=== PATIENT | female | born 1945 | race Caucasian/White ===

== ENCOUNTER 2019-04-04 00:10 | Day surgery (SDC) | payer OTHER, SELFPAY ==
[2019-03-30 13:23] VITALS: BMI 31.2
--- NOTE | 2019-04-02 13:16 | WPDANESEPP ---
Anes - Eval Pre Procedure Procedure: Operation Date: 04/04/19 08:00 Proposed Procedures p Esophagogastroduodenoscopy & Colonoscopy - Bryce Rossi MD Date/Time: 04/02/19 13:16 Surgeon: Moira Rossi Pre Op Diagnosis: Iron Deficiency Anemia Patient Data Age: 73 Gender: F Height: 5 ft 3 in Weight: 80 kg Allergies Allergy/AdvReac Type Severity Reaction Status Date / Time No Known Allergies Allergy Unknown Unverified 04/27/18 15:45 Home Medications Medication Instructions Recorded Confirmed Type insulin syringe-needle U-100 1 mL #10 each 12/28/18 04/01/19 Rx 31 gauge x /16 atorvastatin 10 mg tablet 5 mg PO DAILY tablet 01/18/19 04/01/19 History cetirizine 10 mg tablet 5 mg PO DAILY PRN 01/18/19 04/01/19 History cholecalciferol (vitamin D3) 50 2,000 unit PO DAILY 01/18/19 04/01/19 History mcg (2,000 unit) tablet fluticasone propionate 50 2 spray NASAL DAILY 01/18/19 04/01/19 History mcg/actuation nasal spray,suspension folic acid 1 mg tablet 1 mg PO DAILY 01/18/19 04/01/19 History hydroxychloroquine 200 mg tablet 200 mg PO DAILY 01/18/19 04/01/19 History insulin NPH isoph U-100 human 100 10 unit SUB-Q BID 01/18/19 04/01/19 History unit/mL subcutaneous suspension insulin regular human 100 unit/mL 5 unit SUB-Q TID 01/18/19 04/01/19 History injection solution metformin 1,000 mg tablet 1,000 mg PO BID 01/18/19 04/01/19 History methotrexate sodium 2.5 mg tablet 7.5 mg PO WEEKLY tablet 01/18/19 04/01/19 History metoprolol tartrate 50 mg tablet 100 mg PO BID 01/18/19 04/01/19 History omeprazole 40 mg capsule,delayed 40 mg PO DAILY 01/18/19 04/01/19 History release blood sugar diagnostic #300 each 02/15/19 04/01/19 Rx alendronate 70 mg tablet 70 mg PO WEEKLY #4 tablet 03/10/19 04/01/19 Rx aspirin 81 mg PO DAILY 03/30/19 04/01/19 History docusate sodium [Dulcolax Stool 100 mg PO DAILY 03/30/19 04/01/19 History Softener (dss)] warfarin 5 mg PO DIRECTED 03/30/19 04/01/19 History [id number] 350 cap PO QPM 04/01/19 04/01/19 History Hgb 8.6 ECG: last ecg 09/05/15 Atrial Fib, rate 67, pt anticoagulated Other Studies: 02/03/19 Echo doppler :Summary 1. Left ventricular systolic function is normal, estimated at 55-60%. 2. There is no increased left ventricular wall thickness. 3. The left ventricular diastolic function is indeterminate. 4. E/e' 8.0 is normal. 5. Left atrial chamber dimension is mildly enlarged. 6. Right atrial chamber dimension is mildly enlarged. 7. There is no aortic valve stenosis. 8. There is mild mitral valve regurgitation. 9. Mild mitral annular calcification. 10. There is moderate tricuspid valve regurgitation. 11. Mild pulmonary hypertension PA systolic pressure 41 mmHg. : patient denies Patient hx anesthesia problems: none Family hx anesthesia problems: none [facility] Surgical History Surgical History (Updated 04/02/19 @ 13:16 by Jade Anderson CRNA) History of appendectomy Hx of cholecystectomy Hx of tonsillectomy Social History Social History Years smoked: 49 Smoking status: Former smoker Smoking end date: 02/23/07 Alcohol intake: never Gender identity (if verbalized by the patient): Female Spiritual care concerns: No Exam Day of Procedure 04/02/19 13:16
--- NOTE | 2019-04-04 07:07 | PM.HPGS ---
History of Present Illness History of Present Illness Consent: Risks, benefits, and alternatives have been discussed and questions answered. Patient agrees to proceed with procedure. Chief complaint: Iron Deficiency Anemia Narrative: Milo Ramírez is a 73 year old female with iron deficiency anemia. She has a history of colon polyps. She has been found to be anemic with hemoglobin 8.6. She has received 2 iron infusions so far. [facility] Surgical History Surgical History History of appendectomy Hx of cholecystectomy Hx of tonsillectomy Social History Social History Years smoked: 49 Smoking status: Former smoker Smoking end date: 02/23/07 Alcohol intake: never Gender identity (if verbalized by the patient): Female Spiritual care concerns: No Meds Home Medications and Allergies Home Medications Medication Instructions Recorded Confirmed Type insulin syringe-needle U-100 1 mL #10 each 12/28/18 04/01/19 Rx 31 gauge x 5/16 atorvastatin 10 mg tablet 5 mg PO DAILY tablet 01/18/19 04/01/19 History cetirizine 10 mg tablet 5 mg PO DAILY PRN 01/18/19 04/01/19 History cholecalciferol (vitamin D3) 50 2,000 unit PO DAILY 01/18/19 04/01/19 History mcg (2,000 unit) tablet fluticasone propionate 50 2 spray NASAL DAILY 01/18/19 04/01/19 History mcg/actuation nasal spray,suspension folic acid 1 mg tablet 1 mg PO DAILY 01/18/19 04/01/19 History hydroxychloroquine 200 mg tablet 200 mg PO DAILY 01/18/19 04/01/19 History insulin NPH isoph U-100 human 100 10 unit SUB-Q BID 01/18/19 04/01/19 History unit/mL subcutaneous suspension insulin regular human 100 unit/mL 5 unit SUB-Q TID 01/18/19 04/01/19 History injection solution metformin 1,000 mg tablet 1,000 mg PO BID 01/18/19 04/01/19 History methotrexate sodium 2.5 mg tablet 7.5 mg PO WEEKLY tablet 01/18/19 04/01/19 History metoprolol tartrate 50 mg tablet 100 mg PO BID 01/18/19 04/01/19 History omeprazole 40 mg capsule,delayed 40 mg PO DAILY 01/18/19 04/01/19 History release blood sugar diagnostic #300 each 02/15/19 04/01/19 Rx alendronate 70 mg tablet 70 mg PO WEEKLY #4 tablet 03/10/19 04/01/19 Rx aspirin 81 mg PO DAILY 03/30/19 04/01/19 History docusate sodium [Dulcolax Stool 100 mg PO DAILY 03/30/19 04/01/19 History Softener (dss)] warfarin 5 mg PO DIRECTED 03/30/19 04/01/19 History [id number]-[id number]-[id number]-gnyqvq 350 cap PO QPM 04/01/19 04/01/19 History Allergies Allergy/AdvReac Type Severity Reaction Status Date / Time No Known Allergies Allergy Unknown Unverified 04/04/19 06:57 Exam Const: General: alert Orientation/consciousness: patient oriented x3 Resp: Auscultation: clear to auscultation bilaterally Cardio: Rhythm: regular rhythm GI: GI Palp: Yes Soft to palpation and No Tenderness to palpation present (GI) Neuro: General: patient oriented x3 Assessment and Plan Assessment and plan (1) Iron deficiency anemia: Code(s): D50.9 - Iron deficiency anemia, unspecified Status: Acute Assessment and Plan: Colonoscopy with possible biopsy or polypectomy or cautery or injection of substances.EGD with possible biopsy or dilatation or cautery.
[2019-04-04 07:19] LABS: Glucose Point of Care 116 (65-105)
[2019-04-04 07:21] VITALS: BP 141/63; PULSE 99; RESP 16; TEMP 36.3; O2SAT 100
[2019-04-04] MEDS: LACTATED RINGERS 1,000 ML 150 ML IV CONT (07:23)
--- NOTE | 2019-04-04 07:31 | P.PNAN_ITS ---
Anes - Eval Final PreProcedure Day of Procedure 04/04/19 07:31 Patient weight: obese Heart: regular rate and rhythm Lungs: clear to auscultation Airway: Mallampati scale class II Neurological: alert and oriented Last oral intake: >/= 8 hours ASA classification: III Emergent: no Anesthetic plan: proceed Anesthesia type and monitoring: general GIVS and standard monitoring Informed Consent: The patient's anesthetic plan and its attendant risks and b enefits were discussed with the patient/family/POA. Questions were solicited and answers provided to the satisfaction of the patient/family/POA.
[2019-04-04 08:16] VITALS: BP 113/75; PULSE 95; RESP 19; O2SAT 100
[2019-04-04 08:26] VITALS: BP 129/75; PULSE 97; RESP 24; O2SAT 100
[2019-04-04 08:28] LABS: Glucose Point of Care 109 (65-105)
[2019-04-04 08:36] VITALS: BP 120/65; PULSE 98; RESP 19; O2SAT 98
== END 2019-04-04 08:44 | disposition home or self-care (01) ==
PROVIDERS: PCP Internal Medicine; Visit Provider Internal Medicine Gastroenterology
PROC: 0DJ08ZZ Inspection of Upper Intestinal Tract, Via Natural or Artificial Opening Endoscopic (ICD-10-PCS; CPT 43235; principal; 2019-04-04 08:00)
DX: D50.9 Iron deficiency anemia, unspecified (principal); K57.30 Diverticulosis of large intestine without perforation or abscess without bleeding; K21.9 Gastro-esophageal reflux disease without esophagitis; Z79.4 Long term (current) use of insulin; Z79.84 Long term (current) use of oral hypoglycemic drugs; Z79.01 Long term (current) use of anticoagulants; Z79.82 Long term (current) use of aspirin; Z87.891 Personal history of nicotine dependence; Z86.010 Personal history of colon polyps; E66.9 Obesity, unspecified; Z68.30 Body mass index [BMI] 30.0-30.9, adult
CPT/HCPCS: 45378; 43235; J2704; J7120

== ENCOUNTER 2019-04-25 09:24 | Emergency (ER) | payer OTHER, SELFPAY ==
--- NOTE | ~2019-04-25 | CT_ITS ---
EXAMINATION: CT facial & cervical spine wo DATE: 04/25/2019 10:41 INDICATION: Face and neck injury. Fall. TECHNIQUE: Computed tomography (CT) of the maxillofacial region and cervical spine was performed with out intravenous contrast. Automated exposure control and iterative reconstruction technique were empl oyed. The dose-length product was 451.62 mGy-cm. COMPARISON: None FINDINGS: MAXILLOFACIAL CT: There is frontal scalp soft tissue swelling. There is a nondisplaced fracture of the right nasal bone . There is mild mucosal thickening in the maxillary sinuses. There is a small left mastoid effusion. There are likely changes of ocular lens replacement surgeries. CERVICAL SPINE CT: There is an 8 mm nodule in left thyroid lobe, likely not clinically significant. There is kyphosis of cervical spine. Vertebral body heights are normal. There is moderately decreased disc height at C4-C 5 and mildly decreased disc height at C5-C6 and C6-C7. The following levels are discussed in more det ail: C2-C3: There is no uncovertebral joint osteoarthritis. There is severe right and moderate left facet joint osteoarthritis. There is mild right neural foraminal stenosis. There is no central canal stenos is. C3-C4: There is no uncovertebral joint osteoarthritis. There is severe bilateral facet joint osteoart hritis. There is mild bilateral neural foraminal stenosis. There is no central canal stenosis. C4-C5: There is severe right and moderate left uncovertebral joint osteoarthritis. There is moderate right and severe left facet joint osteoarthritis. There is mild bilateral neural foraminal stenosis. There is mild central canal stenosis. C5-C6: There is mild bilateral uncovertebral joint osteoarthritis. There is moderate bilateral facet joint osteoarthritis. There is mild right neural foraminal stenosis. There is mild central canal sten osis. C6-C7: There is mild left uncovertebral joint osteoarthritis. There is severe right and moderate left facet joint osteoarthritis. There is mild right neural foraminal stenosis. There is mild central can al stenosis. C7-T1: There is no uncovertebral joint osteoarthritis. There is mild right and moderate left facet nita int osteoarthritis. There is no neural foraminal stenosis. There is no central canal stenosis. IMPRESSION: 1. Right nasal bone fracture. 2. Moderate cervical spondylosis. Reviewed, dictated and finalized at location A. NING EQUIPMENT OPERATOR
--- NOTE | ~2019-04-25 | XR_ITS ---
EXAMINATION: XR wrist LT min 3V DATE: 04/25/2019 10:44 INDICATION: Left wrist pain. Fall. TECHNIQUE: 4 views of left wrist were obtained. COMPARISON: Left wrist radiographs 04/27/2018 FINDINGS: Bone alignment is normal. No fracture. There is moderate osteoarthritis of radioscaphoid nita int and mild osteoarthritis of first carpometacarpal joint and first interphalangeal joint. IMPRESSION: 1. Polyarticular osteoarthritis. Reviewed, dictated and finalized at location A. RITY OPERATIONS SPECIALIST
--- NOTE | ~2019-04-25 | CT_ITS ---
EXAMINATION: CT brain wo con DATE: 04/25/2019 10:40 INDICATION: Status post fall. Headache. TECHNIQUE: Computed tomography (CT) of the head was performed without intravenous contrast. The dose- length product was 605.33 mGy-cm.The mA was adjusted according to patient size. Iterative reconstruct ion technique was employed. COMPARISON: None FINDINGS: No acute intracranial hemorrhage, infarction, mass or mass effect. There is a chronic left parietal infarction. There are scattered mild periventricular and subcortical white matter changes, m ost likely related to small vessel ischemic disease (microangiopathy). No ventriculomegaly or midline shift. There is a prominent perivascular space right basal ganglia. There is soft tissue swelling an teriorly at the orbital level. No underlying skull fracture is identified. Paranasal sinuses and righ t mastoid air cells are pneumatized. There is a left mastoid effusion. IMPRESSION: 1. No acute intracranial abnormality. 2: Chronic left parietal infarction. 3: Chronic age-related findings. 4: Frontal scalp hematoma without evidence for underlying skull fracture. Reviewed, dictated and finalized at location B. WASHER TENDER
[2019-04-25 09:28] VITALS: BP 146/66; PULSE 87; RESP 16; TEMP 36.8; O2SAT 100
--- NOTE | 2019-04-25 09:33 | ECG_ITS ---
Measurements Intervals [place] Rate: 87 P: MA: 0 QRS: -35 QRSD: 129 T: 5 QT: 383 QTc: 462 Interpretive Statements ATRIAL FIBRILLATION LEFT AXIS DEVIATION RIGHT BUNDLE BRANCH BLOCK ABNORMAL ECG Electronically Signed On 04-25-2019 16:19:41 ORAL THERAPIST by Aly Alberto D.O.
[2019-04-25 09:38] VITALS: PULSE 85
[2019-04-25 09:50] LABS: Basophils Absolute Auto 0.1 K/mm3 (0.0-0.1); Basophils Percent Auto 0.7 % (0.2-1.2); Eosinophils Absolute Auto 0.1 K/mm3 (0-0.3); Eosinophils Percent Auto 0.8 % (0-4.4); Hematocrit 39.4 % (37.0-47.0); Hemoglobin 11.6 g/dL (12.0-15.0); Immature Granulocyte Absolute 0.03 K/mm3 (0.00-0.031); Immature Granulocyte Percent A 0.3 % (0-0.5); Lymphocytes Absolute Auto 1.26 K/mm3 (0.9-3.2); Lymphocytes Percent Auto 12.8 % (18.3-44.2); Mean Corpuscular HGB Conc 29.4 g/dl (32-36); Mean Corpuscular Volume 88.1 fl (80-100); Mean Platelet Volume 8.8 fl (7.4-10.4); Monocytes Absolute Auto 0.5 K/mm3 (0.1-0.6); Monocytes Percent Auto 5.2 % (2.6-8.5); Neutrophils Absolute Auto 7.9 K/mm3 (1.3-6.7); Neutrophils Percent Auto 80.2 % (45.5-73.1); Platelet Count Result 247 k/mm3 (150-375); Red Blood Count 4.47 M/mm3 (4.2-5.4); White Blood Count 9.8 K/mm3 (4.5-10.0)
[2019-04-25 10:02] LABS: Blood Urea Nitrogen 13 mg/dL (7-17); Calcium 8.5 mg/dL (8.4-10.2); Carbon Dioxide 28 mmol/L (22-30); Chloride 101 mmol/L (98-107); Estimated CRCL calculation 61 ml/min; Estimated Glomerular Filt Rate > 60; Glucose 81 mg/dL (65-105); Potassium 4.8 mmol/L (3.4-5.0); Sodium 139 mmol/L (137-145)
--- NOTE | 2019-04-25 10:06 | ED.SYNCOPE ---
HPI - Syncope General Chief Complaint: Syncope Stated Complaint: Think I broke my nose. Time Seen by Provider: 04/25/19 10:02 Source: patient and RN notes reviewed Mode of arrival: ambulatory Limitations: no limitations History of Present Illness HPI narrative: A 73 y/o female presents to the ED Related Data Home Medications Medication Instructions Recorded Confirmed atorvastatin 10 mg tablet 5 mg PO DAILY tablet 01/18/19 04/01/19 cetirizine 10 mg tablet 5 mg PO DAILY PRN 01/18/19 04/01/19 cholecalciferol (vitamin D3) 50 2,000 unit PO DAILY 01/18/19 04/01/19 mcg (2,000 unit) tablet folic acid 1 mg tablet 1 mg PO DAILY 01/18/19 04/01/19 hydroxychloroquine 200 mg tablet 200 mg PO DAILY 01/18/19 04/01/19 insulin NPH isoph U-100 human 100 10 unit SUB-Q BID 01/18/19 04/01/19 unit/mL subcutaneous suspension insulin regular human 100 unit/mL 5 unit SUB-Q TID 01/18/19 04/01/19 injection solution methotrexate sodium 2.5 mg tablet 7.5 mg PO WEEKLY tablet 01/18/19 04/01/19 metoprolol tartrate 50 mg tablet 100 mg PO BID 01/18/19 04/01/19 aspirin 81 mg PO DAILY 03/30/19 04/01/19 docusate sodium [Dulcolax Stool 100 mg PO DAILY 03/30/19 04/01/19 Softener (dss)] warfarin 5 mg PO DIRECTED 03/30/19 04/01/19 [id number]-[id number]-[id number]-[id number] 350 cap PO QPM 04/01/19 04/01/19 Allergies Allergy/AdvReac Type Severity Reaction Status Date / Time No Known Allergies Allergy Unknown Unverified 04/04/19 06:57 [facility] Social History Social History Years smoked: 49 Smoking status: Former smoker Smoking end date: 02/23/07 Alcohol intake: never Gender identity (if verbalized by the patient): Female Spiritual care concerns: No Course Vital Signs Vital signs: Vital Signs Temperature 98.3 F 04/25/19 09:28 Pulse Rate 87 03/02/20 09:28 Respiratory Rate 16 04/25/19 09:28 Blood Pressure 146/66 H 04/25/19 09:28 Pulse Oximetry 100 04/25/19 09:28 Temperature 98.3 F 04/25/19 09:28 Pulse Rate 85 04/25/19 09:38 Respiratory Rate 16 04/25/19 09:28 Blood Pressure 146/66 H 04/25/19 09:28 Pulse Oximetry 100 04/25/19 09:28 MDM - Syncope Lab Data Result diagrams: 04/25/19 09:45 04/25/19 09:45 Labs: Lab Results 04/25/19 04/25/19 Range/Units 09:45 09:45 WBC Pending RBC Pending Hgb Pending Hct Pending MCV Pending MCH Pending MCHC Pending RDW Pending Plt Count Pending MPV Pending Immature Gran % (Auto) Pending Neut % (Auto) Pending Lymph % (Auto) Pending [place] % (Auto) Pending Eos % (Auto) Pending Baso % (Auto) Pending Lymph # (Auto) Pending [place] # (Auto) Pending Eos # (Auto) Pending Baso # (Auto) Pending Abs Immat Gran (auto) Pending Absolute Neuts (auto) Pending Absolute Nucleated RBC Pending Nucleated RBC % Pending Sodium 139 (137-145) mmol/L Potassium 4.8 (3.4-5.0) mmol/L Chloride 101 (98-107) mmol/L Carbon Dioxide 28 (22-30) mmol/L BUN 13 D (7-17) mg/dL Creatinine 0.70 (0.7-1.0) mg/dL Estim Creat Clear Calc 61 ml/min Estimated GFR > 60 (59 - ) Glucose 81 (65-105) mg/dL Calcium 8.5 (8.4-10.2) mg/dL Discharge Plan Discharge Prescriptions: No Action [id number]-[id number]-[id number]-[id number] 425-67-37-50 mg Capsule 350 cap PO QPM RF: 0 Novolin N NPH U-100 Insulin 100 unit/mL suspension 10 unit SUB-Q BID RF: 0 Novolin R Regular U-100 Insuln 100 unit/mL solution 5 unit SUB-Q TID RF: 0 atorvastatin 10 mg tablet 5 mg PO DAILY RF: 0 folic acid 1 mg tablet 1 mg PO DAILY RF: 0 hydroxychloroquine 200 mg tablet 200 mg PO DAILY RF: 0 methotrexate sodium 2.5 mg tablet 7.5 mg PO WEEKLY RF: 0 metoprolol tartrate 50 mg tablet 100 mg PO BID RF: 0 cetirizine [Zyrtec] 10 mg tablet 5 mg PO DAILY PRN (Reason: Allergic Symptoms) RF:
[2019-04-25 10:10] LABS: Platelet Estimate Adequate (Adequate)
[2019-04-25 10:11] LABS: Hypochromasia 1+ (NORMAL); Ovalocytes 1+ (NORMAL); Poikilocytosis 2+ (NORMAL); Stomatocytes 1+ (NORMAL)
--- NOTE | 2019-04-25 10:16 | ED.FALL ---
HPI - Fall General Chief Complaint: Syncope Stated Complaint: Think I broke my nose. Time Seen by Provider: 04/25/19 10:02 History of Present Illness HPI Narrative: A 73 y/o female presents to the ED after having a ground level fall last night. She states that she got up to use the restroom last night when she became lightheaded and fell face first onto the ground. She reports nasal pain, lt wrist pain, and neck pain. She notes that she is currently on Warfarin. She denies any LOC, back pain, visual changes, CP, SOB, N/V/D, or ABD pain. MD complaint: fall Onset (ago): hour(s) (last night) Fall from: standing Fall witnessed: no Place fall occurred: home Loss of consciousness: none Symptoms prior to fall: lightheadedness Location of injury: face (nose), neck and other (lt wrist) Associated symptoms (after fall): denies Related Data Home Medications Medication Instructions Recorded Confirmed atorvastatin 10 mg tablet 5 mg PO DAILY tablet 01/18/19 04/01/19 cetirizine 10 mg tablet 5 mg PO DAILY PRN 01/18/19 04/01/19 cholecalciferol (vitamin D3) 50 2,000 unit PO DAILY 01/18/19 04/01/19 mcg (2,000 unit) tablet folic acid 1 mg tablet 1 mg PO DAILY 01/18/19 04/01/19 hydroxychloroquine 200 mg tablet 200 mg PO DAILY 01/18/19 04/01/19 insulin NPH isoph U-100 human 100 10 unit SUB-Q BID 01/18/19 04/01/19 unit/mL subcutaneous suspension insulin regular human 100 unit/mL 5 unit SUB-Q TID 01/18/19 04/01/19 injection solution methotrexate sodium 2.5 mg tablet 7.5 mg PO WEEKLY tablet 01/18/19 04/01/19 metoprolol tartrate 50 mg tablet 100 mg PO BID 01/18/19 04/01/19 aspirin 81 mg PO DAILY 03/30/19 04/01/19 docusate sodium [Dulcolax Stool 100 mg PO DAILY 03/30/19 04/01/19 Softener (dss)] warfarin 5 mg PO DIRECTED 03/30/19 04/01/19 [id number]-wqoxuo 350 cap PO QPM 04/01/19 04/01/19 Allergies Allergy/AdvReac Type Severity Reaction Status Date / Time No Known Allergies Allergy Unknown Unverified 04/04/19 06:57 Review of Systems Review of Systems: All systems reviewed & are unremarkable except as noted in HPI and below Eyes: Eyes: Denies change in vision ENT: Reports nose pain Cardiovascular: Cardiovascular: Denies chest pain Respiratory: Respiratory: Denies dyspnea Gastrointestinal: Gastrointestinal: Denies abdominal pain, Denies diarrhea, Denies nausea and Denies vomiting Musculoskeletal: Musculoskeletal: Denies back pain, Reports neck pain and Reports other (lt wrist pain) Neurologic: Denies other (LOC) [facility] Past Medical History Medical History Atrial fibrillation Carpal tunnel syndrome of left wrist VEGAS (dyspnea on exertion) Essential (primary) hypertension GERD without esophagitis H/O: HTN (hypertension) History of tobacco use Hx of rotator cuff tear Hypercholesteremia Iron deficiency anemia Mixed hyperlipidemia Peripheral neuropathy Primary osteoarthritis involving multiple joints Rheumatoid arthritis Right cervical radiculopathy Screening for breast cancer Shingles Type 2 diabetes mellitus with diabetic polyneuropathy, with long-term current use of insulin Vitamin D deficiency Surgical History Surgical History History of appendectomy Hx of cholecystectomy Hx of rotator cuff surgery Hx of tonsillectomy Social History Social History Years smoked: 49 Smoking status: Former smoker Smoking end date: 02/23/07 Alcohol intake: never Gender identity (if verbalized by the patient): Female Spiritual care concerns: No Exam Const: General: healthy appearing and no acute distress Nutritional Appearance: well nourished HENMT: Face and sinus: ecchymosis (diffuse over the nose and maxilla XIAO), edema (diffuse over the nose and maxilla XIAO) and other (nasal bones seem to be mobile) Mouth: Yes lip normal and Yes moist mucous membranes Eyes: Conjun
[2019-04-25 11:16] VITALS: BP 151/83; PULSE 86; RESP 19; O2SAT 97
[2019-04-25 11:17] LABS: INR 2.5; Prothrombin Time 26.5 Seconds (11.1-14.7)
[2019-04-25 12:07] VITALS: BP 139/70; PULSE 83; RESP 18; O2SAT 100
== END 2019-04-25 12:10 | disposition home or self-care (01) ==
PROVIDERS: Emergency Medicine; Emergency Provider Emergency Medicine; PCP Internal Medicine
DX: S02.2XXA Fracture of nasal bones, initial encounter for closed fracture (principal); S01.20XA Unspecified open wound of nose, initial encounter; I48.91 Unspecified atrial fibrillation; Z79.01 Long term (current) use of anticoagulants; I10 Essential (primary) hypertension; E78.2 Mixed hyperlipidemia; E11.42 Type 2 diabetes mellitus with diabetic polyneuropathy; Z79.4 Long term (current) use of insulin; Z79.82 Long term (current) use of aspirin; E55.9 Vitamin D deficiency, unspecified; Z87.891 Personal history of nicotine dependence; M47.812 Spondylosis without myelopathy or radiculopathy, cervical region; M19.032 Primary osteoarthritis, left wrist; I45.10 Unspecified right bundle-branch block; W18.39XA Other fall on same level, initial encounter
CPT/HCPCS: 12011; 36415; 70450; 70486; 72125; 73110; 80048; 85025; 85610; 85730; 93005; 99284

== ENCOUNTER 2019-05-05 08:02 | Outpatient (CLI) | payer OTHER, SELFPAY ==
[2019-05-05 08:26] LABS: Basophils Absolute Auto 0.1 K/mm3 (0.0-0.1); Basophils Percent Auto 1.1 % (0.2-1.2); Eosinophils Absolute Auto 0.2 K/mm3 (0-0.3); Eosinophils Percent Auto 3.2 % (0-4.4); Immature Granulocyte Absolute 0.02 K/mm3 (0.00-0.031); Immature Granulocyte Percent A 0.3 % (0-0.5); Lymphocytes Absolute Auto 1.22 K/mm3 (0.9-3.2); Lymphocytes Percent Auto 19.5 % (18.3-44.2); Mean Corpuscular Volume 90.1 fl (80-100); Monocytes Absolute Auto 0.4 K/mm3 (0.1-0.6); Monocytes Percent Auto 6.9 % (2.6-8.5); Neutrophils Absolute Auto 4.3 K/mm3 (1.3-6.7); Platelet Count Result 242 k/mm3 (150-375); Red Blood Count 4.44 M/mm3 (4.2-5.4); Red Cell Distribution Width 24.2 % (11.5-14.5); White Blood Count 6.3 K/mm3 (4.5-10.0)
[2019-05-05 09:01] LABS: Iron 53 ug/dL (37-170)
[2019-05-05 09:03] LABS: Blood Urea Nitrogen 15 mg/dL (7-17); Carbon Dioxide 31 mmol/L (22-30); Chloride 100 mmol/L (98-107); Estimated Glomerular Filt Rate > 60; Glucose 167 mg/dL (65-105); Potassium 4.3 mmol/L (3.4-5.0); Sodium 138 mmol/L (137-145)
[2019-05-05 09:10] LABS: Percent Iron Saturation 15 % (20-50)
== END 2019-05-05 08:03 | disposition home or self-care (01) ==
LOC: ANHLAB 08:06
PROVIDERS: PCP Internal Medicine; Visit Provider Internal Medicine Hematology & Oncology
DX: D50.9 Iron deficiency anemia, unspecified (principal)
CPT/HCPCS: 36415; 80048; 82607; 82728; 83540; 83550; 85025

== ENCOUNTER 2019-08-26 08:16 | Emergency (ER) | payer OTHER, SELFPAY ==
[2019-08-26 08:22] VITALS: BP 108/72; PULSE 104; RESP 20; TEMP 36.4; O2SAT 99
--- NOTE | 2019-08-26 08:29 | ED.RECABL ---
HPI - Recheck/Abnormal Lab/Rx General Chief Complaint: Recheck/Abnormal Lab/Rx Stated Complaint: abnormal INR sent from [facility]'s office Time Seen by Provider: 08/26/19 08:25 History of Present Illness HPI narrative: 74 yo female w/ h/o a-fib on coumadin presents from home c/o supratherapeutic INR. She had labs drawn yesterday morning showing an INR of 11.5. She has not taken her coumadin for the past 2 days. She denies any bleeding. She does have mild SOB, but feels that it is heat related. No changes in diet or coumadin dosing for the past few months. She reports increased stress due to her sick . Related Data Home Medications Medication Instructions Recorded Confirmed atorvastatin 10 mg tablet 5 mg PO DAILY tablet 01/18/19 06/02/19 cetirizine 10 mg tablet 5 mg PO DAILY PRN 01/18/19 06/02/19 folic acid 1 mg tablet 1 mg PO DAILY 01/18/19 06/02/19 hydroxychloroquine 200 mg tablet 200 mg PO DAILY 01/18/19 06/02/19 methotrexate sodium 2.5 mg tablet 2.5 mg PO WEEKLY tablet 01/18/19 06/02/19 metoprolol tartrate 50 mg tablet 100 mg PO BID 01/18/19 06/02/19 docusate sodium [Dulcolax Stool 100 mg PO DAILY 03/30/19 06/02/19 Softener (dss)] warfarin 5 mg PO DIRECTED 03/30/19 06/02/19 [id number] 350 cap PO QPM 04/01/19 06/02/19 aspirin 81 mg chewable tablet 81 mg PO DAILY 06/02/19 cholecalciferol (vitamin D3) 50 50 mcg PO DAILY 06/02/19 mcg (2,000 unit) capsule cyanocobalamin (vitamin B-12) 1,000 mcg PO DAILY 06/02/19 06/02/19 1,000 mcg capsule krill oil 500 mg capsule mg PO 06/02/19 insulin regular human 100 unit/mL 12 unit SUB-Q TID 06/30/19 06/30/19 injection solution insulin NPH isoph U-100 human 25 unit SUBCUT BID 08/26/19 08/26/19 [Novolin N NPH U-100 Insulin] Allergies Allergy/AdvReac Type Severity Reaction Status Date / Time iron AdvReac Unknown Unknown Verified 08/26/19 08:25 Review of Systems Review of Systems: All systems reviewed & are unremarkable except as noted in HPI and below Constitutional: Constitutional: Denies chills and Denies fever(s) Cardiovascular: Cardiovascular: Denies chest pain Respiratory: Respiratory: Reports dyspnea Gastrointestinal: Gastrointestinal: Denies abdominal pain, Denies diarrhea, Denies nausea and Denies vomiting Genitourinary: Genitourinary: Denies hematuria Musculoskeletal: Musculoskeletal: Denies back pain Neurologic: Denies dizziness, Denies numbness and Denies weakness PMFSH Past Medical History Medical History Arthritis Atrial fibrillation BMI 29.0-29.9,adult Carpal tunnel syndrome of left wrist Cataracts, bilateral VEGAS (dyspnea on exertion) Essential (primary) hypertension GERD without esophagitis H/O: HTN (hypertension) H/O: HTN (hypertension) History of tobacco use Hx of rotator cuff tear Hypercholesteremia Iron deficiency anemia Mixed hyperlipidemia Obesity Peripheral neuropathy Primary osteoarthritis involving multiple joints Rheumatoid arthritis Right cervical radiculopathy Screening for breast cancer Shingles SOB (shortness of breath) Type 2 diabetes mellitus with diabetic polyneuropathy, with long-term current use of insulin Vitamin D deficiency Surgical History Surgical History History of appendectomy Hx of cholecystectomy Hx of rotator cuff surgery Hx of tonsillectomy Social History Social History Years smoked: 49 Smoking status: Former smoker Smoking end date: 02/23/07 Alcohol intake: never Additional living arrangements comments: lives with her . 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
[2019-08-26 08:49] LABS: Basophils Absolute Auto 0.1 K/mm3 (0.0-0.1); Basophils Percent Auto 0.7 % (0.2-1.2); Eosinophils Absolute Auto 0.1 K/mm3 (0-0.3); Eosinophils Percent Auto 0.7 % (0-4.4); Immature Granulocyte Absolute 0.05 K/mm3 (0.00-0.031); Immature Granulocyte Percent A 0.6 % (0-0.5); Lymphocytes Absolute Auto 1.25 K/mm3 (0.9-3.2); Lymphocytes Percent Auto 15.4 % (18.3-44.2); Mean Corpuscular HGB Conc 33.3 g/dl (32-36); Mean Corpuscular Hemoglobin 29.9 pg (26-34); Mean Corpuscular Volume 89.7 fl (80-100); Monocytes Absolute Auto 0.6 K/mm3 (0.1-0.6); Monocytes Percent Auto 7.3 % (2.6-8.5); Neutrophils Absolute Auto 6.1 K/mm3 (1.3-6.7); Neutrophils Percent Auto 75.3 % (45.5-73.1); Platelet Count Result 276 k/mm3 (150-375); Red Blood Count 4.68 M/mm3 (4.2-5.4); Red Cell Distribution Width 14.7 % (11.5-14.5); White Blood Count 8.1 K/mm3 (4.5-10.0)
[2019-08-26 08:53] LABS: Prothrombin Time 51.3 Seconds (11.1-14.7)
[2019-08-26 08:54] LABS: Alanine Aminotransferase 16 U/L (4-35); Albumin Level 4.4 g/dL (3.5-5.1); Alkaline Phosphatase 59 U/L (38-126); Aspartate Amino Transferase 24 U/L (14-36); Bilirubin,Total 1.2 mg/dL (0.2-1.3); Blood Urea Nitrogen 16 mg/dL (7-17); Calcium 8.8 mg/dL (8.4-10.2); Carbon Dioxide 23 mmol/L (22-30); Chloride 102 mmol/L (98-107); Estimated CRCL calculation 51 ml/min; Estimated Glomerular Filt Rate > 60; Glucose 279 mg/dL (65-105); Partial Thromboplastin Time 43.4 SECONDS (22.3-36.8); Potassium 3.9 mmol/L (3.4-5.0); Sodium 137 mmol/L (137-145)
[2019-08-26 08:55] LABS: INR 5.8
[2019-08-26] MEDS: PHYTONADIONE 2.5 MG TAB PO (09:20)
== END 2019-08-26 09:48 | disposition home or self-care (01) ==
PROVIDERS: Emergency Provider Emergency Medicine; PCP Internal Medicine
DX: R79.1 Abnormal coagulation profile (principal); I48.91 Unspecified atrial fibrillation; I10 Essential (primary) hypertension; K21.9 Gastro-esophageal reflux disease without esophagitis; E78.00 Pure hypercholesterolemia, unspecified; D50.9 Iron deficiency anemia, unspecified; E78.2 Mixed hyperlipidemia; M06.9 Rheumatoid arthritis, unspecified; M19.90 Unspecified osteoarthritis, unspecified site; E11.42 Type 2 diabetes mellitus with diabetic polyneuropathy; E66.9 Obesity, unspecified; Z68.28 Body mass index [BMI] 28.0-28.9, adult; H26.9 Unspecified cataract; Z79.01 Long term (current) use of anticoagulants; Z79.4 Long term (current) use of insulin; Z87.891 Personal history of nicotine dependence
CPT/HCPCS: 36415; 80053; 85025; 85610; 85730; 86850; 86900; 86901; 99283; A9270

== ENCOUNTER 2019-08-28 07:53 | Emergency (ER) | payer OTHER, SELFPAY ==
[2019-08-28 08:03] VITALS: BP 138/78; PULSE 100; PULSE 97; RESP 17; TEMP 36.6; O2SAT 99
--- NOTE | 2019-08-28 08:16 | ED.ABDPAIN ---
HPI - Abdominal Pain General Chief Complaint: Unspecified Stated Complaint: multiple complaints Time Seen by Provider: 08/28/19 08:02 History of Present Illness HPI narrative: Not feeling well for the past several days. Feeling weak, dizzy on standing. Noted low BP this morning. She has not had a good appetite recently. She believes that this is mostly stress related because her has bee in the hospital and will likely be coming home in the next few days. Related Data Home Medications Medication Instructions Recorded Confirmed atorvastatin 10 mg tablet 5 mg PO DAILY tablet 01/18/19 06/02/19 cetirizine 10 mg tablet 5 mg PO DAILY PRN 01/18/19 06/02/19 folic acid 1 mg tablet 1 mg PO DAILY 01/18/19 06/02/19 hydroxychloroquine 200 mg tablet 200 mg PO DAILY 01/18/19 06/02/19 methotrexate sodium 2.5 mg tablet 2.5 mg PO WEEKLY tablet 01/18/19 06/02/19 metoprolol tartrate 50 mg tablet 100 mg PO BID 01/18/19 06/02/19 docusate sodium [Dulcolax Stool 100 mg PO DAILY 03/30/19 06/02/19 Softener (dss)] warfarin 5 mg PO DIRECTED 03/30/19 06/02/19 [id number]-[id number] 350 cap PO QPM 04/01/19 06/02/19 aspirin 81 mg chewable tablet 81 mg PO DAILY 06/02/19 cholecalciferol (vitamin D3) 50 50 mcg PO DAILY 06/02/19 mcg (2,000 unit) capsule cyanocobalamin (vitamin B-12) 1,000 mcg PO DAILY 06/02/19 06/02/19 1,000 mcg capsule krill oil 500 mg capsule mg PO 06/02/19 insulin regular human 100 unit/mL 12 unit SUB-Q TID 06/30/19 06/30/19 injection solution insulin NPH isoph U-100 human 25 unit SUBCUT BID 08/26/19 08/26/19 [Novolin N NPH U-100 Insulin] Allergies Allergy/AdvReac Type Severity Reaction Status Date / Time iron AdvReac Unknown Unknown Verified 08/28/19 08:08 Review of Systems Review of Systems: All systems reviewed & are unremarkable except as noted in HPI and below Constitutional: Constitutional: Denies chills, Reports fatigue, Denies fever(s) and Reports weakness ENT: Denies sore throat Cardiovascular: Cardiovascular: Denies chest pain Respiratory: Respiratory: Denies dyspnea Gastrointestinal: Gastrointestinal: Reports abdominal pain, Reports nausea and Denies vomiting Genitourinary: Genitourinary: Denies hematuria and Denies dysuria Musculoskeletal: Musculoskeletal: Reports back pain Neurologic: Reports dizziness [facility] Social History Social History Years smoked: 49 Smoking status: Former smoker Smoking end date: 02/23/07 Alcohol intake: never Additional living arrangements comments: lives with her . 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 Gender identity (if verbalized by the patient): Female Spiritual care concerns: No Exam Const: General: healthy appearing, no acute distress and alert Orientation/consciousness: patient oriented x3 HENMT: Mouth: Yes dry mucous membranes Other: minimal dark areas under eyes bilaterally Neck: Neck: normal visual inspection and no lymphadenopathy Chest: Chest palpation & inspection: no tenderness Resp: Effort & Inspection: normal respiratory effort Auscultation: clear to auscultation bilaterally, no rales, no rhonchi and no wheezes Cardio: Jugular venous distension: no JVD Rate: regular rate Rhythm: regular rhythm Heart sounds: no murmurs GI: Inspection: non-distended GI Palp: Yes Soft to palpation and No Tenderness to palpation present (GI) Skin: General skin exam: normal color Neuro: General: patient oriented x3 and moves all extremities Speech: normal speech Extrem: General: no edema Psych: Appearance: well kempt Affect: normal affect Course Vital Signs Vital signs: Vital Signs Temperature 36.6 C 08/28/19 08:03 Pulse Rate 100 08/28/19 08:03 Respiratory Rate 17 08/28/19 08:03 Blood Pressure 138/78 08/28/19 08:03 Pulse Oximetry 99 08/28/19 08:03
[2019-08-28 08:47] LABS: Basophils Absolute Auto 0.1 K/mm3 (0.0-0.1); Basophils Percent Auto 0.9 % (0.2-1.2); Eosinophils Absolute Auto 0.1 K/mm3 (0-0.3); Eosinophils Percent Auto 1.4 % (0-4.4); Hematocrit 40.8 % (37.0-47.0); Hemoglobin 13.2 g/dL (12.0-15.0); Immature Granulocyte Absolute 0.02 K/mm3 (0.00-0.031); Immature Granulocyte Percent A 0.3 % (0-0.5); Lymphocytes Absolute Auto 1.56 K/mm3 (0.9-3.2); Lymphocytes Percent Auto 23.8 % (18.3-44.2); Mean Corpuscular HGB Conc 32.4 g/dl (32-36); Mean Corpuscular Hemoglobin 30.1 pg (26-34); Mean Corpuscular Volume 93.2 fl (80-100); Mean Platelet Volume 9.2 fl (7.4-10.4); Monocytes Absolute Auto 0.4 K/mm3 (0.1-0.6); Monocytes Percent Auto 6.6 % (2.6-8.5); Neutrophils Absolute Auto 4.4 K/mm3 (1.3-6.7); Platelet Count Result 273 k/mm3 (150-375); Red Blood Count 4.38 M/mm3 (4.2-5.4); Red Cell Distribution Width 14.8 % (11.5-14.5); White Blood Count 6.6 K/mm3 (4.5-10.0)
[2019-08-28] MEDS: SODIUM CHLORIDE 0.9% IV 1,000 ML 999 ML IV CONT (08:50)
[2019-08-28] MEDS: ONDANSETRON INJ 4 MG/2 ML VIAL IV PUSH (08:51)
[2019-08-28 08:54] VITALS: BP 107/56; PULSE 100
[2019-08-28 08:55] VITALS: BP 106/60; BP 114/67; PULSE 102; PULSE 106
--- NOTE | 2019-08-28 08:55 | PC.NURSE ---
Pt unable to give urine sample at this time.
[2019-08-28 09:06] LABS: Alanine Aminotransferase 12 U/L (4-35); Alkaline Phosphatase 46 U/L (38-126); Aspartate Amino Transferase 22 U/L (14-36); Bilirubin,Total 1.2 mg/dL (0.2-1.3); Blood Urea Nitrogen 20 mg/dL (7-17); Carbon Dioxide 25 mmol/L (22-30); Chloride 104 mmol/L (98-107); Estimated CRCL calculation 42 ml/min; Estimated Glomerular Filt Rate 54; Glucose 154 mg/dL (65-105); Lipase 92 U/L (23-300); Potassium 3.9 mmol/L (3.4-5.0); Sodium 138 mmol/L (137-145)
[2019-08-28 09:19] LABS: INR 1.1; Partial Thromboplastin Time 23.8 SECONDS (22.3-36.8); Prothrombin Time 14.3 Seconds (11.1-14.7)
[2019-08-28 10:59] VITALS: BP 126/86; PULSE 75; RESP 15; O2SAT 100
[2019-08-28 11:19] LABS: Add Urine Microscopic? YES; Appearance Urine Clear (Clear); Bacteria Urine 4+ /hpf; Bilirubin Urine Negative (Negative); Blood Urine Negative (Negative); Color Urine Yellow (Yellow); Glucose Urine UA Negative (Negative); Hyaline Casts Urine 30-49 /lpf; Ketones Urine Negative (Negative); Leukocyte Esterase Ur 2+ LEU/UL (Negative); Mucus Urine Heavy /lpf; Nitrate Urine Positive (Negative); Protein Urine Negative (Negative); RBC Urine 0-2 /hpf (0-2); Specific Grav Ur 1.024 (1.001-1.035); Squamous Epithelial Cell Urine Moderate /hpf (Few); Urobilinogen Urine Negative mg/dL (<2.0); WBC Urine 16-20 /hpf
[2019-08-28] MEDS: NITROFURANTOIN MONOHYD MACROCR 100 MG CAP PO (12:33)
== END 2019-08-28 12:35 | disposition home or self-care (01) ==
PROVIDERS: Emergency Provider Emergency Medicine; PCP Internal Medicine
DX: N30.00 Acute cystitis without hematuria (principal); Z79.01 Long term (current) use of anticoagulants
CPT/HCPCS: 36415; 80053; 81001; 83690; 85025; 85610; 85730; 87077; 87086; 87088; 87186; 96361; 96374; 99284; A9270; J2405; J7030

== ENCOUNTER 2019-11-07 14:19 | Outpatient (CLI) | payer OTHER, SELFPAY ==
--- NOTE | ~2019-11-07 | MM_ITS ---
EXAMINATION: MM screening denzel BI w karin HISTORY: Screening mammogram TECHNIQUE: Craniocaudal and mediolateral oblique 3-D tomosynthesis images were obtained and synthetic 2-D images were generated. CAD analysis was submitted and interpreted. COMPARISON: 08/02/2018 bilateral digital screening mammogram through 05/11/2015 mammogram examinations 04/30/ BREAST PARENCHYMAL COMPOSITION: FINDINGS: There is no evidence of suspicious mass, calcification, or architectural distortion to sugg est malignancy in either breast. There has been no suspicious interval change. IMPRESSION: 1. No mammographic evidence of malignancy. 2. Recommend routine screening mammography in one year. BI-RADS Category 1: Negative Reviewed, dictated and finalized at location A.
== END 2019-11-07 14:20 | disposition home or self-care (01) ==
PROVIDERS: PCP Internal Medicine; Visit Provider Internal Medicine
DX: Z12.31 Encounter for screening mammogram for malignant neoplasm of breast (principal)
CPT/HCPCS: 77063; 77067

== ENCOUNTER 2019-12-08 09:12 | Outpatient (CLI) | payer OTHER, SELFPAY ==
[2019-12-08 09:51] LABS: Basophils Absolute Auto 0.1 K/mm3 (0.0-0.1); Basophils Percent Auto 0.7 % (0.2-1.2); Eosinophils Absolute Auto 0.2 K/mm3 (0-0.3); Eosinophils Percent Auto 2.8 % (0-4.4); Hemoglobin 12.6 g/dL (12.0-15.0); Immature Granulocyte Absolute 0.02 K/mm3 (0.00-0.031); Immature Granulocyte Percent A 0.3 % (0-0.5); Lymphocytes Percent Auto 26.6 % (18.3-44.2); Mean Corpuscular HGB Conc 32.3 g/dl (32-36); Mean Corpuscular Hemoglobin 29.5 pg (26-34); Mean Corpuscular Volume 91.3 fl (80-100); Mean Platelet Volume 9.6 fl (7.4-10.4); Monocytes Absolute Auto 0.5 K/mm3 (0.1-0.6); Monocytes Percent Auto 7.1 % (2.6-8.5); Neutrophils Absolute Auto 4.2 K/mm3 (1.3-6.7); Neutrophils Percent Auto 62.5 % (45.5-73.1); Platelet Count Result 276 k/mm3 (150-375); Red Blood Count 4.27 M/mm3 (4.2-5.4); Red Cell Distribution Width 13.9 % (11.5-14.5); White Blood Count 6.8 K/mm3 (4.5-10.0)
[2019-12-08 12:12] LABS: Iron 53 ug/dL (37-170)
[2019-12-08 12:21] LABS: Percent Iron Saturation 12 % (20-50)
[2019-12-08 12:25] LABS: Parathyroid Intact 51.3 pg/mL (7.5-53.5)
[2019-12-08 13:03] LABS: Microalbumin Urine Random 31.8 mg/L (0-16.7)
[2019-12-08 13:08] LABS: Vitamin B12 > 1000.0 pg/mL (239-931)
[2019-12-08 13:09] LABS: Creatinine Urine 225.8 mg/dL; MALB Creatinine Ratio 14.1 mg/g (0-30)
[2019-12-08 13:24] LABS: Folic Acid 15.8 ng/mL (2.76->20)
== END 2019-12-08 09:13 | disposition home or self-care (01) ==
PROVIDERS: Internal Medicine Endocrinology, Diabetes & Metabolism; PCP Internal Medicine; Visit Provider Internal Medicine Hematology & Oncology
DX: M81.0 Age-related osteoporosis without current pathological fracture (principal); E11.42 Type 2 diabetes mellitus with diabetic polyneuropathy; Z79.4 Long term (current) use of insulin
CPT/HCPCS: 36415; 82043; 82607; 82728; 82746; 83540; 83550; 83970; 85025

== ENCOUNTER 2019-12-30 14:57 | Outpatient (CLI) | payer OTHER, SELFPAY ==
--- NOTE | ~2019-12-30 | XR_ITS ---
EXAMINATION: XR foot RT standing 2V DATE: 12/30/2019 15:35 INDICATION: Rheumatoid arthritis with rheumatoid factor of multiple sites. TECHNIQUE: 2 views of right foot standing were obtained. COMPARISON: None. FINDINGS: Bone alignment is normal. No fracture. There is mild osteoarthritis of fifth proximal inter phalangeal joint and some of the midfoot joints characterized by tiny marginal osteophytes. There are enthesophytes at the posterior and plantar aspects of calcaneal tuberosity. IMPRESSION: 1. Mild polyarticular osteoarthritis. Reviewed, dictated and finalized at location A. TORIAL TECH
--- NOTE | ~2019-12-30 | XR_ITS ---
EXAMINATION: XR foot LT standing 2V DATE: 12/30/2019 15:35 INDICATION: Rheumatoid arthritis with rheumatoid factor at multiple sites. TECHNIQUE: 2 views of left foot standing were obtained. COMPARISON: None. FINDINGS: Bone alignment is normal. No fracture. There is mild midfoot osteoarthritis characterized b y tiny marginal osteophytes. There are enthesophytes at the posterior and plantar aspects of calcanea l tuberosity. IMPRESSION: 1. Mild midfoot osteoarthritis. Reviewed, dictated and finalized at location A. CUTTER
--- NOTE | ~2019-12-30 | XR_ITS ---
EXAMINATION: XR cervical spine 4-5V DATE: 12/30/2019 15:35 INDICATION: Rheumatoid arthritis with rheumatoid factor of multiple sites. TECHNIQUE: 4 views of cervical spine were obtained. COMPARISON: CT cervical spine 04/25/2019 FINDINGS: There is 6 degrees levocurvature of cervicothoracic spine. Vertebral body heights are jacquie l. There is mildly decreased disc height at C4-C5, C5-C6, and C6-C7. There is multilevel uncovertebra l joint osteoarthritis, severe on the right at C4-C5. There is multilevel facet joint osteoarthritis, severe at multiple levels. There is no central canal stenosis or prevertebral soft tissue swelling. IMPRESSION: 1. Moderate cervical spondylosis. Reviewed, dictated and finalized at location A. RVISOR PIPELINE
--- NOTE | ~2019-12-30 | XR_ITS ---
EXAMINATION: HAND-XIAO ARTHRITIS 3+VIEWS DATE: 12/30/2019 15:35 INDICATION: Osteoarthritis TECHNIQUE: Posteroanterior, lateral, and oblique views of the left and of the right hands as well as a ballcatchers view of both hands were obtained. COMPARISON: None. FINDINGS: Bilateral diffuse osteopenia. Alignment is normal at both hands. No fracture. Polyarticular osteoarth ritis at both hands, moderate to severe at the radial scaphoid articulation at the left wrist, modera te severity at the bilateral fifth distal interphalangeal and bilateral fourth proximal interphalange al joints joints and mild at the bilateral triscaphe, first carpometacarpal and many of the remaining interphalangeal joints. Chronic likely degenerative loose osteochondral body at the dorsal aspect of the left wrist joint. No erosions to suggest an inflammatory arthritis. IMPRESSION: 1. Polyarticular osteoarthritis at both hands, most severe at the left radial scaphoid articulation. Reviewed, dictated and finalized at location A. ET INSPECTOR IMPRESSION: 1. Polyarticular osteoarthritis at both hands, most severe at the left radial s caphoid articulation.
== END 2019-12-30 14:58 | disposition home or self-care (01) ==
PROVIDERS: PCP Internal Medicine; Visit Provider Internal Medicine
DX: M05.79 Rheumatoid arthritis with rheumatoid factor of multiple sites without organ or systems involvement (principal); M19.071 Primary osteoarthritis, right ankle and foot; M19.072 Primary osteoarthritis, left ankle and foot; M47.892 Other spondylosis, cervical region; M19.041 Primary osteoarthritis, right hand; M19.042 Primary osteoarthritis, left hand
CPT/HCPCS: 72050; 73130; 73620

== ENCOUNTER 2020-01-27 11:08 | Outpatient (CLI) | payer OTHER, SELFPAY ==
[2020-01-27 11:27] LABS: Basophils Absolute Auto 0.1 K/mm3 (0.0-0.1); Basophils Percent Auto 0.7 % (0.2-1.2); Eosinophils Absolute Auto 0.1 K/mm3 (0-0.3); Hematocrit 40.8 % (37.0-47.0); Hemoglobin 13.2 g/dL (12.0-15.0); Immature Granulocyte Absolute 0.01 K/mm3 (0.00-0.031); Immature Granulocyte Percent A 0.1 % (0-0.5); Lymphocytes Absolute Auto 1.71 K/mm3 (0.9-3.2); Lymphocytes Percent Auto 23.8 % (18.3-44.2); Mean Corpuscular HGB Conc 32.4 g/dl (32-36); Mean Corpuscular Hemoglobin 29.1 pg (26-34); Mean Corpuscular Volume 89.9 fl (80-100); Mean Platelet Volume 9.1 fl (7.4-10.4); Monocytes Absolute Auto 0.4 K/mm3 (0.1-0.6); Neutrophils Absolute Auto 4.9 K/mm3 (1.3-6.7); Neutrophils Percent Auto 68.4 % (45.5-73.1); Platelet Count Result 256 k/mm3 (150-375); Red Blood Count 4.54 M/mm3 (4.2-5.4); Red Cell Distribution Width 14.6 % (11.5-14.5); White Blood Count 7.2 K/mm3 (4.5-10.0)
[2020-01-27 13:07] LABS: Iron 152 ug/dL (37-170)
[2020-01-27 13:18] LABS: Percent Iron Saturation 37 % (20-50)
[2020-01-27 14:16] LABS: Folic Acid 16.4 ng/mL (2.76->20); Vitamin B12 > 1000.0 pg/mL (239-931)
== END 2020-01-27 11:09 | disposition home or self-care (01) ==
LOC: ANHLAB 11:09
PROVIDERS: PCP Internal Medicine; Visit Provider Internal Medicine Hematology & Oncology
DX: D50.0 Iron deficiency anemia secondary to blood loss (chronic) (principal)
CPT/HCPCS: 36415; 82607; 82728; 82746; 83540; 83550; 85025

== ENCOUNTER 2020-05-03 03:11 | Observation (INO) | payer OTHER, SELFPAY ==
[2020-05-03] VITALS (9 sets, daily range): BP systolic 108–140; BP diastolic 55–72; PULSE 89–101; RESP 16–20; TEMP 35.6–36.4; O2SAT 97–100; BMI 28.9
--- NOTE | ~2020-05-03 | MR_ITS ---
EXAMINATION: MR brain/brain stem wo/w con EXAM DATE: 05/03/2020 11:47 INDICATION: Transient ischemic attack. Aphasia. TECHNIQUE: Magnetic resonance imaging (MRI) of the brain/brain stem obtained without contrast. Sagit leda T1, axial diffusion, gradient echo (T2*), T1, T2, FLAIR sequences obtained. Patient was then inj ected with 13 cc intravenous Multihance contrast. Axial and coronal postcontrast T1 weighted sequence s obtained. Correlation is made to CT head 05/03/2020. FINDINGS: There are no areas of restricted diffusion to suggest acute infarction. There is no acute hemorrhage seen on the T2*, a hemosiderin sensitive sequence. No intraparenchymal brain mass lesion. There is mild to moderate periventricular and subcortical T2/FLAIR signal hyperintensity, nonspecif ic but probably related to small vessel ischemic disease (microangiopathy). There is mild prominenc e of the sulci and ventricles related to cerebral atrophy. There are no extra-axial collections. F low voids are seen in the cerebral arteries on the T2-weighted sequences consistent with their expect ed patency. Patient has had bilateral ocular lens surgery. Soft tissue is unremarkable. IMPRESSION: 1. No acute intracranial findings. 2. Chronic age related findings. Reviewed, dictated and finalized at location B. WASHER
--- NOTE | ~2020-05-03 | CT_ITS ---
EXAMINATION: CT brain wo con INDICATION: Confusion, aphasia COMPARISON: 04/25/2019 TECHNIQUE: Standard unenhanced head CT. The dose-length product (DLP) was 605.33 mGy-cm. The mA was a djusted according to patient size. Iterative reconstruction technique was employed. FINDINGS: There is no acute intraparenchymal hemorrhage. No evidence of mass lesion. No evidence of a cute infarction. There are old infarcts of the left parietal lobe and right basal ganglia. There is m ild periventricular and subcortical hypodensity probably related to small vessel ischemic disease. Th ere is mild prominence of the sulci and ventricles related to cerebral atrophy. Intracranial calcifie d cerebral atherosclerosis is noted. There are no extra-axial collections. There is no mass effect or midline shift. Changes in the globes are likely from ocular lens surgery. The visualized sinuses an d mastoid air cells are well aerated. IMPRESSION: 1. No acute intracranial abnormality. 2. Age related findings. Reviewed, dictated and finalized at location A. MAKER PLASTER
--- NOTE | ~2020-05-03 | US_ITS ---
EXAMINATION: US carotid duplex BI EXAM DATE: 05/03/2020 12:49 INDICATION: Aphasia. Transient ischemic attack. 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 TECHNIQUE: Grayscale, color and pulsed Doppler images of the cervical carotid arteries were obtained . The degree of vessel stenosis is placed in one of the following categories: normal, <50% stenosis, 50-69% stenosis, >=70% stenosis but less than near-occlusion, near-occlusion, or occlusion. Note that percent stenosis relative to normal distal artery lumen diameter is indirectly measured from velocit y measurements as described by Miguel, et al. Radiology 2003; 229:340-346. Correlation is made to brai n MR, head CT earlier same day. FINDINGS: RIGHT SIDE: Right common carotid artery peak systolic velocity (PSV in cm/s): 102 Right bulb/internal carotid artery peak systolic velocity (PSV in cm/s): 77 Right internal carotid artery end diastolic velocity (EDV in cm/s): 24 Right ICA/CCA peak systolic ratio: 0.8 Right external carotid artery peak systolic velocity (PSV in cm/s): 80 Right vertebral artery antegrade flow: yes There is mild to moderate carotid bulb plaque. Velocity and Doppler waveforms in the common and internal carotid arteries is normal. LEFT SIDE: Left common carotid artery peak systolic velocity (PSV in cm/s): 102 Left bulb/internal carotid artery peak systolic velocity (PSV in cm/s): 86 Left internal carotid artery end diastolic velocity (EDV in cm/s): 29 Left ICA/CCA peak systolic ratio: 0.9 Left external carotid artery peak systolic velocity (PSV in cm/s): 63 Left vertebral artery antegrade flow: yes There is moderate carotid bulb plaque. Velocity and Doppler waveforms in the common and internal carotid arteries is normal. IMPRESSION: 1. Less than 50 percent stenosis in the right internal carotid artery. 2. Less than 50 percent stenosis in the left internal carotid artery. > Reviewed, dictated and finalized at location B. SKILLS COORDINATOR
--- NOTE | 2020-05-03 03:25 | ECG_ITS ---
Measurements Intervals [place] Rate: 94 P: LA: 0 QRS: -16 QRSD: 110 T: -7 QT: 395 QTc: 494 Interpretive Statements ATRIAL FIBRILLATION LOW QRS VOLTAGE IN PRECORDIAL LEADS INCOMPLETE RIGHT BUNDLE BRANCH BLOCK CONSIDER INFERIOR INFARCT, AGE INDETERMINATE BASELINE ARTIFACT- I, II, III, AVR, AVL, AVF, V1-V2, V5 ABNORMAL ECG Electronically Signed On 05-03-2020 8:19:27 CELL PHONE REPAIR TECHNICIAN by Aly Alberto D.O.
--- NOTE | 2020-05-03 03:30 | ED.NEUROSD ---
HPI - Neuro Symptoms/Deficit General Chief Complaint: Neuro Symptoms/Deficit Stated Complaint: i think i had a stroke this morning Time Seen by Provider: 05/03/20 03:15 History of Present Illness HPI Narrative: 75 yo female w/ h/o htn, DM, a-fib presents to the ED for neurological complaints. She awoke from sleep this morning feeling like she needed to urinate, then realized she was already going. She then tried to get out of bed, but she found that she was not able to move. She says that she could not move her arms, legs, or even lift her head. She did eventually manage to pick and shovel man her phone and call her friend. She reports that she was able to understand her friend and knew what she was trying to say. Her friend say she was saying words but thye did not make sense. That phone call happened about 2 hours prior to her arrival here. She is now back to baseline with no deficits. She has never had this happen before. She did not check her glucose during or near the event. Related Data Home Medications Medication Instructions Recorded Confirmed cetirizine 10 mg tablet 5 mg PO HS PRN 01/18/19 05/03/20 docusate sodium [Dulcolax Stool 100 mg PO DAILY 03/30/19 05/03/20 Softener (dss)] [id number] 350 cap PO QAM 04/01/19 05/03/20 aspirin 81 mg chewable tablet 81 mg PO HS 06/02/19 05/03/20 cyanocobalamin (vitamin B-12) 1,000 mcg PO DAILY 06/02/19 05/03/20 1,000 mcg capsule cholecalciferol (vitamin D3) 50 50 mcg PO DAILY cap 12/08/19 05/03/20 mcg (2,000 unit) capsule Eliquis 5 mg PO BID 05/03/20 05/03/20 Novolin R Regular U-100 Insuln 10 unit SUBCUT BID 05/03/20 05/03/20 Novolin R Regular U-100 Insuln 12 unit SUBCUT DAILY 05/03/20 05/03/20 alendronate 70 mg PO WEEKLY 05/03/20 05/03/20 calcium 500 mg PO DAILY 05/03/20 05/03/20 carboxymethylcellulose sodium 2 drp EACH EYE QID PRN 05/03/20 05/03/20 [Refresh Tears] fluticasone propionate 2 spray INTRANASAL HS 05/03/20 05/03/20 hydroxychloroquine 200 mg PO QPM 05/03/20 05/03/20 metformin 1,000 mg PO BID 05/03/20 05/03/20 metoprolol succinate 50 mg PO DAILY 05/03/20 05/03/20 omeprazole 40 mg PO QAM 05/03/20 05/03/20 sennosides-docusate sodium 1 cap PO DAILY 05/03/20 05/03/20 tizanidine 4 mg PO Q8H PRN 05/03/20 05/03/20 Allergies Allergy/AdvReac Type Severity Reaction Status Date / Time No Known Allergies Allergy Verified 05/03/20 03:30 Review of Systems Review of Systems: All systems reviewed & are unremarkable except as noted in HPI and below Constitutional: Constitutional: Denies fever(s) and Reports weakness Eyes: Eyes: Reports no additional eye complaints Cardiovascular: Cardiovascular: Denies chest pain Respiratory: Respiratory: Denies dyspnea Gastrointestinal: Gastrointestinal: Denies abdominal pain Genitourinary: Genitourinary: Denies hematuria and Denies dysuria Neurologic: Reports confusion, Denies dizziness, Denies numbness and Reports weakness PMFSH Past Medical History Medical History (Updated 05/05/20 @ 23:16 by Miguel Hodgson MD) Arthritis Atrial fibrillation BMI 29.0-29.9,adult Carpal tunnel syndrome of left wrist Cataracts, bilateral VEGAS (dyspnea on exertion) Encounter for screening for other viral diseases Essential (primary) hypertension GERD without esophagitis History of tobacco use Hx of rotator cuff tear Hypercholesteremia Iron deficiency anemia Mixed hyperlipidemia Obesity Peripheral neuropathy Primary osteoarthritis involving multiple joints Rheumatoid arthritis with rheumatoid factor of multiple sites without organ or systems involvement (~2018) Right cervical radiculopathy Screening for breast cancer Shingles SOB (shortness of breath) Type 2 diabetes mellitus with diabetic polyneuropathy, with long-term current use of insulin Vitamin D deficiency Surgical History Surgical History (Updated 05/04/20 @ 07:33 by Mariel Wagner PA-C) H/O bladder repair surgery 1990 H/O: hysterectomy 1990 History of alec
[2020-05-03] MEDS: SODIUM CHLORIDE 0.9% IV 500 ML 999 ML IV CONT (03:39)
[2020-05-03 03:55] LABS: Basophils Absolute Auto 0.1 K/mm3 (0.0-0.1); Basophils Percent Auto 0.6 % (0.2-1.2); Eosinophils Percent Auto 0.3 % (0-4.4); Hematocrit 42.3 % (37.0-47.0); Hemoglobin 13.5 g/dL (12.0-15.0); Immature Granulocyte Absolute 0.02 K/mm3 (0.00-0.031); Immature Granulocyte Percent A 0.2 % (0-0.5); Lymphocytes Absolute Auto 1.39 K/mm3 (0.9-3.2); Lymphocytes Percent Auto 14.9 % (18.3-44.2); Mean Corpuscular HGB Conc 31.9 g/dl (32-36); Mean Corpuscular Hemoglobin 29.3 pg (26-34); Mean Platelet Volume 9.5 fl (7.4-10.4); Monocytes Absolute Auto 0.4 K/mm3 (0.1-0.6); Monocytes Percent Auto 4.7 % (2.6-8.5); Neutrophils Absolute Auto 7.4 K/mm3 (1.3-6.7); Neutrophils Percent Auto 79.3 % (45.5-73.1); Platelet Count Result 290 k/mm3 (150-375); Red Cell Distribution Width 14.1 % (11.5-14.5); White Blood Count 9.3 K/mm3 (4.5-10.0)
[2020-05-03 04:14] LABS: Prothrombin Time 13.7 Seconds (11.1-14.7)
[2020-05-03 04:15] LABS: Partial Thromboplastin Time 27.4 SECONDS (22.3-36.8)
[2020-05-03 04:17] LABS: Alanine Aminotransferase 12 U/L (4-35); Albumin Level 4.1 g/dL (3.5-5.1); Alkaline Phosphatase 42 U/L (38-126); Anion Gap 8 mmol/L (8-16); Aspartate Amino Transferase 25 U/L (14-36); Bilirubin,Total 0.5 mg/dL (0.2-1.3); Blood Urea Nitrogen 17 mg/dL (7-17); Calcium 9.2 mg/dL (8.4-10.2); Carbon Dioxide 29 mmol/L (22-30); Chloride 104 mmol/L (98-107); Estimated CRCL calculation 54 ml/min; Estimated Glomerular Filt Rate > 60; Glucose 103 mg/dL (65-105); Potassium 4.4 mmol/L (3.4-5.0); Sodium 141 mmol/L (137-145)
[2020-05-03 04:44] LABS: Add Urine Microscopic? YES; Appearance Urine Cloudy (Clear); Bacteria Urine Trace /hpf; Bilirubin Urine Negative (Negative); Blood Urine Negative (Negative); Color Urine Yellow (Yellow); Glucose Urine UA Negative (Negative); Ketones Urine Negative (Negative); Leukocyte Esterase Ur Trace LEU/UL (Negative); Mucus Urine Few /lpf; Nitrate Urine Negative (Negative); Protein Urine 1+ mg/dL (Negative); RBC Urine 0-2 /hpf (0-2); Squamous Epithelial Cell Urine Few /hpf (Few); Urobilinogen Urine Negative mg/dL (<2.0); WBC Urine 0-3 /hpf
--- NOTE | 2020-05-03 06:43 | ADMGEN ---
This patient, Milo Ramírez, was admitted to [facility] Surg Room 306-01. Patient/family oriented to hospital policies and general routines including ID bracelet, bed and alarms, visiting hours, pain management, procedures, bathroom and other care routines, personal items, smoking policy, room service/diet, and visiting hours. Information on how to activate the Rapid Response Team has been discussed. Patient/Family are encouraged to report perceived risks to care and to ask questions if they do not understand what they are told or what they should do.
[2020-05-03 09:10] LABS: Glucose Point of Care 104 (65-105)
[2020-05-03] MEDS: CHOLECALCIFEROL 1,000 UNITS TABLET 2000 UNITS PO (11:11)
[2020-05-03] MEDS: FOLIC ACID 1 MG TABLET PO (11:12)
[2020-05-03] MEDS: DOCUSATE SODIUM 100 MG CAPSULE PO (11:12)
[2020-05-03] MEDS: METOPROLOL SUCCINATE EXT REL 50 MG TABCR PO (11:12)
[2020-05-03] MEDS: metFORMIN HCL 500 MG TABLET 1000 MG PO (11:12)
[2020-05-03] MEDS: APIXABAN 5 MG TABLET PO (11:12)
[2020-05-03] MEDS: CYANOCOBALAMIN 1,000 MCG TABLET 1000 MCG PO (11:13)
[2020-05-03 12:44] LABS: Glucose Point of Care 191 (65-105)
--- NOTE | 2020-05-03 13:25 | PM.SD2 ---
Same Day Admit/Disch: HPI History of Present Illness Chief complaint: Weakness and slurred speech Narrative: 05/03/20 1200 The supervising physician for this history and physical is Dr Lauren Peterson. Ms. Ramírez is a pleasant 75yo F with history of chronic atrial fibrillation, hypertension, insulin-dependent type 2 diabetes mellitus, dyslipidemia, rheumatoid arthritis, and GERD who presented to the ED for evaluation of weakness and slurred speech. She describes she woke up around midnight 05/03/20 feeling the need to urinate, realized she could not move her arms or her legs and could not get out of bed, realized she was already urinating. She called a friend around 0130 and the friend described patient's speech was slurred and did not make any sense. The patient tells me she remembers the being able to get up out of bed, putting on her pajamas, and walking downstairs and her friend arrived to her house to take her to the ER. She describes her symptoms were completely resolved by the time she showed up to the ED. She has not had any recurrence of symptoms and at time of my encounter still feels pack her baseline. She walks without cane or walker. She described a headache near the base of her neck since last evening, but otherwise no complaints. In the ED: Infarcts in the left parietal lobe and right knee ganglia without acute intracranial abnormality. Vital signs were stable. Routine labs were grossly normal. She was admitted to the hospitalist service under observation status for evaluation of TIA vs. CVA. She was stable on arrival to the floor with symptoms completely resolved. MRI brain was obtained which demonstrated no acute intracranial findings. Carotid Dopplers were within normal limits, detailed below. She is already maintained on systemic anticoagulation with Eliquis for her AFib and does also take baby aspirin. She is still in AFib presently but is rate controlled maintained on her home metoprolol. She is maintained on 5 mg daily of atorvastatin which we have increased to 10 mg daily at discharge. She is feeling well and is comfortable with discharge today. She was unaware that there were chronic strokes on her CT brain, dating back to at least 04/25/19 compared to an old CT brain. It is felt that her symptoms were related to TIA. She was educated regarding her increased risk for subsequent TIAs and CVA. She is hesitant to increase her statin medication and will follow-up with her PCP regarding this. She was also evaluated by Neurology and his contact information is provided if she wishes to follow-up with him, Dr. Ochoa. She is hemodynamically stable for discharge on 05/03/20 with instructions to follow-up with PCP and her model and mold maker plaster, Dr. Tuttle. [facility] Past Medical History Medical History (Updated 05/04/20 @ 07:49 by Mariel Wagner PA-C) Arthritis Atrial fibrillation BMI 29.0-29.9,adult Carpal tunnel syndrome of left wrist Cataracts, bilateral VEGAS (dyspnea on exertion) Encounter for screening for other viral diseases Essential (primary) hypertension GERD without esophagitis History of tobacco use Hx of rotator cuff tear Hypercholesteremia Iron deficiency anemia Mixed hyperlipidemia Obesity Peripheral neuropathy Primary osteoarthritis involving multiple joints Rheumatoid arthritis with rheumatoid factor of multiple sites without organ or systems involvement (~2018) Right cervical radiculopathy Screening for breast cancer Shingles SOB (shortness of breath) Type 2 diabetes mellitus with diabetic polyneuropathy, with long-term current use of insulin Vitamin D deficiency Surgical History Surgical History (Updated 05/04/20 @ 07:33 by Mariel Wagner PA-C) H/O bladder repair surgery 1990 H/O: hysterectomy 1990 History of appendectomy Age 16 Hx of cholecystectomy Hx of rotator cuff surgery Hx of tonsillectomy Age 3 Family History Family History (Updated 05/04/20 @ 07:34 by Mariel Wagner PA-C) Unk
--- NOTE | 2020-05-03 14:07 | WPDNEURCNPN ---
Assessment and Plan Assessment and plan (1) Rheumatoid arthritis with rheumatoid factor of multiple sites without organ or systems involvement: Onset Date: ~2017 Code(s): M05.79 - Rheumatoid arthritis with rheumatoid factor of multiple sites without organ or systems involvement Status: Acute (2) History of tobacco use: Code(s): Z87.891 - Personal history of nicotine dependence Status: Acute (3) Atrial fibrillation: Qualifiers: Atrial fibrillation type: unspecified chronic Qualified Code(s): I48.20 - Chronic atrial fibrillation, unspecified Code(s): I48.91 - Unspecified atrial fibrillation Status: Acute Additional Plan TIA with no change in the treatment right Consult date: 05/03/20 Time Seen: 12:00 HPI: Milo Ramírez is a 75 year old female admitted to the hospital through the emergency room with the ongoing diagnosis of 1. Diabetes mellitus 2. Atrial fibrillation and with information that she tried to get out of bed but she found that she was not able to move her upper or lower extremities she eventually managed to lease picker a phone call her friend at the time his sounded clear by the time she came to the hospital she was back to her baseline she has been taking multiple medication particular to mention his atorvastatin 10 mg daily apixaban 5 mg twice a day for the ongoing diagnosis of atrial fibrillation, his studies up until now include MRI of the brain with no evidence of stroke, carotid studies with less than 50% stenosis bilaterally, patient is already receiving apixaban 5 mg twice a day with aspirin 81 mg daily atorvastatin 5 mg daily Review of Systems Review of Systems: All systems reviewed & are unremarkable except as noted in HPI and below PMFSH Past Medical History Medical History Arthritis Atrial fibrillation BMI 29.0-29.9,adult Carpal tunnel syndrome of left wrist Cataracts, bilateral VEGAS (dyspnea on exertion) Encounter for screening for other viral diseases Essential (primary) hypertension GERD without esophagitis H/O: HTN (hypertension) H/O: HTN (hypertension) History of tobacco use Hx of rotator cuff tear Hypercholesteremia Iron deficiency anemia Mixed hyperlipidemia Obesity Peripheral neuropathy Primary osteoarthritis involving multiple joints Rheumatoid arthritis with rheumatoid factor of multiple sites without organ or systems involvement (~2017) Right cervical radiculopathy Screening for breast cancer Shingles SOB (shortness of breath) Type 2 diabetes mellitus with diabetic polyneuropathy, with long-term current use of insulin Vitamin D deficiency Surgical History Surgical History History of appendectomy Hx of cholecystectomy Hx of rotator cuff surgery Hx of tonsillectomy Social History Social History Years smoked: 49 Smoking status: Former smoker Tobacco type: cigarettes Smoking end date: 02/23/07 Alcohol intake: never Substance use: never Substance use type: does not use Additional living arrangements comments: lives with her . 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 [employer] Gender identity (if verbalized by the patient): Female Spiritual care concerns: No Meds Home Medications and Allergies Home Medications Medication Instructions Recorded Confirmed Type cetirizine 10 mg tablet 5 mg PO HS PRN 01/18/19 05/03/20 History docusate sodium [Dulcolax Stool 100 mg PO DAILY 03/30/19 05/03/20 History Softener (dss)] [id number]-[id number] 350 cap PO QAM 04/01/19 05/03/20 History aspirin 81 mg chewable tablet 81 mg PO HS 06/02/19 05/03/20 History cyanocobalamin (vitamin B-12) 1,000 mcg PO DAILY 06/02/19 05/03/20 History 1,000 mcg capsule cholecalciferol (vitamin D3) 50 50 mcg PO DAILY
== END 2020-05-03 15:00 | disposition home or self-care (01) ==
LOC: ANHED 04:09 → ANH3MEDSUR 06:54
PROVIDERS: Admitting Provider Internal Medicine; Emergency Provider Emergency Medicine; PCP Internal Medicine; Visit Provider Family Medicine
DX: G45.9 Transient cerebral ischemic attack, unspecified (principal); I48.91 Unspecified atrial fibrillation; E78.2 Mixed hyperlipidemia; E11.9 Type 2 diabetes mellitus without complications; E78.5 Hyperlipidemia, unspecified; I10 Essential (primary) hypertension; K21.9 Gastro-esophageal reflux disease without esophagitis; M06.9 Rheumatoid arthritis, unspecified; Z86.73 Personal history of transient ischemic attack (TIA), and cerebral infarction without residual deficits; Z79.4 Long term (current) use of insulin; Z87.891 Personal history of nicotine dependence; Z79.01 Long term (current) use of anticoagulants; Z79.82 Long term (current) use of aspirin
CPT/HCPCS: 36415; 70450; 70553; 80053; 81001; 82948; 85025; 85610; 85730; 93005; 93880; 96360; 99285; A9270; A9577; G0378; J7040

== ENCOUNTER 2020-07-10 09:28 | Outpatient (CLI) | payer OTHER, SELFPAY ==
--- NOTE | ~2020-07-10 | DEXA_ITS ---
Bone Density Report Name: Milo Ramírez Age: 75 Sex: Female Ethnicity: White Date of : 1945 Indication: postmenopausal; height loss; prior fracture; hysterectomy; rheumatoid arthritis; Referring Provider: Amanda Carr Study: Bone densitometry was performed. Exam Date: July 10, 2020 Accession number: [id number] Bone Density: Region BMD T-score Z-score Classification AP Spine (L1, L3) 1.073 0.5 2.9 Normal Femoral Neck (Left) 0.639 -1.9 0.2 Osteopenia Total Hip (Left) 0.918 -0.2 1.6 Normal Total Hip Bilateral Avg 0.873 -0.5 1.2 Normal Femoral Neck (Right) 0.565 -2.6 -0.5 Osteoporosis Total Hip (Right) 0.828 -0.9 0.9 Normal World Health Organization criteria for BMD impression classify patients as: Normal (T-score at or above -1.0), Osteopenia (T-score between -1.0 and -2.5), or Osteoporosis (T-score at or below -2.5). 10-year Fracture Risk: FRAX not reported because: Some T-score for Spine Total or Hip Total or Femoral Neck at or below -2.5 Previous Exams: Region Exam Age BMD T-score BMD Change BMD Change Date g/cm2 vs Baseline vs Previous AP Spine(L1, L3) 07/10/2020 75 1.073 0.5 0.064(6.3%)* 0.064(6.3%)* 08/02/2018 73 1.010 0.0 Total Hip(Left) 07/10/2020 75 0.918 -0.2 -0.019(-2.1%) -0.019(-2.1%) 08/02/2018 73 0.938 0.0 Total Hip(Right) 07/10/2020 75 0.828 -0.9 -0.030(-3.5%)* -0.030(-3.5%)* 08/02/2018 73 0.857 -0.7 *Denotes significance at 95% confidence level, LSC for AP Spine = 0.022 g/cm2, LSC for Total Hip = 0.027 g/cm2 Clinical Information Provided by Patient: Has had a low trauma fracture Has rheumatoid arthritis Has used the following medications: Vitamin D, Calcium Has the following medical conditions: Hysterectomy Patient maximum height was 63 Menopause Age: 38 No regular weight bearing exercise Does not regularly consume dairy products Onset of menses at age 9 Number of children 1 Impression: The patient has established osteoporosis, based on the Right Femoral Neck T-score and the existence of a prior fracture. The patient has risk factors, including: previous fracture. The BMD for the Total Hip(Right) decreased, changing by -3.5% since the last DXA exam. Discussion: HIGH RISK OF FRACTURE. BONE DENSITY IS UNDESIRABLY LOW AT ONE OR MORE SKELETAL SITES, CONSISTENT WITH POSTMENOPAUSAL OSTEOPOROSIS. This patient's lowest T-score, in a patient who has previously fractured, meets the World Health Organization's (
== END 2020-07-10 09:29 | disposition home or self-care (01) ==
LOC: ANHIMG 09:31
PROVIDERS: PCP Internal Medicine; Visit Provider Internal Medicine Endocrinology, Diabetes & Metabolism
DX: E11.42 Type 2 diabetes mellitus with diabetic polyneuropathy (principal); M81.0 Age-related osteoporosis without current pathological fracture; Z51.81 Encounter for therapeutic drug level monitoring; Z79.4 Long term (current) use of insulin; M85.852 Other specified disorders of bone density and structure, left thigh
CPT/HCPCS: 77080

== ENCOUNTER 2020-09-10 09:10 | Outpatient (CLI) | payer OTHER, SELFPAY ==
[2020-09-10 16:51] LABS: Vitamin D 25 Hydroxy 42.8 ng/mL
[2020-09-10 17:11] LABS: MALB Creatinine Ratio 8.4 mg/g (0-30); Microalbumin Urine Random 11.1 mg/L (0-16.7)
[2020-09-10 17:14] LABS: Hemoglobin A1C 7.1 % (<5.7)
== END 2020-09-10 09:11 | disposition home or self-care (01) ==
LOC: ANHWCLAB 09:13
PROVIDERS: PCP Internal Medicine; Visit Provider Internal Medicine Endocrinology, Diabetes & Metabolism
DX: E11.9 Type 2 diabetes mellitus without complications (principal); M81.0 Age-related osteoporosis without current pathological fracture
CPT/HCPCS: 36415; 82043; 82306; 83036

== ENCOUNTER 2020-11-09 09:40 | Outpatient (CLI) | payer OTHER, SELFPAY ==
--- NOTE | ~2020-11-09 | MM_ITS ---
EXAMINATION: MM screening [facility] BI w karin HISTORY: Screening TECHNIQUE: Craniocaudal and mediolateral oblique 3-D tomosynthesis images were obtained and synthetic 2-D images were generated. CAD analysis was submitted and interpreted. COMPARISON: Comparison to multiple prior studies sequentially, with oldest reviewed study dated 09/19. BREAST PARENCHYMAL COMPOSITION: There are scattered areas of fibroglandular density. FINDINGS: There is no evidence of suspicious mass, calcification, or architectural distortion to sugg est malignancy in either breast. There has been no suspicious interval change. IMPRESSION: 1. No mammographic evidence of malignancy. 2. Recommend routine screening mammography in one year. BI-RADS Category 1: Negative Reviewed, dictated and finalized at location A.
== END 2020-11-09 09:41 | disposition home or self-care (01) ==
LOC: ANHIMG 09:42
PROVIDERS: PCP Internal Medicine; Visit Provider Internal Medicine
DX: Z12.31 Encounter for screening mammogram for malignant neoplasm of breast (principal)
CPT/HCPCS: 77063; 77067

== ENCOUNTER 2020-12-04 08:14 | Outpatient (CLI) | payer OTHER, SELFPAY ==
--- NOTE | ~2020-12-04 | XR_ITS ---
EXAMINATION: XR UGIAC w barium swallow EXAM DATE: 12/04/2020 08:53 INDICATION: R11.0 - Nausea and vomiting. TECHNIQUE: Standard single and double contrast barium esophagram and upper GI examination was perform ed by radiologist Lloyd Granado M.D. Pulsed dose reduction fluoroscopy was used with fluoroscopic time of 0.7 minutes The DAP for this procedure was 1.0 Gycm2. A total of 91 images obtained for the ex am. There is no prior study for comparison. FINDINGS: The pharynx is symmetric and without evidence of mass lesion or mucosal irregularity. There is prominent cricopharyngeal muscle impression. There is no esophageal stricture, diverticulum or ma ss identified. Small sliding gastroesophageal hiatal hernia. Moderate amount of reflux was demonstra jimy. The stomach has a normal appearance without evidence of mass lesion, ulceration or filling defect. T here is normal rugal fold pattern. The duodenum and duodenal sweep are normal in appearance. IMPRESSION: Small sliding hiatal hernia, moderate reflux demonstrated. Reviewed, dictated and finalized at location A.
== END 2020-12-04 08:15 | disposition home or self-care (01) ==
PROVIDERS: PCP Internal Medicine; Visit Provider Internal Medicine
DX: R11.0 Nausea (principal); K44.9 Diaphragmatic hernia without obstruction or gangrene
CPT/HCPCS: 74246

== ENCOUNTER 2020-12-06 08:56 | Outpatient (CLI) | payer OTHER, SELFPAY ==
--- NOTE | ~2020-12-06 | US_ITS ---
EXAMINATION: US renal BI EXAM DATE: 12/06/2020 09:42 INDICATION: R10.9 -. Flank pain. Nausea vomiting. TECHNIQUE: Multiple grayscale and Doppler images of the kidneys were obtained (by a technologist who performed the scan) and subsequently reviewed. There is no prior study for comparison. FINDINGS: Right kidney: There is normal contour and echogenicity. It measures 8.7 x 4.4 x 4.8 centimeters. Th ere are no focal renal lesions identified. There is no hydronephrosis. Left kidney: There is normal contour and echogenicity. It measures 9.3 x 4.2 x 4.5 centimeters. The re are no focal renal lesions identified. There is no hydronephrosis. Bladder unremarkable. Bilateral ureteral jets were confirmed. IMPRESSION: Sonographically unremarkable kidneys. Reviewed, dictated and finalized at location A.
== END 2020-12-06 08:57 | disposition home or self-care (01) ==
LOC: ANHIMG 08:57
PROVIDERS: PCP Internal Medicine; Visit Provider Internal Medicine
DX: R10.9 Unspecified abdominal pain (principal)
CPT/HCPCS: 76775

== ENCOUNTER 2021-12-18 14:48 | Outpatient (CLI) | payer OTHER, SELFPAY ==
--- NOTE | ~2021-12-18 | MM_ITS ---
EXAMINATION: MM screening [facility] BI w karin HISTORY: Screening mammogram TECHNIQUE: Craniocaudal and mediolateral oblique 3-D tomosynthesis images were obtained and synthetic 2-D images were generated. CAD analysis was submitted and interpreted. COMPARISON: 11/09/2020, 11/07/2019, 08/02/2018 BREAST PARENCHYMAL COMPOSITION: There are scattered areas of fibroglandular density. FINDINGS: No suspicious mass, calcification, or architectural distortion are identified in either arya ast to suggest malignancy. There has been no suspicious interval change. IMPRESSION: 1. No mammographic evidence of malignancy. 2. Recommend routine screening mammography in one year. BI-RADS Category 1: Negative Reviewed, dictated and finalized at location A.
== END 2021-12-18 14:49 | disposition home or self-care (01) ==
PROVIDERS: PCP Internal Medicine; Visit Provider Internal Medicine
DX: Z12.31 Encounter for screening mammogram for malignant neoplasm of breast (principal)
CPT/HCPCS: 77063; 77067

== ENCOUNTER 2021-12-27 07:45 | Outpatient (CLI) | payer OTHER, SELFPAY ==
[2021-12-27 08:44] LABS: Alanine Aminotransferase 11 U/L (6-35); Albumin Level 3.8 g/dL (3.5-5.1); Alkaline Phosphatase 47 U/L (38-126); Anion Gap 9 mmol/L (8-16); Aspartate Amino Transferase 20 U/L (14-36); Bilirubin,Total 0.7 mg/dL (0.2-1.3); Blood Urea Nitrogen 9 mg/dL (7-17); Calcium 8.8 mg/dL (8.4-10.2); Carbon Dioxide 28 mmol/L (22-30); Chloride 102 mmol/L (98-107); Cholesterol 134 mg/dL (0-200); Estimated Glomerular Filt Rate > 60; Glucose 95 mg/dL (65-110); HDL Direct 50 mg/dL; Potassium 3.8 mmol/L (3.4-5.0); Sodium 139 mmol/L (137-145); Triglycerides 228 mg/dL (<150)
[2021-12-27 08:56] LABS: LDL Cholesterol Direct 48 mg/dL
[2021-12-27 09:31] LABS: Free T4 Free Thyroxine 1.44 ng/mL (0.78-2.19); Vitamin D 25 Hydroxy 52.5 ng/mL
[2021-12-27 09:38] LABS: Vitamin B12 > 1000.0 pg/mL (239-931)
[2021-12-27 10:09] LABS: MALB Creatinine Ratio 15.4 mg/g (0-30); Microalbumin Urine Random 30.4 mg/L (0-16.7)
== END 2021-12-27 07:46 | disposition home or self-care (01) ==
PROVIDERS: PCP Internal Medicine; Referring Provider Internal Medicine Cardiovascular Disease; Visit Provider Nurse Practitioner Family
DX: E11.69 Type 2 diabetes mellitus with other specified complication (principal); E78.2 Mixed hyperlipidemia; E55.9 Vitamin D deficiency, unspecified; I10 Essential (primary) hypertension; Z79.4 Long term (current) use of insulin; I95.2 Hypotension due to drugs
CPT/HCPCS: 36415; 80053; 80061; 82043; 82306; 82607; 84439; 84443

== ENCOUNTER 2022-01-17 07:42 | Outpatient (CLI) | payer OTHER, SELFPAY ==
[2022-01-17 08:08] LABS: Hematocrit 42.4 % (37.0-47.0); Hemoglobin 13.9 g/dL (12.0-15.0); Mean Corpuscular HGB Conc 32.8 g/dl (32-36); Mean Corpuscular Hemoglobin 29.3 pg (26-34); Mean Corpuscular Volume 89.5 fl (80-100); Mean Platelet Volume 9.7 fl (7.4-10.4); Platelet Count Result 217 k/mm3 (150-375); Red Blood Count 4.74 M/mm3 (4.2-5.4); Red Cell Distribution Width 12.4 % (11.5-14.5)
[2022-01-17 08:10] LABS: Appearance Urine Clear (Clear); Bilirubin Urine 1+ (Negative); Blood Urine Trace-lysed (Negative); Color Urine Yellow (Yellow); Glucose Urine UA Trace mg/dL (Negative); Ketones Urine Trace mg/dL (Negative); Leukocyte Esterase Ur 1+ LEU/UL (Negative); Nitrate Urine Positive (Negative); Protein Urine 2+ mg/dL (Negative); Specific Grav Ur >= 1.030 (1.001-1.035); Urobilinogen Urine 0.2 mg/dL (<2.0)
[2022-01-17 08:23] LABS: Mucus Urine Heavy /lpf; RBC Urine 21-50 /hpf (0-2); Squamous Epithelial Cell Urine Many /hpf (Few); WBC Clumps Urine Present /HPF; WBC Urine >75 /hpf
[2022-01-17 08:25] LABS: Add Urine Microscopic? YES
[2022-01-17 08:25] LABS: Alanine Aminotransferase 8 U/L (6-35); Albumin Level 3.7 g/dL (3.5-5.1); Alkaline Phosphatase 61 U/L (38-126); Anion Gap 6 mmol/L (8-16); Aspartate Amino Transferase 17 U/L (14-36); Bilirubin,Total 0.5 mg/dL (0.2-1.3); Blood Urea Nitrogen 11 mg/dL (7-17); CRP < 0.5 mg/dL (<1.0); Calcium 8.8 mg/dL (8.4-10.2); Carbon Dioxide 30 mmol/L (22-30); Chloride 100 mmol/L (98-107); Estimated Glomerular Filt Rate > 60; Glucose 213 mg/dL (65-110); Potassium 4.9 mmol/L (3.4-5.0); Sodium 136 mmol/L (137-145)
[2022-01-17 10:43] LABS: Erythrocyte Sedimentation Rate 15 mm/hr (0-20)
== END 2022-01-17 07:43 | disposition home or self-care (01) ==
PROVIDERS: PCP Internal Medicine; Visit Provider Internal Medicine
DX: M05.79 Rheumatoid arthritis with rheumatoid factor of multiple sites without organ or systems involvement (principal)
CPT/HCPCS: 36415; 80053; 81001; 85027; 85652; 86140; 87077; 87086; 87186

== ENCOUNTER 2022-04-28 09:26 | Outpatient (CLI) | payer OTHER, SELFPAY ==
[2022-04-28 10:11] LABS: Hematocrit 43.8 % (37.0-47.0); Hemoglobin 14.2 g/dL (12.0-15.0); Mean Corpuscular HGB Conc 32.4 g/dl (32-36); Mean Corpuscular Hemoglobin 29.3 pg (26-34); Mean Corpuscular Volume 90.5 fl (80-100); Platelet Count Result 222 k/mm3 (150-375); Red Blood Count 4.84 M/mm3 (4.2-5.4); Red Cell Distribution Width 12.8 % (11.5-14.5)
[2022-04-28 10:17] LABS: Appearance Urine Cloudy (Clear); Bacteria Urine 4+ /hpf; Bilirubin Urine Negative (Negative); Blood Urine Negative (Negative); Color Urine Yellow (Yellow); Glucose Urine UA 3+ mg/dL (Negative); Ketones Urine Negative (Negative); Leukocyte Esterase Ur 2+ LEU/UL (Negative); Nitrate Urine Negative (Negative); Non Pathogenic Casts 0-2; Protein Urine Trace mg/dL (Negative); RBC Urine 0-2 /hpf (0-2); Specific Grav Ur 1.023 (1.001-1.035); Squamous Epithelial Cell Urine Few /hpf (Few); Urobilinogen Urine 0.2 mg/dL (<2.0); WBC Urine 51-100 /hpf
[2022-04-28 10:25] LABS: Add Urine Microscopic? YES
[2022-04-28 10:53] LABS: Erythrocyte Sedimentation Rate 19 mm/hr (0-20)
[2022-04-28 11:25] LABS: Alanine Aminotransferase 11 U/L (6-35); Albumin Level 3.7 g/dL (3.5-5.1); Alkaline Phosphatase 75 U/L (38-126); Anion Gap 5 mmol/L (8-16); Aspartate Amino Transferase 17 U/L (14-36); Bilirubin,Total 0.6 mg/dL (0.2-1.3); Blood Urea Nitrogen 12 mg/dL (7-17); CRP 0.7 mg/dL (<1.0); Carbon Dioxide 32 mmol/L (22-30); Chloride 99 mmol/L (98-107); Estimated Glomerular Filt Rate > 60; Glucose 262 mg/dL (65-110); Potassium 4.4 mmol/L (3.4-5.0); Sodium 136 mmol/L (137-145)
== END 2022-04-28 09:27 | disposition home or self-care (01) ==
LOC: ANHLAB 09:27
PROVIDERS: PCP Internal Medicine; Visit Provider Internal Medicine
DX: M05.79 Rheumatoid arthritis with rheumatoid factor of multiple sites without organ or systems involvement (principal); M19.90 Unspecified osteoarthritis, unspecified site; Z79.899 Other long term (current) drug therapy
CPT/HCPCS: 36415; 80053; 81001; 85027; 85652; 86140; 87077; 87086; 87186

== ENCOUNTER 2022-05-29 08:50 | Outpatient (CLI) | payer OTHER, SELFPAY ==
[2022-05-29 09:13] LABS: Hemoglobin 13.9 g/dL (12.0-15.0); Mean Corpuscular HGB Conc 32.3 g/dl (32-36); Mean Corpuscular Hemoglobin 28.8 pg (26-34); Mean Platelet Volume 9.4 fl (7.4-10.4); Platelet Count Result 211 k/mm3 (150-375); Red Blood Count 4.83 M/mm3 (4.2-5.4); Red Cell Distribution Width 12.7 % (11.5-14.5); White Blood Count 5.6 K/mm3 (4.5-10.0)
[2022-05-29 09:27] LABS: Alanine Aminotransferase 16 U/L (6-35); Albumin Level 3.7 g/dL (3.5-5.1); Alkaline Phosphatase 71 U/L (38-126); Anion Gap -1 mmol/L (8-16); Aspartate Amino Transferase 23 U/L (14-36); Bilirubin,Total 0.7 mg/dL (0.2-1.3); Blood Urea Nitrogen 13 mg/dL (7-17); CRP < 0.5 mg/dL (<1.0); Calcium 8.5 mg/dL (8.4-10.2); Carbon Dioxide 34 mmol/L (22-30); Chloride 99 mmol/L (98-107); Cholesterol 168 mg/dL (0-200); Estimated Glomerular Filt Rate > 60; Glucose 274 mg/dL (65-110); HDL Direct 49 mg/dL; Potassium 4.5 mmol/L (3.4-5.0); Sodium 132 mmol/L (137-145); Triglycerides 316 mg/dL (<150)
[2022-05-29 09:36] LABS: LDL Cholesterol Direct 73 mg/dL
[2022-05-29 12:00] LABS: Erythrocyte Sedimentation Rate 17 mm/hr (0-20)
== END 2022-05-29 08:51 | disposition home or self-care (01) ==
PROVIDERS: PCP Internal Medicine; Referring Provider Nurse Practitioner; Visit Provider Internal Medicine
DX: M05.79 Rheumatoid arthritis with rheumatoid factor of multiple sites without organ or systems involvement (principal); M19.90 Unspecified osteoarthritis, unspecified site; E78.5 Hyperlipidemia, unspecified
CPT/HCPCS: 36415; 80053; 80061; 85027; 85652; 86140

== ENCOUNTER 2022-06-10 12:18 | Emergency (ER) | payer OTHER, SELFPAY ==
--- NOTE | ~2022-06-10 | XR_ITS ---
Right Shoulder Technique: AP and scapular Y views were obtained. Clinical History: Pain Findings: No fracture or dislocation is seen. Osseous alignment is anatomic. The glenohumeral and acr omioclavicular joint spaces are preserved. Soft tissues are unremarkable. Impression: Unremarkable right shoulder radiographs. Reviewed, dictated and finalized at [facility]. Impression: Unremarkable right shoulder radiographs.
[2022-06-10 12:45] VITALS: BP 124/76; PULSE 98; RESP 18; TEMP 36.6; O2SAT 98
--- NOTE | 2022-06-10 13:57 | ED.GENADULT ---
HPI - General Adult General Chief complaint: Extremity Injury, Upper Stated complaint: r shoulder pain Time Seen by Provider: 06/10/22 13:14 Source: patient Mode of arrival: ambulatory Limitations: no limitations History of Present Illness HPI narrative: This is a 77-year-old female presents the ED with chief complaint of a fall and right shoulder injury that occurred yesterday. Patient states she has a lot of neuropathy in her feet and she had a misstep that caused her to fall into the door frame. She states she hit her right shoulder on the frame. Denies any audible pop. Denies numbness or weakness. Denies any further site of pain or injury. Related Data Home Medications Medication Instructions Recorded Confirmed cetirizine 10 mg tablet (Zyrtec) 5 mg PO HS PRN Allergic Symptoms 01/18/19 05/02/22 krill oil 350 mg-om-3 90 mg-dha 24 350 cap PO QAM 04/01/19 05/02/22 mg-epa 50 mg-phospholipids capsule aspirin 81 mg chewable tablet 81 mg PO HS 06/02/19 05/02/22 (Cooper Chewable Low Dose Aspirin) apixaban 5 mg tablet (Eliquis) 5 mg PO BID 05/03/20 05/02/22 carboxymethylcellulose sodium 0.5 2 drp EACH EYE QID PRN Dry Eyes 05/03/20 05/02/22 % eye drops (Refresh Tears) cholecalciferol (vitamin D3) 50 100 mcg PO DAILY 09/10/20 05/02/22 mcg (2,000 unit) capsule metoprolol succinate 100 mg 50 mg PO BID 09/10/20 05/02/22 tablet,extended release 24 hr calcium 500 mg tablet 300 mg PO DAILY 11/16/20 05/02/22 gabapentin 300 mg capsule 300 mg PO DAILY 01/28/22 05/02/22 cyanocobalamin (vitamin B-12) 500 mcg PO DAILY 05/01/22 05/02/22 1,000 mcg capsule insulin NPH-regular 70-30 U-100 See Rx Instructions subcut BID 05/01/22 05/02/22 insulin 100 unit/mL subcutaneous pen (Novolin 70-30 FlexPen U-100 Insulin) Allergies Allergy/AdvReac Type Severity Reaction Status Date / Time ferrous sulfate AdvReac Mild Vomiting Verified 05/05/22 11:45 [From Igor-Iron] Review of Systems Review of Systems: CONSTITUTIONAL: Denies fever, chills, or sweats. SKIN: Denies rash or itching. Denies bruising. MUSCULOSKELETAL: See HPI NEUROLOGIC: Denies headache, numbness, dizziness, or weakness. PSYCHIATRIC: Denies anxiety or depression. 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 use of exterminator termite anticoagulation VEGAS (dyspnea on exertion) Essential (primary) hypertension GERD without esophagitis Hx of rotator cuff tear Hypercholesteremia Iron deficiency anemia Mixed hyperlipidemia Obesity Osteoporosis Peripheral neuropathy Primary osteoarthritis involving multiple joints Rheumatoid arthritis with rheumatoid factor of multiple sites without organ or systems involvement (~2018) Right cervical radiculopathy Shingles SOB (shortness of breath) TIA (transient ischemic attack) Tinea corporis Type 2 diabetes mellitus with diabetic polyneuropathy, with long-term current use of insulin Vitamin D deficiency Surgical History Surgical History H/O bladder repair surgery 1990 H/O: hysterectomy 1990 History of appendectomy Age 16 Hx of cholecystectomy Hx of rotator cuff surgery Hx of tonsillectomy Age 3 Family History Family History Unknown Adopted Social History Social History Social History: Ms. 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 She denies alcohol use. She smoked around 1 pack per week of cigarettes for around 40 years and quit in 2018, denies other illicit substance use. 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
== END 2022-06-10 14:33 | disposition home or self-care (01) ==
PROVIDERS: Emergency Provider Physician Assistant; PCP Internal Medicine
DX: S49.91XA Unspecified injury of right shoulder and upper arm, initial encounter (principal); I48.91 Unspecified atrial fibrillation; E11.42 Type 2 diabetes mellitus with diabetic polyneuropathy; I10 Essential (primary) hypertension; D50.9 Iron deficiency anemia, unspecified; E78.2 Mixed hyperlipidemia; E55.9 Vitamin D deficiency, unspecified; E66.9 Obesity, unspecified; Z68.24 Body mass index [BMI] 24.0-24.9, adult; K21.9 Gastro-esophageal reflux disease without esophagitis; M19.90 Unspecified osteoarthritis, unspecified site; M81.0 Age-related osteoporosis without current pathological fracture; H26.9 Unspecified cataract; Z86.73 Personal history of transient ischemic attack (TIA), and cerebral infarction without residual deficits; Z87.891 Personal history of nicotine dependence; Z79.01 Long term (current) use of anticoagulants; Z79.4 Long term (current) use of insulin; Z79.82 Long term (current) use of aspirin; Z90.710 Acquired absence of both cervix and uterus; W01.198A Fall on same level from slipping, tripping and stumbling with subsequent striking against other object, initial encounter
CPT/HCPCS: 73030; 99283

== ENCOUNTER 2022-07-02 12:35 | Outpatient (CLI) | payer OTHER, SELFPAY ==
[2022-07-02 13:37] LABS: Anion Gap 6 mmol/L (8-16); Blood Urea Nitrogen 11 mg/dL (7-17); Calcium 8.8 mg/dL (8.4-10.2); Carbon Dioxide 27 mmol/L (22-30); Chloride 101 mmol/L (98-107); Estimated Glomerular Filt Rate > 60; Glucose 214 mg/dL (65-110); Potassium 4.5 mmol/L (3.4-5.0); Sodium 134 mmol/L (137-145)
== END 2022-07-02 12:36 | disposition home or self-care (01) ==
PROVIDERS: PCP Family Medicine; Visit Provider Family Medicine
DX: E87.1 Hypo-osmolality and hyponatremia (principal)
CPT/HCPCS: 36415; 80048

== ENCOUNTER 2022-07-11 18:27 | Emergency (ER) | payer OTHER, SELFPAY ==
--- NOTE | ~2022-07-11 | CT_ITS ---
EXAMINATION: CT abdomen pelvis w con DATE: 07/11/2022 21:26 INDICATION: Left gluteal hematoma post fall TECHNIQUE: Computed tomography (CT) of the abdomen and pelvis was performed with 100 mL Omnipaque-350 intravenous contrast. Automated exposure control and iterative reconstruction technique were employe d. The dose-length product was 386.19 mGy-cm. COMPARISON: 10/10/15 FINDINGS: Lung bases are clear. Heart size is normal. No pericardial or pleural effusion. Cholecystectomy clips at the gallbladder fossa. Liver, spleen, pancreas and bilateral adrenal glands are normal. Small reg ion of cortical scarring at both kidneys likely sequela of prior infection or infarction. 1.3 cm righ t renal cyst. Again seen is fatty infiltration of the wall the proximal and to lesser degree distal c olon likely sequela of chronic inflammation. No bowel obstruction. Bladder is normal. The uterus is n ot identified and has likely been surgically resected. Prominent stranding in the subcutaneous fat at the left buttock surrounding a few lobular hematomas, the largest measuring 8.4 x 3.1 x 5.2 cm. Mild thoracic and lumbar spondylosis. No acute fracture. IMPRESSION: 1. Subcutaneous hematomas at the left buttock. No fracture. 2. No acute intra-abdominal/pelvic process. Reviewed, dictated and finalized at location A.
--- NOTE | ~2022-07-11 | CT_ITS ---
EXAMINATION: CT cervical spine wo con DATE: 07/11/2022 18:56 INDICATION: Fall with posterior head injury TECHNIQUE: Computed tomography (CT) of the cervical spine was performed without intravenous contrast. Automated exposure control and iterative reconstruction technique were employed. The dose-length pro duct was 294.54 mGy-cm. COMPARISON: None FINDINGS: Likely positional mild reversal of the normal cervical lordosis. No spondylolisthesis or facet sublux ation. Vertebral body heights are normal. No fracture. Mild disc height loss at C4-C5 and C5-C6. Disc bulges from C3-C4 through C6-C7 with additional ossification along the posterior longitudinal ligame nt at C4-C5 and C5-C6 resulting in mild central canal stenosis at each of these levels. Moderate unco vertebral osteoarthritis on the right at C4-C5 with additional multilevel bilateral mild uncovertebra l osteoarthritis. There is also bilateral multilevel moderate to severe upper cervical predominant fa cet osteoarthritis. This contributes to mild to moderate neural foraminal stenosis on the right at C3 -C4 and mild neural foraminal stenosis at multiple additional levels of both the left and right. Athe rosclerotic calcific a cyst at the bilateral carotid bulbs. Likely benign 1 cm left thyroid nodule. C ervical soft tissues are otherwise unremarkable. Visualized portions of the upper lungs are clear. IMPRESSION: 1. Mild cervical spondylosis. No acute osseous abnormality. Reviewed, dictated and finalized at location A.
--- NOTE | ~2022-07-11 | CT_ITS ---
EXAMINATION: CT brain wo con DATE: 07/11/2022 18:56 INDICATION: Head injury post fall TECHNIQUE: Computed tomography (CT) of the head was performed without intravenous contrast. Sagittal and coronal reconstructions were performed. The mA was adjusted according to patient size. Iterative reconstruction technique was employed. The dose-length product was 605.33 mGy-cm. COMPARISON: head CT dated 05/03/20 FINDINGS: Small left parietal scalp hematoma. No calvarial fracture.. Small focus of encephalomalacia consisten t with chronic infarct in the left parietal lobe. Additional small old lacunar infarct at the right l entiform nucleus. No acute intracranial hemorrhage, acute infarction or abnormal extra axial fluid co llection. Mild scattered white matter hypoattenuation consistent with chronic small vessel ischemic d isease. Ventricles are normal and symmetric. No mass/mass effect. Changes of bilateral intraocular le ns replacement. The orbits, paranasal sinuses and mastoid air cells are normal. Intracranial calcifie d cerebral atherosclerosis is noted. IMPRESSION: 1. No fracture or acute intracranial process. 2. Small old infarcts in the left parietal lobe and right basal ganglia. 3. Mild scattered nonspecific white matter hypoattenuation consistent with chronic small vessel ische cong disease. Reviewed, dictated and finalized at location A. IMPRESSION: 1. No fracture or acute intracranial process. 2. Small old infarcts in the left parietal lobe and right basal ganglia. 3. Mild scattered nonspecific white matter hypoattenuation consistent with supervisor rolling room allen small vessel ischemic disease.
[2022-07-11 18:30] VITALS: BP 101/53; PULSE 80; RESP 15; TEMP 36.6; O2SAT 99
--- NOTE | 2022-07-11 19:34 | ED.GENADULT ---
HPI - General Adult General Chief complaint: Fall Stated complaint: fall, head injury Time Seen by Provider: 07/11/22 19:08 History of Present Illness HPI narrative: Patient is a 77-year-old female who presents the emergency department with chief complaint of head injury nausea and left gluteal injury. The patient reports she was leaning out of her car working on her car and fell to the vehicle the patient states she struck her head and struck her left gluteal region. The patient reports she had no loss of consciousness remembers the whole event but does report that she is currently on a DOAC. Patient reports that since then she has developed nausea and reports that she is felt a little lightheaded patient reports that she has a large hematoma on her left gluteal region. Related Data Home Medications Medication Instructions Recorded Confirmed cetirizine 10 mg tablet (Zyrtec) 5 mg PO HS PRN Allergic Symptoms 01/18/19 06/26/22 krill oil 350 mg-om-3 90 mg-dha 24 350 cap PO QAM 04/01/19 06/26/22 mg-epa 50 mg-phospholipids capsule aspirin 81 mg chewable tablet 81 mg PO HS 06/02/19 06/26/22 (Cooper Chewable Low Dose Aspirin) apixaban 5 mg tablet (Eliquis) 5 mg PO BID 05/03/20 06/26/22 carboxymethylcellulose sodium 0.5 2 drp EACH EYE QID PRN Dry Eyes 05/03/20 06/26/22 % eye drops (Refresh Tears) cholecalciferol (vitamin D3) 50 100 mcg PO DAILY 09/10/20 06/26/22 mcg (2,000 unit) capsule calcium 500 mg tablet 300 mg PO DAILY 11/16/20 06/26/22 cyanocobalamin (vitamin B-12) 500 mcg PO DAILY 05/01/22 06/26/22 1,000 mcg capsule insulin NPH-regular 70-30 U-100 See Rx Instructions subcut BID 05/01/22 06/26/22 insulin 100 unit/mL subcutaneous pen (Novolin 70-30 FlexPen U-100 Insulin) metoprolol succinate 100 mg 150 mg PO ONCE 06/13/22 06/26/22 tablet,extended release 24 hr Allergies Allergy/AdvReac Type Severity Reaction Status Date / Time ferrous sulfate AdvReac Mild Vomiting Verified 07/11/22 21:03 [From Igor-Iron] Review of Systems Review of Systems: A 10 system review of systems was completed on the patient and is negative except for what is stated in the HPI. Nursing and ancillary documentation was reviewed. 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 VEGAS (dyspnea on exertion) Essential (primary) hypertension GERD without esophagitis Hx of rotator cuff tear Hypercholesteremia Iron deficiency anemia Mixed hyperlipidemia Obesity Osteoporosis Peripheral neuropathy Primary osteoarthritis involving multiple joints Rheumatoid arthritis with rheumatoid factor of multiple sites without organ or systems involvement (~2018) Right cervical radiculopathy Shingles SOB (shortness of breath) TIA (transient ischemic attack) Tinea corporis Type 2 diabetes mellitus with diabetic polyneuropathy, with long-term current use of insulin Vitamin D deficiency Surgical History Surgical History H/O bladder repair surgery 1990 H/O: hysterectomy 1990 History of appendectomy Age 16 Hx of cholecystectomy Hx of rotator cuff surgery Hx of tonsillectomy Age 3 Family History Family History Unknown Adopted Social History Social History Smoking packs per day: 0 Smoking cigarettes per day: 0.0 Years smoked: 30 Smoking pack-years: 0.00 Smoking status: Former smoker Tobacco type: cigarettes Second hand tobacco smoke exposure: No Smoking end date: 02/23/17 Alcohol intake: never Substance use: never Substance use type: does not use Current Housing:
[2022-07-11 20:00] VITALS: BP 142/52; PULSE 51; RESP 20; O2SAT 100
[2022-07-11] MEDS: SODIUM CHLORIDE 0.9% IV 1,000 ML 999 ML IV CONT (20:04)
[2022-07-11] MEDS: ONDANSETRON INJ 4 MG/2 ML VIAL IV PUSH (20:05)
[2022-07-11 20:18] LABS: Basophils Absolute Auto 0.1 K/mm3 (0.0-0.1); Eosinophils Absolute Auto 0.1 K/mm3 (0-0.3); Eosinophils Percent Auto 0.9 % (0-4.4); Hematocrit 41.2 % (37.0-47.0); Hemoglobin 13.4 g/dL (12.0-15.0); Immature Granulocyte Absolute 0.05 K/mm3 (0.00-0.031); Immature Granulocyte Percent A 0.4 % (0-0.5); Lymphocytes Absolute Auto 2.92 K/mm3 (0.9-3.2); Mean Corpuscular HGB Conc 32.5 g/dl (32-36); Mean Corpuscular Hemoglobin 29.6 pg (26-34); Mean Corpuscular Volume 91.2 fl (80-100); Mean Platelet Volume 9.8 fl (7.4-10.4); Monocytes Percent Auto 7.3 % (2.6-8.5); Neutrophils Absolute Auto 9.7 K/mm3 (1.3-6.7); Neutrophils Percent Auto 69.4 % (45.5-73.1); Platelet Count Result 297 k/mm3 (150-375); Red Blood Count 4.52 M/mm3 (4.2-5.4); Red Cell Distribution Width 13.1 % (11.5-14.5); White Blood Count 13.9 K/mm3 (4.5-10.0)
[2022-07-11 20:33] LABS: Partial Thromboplastin Time 21.4 SECONDS (22.3-36.8)
[2022-07-11 21:04] LABS: Alanine Aminotransferase 28 U/L (6-35); Albumin Level 3.7 g/dL (3.5-5.1); Alkaline Phosphatase 75 U/L (38-126); Anion Gap 13 mmol/L (8-16); Aspartate Amino Transferase 24 U/L (14-36); Bilirubin,Total 0.6 mg/dL (0.2-1.3); Blood Urea Nitrogen 16 mg/dL (7-17); Calcium 8.9 mg/dL (8.4-10.2); Carbon Dioxide 24 mmol/L (22-30); Chloride 96 mmol/L (98-107); Estimated CRCL calculation 38 ml/min; Estimated Glomerular Filt Rate > 60; Glucose 463 mg/dL (65-110); Potassium 3.5 mmol/L (3.4-5.0); Sodium 133 mmol/L (137-145)
[2022-07-11 21:22] LABS: Appearance Urine Clear (Clear); Bacteria Urine None Seen /hpf; Bilirubin Urine Negative (Negative); Blood Urine Negative (Negative); Color Urine Yellow (Yellow); Glucose Urine UA 3+ mg/dL (Negative); Ketones Urine Trace mg/dL (Negative); Leukocyte Esterase Ur Negative LEU/UL (Negative); Need Manual Microscopic Reviewed; Nitrate Urine Negative (Negative); Protein Urine 2+ mg/dL (Negative); RBC Urine 0-2 /hpf (0-2); Specific Grav Ur 1.031 (1.001-1.035); Squamous Epithelial Cell Urine None seen /hpf (Few); Urobilinogen Urine 0.2 mg/dL (<2.0); pH Urine 5.5 (5.0-9.0)
[2022-07-11 21:33] LABS: Add Urine Microscopic? YES
[2022-07-11 22:00] VITALS: PULSE 113; RESP 18; O2SAT 98
[2022-07-11] MEDS: traMADol HCL (*CRX) 50 MG TABLET PO (22:19)
[2022-07-11 22:30] VITALS: PULSE 134; RESP 26; O2SAT 99
--- NOTE | 2022-07-11 23:14 | ECG_ITS ---
Measurements Intervals [place] Rate: 114 P: HI: 0 QRS: -49 QRSD: 125 T: 18 QT: 347 QTc: 478 Interpretive Statements ATRIAL FIBRILLATION WITH RAPID VENTRICULAR RESPONSE VENTRICULAR PREMATURE COMPLEX RIGHT BUNDLE BRANCH BLOCK LEFT ANTERIOR FASCICULAR BLOCK ABNORMAL ECG COMPARED TO ECG 05/03/2020 04:04:59 HEART RATE HAS INCREASED RIGHT BUNDLE-BRANCH BLOCK NOW PRESENT LEFT ANTERIOR FASCICULAR BLOCK NOW PRESENT Electronically Signed On 07-12-2022 7:10:26 CDT by Aly Alberto D.O.
--- NOTE | 2022-07-11 23:18 | PC.NURSE ---
Pt noted to have a heart rate between 120 and 135 on ekg monitor. EKG obtained showing afib at a rate of 114. Dr. Milian notified.
[2022-07-11] MEDS: TETANUS,DIPHTHERIA,AC PERTUSSIS ADULT (0.5 ML) BOOSTRIX IM (23:20)
[2022-07-11 23:39] VITALS: BP 140/64; PULSE 126; RESP 23; O2SAT 99
--- NOTE | 2022-07-11 23:42 | PC.NURSE ---
Pt requested there be a bandage on her head upon discharge. Tech wrapped pt. head with a piece of gauze and a head wrap, along with cleaning of the head wound with normal saline.
== END 2022-07-11 23:42 | disposition home or self-care (01) ==
PROVIDERS: Emergency Provider Emergency Medicine; PCP Family Medicine
DX: S00.01XA Abrasion of scalp, initial encounter (principal); S30.0XXA Contusion of lower back and pelvis, initial encounter; Z23 Encounter for immunization; I48.91 Unspecified atrial fibrillation; R82.998 Other abnormal findings in urine; E11.42 Type 2 diabetes mellitus with diabetic polyneuropathy; I10 Essential (primary) hypertension; E78.2 Mixed hyperlipidemia; E55.9 Vitamin D deficiency, unspecified; D50.9 Iron deficiency anemia, unspecified; K21.9 Gastro-esophageal reflux disease without esophagitis; M05.79 Rheumatoid arthritis with rheumatoid factor of multiple sites without organ or systems involvement; M81.0 Age-related osteoporosis without current pathological fracture; M19.90 Unspecified osteoarthritis, unspecified site; E66.9 Obesity, unspecified; Z68.23 Body mass index [BMI] 23.0-23.9, adult; Z87.891 Personal history of nicotine dependence; Z86.73 Personal history of transient ischemic attack (TIA), and cerebral infarction without residual deficits; Z90.49 Acquired absence of other specified parts of digestive tract; Z90.710 Acquired absence of both cervix and uterus; Z79.4 Long term (current) use of insulin; Z79.01 Long term (current) use of anticoagulants; Z79.82 Long term (current) use of aspirin; W01.0XXA Fall on same level from slipping, tripping and stumbling without subsequent striking against object, initial encounter
CPT/HCPCS: 36415; 70450; 72125; 74177; 80053; 81001; 85025; 85610; 85730; 87086; 90471; 90715; 93005; 96361; 96374; 99284; A9270; J2405; J7030; Q9967

== ENCOUNTER 2022-08-14 11:00 | Outpatient (RCR) | payer OTHER, SELFPAY ==
--- NOTE | 2022-07-17 11:55 | OPREHPOC ---
Outpatient Therapy Plan of Care This is a Multidisciplinary Plan of Care that may contain components documented by all disciplines (PT, OT, and ST.) PT Goal 1 Goal Independent with HEP Target Visit 2 PT Problem 2 PT Problem #2 Pain PT Goal 1 Goal pain decreased to 3/10 at worst Target Visit 2 PT Problem 3 PT Problem #3 Impaired Strength PT Goal 1 Goal 4+5 R shoulder external rotation Target Visit 2 PT Problem 4 PT Problem #4 Impaired Balance PT Goal 1 Goal do single limb stance and tandem without UE support or LOB. Target Visit 2
--- NOTE | 2022-07-17 11:55 | PTOPEVAL1 ---
Assessment and note entered by Cas Ruby, PT Evaluation Information Assessment Status Evaluation Diagnosis R shoulder pain Subjective Information Patient reports having a fall causing pain in her R shoulder and since seeng the doctor having another fall that now makes the shoulder feels okay, but having her L hip and low back hurting. Patient reports neuropathy in her feet which makes it feel like she is never on a firm surface. Reported Pain Level Pain Score Mild Pain: Cristofer Muro Additional Pain Score Comments patient reports mild pain in her R shoulder around the bicipital groove and her L hip and low back. Assessment PT Clinical Summary Milo is a 77 year old female coming in with R shoulder and balance issues. The patient has pain with resisted external rotation and palpation of the bicipital groove. active range of motion is WFL. Decreased balance which has contributed to two falls so far this year. Unfortunately patient reports she cannot afford consistent physical therapy so will attempt HEP for a month and then reassess and if she is having more trouble will attempt at a higher frequency. Plan of Care Interventions Electrical Stimulation,Gait Training,Hot Pack/Cold Pack,Manual Therapy,Neuro Re-education,Patient/ Caregiver Education,Therapeutic Activities, Therapeutic Exercise,Ultrasound Other Interventions cupping, taping, IASTM PT Services Indicated Yes Treatment Frequency and one re-eval at one month to assess HEP Duration These treatments will address the objective and functional deficits as defined above. The patient will be advanced safely and appropriately in order for the patient to progress towards his/her prior level of function. Additional exercises will be introduced and as well as a comprehensive home exercise program upon discharge, if needed, ?to ensure carryover of functional gains achieved in the clinic. This treatment plan has been reviewed and agreement upon by the patient.
--- NOTE | 2022-08-14 11:27 | PTOPDC ---
Assessment and note entered by Cas Ruby, PT Evaluation Information Assessment Status Discharge Diagnosis Pain in R shoulder Subjective Information Patient reports she has been doing her shoulder exercises 3 days a week, but not doing her balance exercises secondary to being afraid of falling. Patient reports able to move her shoulder around without increased pain. States she is seeing Dr. Clayton next week. Reported Pain Level Pain Score 0: Self Report Additional Pain Score Comments Patient currently has no pain, does reports it will get up to a 3/10. Assessment PT Clinical Summary Milo is a 77 year old female coming into the clinic with a diagnosis of R shoulder pain. The patient was evaluated on 07/16/22 and sent home with an HEP as she voices financial concerns being unable to afford the co-pay for multiple visits. Pain is reduced, but external strength has not improved. Patient also has not been doing balance exercises to help prevent further falls. Patient okay with her current condition and discharged from skilled physical therapy. Plan of Care PT Services Indicated No
== END 2022-08-14 14:09 | disposition home or self-care (01) ==
LOC: ANHPT 11:00
PROVIDERS: PCP Family Medicine; Visit Provider Orthopaedic Surgery
DX: M25.511 Pain in right shoulder (principal); S40.011D Contusion of right shoulder, subsequent encounter
CPT/HCPCS: 97110; 97161

== ENCOUNTER 2022-08-21 12:15 | Outpatient (CLI) | payer OTHER, SELFPAY ==
--- NOTE | ~2022-08-21 | DEXA_ITS ---
Bone Density Report Name: BOB JUAN Age: 77 Sex: Female Ethnicity: White Date of : 1945 Indication: postmenopausal; screening for osteoporosis; height loss; hysterectomy; rheumatoid arthritis; Referring Provider: AZRA CHEN Study: Bone densitometry was performed. Exam Date: August 21, 2022 Accession number: [id number] Bone Density: Region BMD T-score Z-score Classification AP Spine(L1-L4) 1.156 1.0 3.5 Normal Femoral Neck (Left) 0.563 -2.6 -0.4 Osteoporosis Total Hip (Left) 0.863 -0.6 1.3 Normal Femoral Neck (Right) 0.598 -2.3 -0.1 Osteopenia Total Hip (Right) 0.820 -1.0 0.9 Normal Total Hip Mean 0.841 -0.8 1.1 Normal World Health Organization criteria for BMD impression classify patients as: Normal (T-score at or above -1.0), Osteopenia (T-score between -1.0 and -2.5), or Osteoporosis (T-score at or below -2.5). 10-year Fracture Risk: FRAX not reported because: Some T-score for Spine Total or Hip Total or Femoral Neck at or below -2.5 Previous Exams: Region Exam Age BMD T-score BMD Change BMD Change Date g/cm2 vs Baseline vs Previous Total Hip(Left) 08/21/2022 77 0.863 -0.6 -0.075 (-7.9%) -0.055 (-6.0%) 07/10/2020 75 0.918 -0.2 -0.019 (-2.1%) -0.019 (-2.1%) 08/02/2018 73 0.938 0.0 Total Hip(Right) 08/21/2022 77 0.820 -1.0 -0.038 (-4.4%) -0.008 (-1.0%) 07/10/2020 75 0.828 -0.9 -0.030 (-3.5%) -0.030 (-3.5%) 08/02/2018 73 0.857 -0.7 *Denotes significance at 95% confidence level, LSC for Total Hip = 0.027 g/cm2 Clinical Information Provided by Patient: Has rheumatoid arthritis Has used the following medications: Vitamin D, Calcium Has the following medical conditions: Hysterectomy Patient maximum height was 63 Menopause Age: 38 No regular weight bearing exercise Drinks caffeinated beverages Onset of menses at age 9 Number of children 1 Impression: The patient has osteoporosis, based on the Left Femoral Neck T-score. The BMD for the Total Hip(Left) decreased, changing by -6.0% since the last DXA exam. Discussion: INCREASED RISK OF FRACTURE. BONE DENSITY IS UNDESIRABLY LOW AT ONE OR MORE SKELETAL SITES, CONSISTENT WITH POSTMENOPAUSAL OSTEOPOROSIS. This patient's lowest T-score meets the World Health Organization's (WHO) criteria for osteoporosis at one or more sites (T-score -2.5 or below). In untreated patients, the risk of osteoporotic fracture increases approximately two-fold for each 1.0 SD decrease in T-score. Low bone d
== END 2022-08-21 12:16 | disposition home or self-care (01) ==
PROVIDERS: PCP Family Medicine; Visit Provider Family Medicine
DX: M81.0 Age-related osteoporosis without current pathological fracture (principal); M85.852 Other specified disorders of bone density and structure, left thigh
CPT/HCPCS: 77080

== ENCOUNTER 2022-10-30 08:43 | Outpatient (CLI) | payer OTHER, SELFPAY ==
[2022-10-30 10:21] LABS: Hematocrit 44.5 % (37.0-47.0); Hemoglobin 14.3 g/dL (12.0-15.0); Mean Corpuscular HGB Conc 32.1 g/dl (32-36); Mean Corpuscular Hemoglobin 29.1 pg (26-34); Mean Corpuscular Volume 90.6 fl (80-100); Mean Platelet Volume 9.6 fl (7.4-10.4); Platelet Count Result 264 k/mm3 (150-375); Red Blood Count 4.91 M/mm3 (4.2-5.4); Red Cell Distribution Width 13.2 % (11.5-14.5); White Blood Count 8.1 K/mm3 (4.5-10.0)
[2022-10-30 10:40] LABS: Alanine Aminotransferase 12 U/L (6-35); Albumin Level 3.9 g/dL (3.5-5.1); Alkaline Phosphatase 56 U/L (38-126); Anion Gap 6 mmol/L (8-16); Aspartate Amino Transferase 21 U/L (14-36); Bilirubin,Total 0.8 mg/dL (0.2-1.3); Blood Urea Nitrogen 15 mg/dL (7-17); CRP < 0.5 mg/dL (<1.0); Calcium 8.6 mg/dL (8.4-10.2); Carbon Dioxide 30 mmol/L (22-30); Chloride 100 mmol/L (98-107); Estimated Glomerular Filt Rate > 60; Glucose 165 mg/dL (65-110); Potassium 4.5 mmol/L (3.4-5.0); Sodium 136 mmol/L (137-145)
[2022-10-30 10:53] LABS: Erythrocyte Sedimentation Rate 14 mm/hr (0-20)
[2022-10-30 14:37] LABS: Appearance Urine Clear (Clear); Bacteria Urine None Seen /hpf; Bilirubin Urine Negative (Negative); Blood Urine Negative (Negative); Color Urine Yellow (Yellow); Glucose Urine UA 3+ mg/dL (Negative); Ketones Urine Negative (Negative); Leukocyte Esterase Ur Trace LEU/UL (Negative); Nitrate Urine Negative (Negative); Non Pathogenic Casts 0-2; Protein Urine Negative (Negative); RBC Urine 0-2 /hpf (0-2); Specific Grav Ur 1.028 (1.001-1.035); Squamous Epithelial Cell Urine None seen /hpf (Few); Urobilinogen Urine 0.2 mg/dL (<2.0); pH Urine 5.5 (5.0-9.0)
[2022-10-30 14:43] LABS: Add Urine Microscopic? YES
== END 2022-10-30 08:44 | disposition home or self-care (01) ==
PROVIDERS: PCP Family Medicine; Visit Provider Internal Medicine
DX: M05.79 Rheumatoid arthritis with rheumatoid factor of multiple sites without organ or systems involvement (principal); M19.90 Unspecified osteoarthritis, unspecified site; R82.998 Other abnormal findings in urine
CPT/HCPCS: 36415; 80053; 81001; 85027; 85652; 86140; 87086

== ENCOUNTER 2022-11-26 14:53 | Emergency (ER) | payer OTHER, SELFPAY ==
[2022-11-26] VITALS (7 sets, daily range): BP systolic 116–135; BP diastolic 62–99; PULSE 88–98; RESP 16–18; TEMP 35.9; O2SAT 99–100
--- NOTE | ~2022-11-26 | CT_ITS ---
EXAMINATION: CT abdomen pelvis w con DATE: 11/26/2022 19:06 INDICATION: abd pain, vomiting, constipation TECHNIQUE: Computed tomography (CT) of the abdomen and pelvis was performed with 100 mL Omnipaque-350 intravenous contrast. Automated exposure control and iterative reconstruction technique were employe d. The dose-length product was 461.78 mGy-cm. COMPARISON: 07/11/2022. FINDINGS: Lower thorax: Unremarkable Liver: Normal. Biliary/Gallbladder: Gallbladder is absent. No bile duct dilation. Pancreas: No mass or duct dilation. Spleen: Normal. Adrenals:No mass. Kidneys: Simple right midpole cyst. No suspicious mass, obstructing stone, or hydronephrosis. GI tract: Moderate distal esophageal and gastric wall edema. No small or large bowel dilation. Mild w all edema involving the distal descending and sigmoid colon. Appendix not confidently visualized. Mesentery/Peritoneum: No ascites, mass, or free air. Retroperitoneum: No mass. Pelvis: Bladder wall edema. Rim enhancing fluid collection near the bladder base, larger than in the prior study may represent inflamed cystocele or urethrocele. Absent uterus. Ovaries not confidently v isualized. Soft Tissues: Significantly improved left posterior hip contusion. Otherwise unremarkable. Bones: No acute osseous finding. IMPRESSION: Moderate esophagitis/gastritis. Distal descending and sigmoid colitis. Cystitis, with likely adjacent inflamed cystocele/urethrocele. Reviewed, dictated and finalized at location K.
[2022-11-26 17:41] LABS: Basophils Absolute Auto 0.1 K/mm3 (0.0-0.1); Basophils Percent Auto 0.3 % (0.2-1.2); Eosinophils Percent Auto 0.1 % (0-4.4); Hematocrit 45.1 % (37.0-47.0); Hemoglobin 14.3 g/dL (12.0-15.0); Immature Granulocyte Absolute 0.08 K/mm3 (0.00-0.031); Immature Granulocyte Percent A 0.5 % (0-0.5); Lymphocytes Absolute Auto 0.92 K/mm3 (0.9-3.2); Lymphocytes Percent Auto 5.4 % (18.3-44.2); Mean Corpuscular HGB Conc 31.7 g/dl (32-36); Mean Corpuscular Hemoglobin 29.1 pg (26-34); Mean Corpuscular Volume 91.7 fl (80-100); Mean Platelet Volume 8.8 fl (7.4-10.4); Monocytes Absolute Auto 0.8 K/mm3 (0.1-0.6); Monocytes Percent Auto 4.6 % (2.6-8.5); Neutrophils Absolute Auto 15.2 K/mm3 (1.3-6.7); Neutrophils Percent Auto 89.1 % (45.5-73.1); Platelet Count Result 257 k/mm3 (150-375); Red Blood Count 4.92 M/mm3 (4.2-5.4); Red Cell Distribution Width 13.5 % (11.5-14.5)
[2022-11-26 17:52] LABS: Alanine Aminotransferase 16 U/L (6-35); Albumin Level 4.2 g/dL (3.5-5.1); Alkaline Phosphatase 66 U/L (38-126); Anion Gap 5 mmol/L (8-16); Aspartate Amino Transferase 23 U/L (14-36); Bilirubin,Total 0.9 mg/dL (0.2-1.3); Blood Urea Nitrogen 21 mg/dL (7-17); Calcium 9.6 mg/dL (8.4-10.2); Carbon Dioxide 31 mmol/L (22-30); Chloride 100 mmol/L (98-107); Estimated CRCL calculation 40 ml/min; Estimated Glomerular Filt Rate > 60; Glucose 94 mg/dL (65-110); Lipase 65 U/L (23-300); Potassium 4.1 mmol/L (3.4-5.0); Sodium 136 mmol/L (137-145)
--- NOTE | 2022-11-26 17:59 | ED.NAVMDI ---
HPI - Nausea/Vomiting/Diarrhea General Chief complaint: Nausea/Vomiting/Diarrhea Stated complaint: consitpation, N/V Time Seen by Provider: 11/26/22 17:14 Source: patient Mode of arrival: EMS Limitations: no limitations History of Present Illness HPI Narrative: This is a 77-year-old female that presents to the ER for constipation. Reports ongoing over the last several months. Reports over the last couple of weeks she has only been able to get out a small amount of stool. Reports abdominal discomfort and vomiting. Reports her urine was dark today. Denies fevers or dysuria. Related Data Home Medications Medication Instructions Recorded Confirmed cetirizine 10 mg tablet (Zyrtec) 5 mg PO HS PRN Allergic Symptoms 01/18/19 11/17/22 krill oil 350 mg-om-3 90 mg-dha 24 350 cap PO QAM 04/01/19 11/17/22 mg-epa 50 mg-phospholipids capsule aspirin 81 mg chewable tablet 81 mg PO HS 06/02/19 11/17/22 (Cooper Chewable Low Dose Aspirin) apixaban 5 mg tablet (Eliquis) 5 mg PO BID 05/03/20 11/17/22 carboxymethylcellulose sodium 0.5 2 drp EACH EYE QID PRN Dry Eyes 05/03/20 11/17/22 % eye drops (Refresh Tears) cholecalciferol (vitamin D3) 50 100 mcg PO DAILY 09/10/20 11/17/22 mcg (2,000 unit) capsule calcium 500 mg tablet 300 mg PO DAILY 11/16/20 11/17/22 cyanocobalamin (vitamin B-12) 500 mcg PO DAILY 05/01/22 11/17/22 1,000 mcg capsule insulin NPH-regular 70-30 U-100 See Rx Instructions subcut BID 05/01/22 11/17/22 insulin 100 unit/mL subcutaneous pen (Novolin 70-30 FlexPen U-100 Insulin) metoprolol succinate 100 mg 150 mg PO ONCE 06/13/22 11/17/22 tablet,extended release 24 hr Allergies Allergy/AdvReac Type Severity Reaction Status Date / Time ferrous sulfate AdvReac Mild Vomiting Verified 11/26/22 18:43 [From Igor-Iron] Review of Systems Review of Systems: CONSTITUTIONAL: Denies fever GASTROINTESTINAL: Reports abdominal pain, nausea, vomiting GENITOURINARY: Denies dysuria All systems reviewed & are unremarkable except as noted in HPI and below PMFSH Past Medical History Medical History Arthritis Atrial fibrillation Bilateral hand pain BMI 29.0-29.9,adult Carpal tunnel syndrome of left wrist Cataracts, bilateral Chronic pain of left knee Current use of correction anticoagulation VEGAS (dyspnea on exertion) Essential (primary) hypertension GERD without esophagitis Hx of rotator cuff tear Hypercholesteremia Iron deficiency anemia Mixed hyperlipidemia Obesity Osteoporosis Peripheral neuropathy Primary osteoarthritis involving multiple joints Rheumatoid arthritis with rheumatoid factor of multiple sites without organ or systems involvement (~2018) Right cervical radiculopathy Shingles SOB (shortness of breath) TIA (transient ischemic attack) Tinea corporis Type 2 diabetes mellitus with diabetic polyneuropathy, with long-term current use of insulin Vitamin D deficiency Surgical History Surgical History H/O bladder repair surgery 1990 H/O: hysterectomy 1990 History of appendectomy Age 16 Hx of cholecystectomy Hx of rotator cuff surgery Hx of tonsillectomy Age 3 Family History Family History Unknown Adopted Social History Social History Smoking packs per day: 0 Smoking cigarettes per day: 0.0 Years smoked: 30 Smoking pack-years: 0.00 Smoking status: Former smoker Tobacco type: cigarettes Second hand tobacco smoke exposure: No Smoking end date: 02/23/17 Alcohol intake: never Substance use: never Substance use type: does not use Lack of Transportation: No Lack of Food: Never True Current Housing: I Have Housing Concerned About Future Housing: No Difficulty Paying Gas/Electric Bills: No Difficulty Paying for Meds: YES
[2022-11-26 18:00] LABS: Appearance Urine Cloudy (Clear); Bacteria Urine 4+ /hpf; Bilirubin Urine 2+ (Negative); Blood Urine Negative (Negative); Color Urine Dark Yellow (Yellow); Glucose Urine UA Negative (Negative); Ketones Urine Trace mg/dL (Negative); Leukocyte Esterase Ur 3+ LEU/UL (Negative); Nitrate Urine Positive (Negative); Protein Urine 1+ mg/dL (Negative); Specific Grav Ur 1.027 (1.001-1.035); Squamous Epithelial Cell Urine Occasional /hpf (Few); WBC Urine 51-100 /hpf
[2022-11-26 18:17] LABS: Add Urine Microscopic? YES
[2022-11-26] MEDS: SODIUM CHLORIDE 0.9% IV 500 ML 999 ML IV CONT (18:21)
== END 2022-11-26 21:21 | disposition home or self-care (01) ==
PROVIDERS: Emergency Provider Physician Assistant; PCP Family Medicine
DX: N30.00 Acute cystitis without hematuria (principal); N81.10 Cystocele, unspecified; K52.9 Noninfective gastroenteritis and colitis, unspecified; I48.91 Unspecified atrial fibrillation; I10 Essential (primary) hypertension; E78.2 Mixed hyperlipidemia; E66.9 Obesity, unspecified; Z68.27 Body mass index [BMI] 27.0-27.9, adult; E11.42 Type 2 diabetes mellitus with diabetic polyneuropathy; E55.9 Vitamin D deficiency, unspecified; D50.9 Iron deficiency anemia, unspecified; M81.0 Age-related osteoporosis without current pathological fracture; M05.79 Rheumatoid arthritis with rheumatoid factor of multiple sites without organ or systems involvement; K21.9 Gastro-esophageal reflux disease without esophagitis; Z86.73 Personal history of transient ischemic attack (TIA), and cerebral infarction without residual deficits; Z79.01 Long term (current) use of anticoagulants; Z79.4 Long term (current) use of insulin; Z79.82 Long term (current) use of aspirin; Z90.710 Acquired absence of both cervix and uterus; Z90.49 Acquired absence of other specified parts of digestive tract; K20.90 Esophagitis, unspecified without bleeding; K29.70 Gastritis, unspecified, without bleeding
CPT/HCPCS: 36415; 74177; 80053; 81001; 83690; 85025; 87077; 87086; 87186; 96374; 99284; J0696; J7040; Q9967

== ENCOUNTER 2023-01-21 10:09 | Outpatient (CLI) | payer OTHER, SELFPAY ==
[2023-01-21 11:13] LABS: Creatinine Urine 148.3 mg/dL
[2023-01-21 11:18] LABS: MALB Creatinine Ratio 31.8 mg/g (0-30); Microalbumin Urine Random 47.2 mg/L (0-16.7)
== END 2023-01-21 10:10 | disposition home or self-care (01) ==
LOC: ANHLAB 10:11
PROVIDERS: PCP Family Medicine; Visit Provider Family Medicine
DX: E11.9 Type 2 diabetes mellitus without complications (principal)
CPT/HCPCS: 82043

== ENCOUNTER 2023-01-30 08:06 | Outpatient (CLI) | payer OTHER, SELFPAY ==
[2023-01-30 08:36] LABS: Hematocrit 45.3 % (37.0-47.0); Hemoglobin 14.2 g/dL (12.0-15.0); Mean Corpuscular HGB Conc 31.3 g/dl (32-36); Mean Corpuscular Hemoglobin 28.9 pg (26-34); Mean Corpuscular Volume 92.3 fl (80-100); Mean Platelet Volume 8.5 fl (7.4-10.4); Platelet Count Result 260 k/mm3 (150-375); Red Blood Count 4.91 M/mm3 (4.2-5.4); Red Cell Distribution Width 12.7 % (11.5-14.5); White Blood Count 6.8 K/mm3 (4.5-10.0)
[2023-01-30 08:54] LABS: Alanine Aminotransferase 14 U/L (6-35); Albumin Level 3.7 g/dL (3.5-5.1); Alkaline Phosphatase 63 U/L (38-126); Anion Gap 4 mmol/L (8-16); Aspartate Amino Transferase 24 U/L (14-36); Bilirubin,Total 0.5 mg/dL (0.2-1.3); Blood Urea Nitrogen 14 mg/dL (7-17); Calcium 9.3 mg/dL (8.4-10.2); Carbon Dioxide 30 mmol/L (22-30); Chloride 102 mmol/L (98-107); Cholesterol 142 mg/dL (0-200); Estimated Glomerular Filt Rate > 60; Glucose 85 mg/dL (65-110); HDL Direct 70 mg/dL; Potassium 4.2 mmol/L (3.4-5.0); Sodium 136 mmol/L (137-145); Triglycerides 123 mg/dL (<150)
[2023-01-30 09:04] LABS: LDL Cholesterol Direct 52 mg/dL
== END 2023-01-30 08:07 | disposition home or self-care (01) ==
PROVIDERS: PCP Family Medicine; Visit Provider Family Medicine
DX: E11.42 Type 2 diabetes mellitus with diabetic polyneuropathy (principal); E87.1 Hypo-osmolality and hyponatremia; G45.9 Transient cerebral ischemic attack, unspecified; G47.00 Insomnia, unspecified; G62.9 Polyneuropathy, unspecified; I10 Essential (primary) hypertension; I48.91 Unspecified atrial fibrillation; M81.0 Age-related osteoporosis without current pathological fracture; R53.1 Weakness; Z79.4 Long term (current) use of insulin
CPT/HCPCS: 36415; 80053; 80061; 83036; 84443; 85027

== ENCOUNTER 2023-02-24 14:10 | Outpatient (CLI) | payer OTHER, SELFPAY ==
--- NOTE | ~2023-02-24 | MM_ITS ---
EXAMINATION: MM screening [facility] BI w karin HISTORY: Screening mammogram TECHNIQUE: Craniocaudal and mediolateral oblique 3-D tomosynthesis images were obtained and synthetic 2-D images were generated. CAD analysis was submitted and interpreted. COMPARISON: 12/18/2021, 11/09/2020, 11/07/2019 BREAST PARENCHYMAL COMPOSITION: There are scattered areas of fibroglandular density. FINDINGS: No suspicious mass, calcification, or architectural distortion are identified in either arya ast to suggest malignancy. There has been no suspicious interval change. IMPRESSION: 1. No mammographic evidence of malignancy. 2. Recommend routine screening mammography in one year. BI-RADS Category 1: Negative Reviewed, dictated and finalized at location A. NESS PROCESS MANAGER
== END 2023-02-24 14:11 | disposition home or self-care (01) ==
PROVIDERS: PCP Family Medicine; Visit Provider Family Medicine
DX: Z12.31 Encounter for screening mammogram for malignant neoplasm of breast (principal)
CPT/HCPCS: 77063; 77067

== ENCOUNTER 2023-04-02 13:18 | Emergency (ER) | payer OTHER, SELFPAY ==
--- NOTE | ~2023-04-02 | XR_ITS ---
EXAMINATION: XR chest 2V DATE: 04/02/2023 20:34 INDICATION: Cough. Nausea and vomiting. TECHNIQUE: Frontal and lateral views of the chest were obtained. COMPARISON: Chest 2 views 02/02/2019, CT abdomen and pelvis 11/26/2022 FINDINGS: There is no pneumonia, pleural effusion, or pneumothorax. The heart size is normal. Surgica l clips in the right upper quadrant are likely from cholecystectomy. IMPRESSION: 1. No acute cardiopulmonary disease. Reviewed, dictated and finalized at location E. LING LINE OPERATOR
--- NOTE | ~2023-04-02 | CT_ITS ---
EXAMINATION: CT abdomen pelvis w con DATE: 04/02/2023 20:50 INDICATION: Nausea, vomiting, and diarrhea. Epigastric abdominal pain. Low abdominal pain. TECHNIQUE: Computed tomography (CT) of the abdomen and pelvis was performed with 100 mL Omnipaque 350 intravenous contrast. Automated exposure control and iterative reconstruction technique were employe d. The dose-length product was 499.07 mGy-cm. COMPARISON: CT abdomen and pelvis 11/26/2022 FINDINGS: The visualized portions of the lung bases demonstrate mild atelectasis. There are small clu sters of centrilobular nodules in the lower lobes, likely mild infection. No pleural effusion. No ple ural effusion. The heart size is normal. No pericardial effusion. There are coronary artery calcifica tions. There is a small sliding hiatal hernia. The liver is normal. There are changes of cholecystect sravan. The spleen, pancreas, and adrenal glands are normal. There is cortical thinning of the kidneys. There are cysts in right kidney measuring up to 13 mm. Aortic atherosclerosis is noted. There are no dilated loops of bowel. The appendix is not visualized. There is a urethral diverticulum containing 3 mm and 2 mm stones. There are no pathologically enlarged lymph nodes. There is no free intraperitone al fluid. There is mild thoracic and lumbar spondylosis. IMPRESSION: 1. Small clusters of centrilobular nodules in the lower lobes, likely mild infection. 2. Small sliding hiatal hernia. 3. Urethral diverticulum with small stones. Reviewed, dictated and finalized at location E. NUE ANALYST IMPRESSION: 1. Small clusters of centrilobular nodules in the lower lobes, likely mild infe ction. 2. Small sliding hiatal hernia. 3. Urethral diverticulum with small stones.
[2023-04-02 13:37] VITALS: BP 116/64; PULSE 110; RESP 20; TEMP 36.7; O2SAT 100
--- NOTE | 2023-04-02 18:17 | ECG_ITS ---
Measurements Intervals [place] Rate: 117 P: PA: 0 QRS: -48 QRSD: 115 T: 33 QT: 344 QTc: 481 Interpretive Statements ATRIAL FIBRILLATION WITH RAPID VENTRICULAR RESPONSE LOW QRS VOLTAGE IN PRECORDIAL LEADS [QRS DEFLECTION < 1.0 mV IN CHEST LEADS] INCOMPLETE RIGHT BUNDLE BRANCH BLOCK [90+ ms QRS DURATION, TERMINAL R IN V1/V2, 40+ ms S IN I/aVL/V4/V5/V6] LEFT ANTERIOR FASCICULAR BLOCK [QRS AXIS <= -45, QR IN I, RS IN II] ABNORMAL ECG COMPARED TO ECG 07/11/2022 23:17:46 NO DIFFERENCE Electronically Signed On 04-03-2023 7:10:57 LOG STACKER OPERATOR by Sha Lacey M.D.
--- NOTE | 2023-04-02 18:45 | ED.NAVMDI ---
HPI - Nausea/Vomiting/Diarrhea General Chief complaint: Nausea/Vomiting/Diarrhea Stated complaint: cough, vomiting Time Seen by Provider: 04/02/23 17:54 Source: patient Mode of arrival: ambulatory Limitations: no limitations History of Present Illness HPI Narrative: Patient is a 77-year-old female who presents to the ED with report of nausea, vomiting, diarrhea. Patient reports she developed symptoms on Thursday, which have persisted since then. She has been able to keep down some water today, but reports last episode of emesis this morning. Reports multiple bowel movements per day, yellowish in color. Denies rectal bleeding or melena. Does report some epigastric discomfort, as well as cough, congestion. States she feels very weak and dehydrated, mildly lightheaded today. Reports similar symptoms in the past when she was diagnosed with influenza. Patient is fully vaccinated for covid/flu. States she has been around sick grandchildren recently. Denies known fever. Denies chest pain or shortness of breath. Patient also reports having urinary and dysuria. States she feels like she has developed a UTI over the last couple days. Patient is on Eliquis due to history of atrial fibrillation. Related Data Home Medications Medication Instructions Recorded Confirmed cetirizine 10 mg tablet (Zyrtec) 5 mg PO HS PRN Allergic Symptoms 01/18/19 02/09/23 krill oil 350 mg-om-3 90 mg-dha 24 350 cap PO QAM 04/01/19 02/09/23 mg-epa 50 mg-phospholipids capsule aspirin 81 mg chewable tablet 81 mg PO HS 06/02/19 02/09/23 (Cooper Chewable Low Dose Aspirin) apixaban 5 mg tablet (Eliquis) 5 mg PO BID 05/03/20 02/09/23 carboxymethylcellulose sodium 0.5 2 drp EACH EYE QID PRN Dry Eyes 05/03/20 02/09/23 % eye drops (Refresh Tears) cholecalciferol (vitamin D3) 50 100 mcg PO DAILY 09/10/20 02/09/23 mcg (2,000 unit) capsule calcium 500 mg tablet 300 mg PO DAILY 11/16/20 02/09/23 cyanocobalamin (vitamin B-12) 500 mcg PO DAILY 05/01/22 02/09/23 1,000 mcg capsule insulin NPH-regular 70-30 U-100 See Rx Instructions subcut BID 05/01/22 02/09/23 insulin 100 unit/mL subcutaneous pen (Novolin 70-30 FlexPen U-100 Insulin) metoprolol succinate 100 mg 150 mg PO ONCE 06/13/22 02/09/23 tablet,extended release 24 hr semaglutide 2 mg/dose (8 mg/3 mL) 2 mg subcut WEEKLY 03/25/23 subcutaneous pen injector (Ozempic) Allergies Allergy/AdvReac Type Severity Reaction Status Date / Time ferrous sulfate AdvReac Mild Vomiting Verified 03/25/23 06:54 [From Igor-Iron] Review of Systems Review of Systems: CONSTITUTIONAL: Denies fever, chills, or sweats. ENT: See HPI. CARDIOVASCULAR: Denies chest pain, palpitations, or edema. RESPIRATORY: See HPI. GASTROINTESTINAL: see HPI. GENITOURINARY: See HPI. MUSCULOSKELETAL: Denies back pain, extremity pain, myalgia. NEUROLOGIC: See HPI. 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 VEGAS (dyspnea on exertion) Essential (primary) hypertension GERD without esophagitis Hx of rotator cuff tear Hypercholesteremia Iron deficiency anemia Mixed hyperlipidemia Obesity Osteoporosis Peripheral neuropathy Primary osteoarthritis involving multiple joints Rheumatoid arthritis with rheumatoid factor of multiple sites without organ or systems involvement (~2017) Right cervical radiculopathy Shingles SOB (shortness of breath) TIA (transient ischemic attack) Tinea corporis Type 2 diabetes mellitus with diabetic polyneuropathy, with long-term current use of insulin Vitamin D deficiency Surgical History Surgical History (Reviewed 04/03/23 @ 00:30 by Lisa Arango
[2023-04-02] MEDS: FAMOTIDINE 20 MG/2 ML VIAL IV PUSH (19:10)
[2023-04-02] MEDS: ONDANSETRON INJ 4 MG/2 ML VIAL IV PUSH (19:10)
[2023-04-02] MEDS: SODIUM CHLORIDE 0.9% IV 1,000 ML 999 ML IV CONT (19:10)
[2023-04-02 19:17] LABS: Basophils Percent Auto 0.4 % (0.2-1.2); Hematocrit 47.3 % (37.0-47.0); Hemoglobin 15.4 g/dL (12.0-15.0); Immature Granulocyte Absolute 0.01 K/mm3 (0.00-0.031); Immature Granulocyte Percent A 0.2 % (0-0.5); Lymphocytes Absolute Auto 1.12 K/mm3 (0.9-3.2); Lymphocytes Percent Auto 22.2 % (18.3-44.2); Mean Corpuscular HGB Conc 32.6 g/dl (32-36); Mean Corpuscular Hemoglobin 28.5 pg (26-34); Mean Corpuscular Volume 87.4 fl (80-100); Mean Platelet Volume 9.1 fl (7.4-10.4); Monocytes Absolute Auto 0.6 K/mm3 (0.1-0.6); Monocytes Percent Auto 11.1 % (2.6-8.5); Neutrophils Absolute Auto 3.3 K/mm3 (1.3-6.7); Neutrophils Percent Auto 66.1 % (45.5-73.1); Platelet Count Result 235 k/mm3 (150-375); Red Blood Count 5.41 M/mm3 (4.2-5.4); Red Cell Distribution Width 13.5 % (11.5-14.5); White Blood Count 5.1 K/mm3 (4.5-10.0)
--- NOTE | 2023-04-02 19:30 | PC.NURSE ---
gave pt crackers and apple juice for low blood sugar. tolerated well.
[2023-04-02 19:40] LABS: Alanine Aminotransferase 15 U/L (6-35); Albumin Level 3.8 g/dL (3.5-5.1); Alkaline Phosphatase 60 U/L (38-126); Anion Gap 13 mmol/L (8-16); Aspartate Amino Transferase 37 U/L (14-36); Bilirubin,Total 0.7 mg/dL (0.2-1.3); Blood Urea Nitrogen 20 mg/dL (7-17); Calcium 8.4 mg/dL (8.4-10.2); Carbon Dioxide 21 mmol/L (22-30); Chloride 100 mmol/L (98-107); Estimated CRCL calculation 42 ml/min; Estimated Glomerular Filt Rate > 60; Glucose 59 mg/dL (65-110); Lipase 208 U/L (23-300); Potassium 3.5 mmol/L (3.4-5.0); Sodium 134 mmol/L (137-145); Troponin I < 0.012 ng/mL (0.000-0.034)
[2023-04-02 19:59] LABS: Influenza A QL RT-PCR Negative (Negative); Influenza B QL RT-PCR Negative (Negative); RSV RNA, RT-PCR Negative (Negative); SARS-CoV-2 RNA PCR Positive (Negative)
[2023-04-02 21:31] LABS: Appearance Urine Cloudy (Clear); Bacteria Urine 4+ /hpf; Bilirubin Urine Negative (Negative); Blood Urine Negative (Negative); Color Urine Yellow (Yellow); Glucose Urine UA Negative (Negative); Ketones Urine 1+ mg/dL (Negative); Leukocyte Esterase Ur 2+ LEU/UL (Negative); Nitrate Urine Positive (Negative); Protein Urine Trace mg/dL (Negative); RBC Urine 0-2 /hpf (0-2); Specific Grav Ur 1.035 (1.001-1.035); Squamous Epithelial Cell Urine Moderate /hpf (Few); WBC Urine >100 /hpf; pH Urine 5.5 (5.0-9.0)
[2023-04-02 21:37] LABS: Add Urine Microscopic? YES
[2023-04-02 22:24] VITALS: BP 118/77; PULSE 108; RESP 18; O2SAT 100
== END 2023-04-02 23:16 | disposition home or self-care (01) ==
PROVIDERS: Emergency Provider Physician Assistant; PCP Family Medicine
DX: U07.1 COVID-19 (principal); N39.0 Urinary tract infection, site not specified; R11.2 Nausea with vomiting, unspecified; I48.91 Unspecified atrial fibrillation; I10 Essential (primary) hypertension; E55.9 Vitamin D deficiency, unspecified; E78.2 Mixed hyperlipidemia; E11.42 Type 2 diabetes mellitus with diabetic polyneuropathy; E66.9 Obesity, unspecified; Z68.24 Body mass index [BMI] 24.0-24.9, adult; D50.9 Iron deficiency anemia, unspecified; M05.79 Rheumatoid arthritis with rheumatoid factor of multiple sites without organ or systems involvement; M19.90 Unspecified osteoarthritis, unspecified site; M81.0 Age-related osteoporosis without current pathological fracture; K21.9 Gastro-esophageal reflux disease without esophagitis; Z86.73 Personal history of transient ischemic attack (TIA), and cerebral infarction without residual deficits; Z87.891 Personal history of nicotine dependence; Z90.710 Acquired absence of both cervix and uterus; Z90.49 Acquired absence of other specified parts of digestive tract; Z79.4 Long term (current) use of insulin; Z79.85 Long-term (current) use of injectable non-insulin antidiabetic drugs; Z79.01 Long term (current) use of anticoagulants; Z79.82 Long term (current) use of aspirin; I45.10 Unspecified right bundle-branch block; R91.8 Other nonspecific abnormal finding of lung field; N36.1 Urethral diverticulum
CPT/HCPCS: 36415; 71046; 74177; 80053; 81001; 81003; 83690; 84484; 85025; 87077; 87086; 87186; 87637; 93005; 96361; 96365; 96375; 99284; J0696; J2405; J7030; Q9967

== ENCOUNTER 2023-04-17 11:09 | Outpatient (CLI) | payer OTHER, SELFPAY ==
[2023-04-17 11:48] LABS: Appearance Urine Turbid (Clear); Bacteria Urine 4+ /hpf; Bilirubin Urine Negative (Negative); Blood Urine 1+ (Negative); Color Urine Yellow (Yellow); Glucose Urine UA Negative (Negative); Ketones Urine Trace mg/dL (Negative); Leukocyte Esterase Ur 2+ LEU/UL (Negative); Nitrate Urine Positive (Negative); Non Pathogenic Casts 0-2; Protein Urine Trace mg/dL (Negative); Squamous Epithelial Cell Urine None seen /hpf (Few); WBC Urine >100 /hpf; pH Urine 5.5 (5.0-9.0)
[2023-04-17 11:50] LABS: Add Urine Microscopic? YES
[2023-04-17 12:12] LABS: Vitamin D 25 Hydroxy 57.7 ng/mL
== END 2023-04-17 11:10 | disposition home or self-care (01) ==
LOC: ANHLAB 11:12
PROVIDERS: PCP Family Medicine; Referring Provider Family Medicine; Visit Provider Nurse Practitioner
DX: E11.42 Type 2 diabetes mellitus with diabetic polyneuropathy (principal); E11.65 Type 2 diabetes mellitus with hyperglycemia; E55.9 Vitamin D deficiency, unspecified; G45.9 Transient cerebral ischemic attack, unspecified; G62.9 Polyneuropathy, unspecified; Z79.4 Long term (current) use of insulin; R39.9 Unspecified symptoms and signs involving the genitourinary system
CPT/HCPCS: 36415; 81001; 82306; 82607; 87077; 87086; 87186; J2785

== ENCOUNTER 2023-05-28 08:29 | Day surgery (SDC) | payer OTHER, SELFPAY ==
[2023-05-15 11:00] VITALS: BMI 25.7
--- NOTE | 2023-05-15 11:29 | PC.NURSE ---
Contacted Dr Madrid's office 05/14/2023 and spoke with Rosa to inquire if Eliquis needs to be held prior to procedure scheduled on 05/28/2023. Rosa stated she would check with Dr Madrid and get back to us. Rosa called [facility] 05/15/[address] Madrid pt does not need to hold Eliquis prior to scheduled procedure on 05/28/2023.
--- NOTE | 2023-05-28 07:03 | P.OP_ITS ---
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 The patient signed the consent form. PROCEDURE IN DETAIL:The patient taken back to OR on the stretcher in supine position. Time out performed with anesthesia, surgeon and staff agreeing on patient's name site and surgery to be performed SCDs were placed on the lower extremities and inflated. A tourniquet was placed on {left} upper extremity and antibiotics given IV After anesthesia administered sedation I injected {5}cc 1%lido and 0.5% marcaine plain for digital block in the palm The?{left upper extremity}?was prepped and draped in sterile fashion the??{left upper extremity} was? exsanguinated with Esmarch bandage and tourniquet inflated to 250mmHg I proceeded with using a 15 blade and freer elevator to undermine the nailplate off the sterile matrix and proceeded with complete avulsion of the nailplate. Next I proceeded with using the 15 blade scalpel to make incisions along the lateral nail fold and the lateral nail fold skin from the sterile matrix. I scored the underside of the lateral nail folds to allow for improved eversion and pliability. Next I made an incision down to periosteum and e levated the sterile matrix on the radial and ulnar borders around 4 mm. This allowed me to elevate the sterile matrix and achieve eversion of the sterile matrix and reconstruction of the lateral nail folds with these advancement flaps. The created defect from nail fold elevation measured 1.7cm. I soaked the thumb in saline peroxide solution for 3 minutes. I irrigated with normal saline. I also decided to elevate the distal portion of the sterile matrix and excised a superficial portion of hyponychium skin to improve nail plate projection. I used bipolar cautery to cauterize the deep spaces of the lateral nail folds around the assembly line. I then proceeded with placing horizontal mattress sutures with 5 0 chromic to reconstruct the lateral nail folds and achieve eversion and widening of the sterile matrix. Having completed this it appeared that the sterile matrix now had a broader flatter appearance. A dressing of xeroform, 4x4, zehra, and tube gauze was applied after the tourniquet was let down noting the hand was warm and well perfused. The patient was then awaken from anesthesia and transferred to the recovery room in stable condition.? Complications - none EBL- 0cc Disposition - home in stable conditions Lily Lopez PA-C was essential for positioning, retraction, closure and dressing placement G Billing Surgery - Charge Forward: Surgery Billing ([id number] same for lily adding modifier )
--- NOTE | 2023-05-28 07:03 | WPDHPUPDATE1 ---
History and Physical Update Update Date/Time: 05/28/23 07:03 Patient seen and examined in pre-operative holding area. No interval change in medical history or symptoms. Patient recalls previous discussion of benefits and alternatives to procedure. Continues to desire to proceed with left thumb nailplate avulsion and pincer nail deformity reconstruction possible local flap . Reviewed procedure, post-op expectations and risks including but not limited to bleeding, infection, injury to tendon/nerve/vessel, decreased hand function, stiffness, RSD, no change or worsening of symptoms, failure of nailplate to regrow. I discussed the possible use of assistants and their participation in the case. Patient stated understanding and signed the consent form wishing to proceed.
[2023-05-28 09:17] VITALS: BP 120/73; PULSE 82; RESP 16; TEMP 36.6; O2SAT 99; BMI 25.9
--- NOTE | 2023-05-28 09:23 | WPDANESEPPF ---
Anes - Initial Pre Proc Eval Procedure: Operation Date: 05/28/23 10:15 Proposed Procedures p Left Thumb Nail Plate Avulsion and Nail Bed Reconstruction with Local Flap - Valerio Madrid MD Date/Time: 05/28/23 09:23 Surgeon: Valerio Madrid MD Pre Op Diagnosis: Pincer Nail Deformity and Other Nail Disorders Patient Data Age: 78 Gender: F Height: 1.6 m Weight: 66.3 kg Last Vital Signs Temp 36.6 C 05/28/23 09:17 Pulse 82 05/28/23 09:17 Resp 16 05/28/23 09:17 BP 120/73 05/28/23 09:17 Pulse Ox 99 05/28/23 09:17 O2 Del Method Room Air 05/28/23 09:17 Allergies Allergy/AdvReac Type Severity Reaction Status Date / Time ferrous sulfate AdvReac Mild Vomiting Verified 05/28/23 09:09 [From Igor-Iron] Home Medications Medication Instructions Recorded Confirmed Type cetirizine 10 mg tablet (Zyrtec) 5 mg PO HS Allergic Symptoms 01/18/19 05/28/23 History krill oil 350 mg-om-3 90 mg-dha 24 350 cap PO QAM 04/01/19 05/28/23 History mg-epa 50 mg-phospholipids capsule aspirin 81 mg chewable tablet 81 mg PO HS 06/02/19 05/28/23 History (Cooper Chewable Low Dose Aspirin) apixaban 5 mg tablet (Eliquis) 5 mg PO BID 05/03/20 05/28/23 History carboxymethylcellulose sodium 0.5 2 drp EACH EYE QID PRN Dry Eyes 05/03/20 05/28/23 History % eye drops (Refresh Tears) cholecalciferol (vitamin D3) 50 100 mcg PO DAILY 09/10/20 05/28/23 History mcg (2,000 unit) capsule calcium 500 mg tablet 300 mg PO DAILY 11/16/20 05/28/23 History pen needle, diabetic 31 gauge x #300 ea 06/28/21 02/09/23 Rx 5/16 (1st Tier Unifine Pentips) cyanocobalamin (vitamin B-12) 500 mcg PO HS 05/01/22 05/28/23 History 1,000 mcg capsule insulin NPH-regular 70-30 U-100 See Rx Instructions subcut BID 05/01/22 05/28/23 History insulin 100 unit/mL subcutaneous pen (Novolin 70-30 FlexPen U-100 Insulin) metoprolol succinate 100 mg 100 mg PO DAILY 06/13/22 05/28/23 History tablet,extended release 24 hr tramadol 50 mg tablet 50 mg PO Q6H PRN pain #60 tabs 06/13/22 05/28/23 Rx blood sugar diagnostic (Contour #300 strips 12/03/22 02/09/23 Rx Next Test Strips) semaglutide 2 mg/dose (8 mg/3 mL) 1 mg subcut WEEKLY 03/25/23 05/28/23 History subcutaneous pen injector (Ozempic) fluticasone propionate 50 2 spray intranasal HS #16 grams 05/07/23 05/28/23 Rx mcg/actuation nasal spray,suspension abatacept 125 mg/mL subcutaneous 125 mg subcut WEEKLY 05/15/23 05/28/23 History auto-injector (Orencia ClickJect) atorvastatin 10 mg tablet 10 mg PO DAILY 05/15/23 05/28/23 History duloxetine 60 mg capsule,delayed 60 mg PO HS 05/15/23 05/28/23 History release (Cymbalta) lisinopril 2.5 mg tablet 2.5 mg PO HS 05/15/23 05/28/23 History omeprazole 40 mg capsule,delayed 40 mg PO DAILY 05/15/23 05/28/23 History release trazodone 50 mg tablet 50 mg PO HS PRN Insomnia 05/15/23 05/28/23 History Patient hx anesthesia problems: none Family hx anesthesia problems: none Results Review: All pre-operative results and documents have been reviewed as part of the pre-operative evaluation. [facility] Past Medical History Medical History Arthritis Atrial fibrillation Bilateral hand pain BMI 29.0-29.9,adult Carpal tunnel syndrome of left wrist Cataracts, bilateral Chronic pain of left knee Current use of snf anticoagulation VEGAS (dyspnea on exertion) Essential (primary) hypertension GERD without esophagitis Hx of rotator cuff tear Hypercholesteremia Iron deficiency anemia Mixed hyperlipidemia Obesity Osteoporosis Peripheral neuropathy Primary osteoarthritis involving multiple joints Rheumatoid arthritis with rheumatoid factor of multiple sites without organ or systems involvement (~2017) Right cervical radiculopathy Shingles SOB (shortness of breath) TIA (transient ischemic attack) Tinea corporis Type 2 diabetes mellitus with diabetic polyneur
[2023-05-28 09:37] LABS: Glucose Point of Care 75 mg/dl (65-105)
--- NOTE | 2023-05-28 10:13 | SUR.PREOP ---
Addendum entered by Georgette Alonso RN 05/28/23 10:24: THIS NOTE ACTUALLY TOOK PLACE AT 0920; NOT 1200, Original Note: LATE NOTE, 1200; PT STATES SHE REMEMBERS THAT SHE TOOK HER 70/30 INSULIN THIS MORNING, [address] DIEGO NOTIFIED. ACCUCHECK IS 75.
[2023-05-28] MEDS: LACTATED RINGERS 1,000 ML 30 ML IV CONT (10:19)
--- NOTE | 2023-05-28 10:23 | SUR.PREOP ---
0945; NOTIFIED DR NINO THAT PT TOOK HER ELEIQUIS THIS MORNING
[2023-05-28] MEDS: ceFAZolin SODIUM 2 GM/20 ML SW SYRINGE IV PUSH (10:35)
[2023-05-28] MEDS: LIDOCAINE HCL 1% LOCAL INJ 20 ML VIAL 5 ML INFILTRATE (10:42)
[2023-05-28] MEDS: BUPivacaine HCL 0.5% 10 ML AMP 5 ML INFILTRATE (10:42)
[2023-05-28] MEDS: BACITRACIN ZINC OINTMENT 0.9 GRAM PACKET 1 PACKET TOPICAL (11:02)
[2023-05-28 11:10] VITALS: BP 92/42; PULSE 88; RESP 15; O2SAT 95
[2023-05-28 11:33] LABS: Glucose Point of Care 77 mg/dl (65-105)
[2023-05-28 11:36] VITALS: BP 97/64; PULSE 83; RESP 14; O2SAT 99
== END 2023-05-28 11:50 | disposition home or self-care (01) ==
PROVIDERS: PCP Family Medicine; Visit Provider Plastic Surgery
PROC: (CPT 11750; principal; 2023-05-28 10:15)
DX: L60.8 Other nail disorders (principal)
CPT/HCPCS: 11750

== ENCOUNTER 2023-06-15 10:02 | Outpatient (CLI) | payer OTHER, SELFPAY ==
--- NOTE | ~2023-06-15 | US_ITS ---
US arterial ankle brachial ind INDICATION: Diabetes. Numbness in the lower extremities. Cold feet. 3 of smoking. TECHNIQUE: Segmental pressures and plethysmographic and Doppler waveforms of the brachial and lower e xtremity arteries were obtained. COMPARISON: None. FINDINGS: Right and left brachial artery pressures of 123 mm Hg and 121 mm Hg, respectively, are concordant (no rmal difference <= 30 mmHg). The right ankle-brachial index (EULOGIO) is 1.37 (normal >= 0.9-1.0). The right great toe-brachial index (TBI) is 0.63 (normal >= 0.60). The left EULOGIO is 1.08. The left TBI is 0.4. IMPRESSION: 1. Normal ankle-brachial indices. Mildly decreased left toe brachial index measuring 0.4. Reviewed, dictated and finalized at location B. IMPRESSION: 1. Normal ankle-brachial indices. Mildly decreased left toe brachial index kimberly uring 0.4.
== END 2023-06-15 10:03 | disposition home or self-care (01) ==
PROVIDERS: PCP Family Medicine; Visit Provider Nurse Practitioner Family
DX: I73.9 Peripheral vascular disease, unspecified (principal)
CPT/HCPCS: 93922

== ENCOUNTER 2023-08-10 09:35 | Outpatient (CLI) | payer OTHER, SELFPAY ==
[2023-08-10 09:58] LABS: Basophils Absolute Auto 0.1 K/mm3 (0.0-0.1); Basophils Percent Auto 1.3 % (0.2-1.2); Eosinophils Absolute Auto 0.2 K/mm3 (0-0.3); Eosinophils Percent Auto 2.9 % (0-4.4); Hematocrit 41.6 % (37.0-47.0); Hemoglobin 13.6 g/dL (12.0-15.0); Immature Granulocyte Absolute 0.02 K/mm3 (0.00-0.031); Immature Granulocyte Percent A 0.3 % (0-0.5); Lymphocytes Absolute Auto 1.66 K/mm3 (0.9-3.2); Lymphocytes Percent Auto 26.3 % (18.3-44.2); Mean Corpuscular HGB Conc 32.7 g/dl (32-36); Mean Corpuscular Hemoglobin 29.4 pg (26-34); Mean Corpuscular Volume 89.8 fl (80-100); Monocytes Absolute Auto 0.5 K/mm3 (0.1-0.6); Monocytes Percent Auto 7.8 % (2.6-8.5); Neutrophils Absolute Auto 3.9 K/mm3 (1.3-6.7); Neutrophils Percent Auto 61.4 % (45.5-73.1); Platelet Count Result 208 k/mm3 (150-375); Red Blood Count 4.63 M/mm3 (4.2-5.4); Red Cell Distribution Width 13.2 % (11.5-14.5); White Blood Count 6.3 K/mm3 (4.5-10.0)
[2023-08-10 11:46] LABS: Alanine Aminotransferase 11 U/L (6-35); Albumin Level 3.7 g/dL (3.5-5.1); Alkaline Phosphatase 66 U/L (38-126); Anion Gap 4 mmol/L (4-12); Aspartate Amino Transferase 20 U/L (14-36); Bilirubin,Total 0.7 mg/dL (0.2-1.3); Blood Urea Nitrogen 17 mg/dL (7-17); Calcium 9.4 mg/dL (8.4-10.2); Carbon Dioxide 31 mmol/L (22-30); Chloride 100 mmol/L (98-107); Estimated Glomerular Filt Rate 54; Glucose 175 mg/dL (65-110); Iron 89 ug/dL (37-170); Potassium 4.4 mmol/L (3.4-5.0); Sodium 135 mmol/L (137-145)
[2023-08-10 11:56] LABS: Percent Iron Saturation 29 % (20-50)
[2023-08-10 12:45] LABS: Folic Acid 7.1 ng/mL (2.76->20)
== END 2023-08-10 09:36 | disposition home or self-care (01) ==
LOC: ANHLAB 09:36
PROVIDERS: PCP Family Medicine; Visit Provider Internal Medicine Hematology & Oncology
DX: D64.9 Anemia, unspecified (principal)
CPT/HCPCS: 36415; 80053; 82607; 82728; 82746; 83540; 83550; 85025

== ENCOUNTER 2023-09-03 12:20 | Outpatient (CLI) | payer OTHER, SELFPAY ==
[2023-09-03 13:05] LABS: Hematocrit 43.3 % (37.0-47.0); Hemoglobin 13.9 g/dL (12.0-15.0); Mean Corpuscular HGB Conc 32.1 g/dl (32-36); Mean Corpuscular Hemoglobin 29.3 pg (26-34); Mean Corpuscular Volume 91.2 fl (80-100); Mean Platelet Volume 9.3 fl (7.4-10.4); Platelet Count Result 243 k/mm3 (150-375); Red Blood Count 4.75 M/mm3 (4.2-5.4); White Blood Count 9.5 K/mm3 (4.5-10.0)
[2023-09-03 13:35] LABS: LDL Cholesterol Direct 74 mg/dL
[2023-09-03 13:42] LABS: Hemoglobin A1C 7.1 % (<5.7)
[2023-09-03 13:50] LABS: Alanine Aminotransferase 11 U/L (6-35); Albumin Level 3.9 g/dL (3.5-5.1); Alkaline Phosphatase 57 U/L (38-126); Anion Gap 8 mmol/L (4-12); Aspartate Amino Transferase 20 U/L (14-36); Bilirubin,Total 0.7 mg/dL (0.2-1.3); Blood Urea Nitrogen 17 mg/dL (7-17); Calcium 9.4 mg/dL (8.4-10.2); Carbon Dioxide 30 mmol/L (22-30); Chloride 101 mmol/L (98-107); Cholesterol 153 mg/dL (0-200); Estimated Glomerular Filt Rate 48; Glucose 55 mg/dL (65-110); HDL Direct 56 mg/dL; Potassium 3.9 mmol/L (3.4-5.0); Sodium 139 mmol/L (137-145); Triglycerides 165 mg/dL (<150)
[2023-09-03 14:07] LABS: Creatinine Urine 138.9 mg/dL
[2023-09-03 14:11] LABS: MALB Creatinine Ratio 13.8 mg/g (0-30); Microalbumin Urine Random 19.2 mg/L (0-16.7)
== END 2023-09-03 12:21 | disposition home or self-care (01) ==
LOC: ANHLAB 12:24
PROVIDERS: PCP Family Medicine; Referring Provider Internal Medicine Endocrinology, Diabetes & Metabolism; Visit Provider Family Medicine
DX: E11.9 Type 2 diabetes mellitus without complications (principal)
CPT/HCPCS: 36415; 80053; 80061; 82043; 83036; 85027

== ENCOUNTER 2023-09-15 10:06 | Outpatient (CLI) | payer OTHER, SELFPAY ==
--- NOTE | ~2023-09-15 | XR_ITS ---
EXAMINATION: XR chest 2V 09/15/2023 10:20 INDICATION: Cough PROCEDURE: 2 view chest COMPARISON: Comparison to multiple prior studies sequentially, with oldest reviewed study dated 11/25. FINDINGS: The lungs are clear. The cardiomediastinal silhouette is within normal limits. There are no pleural effusions. There is no pneumothorax suspected. IMPRESSION: 1: NO ACUTE CARDIOPULMONARY DISEASE. Reviewed, dictated and finalized at location B.
== END 2023-09-15 10:07 | disposition home or self-care (01) ==
LOC: ANHIMG 10:07
PROVIDERS: PCP Family Medicine; Visit Provider Family Medicine
DX: R05.3 Chronic cough (principal)
CPT/HCPCS: 71046

== ENCOUNTER 2024-01-29 09:19 | Outpatient (CLI) | payer OTHER, SELFPAY ==
[2024-01-29 09:49] LABS: Hematocrit 46.1 % (37.0-47.0); Hemoglobin 14.7 g/dL (12.0-15.0); Mean Corpuscular HGB Conc 31.9 g/dl (32-36); Mean Corpuscular Volume 90.9 fl (80-100); Mean Platelet Volume 9.1 fl (7.4-10.4); Platelet Count Result 243 k/mm3 (150-375); Red Blood Count 5.07 M/mm3 (4.2-5.4); Red Cell Distribution Width 13.2 % (11.5-14.5); White Blood Count 7.5 K/mm3 (4.5-10.0)
[2024-01-29 10:00] LABS: Alanine Aminotransferase 10 U/L (6-35); Albumin Level 3.9 g/dL (3.5-5.1); Alkaline Phosphatase 61 U/L (38-126); Anion Gap 2 mmol/L (4-12); Aspartate Amino Transferase 22 U/L (14-36); Bilirubin,Total 0.6 mg/dL (0.2-1.3); Blood Urea Nitrogen 17 mg/dL (7-17); Carbon Dioxide 33 mmol/L (22-30); Chloride 104 mmol/L (98-107); Estimated Glomerular Filt Rate 48; Glucose 74 mg/dL (65-110); Potassium 4.2 mmol/L (3.4-5.0); Sodium 139 mmol/L (137-145)
[2024-01-29 10:27] LABS: Creatinine Urine 245.9 mg/dL
[2024-01-29 10:32] LABS: MALB Creatinine Ratio 6.2 mg/g (0-30); Microalbumin Urine Random 15.2 mg/L (0-16.7)
[2024-02-01 08:31] LABS: Reference Lab Test Name HGB A1C
[2024-02-01 08:33] LABS: Reference Lab Test Result 7.2
== END 2024-01-29 09:20 | disposition home or self-care (01) ==
PROVIDERS: PCP Family Medicine; Visit Provider Family Medicine
DX: E11.65 Type 2 diabetes mellitus with hyperglycemia (principal); G45.9 Transient cerebral ischemic attack, unspecified; G56.02 Carpal tunnel syndrome, left upper limb; I10 Essential (primary) hypertension; I48.91 Unspecified atrial fibrillation; K21.9 Gastro-esophageal reflux disease without esophagitis; Z79.4 Long term (current) use of insulin; E55.9 Vitamin D deficiency, unspecified
CPT/HCPCS: 36415; 80053; 82043; 83036; 85027

== ENCOUNTER 2024-04-08 10:44 | Outpatient (CLI) | payer OTHER, SELFPAY ==
--- OUTSIDE RECORDS SUMMARY | 2024-04-08 10:53 | XMS_ITS | Clinical Summary ---
Author Organization [facility] [place] [address] Address [address] [place] [address] Care Team Providers Care Fireman Name Role Phone Chad Joya MD Primary Care Provider [phone] Allergies Active Allergy Reactions Criticality Noted Date Comments [place]-3 Fatty Acids Vomiting Low 07/24/2023 One Tablet Daily/Iron Unknown 01/22/2022 Medications insulin aspart (NovoLOG) 100 unit/mL injection inject by subcutaneous route as per insulin sliding scale protocol 0 vial 0 03/02/19 15 Active Additional Information Patient taking differently: 100 Units, 70/30, Reported on 02/04/2024 docusate sodium (STOOL SOFTENER) 100 mg capsule take 1 capsule by oral route every day at bedtime as needed 0 0 01/08/20 16 Active hydroxychloroqu ine (PLAQUENIL) 200 mg tablet Take 1 tablet (200 mg total) by mouth daily Active methotrexate 2.5 mg tablet Take 1 tablet (2.5 mg total) by mouth Take 1 tab po 3 times weekly 01/06/20 18 Active cetirizine 10 mg capsule Take 10 mg by mouth daily. Active aspirin 81 mg tablet Take 1 tablet (81 mg total) by mouth daily Active fluticasone propionate (FLONASE) 50 mcg/actuation nasal spray Administer 1 spray into each nostril daily Active cholecalciferol (VITAMIN D-3) 2000 unit capsule 1 capsule (2,000 Units total) Active cyanocobalamin, vitamin B-12, 5,000 mcg tablet, sublingual Place 500 mcg under the tongue every other day Active calcium carbonate (CALCIUM 600 ORAL) Take 500 mg by mouth Active omeprazole (PriLOSEC) 40 mg capsule Take 1 capsule (40 mg total) by mouth daily Active krill oil 500 mg capsule Take 350 mg by mouth Active carboxymethylce llulose (REFRESH PLUS) 0.5 % dropperette 1 drop Active abatacept (ORENCIA) 125 mg/mL injectionIndica tions:Rheumatoi d Arthritis Inject 1 mL (125 mg total) under the skin once a week Active atorvastatin (LIPITOR) 10 mg tablet Take 1 tablet by mouth every other day 90 tablet 2 01/14/20 23 Active apixaban (Eliquis) 5 mg tablet TAKE 1 TABLET BY MOUTH TWICE A DAY 180 tablet 2 05/11/19 24 Active traZODone (DESYREL) 50 mg tablet Take 1 tablet (50 mg total) by mouth nightly as needed 12/06/19 24 Active metoprolol XL (TOPROL-XL) 100 mg 24 hr tablet Take 1.5 tablets (150 mg total) by mouth daily 135 tablet 2 03/30/19 25 Active metoprolol XL (TOPROL-XL) 100 mg 24 hr tablet TAKE 1.5 TABLETS (150MG TOTAL) BY MOUTH DAILY 135 tablet 2 06/22/19 24 025 Discontin ued(Reord er) Active Problems Problem Noted Date Diagnosed Date H/O TIA (transient ischemic attack) and stroke 1 03/10/2020 Hypotension due to drugs 04/22/2019 Rheumatoid arthritis involvi ng multiple sites with positive rheumatoid factor ([facility]) 01/07/2019 Left leg pain 01/07/2019 VEGAS (dyspnea on exertion) 01/20/2017 Iron deficiency anemia 01/20/2017 PAF (paroxysmal atrial fibrillation) ([facility]) 0 08/06/2016 Chronic anticoagulation 01/08/2016 Overview (05/30/2016): Chronic anticoagulation Tobacco abuse, in remission 09/25/2015 Overview (05/30/2016): Tobacco abuse Mixed diabetic hyperlipidemi a associated with type 2 diabetes mellitus ([facility]) 09/25/2015 Overview (05/31/2016): Type 2 diabetes mellitus with other specified complication, with long-term current use of insulin Hypertension associated with diabetes 09/25/2015 Overview (05/31/2016): HTN (hypertension), benign Resolved Problems Problem Noted Date Diagnosed Date Resolved Date TIA (transient ischemic attack) 05/23/2020 01/08/2021 Encounters Date Type Department Care Team Description 02/25/2024 Telephone [facility] Cardiology [address] [place] [id number] Clau Doran NP 02/04/2024 9:00 AM INVESTIGATOR VICE Office Visit [facility] Medical [facility] Cardiology [address] [place] [phone] Clau Doran NP PAF (paroxysmal atrial fibrillation) (CMS/HCC) ([facility]); Hypotension, unspecified hypotension type; Chronic anticoagulation; Personal history of fall; Lipid screening; Mixed diabetic hyperlipidemia associated with type 2 diabetes mellitus ([facility]) ([facility]) from Last 3 Months Surgical History Surgery Date Site/Laterality Comments TONSILLECTOMY Tonsillectomy APPENDECTOMY Appendectomy Medical History Medical History Date Comments Hx Other Medical bladder suspens ion; Comments: [facility] 03/02/2014 - Hypertension Hypertension Hx Other Medical obesity; Commen ts: [facility] 03/02/2014 - Hx Other Medical diabetes; Comme nts: [facility] 03/02/2014 - Hx Other Medical GERD; Comments: [facility] 03/02/2014 - Hx Other Medical seasonal allerg ies; Comments: [facility] 03/02/2014 - Hx Other Medical dyslipidemia; C omments: [facility] 03/02/2014 - Hx Other Medical hysterectomy; C omments: [facility] 03/02/2014 - Family History Medical History Relation Name Comments No Known Problems Brother No Known Problems Father No Known Problems Father's Brother No Known Problems Father's Sister No Known Problems Maternal Grandfather No Known Problems Maternal Grandmother No Known Problems Mother No Known Problems Mother's Brother No Known Problems Mother's Sister No Known Problems Other No Known Problems Paternal Grandfather No Known Problems Paternal Grandmother No Known Problems Sister Anemia Neg Hx Arrhythmia Neg Hx Asthma Neg Hx Clotting disorder Neg Hx Fainting Neg Hx Heart attack Neg Hx Heart disease Neg Hx Heart failure Neg Hx Hyperlipidemia Neg Hx Hypertension Neg Hx Hypertrophic cardiomyopathy Neg Hx Stroke Neg Hx Sudden Cardiac Neg Hx Relation Name Status Comments Brother Father Father's Brother Father's Sister Maternal Grandfather Maternal Grandmother Mother Mother's Brother Mother's Sister Other Paternal Grandfather Paternal Grandmother Sister Social History Tobacco Use Types Packs/Day Years Used Date Smoking Tobacco: Former Cigarettes Q uit: 09/2018 Smokeless Tobacco: Never Tobacco Cessation:Counseling Given: Not Answered Alcohol Use Standard Drinks/Week Comments No 0 (1 standard drink = 0.6 oz pur e alcohol) Comments Unknown Sex and Gender Information Value Date Recorded Sex Assigned at Not on file Legal Sex Female 7:24 AM INVESTIGATOR VICE Gender Identity Not on file Sexual Orientation Not on file Obstetrics History Last Filed Vital Signs Vital Sign Reading Time Taken Comments Blood Pressure 90/54 02/04/2024 9:45 AM INVESTIGATOR VICE Pulse 100 02/04/2024 9:45 AM INVESTIGATOR VICE Temperature - - Respiratory Rate - - Oxygen Saturation 98% 02/04/2024 9:16 AM INVESTIGATOR VICE Inhaled Oxygen Concentration - - Weight 68.5 kg (151 lb) 02/04/2024 9:16 AM INVESTIGATOR VICE Height 160 cm (5' 3 ) 02/04/2024 9:16 AM INVESTIGATOR VICE Body Mass Index 26.75 02/04/2024 9:16 AM INVESTIGATOR VICE Plan of Treatment Health Maintenance Due Date Last Done Comments Albumin Creatinine Ratio, Urine 1945 Depression Screening 1945 Fall Risk Assessment 1945 Hemoglobin A1C 1945 Hepatitis C Screening 1945 Osteoporosis Screening-Bone Density Scan 1945 eGFR 1945 Dilated Eye Exam 1945 Foot Exam 1945 DTaP/Tdap/Td Vaccine (1 - Tdap) 1956 Hepatitis B Screening 05/04/1963 Zoster Vaccine (1 of 2) 1964 Well Visit 65+ 2010 Pneumococcal vaccine 65+ (3 of 3 - PCV) 12/14/2018 12/14/2017, 01/10/2017 Influenza Vaccine (#1) 2023 9, 12/14/2017, 01/10/2017, Additional history exists Lipid Panel 02/03/2025 02/04/2024, 1102/2022, 12/27/2021, Additional history exists Procedures Procedure Name Priority Date/Time Associated Diagnosis Comments POCT LIPID PANEL Routine 02/04/2024 9:22 AM INVESTIGATOR VICE Lipid screening from Last 3 Months Results * POCT lipid panel (02/04/2024 9:22 AM INVESTIGATOR VICE) Cholesterol, POC 134 mg/dL HDL, POC 63 mg/dL Triglycerides, POC 123 mg/dL LDL Cholesterol POC 47 mg/dL Chol/HDL Ratio, POC 0.7 Non-HDL Cholesterol, POC 71 mg/dL Cholesterol Total, POC 134 mg/dL Capillary blood 02/04/2024 9 :22 AM INVESTIGATOR VICE Clau Doran NP POINT OF CARE TEST ORDERA BLES Final Result from Last 3 Months Insurance [facility] Care Teams Fireman Relationship Specialty Start Date End Date Chad Joya MD [address] [place] [address] PCP - General Family Practice 02/23/24
--- OUTSIDE RECORDS SUMMARY | 2024-04-08 10:54 | XMS_ITS | Referral Summary ---
Author Organization [facility] [place] [address] [place] [address] [address] [place] [address] Care Team Providers Care Biller Name Role Phone Chad Joya MD Primary Care Provider [phone] Encounters Date Type Department Care Team Description 02/25/2024 Telephone [facility] Medical [facility] Cardiology [address] [place] [address] Clau Doran NP 02/04/2024 9:00 AM SAFETY AIDE Office Visit [facility] Medical [facility] Cardiology [address] [place] [address] [address] [place] [address] Clau Doran NP PAF (paroxysmal atrial fibrillation) ([facility] ([facility]); Hypotension, unspecified hypotension type; Chronic anticoagulation; Personal history of fall; Lipid screening; Mixed diabetic hyperlipidemia associated with type 2 diabetes mellitus ([facility]) ([facility]) from Last 3 Months Allergies Active Allergy Reactions Criticality Noted Date Comments [place]-3 Fatty Acids Vomiting Low 07/24/2023 One Tablet [...] ng multiple sites with positive rheumatoid factor (CMS/HCC) 01/07/2019 Left leg pain 01/07/2019 VEGAS (dyspnea on exertion) 01/20/2017 Iron deficiency anemia 01/20/2017 PAF (paroxysmal atrial fibrillation) ([facility]) 0 08/06/2016 Chronic anticoagulation 01/08/2016 Overview (05/30/2016): Chronic anticoagulation Tobacco abuse, in remission 09/25/2015 Overview (05/30/2016): Tobacco abuse Mixed diabetic hyperlipidemi a associated with type 2 diabetes mellitus ([facility]) 09/25/2015 Overview (05/31/2016): Type 2 diabetes mellitus with other specified complication, with long-term current use of insulin Hypertension associated with diabetes 09/25/2015 Overview (05/31/2016): HTN (hypertension), benign Resolved Problems Problem Noted Date Diagnosed Date Resolved Date TIA (transient ischemic attack) 05/23/2020 01/08/2021 Social History Tobacco Use Types Packs/Day Years Used Date Smoking Tobacco: Former Cigarettes Q uit: 09/2018 Smokeless Tobacco: Never Tobacco Cessation:Counseling Given: Not Answered Alcohol Use Standard Drinks/Week Comments No 0 (1 standard drink = 0.6 oz pur e alcohol) Comments Unknown Sex and Gender Information Value Date Recorded Sex Assigned at Not on file Legal Sex Female 7:24 AM SAFETY AIDE Gender Identity Not on file Sexual Orientation Not on file Last Filed Vital Signs Vital Sign Reading Time Taken Comments Blood Pressure 90/54 02/04/2024 9:45 AM SAFETY AIDE Pulse 100 02/04/2024 9:45 AM SAFETY AIDE Temperature - - Respiratory Rate - - Oxygen Saturation 98% 02/04/2024 9:16 AM SAFETY AIDE Inhaled Oxygen Concentration - - Weight 68.5 kg (151 lb) 02/04/2024 9:16 AM SAFETY AIDE Height 160 cm (5' 3 ) 02/04/2024 9:16 AM SAFETY AIDE Body Mass Index 26.75 02/04/2024 9:16 AM SAFETY AIDE Plan of Treatment Not on file Procedures Procedure Name Priority Date/Time Associated Diagnosis Comments POCT LIPID PANEL Routine 02/04/2024 9:22 AM SAFETY AIDE Lipid screening from Last 3 Months Results * POCT lipid panel (02/04/2024 9:22 AM SAFETY AIDE) Cholesterol, POC 134 mg/dL HDL, POC 63 mg/dL Triglycerides, POC 123 mg/dL LDL Cholesterol POC 47 mg/dL Chol/HDL Ratio, POC 0.7 Non-HDL Cholesterol, POC 71 mg/dL Cholesterol Total, POC 134 mg/dL Capillary blood 02/04/2024 9 :22 AM SAFETY AIDE Clau Doran NP POINT OF CARE TEST ORDERA BLES Final Result from Last 3 Months Insurance Member Subscriber Plan / Payer (Ef fective 2016-Present) Name:BOB RAMÍREZ Relation to Subscriber:Self Name:Bob Ramírez Payer ID:[id number] (NAIC) Type:MEDICARE RISK OTHER Address: [place] [id number] Care Teams Biller Relationship Specialty Start Date End Date Chad Joya MD [address] [place] [address] PCP - General Family Practice 02/23/24
--- OUTSIDE RECORDS SUMMARY | 2024-04-08 10:54 | XMS_ITS | Clinical Summary ---
Author Organization [facility] Fabián saab Julia Address [address] [place] [address] Care Team Providers Care Agricultural Technical Officer Name Role Phone Chad Joya MD Primary Care Provider [phone] Allergies Active Allergy Reactions Criticality Noted Date Comments Iron Nausea and Vomiting High 02/21/2019 Medications traMADol (ULTRAM) 50 mg tablet Take 50 mg by mouth. PRN Active omeprazole (PriLOSEC) 40 mg Capsule, Delayed Release(E.C.) 40 mg. 5 Active metoprolol succinate (TOPROL XL) 100 mg Extended Release 24 hour tablet Take 100 mg by mouth. 1/2 in am and 1/2 in pm 9 Active methotrexate (RHEUMATREX) 2.5 mg Tablet Take 2.5 mg by mouth every 7 days. 6 once a week 8 Active hydroxychloroqu ine (PLAQUENIL) 200 mg tablet Take 200 mg by mouth. Active docusate sodium (COLACE) 100 mg capsule 100 mg. 6 Active cholecalciferol , vitamin D3, 1,000 unit 2,000 Units. 5 Active atorvastatin (LIPITOR) 10 mg tablet Take 10 mg by mouth. 9 Active aspirin (ECOTRIN EC) 81 mg Tablet, Delayed Release (E.C.) Take 81 mg by mouth. Active insulin regular (HUMULIN R,NOVOLIN R) 100 unit/mL vial Inject 5-30 Units by subcutaneous injection every 8 hours. Active insulin NPH human (HUMULIN N,NOVOLIN N) 100 unit/mL pen syringe Inject by subcutaneous injection every 12 hours. 28 UNITS AT BREAKFAST AND 12 UNITS AT DINNER Active Insulin Syringe-Needle U-100 1 mL 31 gauge x 5/16 Syringe 0 Active folic acid (FOLVITE) 1 mg tablet Take 1 mg by mouth. Active fluticasone propionate (FLONASE) 50 mcg/spray [place], Suspension nasal inhaler 0 Active ASCENSIA CONTOUR Strip 0 Active alendronate (FOSAMAX) 70 mg tablet 0 Active Contour Next Meter 0 Active NovoLIN N NPH U-100 Insulin 100 unit/mL vial 70 Units. 70/30 24at am and 12 in pm flexpen 0 Active BD Veo Insulin Syringe UF 1 mL 31 gauge x 15/64 Syringe USE TO INJECT INSULIN 4 TIMES DAILY 0 Active cyanocobalamin 1,000 mcg Tablet Take 1,000 mcg by mouth daily. 1/2 pill Active carboxymethylce llulose sodium (REFRESH) 0.5 % solution 1 Drop. Active apixaban (Eliquis) 5 mg tablet Take 5 mg by mouth 2 times daily. Active abatacept (ORENCIA) 125 mg/mL Syringe injection Inject 125 mg by subcutaneous injection. Active DULoxetine (CYMBALTA) 60 mg Capsule, Delayed Release(E.C.) take 1 capsule by mouth every day at bedtime 4 Active semaglutide (Ozempic) 2 mg/dose (8 mg/3 mL) Pen Injector Inject by subcutaneous injection. Active Active Problems Problem Noted Date Diagnosed Date Vitamin B12 deficiency 12/16/2019 RA (rheumatoid arthritis) 12/16/2019 DM (diabetes mellitus) 12/16/2019 HTN (hypertension), benign 12/16/2019 Atrial fibrillation 03/15/2019 Iron deficiency anemia due to chronic blood loss 02/21/2019 Encounters Date Type Department Care Team Description 03/22/2024 External Device Data [facility] ABSTRACTION Provider, Abstract 03/17/2024 External Device Data [facility] ABSTRACTION Provider, Abstract 02/05/2024 9:15 AM [employer] SUPER[employer] Office Visit [facility] [address] [place] [phone] Jori Wiley MD Chronic anemia (Primary Dx) 02/02/2024 Orders Only [facility] - Adithya [address] [place] [phone] Jori Wiley MD 02/01/2024 Orders Only [facility] - Adithya [address] [place] [address] Jori Wiley MD 01/29/2024 Telephone [facility] - Adithya [address] [place] [phone] Jori Wiley MD Lab Results from Last 3 Months Family History Relation Name Status Comments Father patient was ado pted unknown about family history Mother patient was ado pted and unknown of family history Social History Tobacco Use Types Packs/Day Years Used Date Smoking Tobacco: Never Smokeless Tobacco: Never Tobacco Cessation:Counseling Given: Not Answered Alcohol Use Standard Drinks/Week Comments Never 0 (1 standard drink = 0.6 oz pur e alcohol) Comments No Sex and Gender Information Value Date Recorded Sex Assigned at Not on file Legal Sex Female 9:22 AM [employer]PER[employer] Gender Identity Not on file Sexual Orientation Not on file Last Filed Vital Signs Vital Sign Reading Time Taken Comments Blood Pressure 112/69 02/05/2024 9:02 AM [employer] Pulse 65 02/05/2024 9:02 AM [employer] SUPER[employer]OR Temperature 36.4 C (97.5 F) 02/05/2024 9:02 AM [employer]PER[employer]OR Respiratory Rate 16 02/05/2024 9:02 AM [employer]PER[employer]OR Oxygen Saturation 92% 02/05/2024 9:02 AM [employer]PER[employer]OR Inhaled Oxygen Concentration - - Weight 68 kg (150 lb) 02/05/2024 9:02 AM [employer] SUPERVISOR Height 156.2 cm (5' 1.5 ) 08/09/2021 10:25 AM CD T Body Mass Index 27.88 08/09/2021 10:25 AM CDT Plan of Treatment Upcoming Encounters Date Type Department Care Team (Late st Contact Info) Description 08/05/2024 9:00 AM CDT Office Visit [facility] On[facility] and Hematology - Adithya [address] [place] [address] Jori Wiley MD [address] [facility] [address] [place] [address] Health Maintenance Due Date Last Done Comments DIABETES ANNUAL FOOT EXAM 05/04/1963 DIABETES ANNUAL RETINAL EXAM 05/04/1963 DIABETES HBA1C Q 6 MONTHS 05/04/1963 DIABETES MICROALBUMIN ANNUAL SCREEN 05/04/1963 LDL CHOLESTEROL ANNUAL 05/04/1963 DTAP/TDAP/TD VACCINES (1 - Tdap) 1964 PNEUMOCOCCAL VACCINE 65+ YEARS (1 of 2 - PCV) 05/03/18 65 ZOSTER VACCINE (1 of 2) 1964 OSTEOPOROSIS SCREENING 2010 RSV VACCINE (60+ or ) (1 - 1-dose 75+ series) 2020 INFLUENZA VACCINE (#1) 2023 Procedures Procedure Name Priority Date/Time Associated Diagnosis Comments CBC WITH DIFFERENTIAL Routine 01/29/2024 4:18 PM [employer]PER[employer] BASIC METABOLIC PANEL Routine 01/29/2024 2:37 PM [employer] SUPER[employer]OR from Last 3 Months Results * CBC WITH DIFFERENTIAL (01/29/2024 4:18 PM [employer] SUPERVISOR) Blood us Jori Wiley MD HEMATOLOGY ORDERABLES Final Res ult * BASIC METABOLIC PANEL (01/29/2024 2:37 PM [employer] SUPERVISOR) Blood us Jori Wiley MD CHEMISTRY ORDERABLES Final Resu lt from Last 3 Months Insurance [facility] Address: [facility] [address] [place] [id number] Care Teams Agricultural Technical Officer Relationship Specialty Start Date End Date Chad Joya MD PCP - General Family Practice 08/12/22
[2024-04-08 12:12] LABS: Add Urine Microscopic? YES; Appearance Urine Turbid (Clear); Bacteria Urine 4+ /hpf; Bilirubin Urine Negative (Negative); Blood Urine 1+ (Negative); Color Urine Yellow (Yellow); Glucose Urine UA 2+ mg/dL (Negative); Ketones Urine Trace mg/dL (Negative); Leukocyte Esterase Ur 3+ LEU/UL (Negative); Nitrate Urine Positive (Negative); Non Pathogenic Casts 0-2; Protein Urine 1+ mg/dL (Negative); Specific Grav Ur 1.022 (1.001-1.035); Squamous Epithelial Cell Urine Few /hpf (Few); WBC Urine >100 /hpf (0-3)
== END 2024-04-08 10:45 | disposition home or self-care (01) ==
LOC: ANHLAB 10:45
PROVIDERS: PCP Family Medicine; Visit Provider Family Medicine
DX: N30.90 Cystitis, unspecified without hematuria (principal); I10 Essential (primary) hypertension; I48.20 Chronic atrial fibrillation, unspecified; E11.42 Type 2 diabetes mellitus with diabetic polyneuropathy; Z79.4 Long term (current) use of insulin
CPT/HCPCS: 81001; 87077; 87086; 87186

== ENCOUNTER 2024-04-11 11:46 | Outpatient (CLI) | payer OTHER, SELFPAY ==
--- NOTE | ~2024-04-11 | MM_ITS ---
EXAMINATION: MM screening [facility] BI w karin HISTORY: Screening TECHNIQUE: Craniocaudal and mediolateral oblique 3-D tomosynthesis images were obtained and synthetic 2-D images were generated. CAD analysis was submitted and interpreted. COMPARISON: Comparison to multiple prior studies sequentially, with oldest reviewed study dated 08/02. BREAST PARENCHYMAL COMPOSITION: Not dense: There are scattered areas of fibroglandular density. FINDINGS: There is no evidence of suspicious mass, calcification, or architectural distortion to sugg est malignancy in either breast. There has been no suspicious interval change. IMPRESSION: 1. No mammographic evidence of malignancy. 2. Recommend routine screening mammography in one year. BI-RADS Category 1: Negative Reviewed, dictated and finalized at location [facility]. [facility]
== END 2024-04-11 11:47 | disposition home or self-care (01) ==
PROVIDERS: PCP Family Medicine; Visit Provider Family Medicine
DX: Z12.31 Encounter for screening mammogram for malignant neoplasm of breast (principal)
CPT/HCPCS: 77063; 77067

== ENCOUNTER 2024-06-10 11:46 | Emergency (ER) | payer OTHER, SELFPAY ==
--- NOTE | ~2024-06-10 | XR_ITS ---
HISTORY: fall with hip pain COMPARISON: None TECHNIQUE: 2 views of the bilateral hips along with an AP view of the pelvis FINDINGS: No acute fracture or dislocation is identified. Superior lateral sclerosis of the femoral acetabular joint spaces are present consistent with osteoar thritis. Joint space narrowing detected within the bilateral SI joints with sclerosis. Degenerative disease within the visualized portion of the lower lumbar spine. Vascular calcifications are identified. IMPRESSION: Degenerative disease without acute fracture or dislocation. Reviewed, dictated and finalized at location A.
--- NOTE | ~2024-06-10 | CT_ITS ---
History: Fall PROCEDURE: CT head without contrast. COMPARISON: 07/11/2022 TECHNIQUE: Axial imaging of the head performed from the skull base to the vertex without IV contrast. Sagittal a nd coronal reformations obtained. DLP: 605 mGy-cm FINDINGS: The ventricles are enlarged. The dilatation of the ventricles is proportional to the degree of sulcal prominence, not uncommon in the senescent brain. 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 Decreased attenuation is identified within the periventricular white matter, likely secondary to micr ovascular ischemic disease, in a patient of this age. There is no mass, mass effect or midline shift. There is no abnormal extra-axial fluid collection or intracranial hemorrhage. Visualized paranasal sinuses are clear. The mastoid air cells are well aerated. No acute displaced fractures within the overlying cranium. Impression: No acute intracranial hemorrhage or suspicious mass effect. Reviewed, dictated and finalized at location A. Impression: No acute intracranial hemorrhage or suspicious mass effect.
--- NOTE | ~2024-06-10 | CT_ITS ---
History: Fall PROCEDURE: CT cervical spine without intravenous contrast. COMPARISON: 07/11/2022 TECHNIQUE: Multiple contiguous axial images of the cervical spine were performed without the administration of i ntravenous contrast. DLP: 407 mGy-cm FINDINGS: Straightening of the normal curvature of the cervical spine is identified, likely muscular in origin. 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 Hypertrophy and ossification of the ligamentum flavum is also noted. No acute fractures are present. Biapical scarring. No soft tissue abnormality is present. The airway is patent. Impression: Straightening of the normal curvature of the cervical spine, likely muscular in origin. Significant degenerative disease, without acute fracture. Reviewed, dictated and finalized at location A. Impression: Straightening of the normal curvature of the cervical spine, likely muscular in origin. Significant degenerative disease, without acute fracture.
--- OUTSIDE RECORDS SUMMARY | 2024-06-10 11:50 | XMS_ITS | CONTINUITY OF CARE DOCUMENT ---
Author Name saman davison Address Unknown Organization [facility] Address [address] [place] [address] Phone [phone] Care Team Providers Care Pantry Steward/Stewardess Name Role Phone Cookie BARBOUR, Juan Unavailable AJAY BARBOUR, COSTA Unavailable COSTA MOSS MD Unavailable PROBLEMS Condition Status Date Provider Notes DIABETES MELLITUS active ? Juan Gary MD HTN ESSENTIAL-03/05 ECHO EF 60 active ? Juan Gary MD OBESITY active ? Juan Gayr MD ATRIAL FIB-2/ NUC NEG active ? Juan barrios MD HYPERCHOLESTEROLEMIA active Juan Fernandez ENCOUNTERS Date Type Provider Location Encounter Diag nosis - In-person encounter Office Visit Juan Gary MD [facility] - In-person encounter Office Visit Juan Gary MD [facility] HYPERCHOLESTEROLEMIA - In-person encounter Office Visit Juan Gary MD [facility] - In-person encounter Office Visit Juan Gary MD [facility] HTN ESSENTIAL-03/05 ECHO EF 60ATRIAL FIB-2/11 NUC NEG - In-person encounter Office Visit Juan Gary MD [facility] - In-person encounter Office Visit Juan Gary MD [facility] DIABETES MELLITUSHTN ESSENTIAL-03/05 ECHO EF 60OBESITYATRIAL FIB-2/11 NUC NEG VITAL SIGNS Date Observation Value Provider blood pressure, diastolic 64 mm[Hg] Gregorio James RN blood pressure, systolic 116 mm[Hg] Mckay James RN pulse rate 89 /min Mckay James RN oxygen saturation, oximetry 98 % Mckay James RN respiratory rate E&M 15 /min Mckay cazares RN Body Mass Index (Ratio) 30.47 kg/m2 Mckay James RN weight E&M 166 [lb_av] Mckay James RN Body Mass Index (Ratio) 30.84 kg/m2 Disla i Isaiah blood pressure, diastolic 64 mm[Hg] Ke rri Isaiah blood pressure, systolic 124 mm[Hg] Polo ri Isaiah pulse rate 87 /min Mel Field isabel oxygen saturation, oximetry 96 % Mel Colon respiratory rate E&M 16 /min Mel mobley weight E&M 168 [lb_av] Mel Field er height E&M 62 [in_i] Mel Rashida er blood pressure, diastolic 58 mm[Hg] Clarice palacio [place] blood pressure, systolic 128 mm[Hg] Louis chaudhari [place] pulse rate 81 /min Juan Carlos [place] oxygen saturation, oximetry 96 % Juan Carlos [place] respiratory rate E&M 20 /min Juan Carlos [place] weight E&M 187 [lb_av] Juan Carlos [place] blood pressure, diastolic 63 mm[Hg] Gregorio James RN blood pressure, systolic 134 mm[Hg] Mckay James RN pulse rate 77 /min Mckay James RN oxygen saturation, oximetry 96 % Mckay James RN respiratory rate E&M 16 /min Mkcay cazares RN weight E&M 182 [lb_av] Mckay James RN blood pressure, bearden tolic, second observation 57 mm[Hg] Alisa Lopez blood pressure, syst olic, second observation 127 mm[Hg] Alisa Lopez blood pressure, diastolic 57 mm[Hg] Ca rol Jessica blood pressure, systolic 127 mm[Hg] Car ol Jessica pulse rate 75 /min Alisa Lopez oxygen saturation, oximetry 99 % Alisa Lopez respiratory rate E&M 16 /min Alisa west weight E&M 185.5 [lb_av] Alisa barrios blood pressure, diastolic 77 mm[Hg] Gregorio James RN blood pressure, systolic 138 mm[Hg] Mckay James RN pulse rate 83 /min Mckay James RN oxygen saturation, oximetry 95 % Mckay James RN respiratory rate E&M 18 /min Mckay cazares RN weight E&M 182 [lb_av] Mckay James RN ALLERGIES No Known Drug Allergies RESULTS Date Observation Value Provider Reference Range Interpretation Location coagulation managed by Mckay James RN international normalized ratio (INR) 3.5 Mckay James RN prothrombin time (patient) 35.0 s Mckay James RN coagulation managed by Mckay James RN international normalized ratio (INR) 1.8 Mckay James RN prothrombin time (patient) 18.2 s Mckay James RN microalbumin/total urine volume 21.4 mg/L Samy Pressley thyroid stimulating hormone, serum 1.773 u[IU]/mL Samy Pressley cholesterol/HDL ratio, serum 7.5 Samy Pressley triglyceride, serum, fasting 991 mg/dL Samy Pressley HDL cholesterol, serum 44 mg/dL Samy Pressley LDL cholesterol, serum 86 mg/dL [facility] cholesterol, serum 328 mg/dL [facility] albumin/globulin ratio, serum 1.5 [facility] protein, total, serum 6.3 g/dL [facility] albumin, serum 3.8 g/dL [facility] bilirubin, serum, total 0.5 mg/dL [facility] alkaline phosphatase, serum 59 1/L [facility] alanine aminotransferase (SGPT), serum 12 1/L [facility] aspartate aminotransferase (SGOT), serum 15 1/L [facility] globulins, serum, total 2.5 g/dL [facility] bilirubin, serum, direct <0.1 [facility] estimated glomerular filtration rate 76.8 mL/min [facility] calcium, serum 8.7 mg/dL [facility] blood glucose, fasting 141 mg/dL [facility] creatinine, serum 0.8 mg/dL [facility] urea nitrogen, blood 15 mg/dL [facility] carbon dioxide, serum, total 30 mmol/L [facility] chloride, serum 101 mmol/L [facility] potassium, serum 3.9 mmol/L [facility] sodium, serum 135 mmol/L [facility] hematocrit, blood 40.8 % [facility] hemoglobin, blood 13.8 g/dL [facility] coagulation managed by Mckay James RN international normalized ratio (INR) 2.4 Mckay James RN prothrombin time (patient) 24.2 s Mckay James RN coagulation managed by Mckay James RN international normalized ratio (INR) 2.2 Maris Kraus prothrombin time (patient) 21.5 s Maris Kraus coagulation managed by Mckay James RN international normalized ratio (INR) 1.7 Mckay James RN prothrombin time (patient) 17.1 s Mckay James RN coagulation managed by Mckay James RN international normalized ratio (INR) 2.2 Clarice Baker prothrombin time (patient) 22.3 s Clarice Baker HISTORY OF MEDICATION USE Medication Status Instructions Dates Provider Indications Com ments FISH OIL CAPSULE active ONE TAB. DAILY Mckay James RN ZYRTEC ALLERGY 10 MG ORAL CAPSULE active once daily Mel Colon WELLBUTRIN SR 150 MG ORAL TABLET EXTENDED RELEASE 12 HOUR completed take at bedtime - Mckay James RN GLUCOPHAGE 1000 MG ORAL TABLET active take twice a day Mel Colon COREG 12.5 MG ORAL TABLET active take one pill twice a day Mel Colon LIPITOR 80 MG ORAL TABLET active take one a day Mel Colon LOVAZA 1 GM ORAL CAPSULE completed 1 cap twice daily - Mckay James RN ADULT ASPIRIN LOW STRENGTH 81 MG ORAL TABLET DISINTEGRATING active take one a day Mel Colon LOSARTAN POTASSIUM-HCTZ 100-12.5 MG ORAL TABLET active take one a day Mel Colon LEVEMIR SOLUTION completed - Juan Carlos Sullivan GLYBURIDE 5 MG ORAL TABLET completed ONE TAB. DAILY - Mckay James RN LOVASTATIN 40 MG ORAL TABLET completed ONE TAB. DAILY - Mckay James RN LEVEMIR FLEXPEN 100 UNIT/ML SUBCUTANEOUS SOLUTION PEN-INJECTOR active 100 units of injection twice daily Mckay James RN per med list COUMADIN 5 MG ORAL TABLET completed daily - Juan Gary MD VERAMYST SUSPENSION active 2 spray nose pm Mckay James RN ZOLPIDEM TARTRATE 10 MG ORAL TABLET active daily as needed hs Mckay James RN ESTRADIOL TABLET completed 1mg daily - Mel Colon VITAMIN D TABLET active 1000mg daily Mckay James RN ETODOLAC 200 MG ORAL CAPSULE active one t ab am and one tab pm Mckay James RN OMEPRAZOLE 40 MG ORAL CAPSULE DELAYED RELEASE active 1 capsule by mouth daily Juan Carlos Shannanzhanna GEMFIBROZIL 600 MG ORAL TABLET active ONE TAB DAILY Mckay James RN BENICAR HCT 20-12.5 MG ORAL TABLET completed 1 tab daily - Mckay James RN METOPROLOL TARTRATE 25 MG ORAL TABLET completed 1 tablet by mouth twice daily - Mel Colon SINGULAIR 10 MG ORAL TABLET completed 1 tab daily - Mel Colon ALAVERT 10 MG ORAL TABLET active 1 tab daily Denyean Kraus LOVASTATIN 40 MG ORAL TABLET completed 1 tab daily - Mel Colon GLYBURIDE 5 MG ORAL TABLET completed 1 tablet by mouth daily - Mel Colon NOVOLOG SOLUTION active sliding scale Mckay James RN LANTUS SOLUTION completed 20 in the morning,50 at evening - Alisa Lopez SOCIAL HISTORY Date Observation Value Provider drug use none Juan Fernandez social history reviewed E&M reviewed Mckay James RN seatbelt usage 100 % Juan Gary MD exercise type walking Juan Gary MD physical exercise, f requency, days per week 2 /wk Juan Gary MD social history reviewed E&M reviewed Juan Gary MD drug use no Juan Fernandez passive cigarette sm tracy exposure no Mel Colon smoking history, tot al pack/year 20 Mel Colon smoking, year quit 2009 Mel lomeli smoking status former smoker Mel eng social history reviewed E&M reviewed Mckay James RN social history reviewed E&M reviewed Mckay James RN social history reviewed E&M reviewed Juan Gary MD social history E&M Marital Statu s: Raven schultz with family/friends J ob Status: Employed full-time Juan Gary MD drug use none Juan Fernandez physical exercise, f requency, days per week no [facility] caffeine use, averag e drinks per day no [facility] alcohol use, average drinks per day none [facility] smoking status Quit [facility] caffeine use, averag e drinks per day no Mckay James RN alcohol use, average drinks per day no Mckay James RN smoking status Quit Mckay James RN social history reviewed E&M reviewed Mckay James RN MENTAL STATUS Date Observation Value Provider assessment of judgme nt and insight E&M Alert and oriented to time, place and person. Mood and affect are normal. Mckay James RN assessment of judgme nt and insight E&M Alert and oriented to time, place and person. Mood and affect are normal. Juan Gary MD assessment of judgme nt and insight E&M Alert and oriented to time, place and person. Mood and affect are normal. Mckay James RN assessment of judgme nt and insight E&M Alert and oriented to time, place and person. Mood and affect are normal. Mckay James RN assessment of judgme nt and insight E&M Alert and oriented to time, place and person. Mood and affect are normal. Juan Gary MD assessment of judgme nt and insight E&M Alert and oriented to time, place and person. Mood and affect are normal. Mckay James RN INSURANCE PROVIDERS Payer name Policy type / Coverage type [employer] party ID [facility] [id number] TREATMENT PLAN Date Name Performer routine: B P today: 116/64 Prior BP: 124/64 (12/23/2011) Labs Reviewed: C reat: 0.8 (03/11/2010) Microalbumin: 21.4 (03/11/2010) Juan Gary MD routine: B P today: 116/64 P rior BP: 124/64 (12/23/2011) Labs Reviewed: C reat: 0.8 (03/11/2010) C hol: 328 (03/01/2010) HDL: 44 (03/01/2010) LDL: 86 (03/01/2010) T (03/01/2010) Orders: E KG (CPT-[id number]) Juan Gary MD routine: B P today: 116/64 Prior BP: 124/64 (12/23/2011) P T: 35.0 (06/18/2010) INR: 3.5 (06/18/2010) H gb: 13.8 (04/30/2010) HCT: 40.8 (04/30/2010) BUN: 15 (03/11/2010) Creat: 0.8 (03/11/2010) Glucose: 141 (03/11/2010) N a+: 135 (03/11/2010) K+: 3.9 (03/11/2010) Cl: 101 (03/11/2010) Calcium: 8.7 (03/11/2010) TSH: 1.773 (03/11/2010) Nuclear Stress Findings: 1. Regadenoson mediated myocardial perfusion study 2 . Normal left ventricular systolic function with a calculated ejection fraction of 57%. 3 . No obvious significant scintigraphic evidence of myocardial ischemia or scar. GC (04/05/2010) Juan Gary MD routine: B P today: 116/64 Prior BP: 124/64 (12/23/2011) C HOL: 328 (03/01/2010) LDL: 86 (03/01/2010) HDL: 44 (03/01/2010) T (03/01/2010) Juan Gary MD follow up: T he following medications were removed from the medication list: Glyburide 5 Mg Tabs (Glyburide) ..... 1 tablet by mouth daily Her updated medication list for this problem includes: Novolog Soln (Insulin aspart soln) ..... 3-15 units daily as directed Levemir Flexpen 100 Unit/ml Soln (Insulin detemir) ..... 55 units of injection twice daily Losartan Potassium-hctz 100-12.5 Mg Tabs (Losartan potassium-hctz) ..... Take one a day Adult Aspirin Low Strength 81 Mg Tbdp (Aspirin) ..... Take one a day Glucophage 1000 Mg Tabs (Metformin hcl) ..... Take twice a day BP today: 124/64 Prior BP: 128/58 (12/03/2010) Labs Reviewed: C reat: 0.8 (03/11/2010) Microalbumin: 21.4 (03/11/2010) Juan Gary MD follow up: T he following medications were removed from the medication list: Metoprolol Tartrate 25 Mg Tabs (Metoprolol tartrate) ..... 1 tablet by mouth twice daily Her updated medication list for this problem includes: Losartan Potassium-hctz 100-12.5 Mg Tabs (Losartan potassium-hctz) ..... Take one a day Adult Aspirin Low Strength 81 Mg Tbdp (Aspirin) ..... Take one a day Coreg 12.5 Mg Tabs (Carvedilol) ..... Take one pill twice a day Orders: E KG (CPT-[id number]) BP today: 124/64 P rior BP: 128/58 (12/03/2010) Labs Reviewed: C reat: 0.8 (03/11/2010) C hol: 328 (03/01/2010) HDL: 44 (03/01/2010) LDL: 86 (03/01/2010) T (03/01/2010) Juan Gary MD follow up: T he following medications were removed from the medication list: Metoprolol Tartrate 25 Mg Tabs (Metoprolol tartrate) ..... 1 tablet by mouth twice daily Her updated medication list for this problem includes: Losartan Potassium-hctz 100-12.5 Mg Tabs (Losartan potassium-hctz) ..... Take one a day Adult Aspirin Low Strength 81 Mg Tbdp (Aspirin) ..... Take one a day Coreg 12.5 Mg Tabs (Carvedilol) ..... Take one pill twice a day BP today: 124/64 Prior BP: 128/58 (12/03/2010) P T: 35.0 (06/18/2010) INR: 3.5 (06/18/2010) H gb: 13.8 (04/30/2010) HCT: 40.8 (04/30/2010) BUN: 15 (03/11/2010) Creat: 0.8 (03/11/2010) Glucose: 141 (03/11/2010) N a+: 135 (03/11/2010) K+: 3.9 (03/11/2010) Cl: 101 (03/11/2010) Calcium: 8.7 (03/11/2010) TSH: 1.773 (03/11/2010) Nuclear Stress Findings: 1. Regadenoson mediated myocardial perfusion study 2 . Normal left ventricular systolic function with a calculated ejection fraction of 57%. 3 . No obvious significant scintigraphic evidence of myocardial ischemia or scar. GC (04/05/2010) Juan Gary MD 6 month follow-up: T he following medications were removed from the medication list: Levemir Soln (Insulin detemir soln) Her updated medication list for this problem includes: Novolog Soln (Insulin aspart soln) ..... 3-15 units daily as directed Glyburide 5 Mg Tabs (Glyburide) ..... 1 tablet by mouth daily Levemir Flexpen 100 Unit/ml Soln (Insulin detemir) ..... 55 units of injection twice daily Losartan Potassium-hctz 50-12.5 Mg Tabs (Losartan potassium-hctz) ..... 1 tablet by mouth daily BP today: 128/58 Prior BP: 134/63 (06/18/2010) Labs Reviewed: C reat: 0.8 (03/11/2010) Microalbumin: 21.4 (03/11/2010) Juan Gary MD 6 month follow-up: H er updated medication list for this problem includes: Metoprolol Tartrate 25 Mg Tabs (Metoprolol tartrate) ..... 1 tablet by mouth twice daily Losartan Potassium-hctz 50-12.5 Mg Tabs (Losartan potassium-hctz) ..... 1 tablet by mouth daily BP today: 128/58 P rior BP: 134/63 (06/18/2010) Labs Reviewed: C reat: 0.8 (03/11/2010) C hol: 328 (03/01/2010) HDL: 44 (03/01/2010) LDL: 86 (03/01/2010) T (03/01/2010) Juan Gary MD 6 month follow-up: H er updated medication list for this problem includes: Metoprolol Tartrate 25 Mg Tabs (Metoprolol tartrate) ..... 1 tablet by mouth twice daily Losartan Potassium-hctz 50-12.5 Mg Tabs (Losartan potassium-hctz) ..... 1 tablet by mouth daily Orders: E KG (CPT-[id number]) BP today: 128/58 Prior BP: 134/63 (06/18/2010) P T: 35.0 (06/18/2010) INR: 3.5 (06/18/2010) H gb: 13.8 (04/30/2010) HCT: 40.8 (04/30/2010) BUN: 15 (03/11/2010) Creat: 0.8 (03/11/2010) Glucose: 141 (03/11/2010) N a+: 135 (03/11/2010) K+: 3.9 (03/11/2010) Cl: 101 (03/11/2010) Calcium: 8.7 (03/11/2010) TSH: 1.773 (03/11/2010) Nuclear Stress Findings: 1. Regadenoson mediated myocardial perfusion study 2 . Normal left ventricular systolic function with a calculated ejection fraction of 57%. 3 . No obvious significant scintigraphic evidence of myocardial ischemia or scar. GC (04/05/2010) E chocardiogram: Technically difficult study, secondary to poor acoustic windows. N ormal left ventricular systolic function. Normal left ventricular size. Normal left ventricular wall thickness. There is E to A wave reversal consistent with impaired LV relaxation. Normal E/E` 10.0. Left ventricular ejection fraction is estimated at 60%. No significant valvular abnormalities. Normal aortic root size. Normal pericardium with no pericardial or pleural effusion. - [facility] (03/12/2010) Juan Gary MD routine : T he following medications were removed from the medication list: Benicar Hct 20-12.5 Mg Tabs (Olmesartan medoxomil-hctz) ..... 1 tab daily Glyburide 5 Mg Tabs (Glyburide) ..... One tab. daily Her updated medication list for this problem includes: Novolog Soln (Insulin aspart soln) ..... 2-10 three times daily Glyburide 5 Mg Tabs (Glyburide) ..... 2 tab daily Levemir Soln (Insulin detemir soln) ..... 20 am 50 pm Levemir Soln (Insulin detemir soln) Losartan Potassium Tabs (Losartan potassium tabs) ..... Daily BP today: 134/63 Prior BP: 127/57 (04/30/2010) Labs Reviewed: C reat: 0.8 (03/11/2010) Microalbumin: 21.4 (03/11/2010) Juan Gary MD routine : T he following medications were removed from the medication list: Benicar Hct 20-12.5 Mg Tabs (Olmesartan medoxomil-hctz) ..... 1 tab daily Coumadin 5 Mg Tabs (Warfarin sodium) ..... Daily Her updated medication list for this problem includes: Toprol Xl 25 Mg [id number] (Metoprolol succinate) ..... 2 twice daily BP today: 134/63 Prior BP: 127/57 (04/30/2010) P T: 18.2 (05/28/2010) INR: 1.8 (05/28/2010) H gb: 13.8 (04/30/2010) HCT: 40.8 (04/30/2010) BUN: 15 (03/11/2010) Creat: 0.8 (03/11/2010) Glucose: 141 (03/11/2010) N a+: 135 (03/11/2010) K+: 3.9 (03/11/2010) Cl: 101 (03/11/2010) Calcium: 8.7 (03/11/2010) TSH: 1.773 (03/11/2010) Nuclear Stress Findings: 1. Regadenoson mediated myocardial perfusion study 2 . Normal left ventricular systolic function with a calculated ejection fraction of 57%. 3 . No obvious significant scintigraphic evidence of myocardial ischemia or scar. GC (04/05/2010) E chocardiogram: Technically difficult study, secondary to poor acoustic windows. N ormal left ventricular systolic function. Normal left ventricular size. Normal left ventricular wall thickness. There is E to A wave reversal consistent with impaired LV relaxation. Normal E/E` 10.0. Left ventricular ejection fraction is estimated at 60%. No significant valvular abnormalities. Normal aortic root size. Normal pericardium with no pericardial or pleural effusion. - [facility] (03/12/2010) Orders: Andrés KG ([id number]) Juan Gary MD routine : T he following medications were removed from the medication list: Benicar Hct 20-12.5 Mg Tabs (Olmesartan medoxomil-hctz) ..... 1 tab daily Her updated medication list for this problem includes: Toprol Xl 25 Mg [id number] (Metoprolol succinate) ..... 2 twice daily Losartan Potassium Tabs (Losartan potassium tabs) ..... Daily BP today: 134/63 P rior BP: 127/57 (04/30/2010) Labs Reviewed: C reat: 0.8 (03/11/2010) C hol: 328 (03/01/2010) HDL: 44 (03/01/2010) LDL: 86 (03/01/2010) T (03/01/2010) Juan Gary MD pt/inr /f/u: T he following medications were removed from the medication list: Lantus Soln (Insulin glargine soln) ..... 20 in the morning,50 at evening Her updated medication list for this problem includes: Novolog Soln (Insulin aspart soln) ..... 2-10 three times daily Glyburide 5 Mg Tabs (Glyburide) ..... 1 tab daily Benicar Hct 20-12.5 Mg Tabs (Olmesartan medoxomil-hctz) ..... 1 tab daily Levemir Soln (Insulin detemir soln) ..... 20 am 50 pm Glyburide 5 Mg Tabs (Glyburide) ..... One tab. daily BP today: 127/57 Prior BP: 138/77 (03/12/2010) Juan Gary MD pt/inr /f/u: H er updated medication list for this problem includes: Toprol Xl 25 Mg [id number] (Metoprolol succinate) ..... 1 twice daily Benicar Hct 20-12.5 Mg Tabs (Olmesartan medoxomil-hctz) ..... 1 tab daily BP today: 127/57 P rior BP: 138/77 (03/12/2010) Juan Gary MD pt/inr /f/u: H er updated medication list for this problem includes: Toprol Xl 25 Mg [id number] (Metoprolol succinate) ..... 1 twice daily Benicar Hct 20-12.5 Mg Tabs (Olmesartan medoxomil-hctz) ..... 1 tab daily Coumadin 5 Mg Tabs (Warfarin sodium) ..... Daily Orders: C ardioversion - GC ([id number]) T HYROID PANEL WITH TSH, 3RD GENERATION (7444) BP today: 127/57 Prior BP: 138/77 (03/12/2010) P T: 24.2 (04/23/2010) INR: 2.4 (04/23/2010) N uclear Stress Findings: 1. Regadenoson mediated myocardial perfusion study 2 . Normal left ventricular systolic function with a calculated ejection fraction of 57%. 3 . No obvious significant scintigraphic evidence of myocardial ischemia or scar. GC (04/05/2010) E chocardiogram: Technically difficult study, secondary to poor acoustic windows. N ormal left ventricular systolic function. Normal left ventricular size. Normal left ventricular wall thickness. There is E to A wave reversal consistent with impaired LV relaxation. Normal E/E` 10.0. Left ventricular ejection fraction is estimated at 60%. No significant valvular abnormalities. Normal aortic root size. Normal pericardium with no pericardial or pleural effusion. - [facility] (03/12/2010) Juan Gary MD afib: H er updated medication list for this problem includes: Toprol Xl 25 Mg [id number] (Metoprolol succinate) ..... 1 twice daily Benicar Hct 20-12.5 Mg Tabs (Olmesartan medoxomil-hctz) ..... 1 tab daily BP today: 138/77 Prior BP: / () Orders: C omplete Echo ([id number]) S tress Test - Adenosine (67903) R enal Artery Duplex (CPT-46545) Juan Gary MD afib: O rders: C omplete Echo (CPT-70458) S tress Test - Adenosine (30859) R enal Artery Duplex (CPT-34207) Juan Gary MD afib: H er updated medication list for this problem includes: Toprol Xl 25 Mg [id number] (Metoprolol succinate) ..... 1 twice daily Benicar Hct 20-12.5 Mg Tabs (Olmesartan medoxomil-hctz) ..... 1 tab daily BP today: 138/77 Orders: C omplete Echo ([id number]) S tress Test - Adenosine (82310) R enal Artery Duplex (CPT-31925) Juan Gary MD afib: H er updated medication list for this problem includes: Lantus Soln (Insulin glargine soln) ..... 20 in the morning,50 at evening Novolog Soln (Insulin aspart soln) ..... 2-10 three times daily Glyburide 5 Mg Tabs (Glyburide) ..... 1 tab daily Benicar Hct 20-12.5 Mg Tabs (Olmesartan medoxomil-hctz) ..... 1 tab daily BP today: 138/77 Prior BP: / () Orders: C omplete Echo ([id number]) S tress Test - Adenosine (97902) R enal Artery Duplex (CPT-64938) Juan Gary MD Date Name THYROID PANEL WITH T SH, 3RD GENERATION Cardioversion - GC Renal Artery Duplex Stress Test - Adenos ine Complete Echo HISTORY OF PROCEDURES Procedure Date Procedure Name Provider Procedure Notes S tatus EKG Juan Gary MD complete d ePrescribe - Check t his box if eRx is used Juan Gary MD completed ARSLANG Juan Gary MD complete d EKG Juan Gary MD complete d EKRitika Gary MD complete d
--- OUTSIDE RECORDS SUMMARY | 2024-06-10 11:50 | XMS_ITS | Referral Summary ---
Author Organization [facility] [address] Address [address] [place] [address] Care Team Providers Care Pediatric Allergist Name Role Phone Chad Joya MD Primary Care Provider [phone] Encounters Date Type Department Care Team Description 06/02/2024 Telephone [facility] Medical [facility] Cardiology [address] [place] [address] Jhon Russo MD from Last 3 Months Allergies Active Allergy Reactions Criticality Noted Date Comments Roosevelt-3 Fatty Acids Vomiting Low 07/24/2023 One Tablet [...] day 90 tablet 2 01/14/20 23 Active traZODone (DESYREL) 50 mg tablet Take 1 tablet (50 mg total) by mouth nightly as needed 12/06/19 24 Active metoprolol XL (TOPROL-XL) 100 mg 24 hr tablet Take 1.5 tablets (150 mg total) by mouth daily 135 tablet 2 03/30/19 25 Active apixaban (Eliquis) 5 mg tablet Take 1 tablet (5 mg total) by mouth 2 (two) times a day 180 tablet 2 06/03/19 25 Active apixaban (Eliquis) 5 mg tablet TAKE 1 TABLET BY MOUTH TWICE A DAY 180 tablet 2 05/11/19 24 025 Discontin ued(Reord er) Active Problems Problem Noted Date Diagnosed Date H/O TIA (transient ischemic attack) and stroke 1 03/10/2020 Hypotension due to drugs 04/22/2019 Rheumatoid arthritis involvi ng multiple sites with positive rheumatoid factor 01/07/2019 Left leg pain 01/07/2019 VEGAS (dyspnea on exertion) 01/20/2017 Iron deficiency anemia 01/20/2017 PAF (paroxysmal atrial fibrillation) 08/06/2016 Chronic anticoagulation 01/08/2016 Overview (05/30/2016): Chronic anticoagulation Tobacco abuse, in remission 09/25/2015 Overview (05/30/2016): Tobacco abuse Mixed diabetic hyperlipidemi a associated with type 2 diabetes mellitus ([facility]) 09/25/2015 Overview (05/31/2016): Type 2 diabetes mellitus [...] on file Legal Sex Female 7:24 AM ROUGHING MILL OPERATOR Gender Identity Not on file Sexual Orientation Not on file Last Filed Vital Signs Vital Sign Reading Time Taken Comments Blood Pressure 90/54 02/04/2024 9:45 AM ROUGHING MILL OPERATOR Pulse 100 02/04/2024 9:45 AM ROUGHING MILL OPERATOR Temperature - - Respiratory Rate - - Oxygen Saturation 98% 02/04/2024 9:16 AM ROUGHING MILL OPERATOR Inhaled Oxygen Concentration - - Weight 68.5 kg (151 lb) 02/04/2024 9:16 AM ROUGHING MILL OPERATOR Height 160 cm (5' 3 ) 02/04/2024 9:16 AM ROUGHING MILL OPERATOR Body Mass Index 26.75 02/04/2024 9:16 AM ROUGHING MILL OPERATOR Plan of Treatment Not on file Procedures Procedure Name Priority Date/Time Associated Diagnosis Comments POCT LIPID PANEL Routine 02/04/2024 9:22 AM ROUGHING MILL OPERATOR Lipid screening from Last 3 Months or Most Recently Relevant to Health Maintenance Results * POCT lipid panel (02/04/2024 9:22 AM ROUGHING MILL OPERATOR) Cholesterol, POC 134 mg/dL HDL, POC 63 mg/dL Triglycerides, POC 123 mg/dL LDL Cholesterol POC 47 mg/dL Chol/HDL Ratio, POC 0.7 Non-HDL Cholesterol, POC 71 mg/dL Cholesterol Total, POC 134 mg/dL Capillary blood 02/04/2024 9 :22 AM ROUGHING MILL OPERATOR Clau Doran ANALYTICAL LAB ANALYST POINT OF CARE TEST ORDERA BLES Final Result from Last 3 Months or Most Recently Relevant to Health Maintenance Insurance [facility] Care Teams Pediatric Allergist Relationship Specialty Start Date End Date Chad Joya MD [address] [place] [address] PCP - General Family Practice 02/23/24
--- OUTSIDE RECORDS SUMMARY | 2024-06-10 11:50 | XMS_ITS | Clinical Summary ---
Author Organization [facility] Fabián saab Julia Address [address] [place] [address] Care Team Providers Care Virtual Assistant For Advertisers Name Role Phone Chad Joya MD Primary Care Provider [phone] Allergies Active Allergy Reactions Criticality Noted Date [...] mouth. Active fluticasone propionate (FLONASE) 50 mcg/spray [place], Suspension nasal inhaler 0 Active ASCENSIA CONTOUR [...] Encounters Date Type Department Care Team Description 05/11/2024 External Device Data STL ABSTRACTION Provider, Abstract 04/30/2024 External Device Data STL ABSTRACTION Provider, Abstract 04/29/2024 External Device Data STL ABSTRACTION Provider, Abstract 04/28/2024 Orders Only [facility] Oncology and Hematology - Adithya [address] [place] [address] Jori Wiley MD 04/28/2024 Abstract [facility] Oncology and Hematology - Adithya [address] [place] [address] Jori Wiley MD 04/25/2024 Orders Only [facility] Oncology and Hematology Adithya [address] [place] [address] Jori Wiley MD 04/19/2024 External Device Data STL ABSTRACTION Provider, Abstract 03/22/2024 External Device Data STL ABSTRACTION Provider, Abstract 03/17/2024 External Device Data STL ABSTRACTION Provider, Abstract from Last 3 Months Family History Relation [...] on file Legal Sex Female 9:22 AM TEAM ASSEMBLER Gender Identity Not on file Sexual Orientation Not on file Last Filed Vital Signs Vital Sign Reading Time Taken Comments Blood Pressure 112/69 02/05/2024 9:02 AM TEAM ASSEMBLER Pulse 65 02/05/2024 9:02 AM TEAM ASSEMBLER Temperature 36.4 C (97.5 F) 02/05/2024 9:02 AM TEAM ASSEMBLER Respiratory Rate 16 02/05/2024 9:02 AM TEAM ASSEMBLER Oxygen Saturation 92% 02/05/2024 9:02 AM TEAM ASSEMBLER Inhaled Oxygen Concentration - - Weight 68 kg (150 lb) 02/05/2024 9:02 AM TEAM ASSEMBLER Height 156.2 cm (5' 1.5 ) 08/09/2021 10:25 AM CD T Body Mass Index 27.88 08/09/2021 10:25 AM CDT Plan of Treatment Upcoming Encounters Date Type Department Care Team (Late st Contact Info) Description 08/05/2024 9:00 AM CDT Office Visit [facility] Oncology and Hematology - Adithya [address] [place] [address] Jori Wiley MD [address] [place] [address] Health Maintenance Due Date Last Done Comments DIABETES ANNUAL FOOT EXAM 05/04/1963 DIABETES ANNUAL RETINAL EXAM 05/04/1963 DIABETES HBA1C Q 6 MONTHS 05/04/1963 DIABETES MICROALBUMIN ANNUAL SCREEN 05/04/1963 LDL CHOLESTEROL ANNUAL 05/04/1963 DTAP/TDAP/TD VACCINES (1 - Tdap) 1964 PNEUMOCOCCAL VACCINE 50+ YEARS (1 of 2 - PCV) 05/03/18 65 ZOSTER VACCINE (1 of 2) 1964 OSTEOPOROSIS SCREENING 2010 RSV VACCINE (60+ or ) (1 - 1-dose 75+ series) 2020 INFLUENZA VACCINE (#1) 2023 Medicare Advantage [place]) Prev entative Visit/Annual Wellness Visit 02/24/2024 Procedures Procedure Name Priority Date/Time Associated Diagnosis Comments CBC WITH DIFFERENTIAL Routine 04/22/2024 4:07 PM TEAM ASSEMBLER BASIC METABOLIC PANEL Routine 04/22/2024 10:04 AM TEAM ASSEMBLER from Last 3 Months Results * CBC WITH DIFFERENTIAL (04/22/2024 4:07 PM TEAM ASSEMBLER) Blood us Jori Wiley MD HEMATOLOGY ORDERABLES Final Res ult * BASIC METABOLIC PANEL (04/22/2024 10:04 AM TEAM ASSEMBLER) Blood us Jori Wiley MD CHEMISTRY ORDERABLES Final Resu lt from Last 3 Months Insurance [facility] Care Teams Virtual Assistant For Advertisers Relationship Specialty Start Date End Date Chad Joya MD PCP - General Family Practice 08/12/22
--- OUTSIDE RECORDS SUMMARY | 2024-06-10 11:50 | XMS_ITS | Clinical Summary ---
Author Organization [facility] [address] Address [address] [place] [address] Care Team Providers Care Printed Circuit Photographer Name Role Phone Chad Joya MD Primary Care Provider [phone] Allergies Active Allergy Reactions Criticality Noted Date Comments Kyburz-3 Fatty Acids Vomiting Low 07/24/2023 One Tablet [...] associated with type 2 diabetes mellitus ([facility]) 09/25/2015 Overview (05/31/2016): Type 2 diabetes mellitus with other specified complication, with long-term current use of insulin Hypertension associated with diabetes 09/25/2015 Overview (05/31/2016): HTN (hypertension), benign Resolved Problems Problem Noted Date Diagnosed Date Resolved Date TIA (transient ischemic attack) 05/23/2020 01/08/2021 Encounters Date Type Department Care Team Description 06/02/2024 Telephone [facility] Medical [facility] Cardiology [address] [place] [address] Jhon Russo MD from Last 3 Months Surgical History Surgery Date Site/Laterality Comments TONSILLECTOMY Tonsillectomy APPENDECTOMY Appendectomy Medical History Medical History Date Comments Hx Other Medical bladder suspens ion; Comments: [facility] 03/02/2014 - Hypertension Hypertension Hx Other Medical obesity; Commen ts: [facility] 03/02/2014 - Hx Other Medical diabetes; Comme nts: [facility] 03/02/2014 - Hx Other Medical GERD; Comments: [facility] 03/02/2014 - Hx Other Medical seasonal allerg ies; Comments: [facility] 03/02/2014 - Hx Other Medical dyslipidemia; C omments: [facility] 03/02/2014 - Hx Other Medical hysterectomy; C omments: [facility] 03/02/2014 - Family History Medical [...] on file Legal Sex Female 7:24 AM DIPLOMA MEDICAL ASSISTANT Gender Identity Not on file Sexual Orientation Not on file Obstetrics History Last Filed Vital Signs Vital Sign Reading Time Taken Comments Blood Pressure 90/54 02/04/2024 9:45 AM DIPLOMA MEDICAL ASSISTANT Pulse 100 02/04/2024 9:45 AM DIPLOMA MEDICAL ASSISTANT Temperature - - Respiratory Rate - - Oxygen Saturation 98% 02/04/2024 9:16 AM DIPLOMA MEDICAL ASSISTANT Inhaled Oxygen Concentration - - Weight 68.5 kg (151 lb) 02/04/2024 9:16 AM DIPLOMA MEDICAL ASSISTANT Height 160 cm (5' 3 ) 02/04/2024 9:16 AM DIPLOMA MEDICAL ASSISTANT Body Mass Index 26.75 02/04/2024 9:16 AM DIPLOMA MEDICAL ASSISTANT Plan of Treatment Health Maintenance Due Date [...] - PCV) 12/14/2018 12/14/2017, 01/10/2017 Influenza Vaccine (Season Ended) 2024 12/14/2018, 12/14/2017, 01/10/2017, Additional history exists Lipid Panel 02/03/2025 02/04/2024, 1102/2022, 12/27/2021, Additional history exists Procedures Procedure Name Priority Date/Time Associated Diagnosis Comments POCT LIPID PANEL Routine 02/04/2024 9:22 AM DIPLOMA MEDICAL ASSISTANT Lipid screening from Last 3 Months or Most Recently Relevant to Health Maintenance Results * POCT lipid panel (02/04/2024 9:22 AM DIPLOMA MEDICAL ASSISTANT) Cholesterol, POC 134 mg/dL HDL, POC 63 mg/dL Triglycerides, POC 123 mg/dL LDL Cholesterol POC 47 mg/dL Chol/HDL Ratio, POC 0.7 Non-HDL Cholesterol, POC 71 mg/dL Cholesterol Total, POC 134 mg/dL Capillary blood 02/04/2024 9 :22 AM DIPLOMA MEDICAL ASSISTANT Clau Doran NP POINT OF CARE TEST ORDERA BLES Final Result from Last 3 Months or Most Recently Relevant to Health Maintenance Insurance [facility] Care Teams Printed Circuit Photographer Relationship Specialty Start Date End Date Chad Joya MD [address] [place] [address] PCP - General Family Practice 02/23/24
[2024-06-10 11:58] VITALS: BP 129/64; PULSE 78; RESP 16; TEMP 36.8; O2SAT 100
--- NOTE | 2024-06-10 12:34 | PC.NURSE ---
Addendum entered by Mariam Haji RN 06/10/24 12:38: Pt currently takes Eliquis Original Note: Pt c/o head pain with a knot after fall 2 days ago. No neuro deficit noted. Hematoma present. ecchymosis to left arm with scabbed wound to left elbow. CMS intact
--- OUTSIDE RECORDS SUMMARY | 2024-06-10 12:46 | XMS_ITS | CONTINUITY OF CARE DOCUMENT ---
Author Name saman davison Address Unknown Organization [facility] Address [address] [place] [address] Phone [phone] Care Team Providers Care Real Estate Professional Name Role Phone Cookie BARBOUR, Juan Unavailable AJAY BARBOUR, COSTA Unavailable [phone] COSTA MOSS MD Unavailable [phone] PROBLEMS Condition Status Date Provider Notes DIABETES MELLITUS active ? Juan Gary MD HTN ESSENTIAL-03/05 ECHO EF 60 active ? Juan Gary MD OBESITY active ? Juan Gary MD ATRIAL FIB-2/ NUC NEG active ? Juan barrios MD HYPERCHOLESTEROLEMIA active Juan Fernandez ENCOUNTERS Date Type Provider Location Encounter Diag nosis - In-person encounter Office Visit Juan Gary MD [place] [facility] - In-person encounter Office Visit Juan Gary MD [place] [facility] HYPERCHOLESTEROLEMIA - In-person encounter Office Visit Juan Gary MD [place] [facility] - In-person encounter Office Visit Juan Gary MD [place] [facility] HTN ESSENTIAL-03/05 ECHO EF 60ATRIAL FIB-2/11 NUC NEG - In-person encounter Office Visit Juan Gary MD [place] [facility] - In-person encounter Office Visit Juan Gary MD [place] [facility] DIABETES MELLITUSHTN ESSENTIAL-03/05 ECHO EF 60OBESITYATRIAL [...] James RN respiratory rate E&M 16 /min Mckay cazares RN weight E&M 182 [...] [place] thyroid stimulating hormone, serum 1.773 u[IU]/mL Smay [place] cholesterol/HDL ratio, serum 7.5 Samy [place] triglyceride, serum, fasting 991 mg/dL Samy [place] HDL cholesterol, serum 44 mg/dL Samy [place] LDL cholesterol, serum 86 mg/dL [facility] cholesterol, serum 328 mg/dL [facility] albumin/globulin ratio, serum 1.5 [facility] protein, total, serum 6.3 g/dL [facility] albumin, serum 3.8 g/dL [facility] bilirubin, serum, total 0.5 mg/dL [facility] alkaline phosphatase, serum 59 1/L [facility] alanine aminotransferase (SGPT), serum 12 1/L [facility] aspartate aminotransferase (SGOT), serum 15 1/L [facility] globulins, serum, total 2.5 g/dL [facility] bilirubin, serum, direct <0.1 [facility] estimated glomerular filtration rate 76.8 mL/min [facility] calcium, serum 8.7 mg/dL [facility] blood glucose, fasting 141 mg/dL [facility] creatinine, serum 0.8 mg/dL [facility] urea nitrogen, blood 15 mg/dL [facility] carbon dioxide, serum, total 30 mmol/L [facility] chloride, serum 101 mmol/L [facility] potassium, serum 3.9 mmol/L [facility] sodium, serum 135 mmol/L [facility] Huan hematocrit, blood 40.8 % [facility] hemoglobin, blood 13.8 g/dL [facility] coagulation managed by Mckay James [...] exercise, f requency, days per week no [facility] caffeine use, averag e drinks per day no [facility] alcohol use, average drinks per day none [facility] smoking status Quit [facility] caffeine use, averag e drinks per [...] Payer name Policy type / Coverage type [place] red libertarian [facility] Other [id number] TREATMENT PLAN Date Name Performer routine: B P today: 116/64 Prior BP: 124/64 (12/23/2011) Labs Reviewed: C reat: 0.8 (03/11/2010) Microalbumin: 21.4 (03/11/2010) Juan Gary MD routine: B P today: 116/64 P rior BP: 124/64 (12/23/2011) Labs Reviewed: C reat: 0.8 (03/11/2010) C hol: 328 (03/01/2010) HDL: 44 (03/01/2010) LDL: 86 (03/01/2010) T (03/01/2010) Orders: E KG (CPT-62973) Juan Gary MD routine: B P today: [...] pill twice a day Orders: E KG (CPT-91845) BP today: 124/64 P rior BP: 128/58 [...] (03/01/2010) LDL: 86 (03/01/2010) T (03/01/2010) Juan aGry MD 6 month follow-up: H er updated medication list for this problem includes: Metoprolol Tartrate 25 Mg Tabs (Metoprolol tartrate) ..... 1 tablet by mouth twice daily Losartan Potassium-hctz 50-12.5 Mg Tabs (Losartan potassium-hctz) ..... 1 tablet by mouth daily Orders: E KG (CPT-38252) BP today: 128/58 Prior BP: 134/63 (06/18/2010) [...] this problem includes: Toprol Xl 25 Mg [id number] (Metoprolol succinate) ..... 2 twice daily BP [...] effusion. - [facility]CO (03/12/2010) Orders: Andrés KG (CPT-04390) Juan Gary MD routine : T he following medications were removed from the medication list: Benicar Hct 20-12.5 Mg Tabs (Olmesartan medoxomil-hctz) ..... 1 tab daily Her updated medication list for this problem includes: Toprol Xl 25 Mg [id number] (Metoprolol succinate) ..... 2 twice daily Losartan [...] this problem includes: Toprol Xl 25 Mg [id number] (Metoprolol succinate) ..... 1 twice daily Benicar Hct 20-12.5 Mg Tabs (Olmesartan medoxomil-hctz) ..... 1 tab daily BP today: 127/57 P rior BP: 138/77 (03/12/2010) Juan Gary MD pt/inr /f/u: H er updated medication list for this problem includes: Toprol Xl 25 Mg [id number] (Metoprolol succinate) ..... 1 twice daily Benicar Hct 20-12.5 Mg Tabs (Olmesartan medoxomil-hctz) ..... 1 tab daily Coumadin 5 Mg Tabs (Warfarin sodium) ..... Daily Orders: C ardioversion - GC (CPT-61563) T HYROID PANEL WITH TSH, 3RD GENERATION [...] this problem includes: Toprol Xl 25 Mg [id number]-xox (Metoprolol succinate) ..... 1 twice daily Benicar Hct 20-12.5 Mg Tabs (Olmesartan medoxomil-hctz) ..... 1 tab daily BP today: 138/77 Prior BP: / () Orders: C omplete Echo (CPT-04408) S tress Test - Adenosine (14398) R enal Artery Duplex (CPT-55264) Juan Gary MD afib: O rders: C omplete Echo (CPT-38852) S tress Test - Adenosine (81966) R enal Artery Duplex (CPT-24866) Juan Gary MD afib: H er updated medication list for this problem includes: Toprol Xl 25 Mg [id number]-[id number] (Metoprolol succinate) ..... 1 twice daily Benicar Hct 20-12.5 Mg Tabs (Olmesartan medoxomil-hctz) ..... 1 tab daily BP today: 138/77 Orders: C omplete Echo (CPT-48308) S tress Test - Adenosine (48249) R enal Artery Duplex (CPT-45677) Juan Gary MD afib: H er updated [...] BP: / () Orders: C omplete Echo (CPT-79279) S tress Test - Adenosine (95027) R enal Artery Duplex (CPT-72514) Juan Gary MD Date Name THYROID PANEL [...]
--- OUTSIDE RECORDS SUMMARY | 2024-06-10 12:46 | XMS_ITS | Clinical Summary ---
Author Organization [facility] Fabián saab Julia Address [address] [place] [address] Care Team Providers Care Marina Dry Dock Manager Name Role Phone Chad Joya MD Primary Care Provider [phone] Allergies Active Allergy Reactions Criticality Noted Date [...] mouth. Active fluticasone propionate (FLONASE) 50 mcg/spray [place], Suspension nasal inhaler 0 Active ASCENSIA CONTOUR [...] STL ABSTRACTION Provider, Abstract 04/28/2024 Orders Only [facility] Oncology and Hematology - Adithya [address] [place] [address] Jori Wiley MD 04/28/2024 Abstract [facility] Oncology and Hematology - Adithya [address] [place] [address] Jori Wiley MD 04/25/2024 Orders Only [facility] Oncology and Hematology Adithya [address] [place] [address] Jori Wiley MD 04/19/2024 External [...] on file Legal Sex Female 9:22 AM TDP DISPLAYS ANALYST Gender Identity Not on file Sexual Orientation Not on file Last Filed Vital Signs Vital Sign Reading Time Taken Comments Blood Pressure 112/69 02/05/2024 9:02 AM TDP DISPLAYS ANALYST Pulse 65 02/05/2024 9:02 AM TDP DISPLAYS ANALYST Temperature 36.4 C (97.5 F) 02/05/2024 9:02 AM TDP DISPLAYS ANALYST Respiratory Rate 16 02/05/2024 9:02 AM TDP DISPLAYS ANALYST Oxygen Saturation 92% 02/05/2024 9:02 AM TDP DISPLAYS ANALYST Inhaled Oxygen Concentration - - Weight 68 kg (150 lb) 02/05/2024 9:02 AM TDP DISPLAYS ANALYST Height 156.2 cm (5' 1.5 ) 08/09/2021 10:25 AM CD T Body Mass Index 27.88 08/09/2021 10:25 AM CDT Plan of Treatment Upcoming Encounters Date Type Department Care Team (Late st Contact Info) Description 08/05/2024 9:00 AM CDT Office Visit [facility] Oncology and Hematology - Adithya [address] [place] [address] Jori Wiley MD [address] [place] [address] Health Maintenance Due Date Last [...] 2020 INFLUENZA VACCINE (#1) 2023 [place] Prev entative Visit/Annual Wellness Visit 02/24/2024 Procedures Procedure Name Priority Date/Time Associated Diagnosis Comments CBC WITH DIFFERENTIAL Routine 04/22/2024 4:07 PM TDP DISPLAYS ANALYST BASIC METABOLIC PANEL Routine 04/22/2024 10:04 AM TDP DISPLAYS ANALYST from Last 3 Months Results * CBC WITH DIFFERENTIAL (04/22/2024 4:07 PM TDP DISPLAYS ANALYST) Blood us Jori Wiley MD HEMATOLOGY ORDERABLES Final Res ult * BASIC METABOLIC PANEL (04/22/2024 10:04 AM TDP DISPLAYS ANALYST) Blood us Jori Wiley MD CHEMISTRY ORDERABLES Final Resu lt from Last 3 Months Insurance [facility] Care Teams Marina Dry Dock Manager Relationship Specialty Start Date End Date Chad Joya MD PCP - General Family Practice 08/12/22
[2024-06-10 13:08] LABS: Glucose Point of Care 51 mg/dl (65-105)
--- NOTE | 2024-06-10 13:17 | PC.NURSE ---
Pt glucose 50. Dr. Gann informed. [place] with fruit & orange juice given to pt prior to CT
--- NOTE | 2024-06-10 13:20 | ED_ITS ---
HPI - General Adult General Chief complaint: Fall Stated complaint: pain from fall 2d ago Time Seen by Provider: 06/10/24 12:32 History of Present Illness HPI narrative: 79-year-old female present to the emergency department for evaluation after having a ground level fall on 06/08. Patient states at approximately 3:00 a.m. in the morning she was walking to the bathroom and had some balance issues causing herself to fall and strike the wall floor. Patient states that she was having some pain in abrasion on her left arm, bilateral hip pain and bilateral muscular neck pain. Patient is on Eliquis. Related Data Home Medications ?Medication ?Instructions ?Recorded ?Confirmed ?Last Taken ?Type cetirizine 10 mg tablet (Zyrtec) 5 mg PO HS Allergic Symptoms 01/18/19 06/10/24 06/10/24 History krill oil 350 mg-om-3 90 mg-dha 24 350 cap PO QAM 04/01/19 05/24/24 05/23/23 History mg-epa 50 mg-phospholipids capsule aspirin 81 mg chewable tablet 81 mg PO HS 06/02/19 06/10/24 06/10/24 History (Cooper Chewable Low Dose Aspirin) apixaban 5 mg tablet (Eliquis) 5 mg PO BID 05/03/20 06/10/24 06/10/24 History cholecalciferol (vitamin D3) 50 100 mcg PO DAILY 09/10/20 06/10/24 06/10/24 History mcg (2,000 unit) capsule calcium 500 mg tablet 300 mg PO DAILY 11/16/20 05/24/24 05/23/23 History cyanocobalamin (vitamin B-12) 500 mcg PO HS 05/01/22 06/10/24 06/10/24 History 1,000 mcg capsule insulin NPH-regular 70-30 U-100 See Rx Instructions subcut BID 05/01/22 06/10/24 06/10/24 History insulin 100 unit/mL subcutaneous pen (Novolin 70-30 FlexPen U-100 Insulin) metoprolol succinate 100 mg 100 mg PO DAILY 06/13/22 06/10/24 06/10/24 History tablet,extended release 24 hr atorvastatin 10 mg tablet 10 mg PO .COMPLEX 05/24/24 06/10/24 06/10/24 History Allergies Allergy/AdvReac Type Severity Reaction Status Date / Time ferrous sulfate (From AdvReac Mild Vomiting Verified 06/10/24 11:47 Igor-Iron) Review of Systems Review of Systems: All systems reviewed & are unremarkable except as noted in HPI and below [facility] Past Medical History Medical History Tinea corporis Bilateral hand pain Chronic pain of left knee Current use of terminal gauger anticoagulation TIA (transient ischemic attack) Rheumatoid arthritis with rheumatoid factor of multiple sites without organ or systems involvement (~2018) BMI 29.0-29.9,adult SOB (shortness of breath) Obesity Cataracts, bilateral Arthritis Osteoporosis Hx of rotator cuff tear Shingles Hypercholesteremia Peripheral neuropathy VEGAS (dyspnea on exertion) Atrial fibrillation Carpal tunnel syndrome of left wrist Essential (primary) hypertension GERD without esophagitis Iron deficiency anemia Mixed hyperlipidemia Primary osteoarthritis involving multiple joints Right cervical radiculopathy Type 2 diabetes mellitus with diabetic polyneuropathy, with long-term current use of insulin Vitamin D deficiency Surgical History Surgical History H/O bladder repair surgery 1990 H/O: hysterectomy 1990 Hx of rotator cuff surgery Hx of tonsillectomy Age 3 Hx of cholecystectomy History of appendectomy Age 16 Family History Family History Unknown Adopted Social History Social History Smoking packs per day: 0 Smoking cigarettes per day: 0.0 Years smoked: 30 Smoking pack-years: 0.00 Smoking status: Former smoker Tobacco type: cigarettes Second hand tobacco smoke exposure: No Smoking end date: 02/23/17 Alcohol intake: never Substance use: never Substance use type: does not use Do You Feel Safe in your Home?: Yes Lack of Transportation: No Lack of Food: Never True Current Housing: I Have Housing Concerned About Future Housing: No Difficulty Paying Gas/Electric Bills: No Difficulty Paying for Meds: YES Currently Unemployed: No Education: High School Diploma/GED Difficulty w/ Childcare or Family Care: No Living arrangements: with friend(s) Occupation/Education: retired Gender identity (if verbalized by the patient): Female Spiritual care concerns: No Exam Narrative: APPEARANCE: Well appearing, no pain, no distress, well-nourished. HEAD: normocephalic, atraumatic. EYES: PERRLA/EOMI, conjunctivae clear. NOSE: Normal no drainage EARS:TMS clear with good light reflex. THROAT: Pharynx clear, no exudate. NECK: Supple. No adenopathy, no masses. RESPIRATORY: Airway patent, respirations nonlabored. Clear to auscultation bilaterally, no rales, rhonchi, wheezing. CARDIOVASCULAR: Regular rate and rhythm without murmurs rubs or gallops. ABDOMINAL: Soft, nontender, nondistended, normal bowel sounds MUSCULOSKELETAL: Bilateral tenderness of neck NEURO: Alert. Cranial nerves II through XII intact. Good gait. Good coordination SKIN: Abrasion to left elbow Course Vital Signs Vital signs: Vital Signs Temperature 98.2 F 06/10/24 11:58 Pulse Rate 78 06/10/24 11:58 Respiratory Rate 16 06/10/24 11:58 Blood Pressure 129/64 06/10/24 11:58 Pulse Oximetry 100 06/10/24 11:58 Temperature 98.2 F 06/10/24 11:58 Pulse Rate 78 06/10/24 11:58 Respiratory Rate 16 06/10/24 11:58 Blood Pressure 129/64 06/10/24 11:58 Pulse Oximetry 100 06/10/24 11:58 Medical Decision Making [facility] Narrative Medical decision making narrative: 79-year-old female presented emergency department for evaluation for neck pain and hip pain after having a ground level fall. Patient's head CT and neck CT and hip x-rays were negative. Patient needs wound was cleansed and dressed by nursing. Patient was encouraged close follow-up with primary care physician. Patient was provided medications for pain control as she stated that her home tramadol was not effective at controlling this pain. Differential Diagnosis Differential Diagnosis: Subcu hematoma, subarachnoid hemorrhage, cervical spine fracture, hip fracture, hip contusion Vital Signs Vital Signs: Vital Signs Temperature 98.2 F 06/10/24 11:58 Pulse Rate 78 06/10/24 11:58 Respiratory Rate 16 06/10/24 11:58 Blood Pressure 129/64 06/10/24 11:58 Pulse Oximetry 100 06/10/24 11:58 Temperature 98.2 F 06/10/24 11:58 Pulse Rate 78 06/10/24 11:58 Respiratory Rate 16 06/10/24 11:58 Blood Pressure 129/64 06/10/24 11:58 Pulse Oximetry 100 06/10/24 11:58 Lab Data Lab results reviewed: Yes I reviewed the patient's lab results. Labs: Lab Results 06/10/24 06/10/24 Range/Units 13:06 13:57 POC Capillary Glucose 51 L* 125 H (65-105) mg/dl Imaging Data Radiologist's impression: Impressions Head CT 06/10/24 13:26 Impression: No acute intracranial hemorrhage or suspicious mass effect. Cervical Spine CT 06/10/24 13:29 Impression: Straightening of the normal curvature of the cervical spine, likely muscular in origin. Significant degenerative disease, without acute fracture. Hip/Pelvis X-Ray 06/10/24 13:54 IMPRESSION: Degenerative disease without acute fracture or dislocation. Discharge Plan Discharge Clinical Impression: Head injury, Acute neck pain, Acute hip pain Patient Disposition: Home Condition: Stable Instructions: Antibiotic Form, Head Injury (ED), Acute Neck Pain (ED) Additional Instructions: Have close follow-up with your primary care physician. If you have any worsening symptoms then please call or return to the emergency department. Flexeril for muscle spasm. Patient Language: Korean Prescriptions: New cyclobenzaprine 10 mg tablet 10 mg PO BID PRN (Reason: muscle spasm) Qty: 14 0RF hydrocodone-acetaminophen 5-325 mg tablet 1 tablet PO Q12H PRN (Reason: pain) Qty: 14 0RF No Action [id number] mg Capsule 350 cap PO QAM cetirizine [Zyrtec] 10 mg tablet 5 mg PO HS Novolin 70-30 FlexPen U-100 100 unit/mL (70-30) insulin pen See Rx Instructions subcut BID Rx Instructions: 36u am & 18u pm subcut twice a day; aspirin [Cooper Chewable Aspirin] 81 mg tablet,chewable 81 mg PO HS cholecalciferol (vitamin D3) 50 mcg (2,000 unit) capsule 100 mcg PO DAILY cyanocobalamin (vitamin B-12) 1,000 mcg capsule 500 mcg PO HS Rx Instructions: every other day tramadol 50 mg tablet 50 mg PO Q6H PRN (Reason: pain) Qty: 60 0RF Eliquis 5 mg tablet 5 mg PO BID calcium 500 mg tablet 300 mg PO DAILY metoprolol succinate 100 mg tablet extended release 24 hr 100 mg PO DAILY fluticasone propionate 50 mcg/actuation spray,suspension 2 spray intranasal HS Qty: 16 5RF Rx Instructions: USE 2 SPRAYS INTO EACH NOSTRIL EVERY DAY omega-3 acid ethyl esters [Lovaza] 1 gram capsule 2 cap PO BID 30 Days Qty: 120 5RF (DME) Contour Next Test Strips Strip See Rx Instructions .ROUTE .COMPLEX Qty: 300 2RF Dose Instruction: USE TO TEST BLOOD SUGAR THREE TIMES DAILY Rx Instructions: USE TO TEST BLOOD SUGAR THREE TIMES DAILY lisinopril 2.5 mg tablet See Rx Instructions .ROUTE .COMPLEX Qty: 90 1RF Dose Instruction: TAKE 1 TABLET BY MOUTH EVERYDAY AT BEDTIME Rx Instructions: TAKE 1 TABLET BY MOUTH EVERYDAY AT BEDTIME (DME) pen needle, diabetic [1st Tier Unifine Pentips] 31 gauge x 5/16 needle See Rx Instructions .Route Qty: 300 3RF Rx Instructions: used to inject insulin 3 times a day duloxetine 60 mg capsule,delayed release(DR/EC) See Rx Instructions .ROUTE .COMPLEX Qty: 90 1RF Dose Instruction: TAKE 1 CAPSULE BY MOUTH EVERY DAY AT BEDTIME Rx Instructions: TAKE 1 CAPSULE BY MOUTH EVERY DAY AT BEDTIME trazodone 50 mg tablet See Rx Instructions .ROUTE .COMPLEX Qty: 90 1RF Dose Instruction: TAKE 1 TABLET BY MOUTH EVERY NIGHT AT BEDTIME NEEDED FOR INSOMNIA Rx Instructions: TAKE 1 TABLET BY MOUTH EVERY NIGHT AT BEDTIME NEEDED FOR INSOMNIA omeprazole 40 mg capsule,delayed release(DR/EC) See Rx Instructions .ROUTE .COMPLEX Qty: 90 1RF Dose Instruction: TAKE 1 CAPSULE BY MOUTH EVERY DAY Rx Instructions: TAKE 1 CAPSULE BY MOUTH EVERY DAY atorvastatin 10 mg tablet 10 mg PO .COMPLEX Rx Instructions: 10 mg orally every other day; Follow-up/Referrals: Chad Joya MD [Primary Care Provider] -
[2024-06-10 14:00] LABS: Glucose Point of Care 125 mg/dl (65-105)
--- NOTE | 2024-06-10 14:57 | PC.NURSE ---
Right elbow cleansed with dressing applied
== END 2024-06-10 14:28 | disposition home or self-care (01) ==
PROVIDERS: Emergency Provider Emergency Medicine; PCP Family Medicine
DX: S50.312A Abrasion of left elbow, initial encounter (principal); S19.9XXA Unspecified injury of neck, initial encounter; S79.912A Unspecified injury of left hip, initial encounter; S79.911A Unspecified injury of right hip, initial encounter; I48.91 Unspecified atrial fibrillation; E78.00 Pure hypercholesterolemia, unspecified; E11.42 Type 2 diabetes mellitus with diabetic polyneuropathy; E78.2 Mixed hyperlipidemia; E55.9 Vitamin D deficiency, unspecified; D50.9 Iron deficiency anemia, unspecified; K21.9 Gastro-esophageal reflux disease without esophagitis; M05.79 Rheumatoid arthritis with rheumatoid factor of multiple sites without organ or systems involvement; M19.90 Unspecified osteoarthritis, unspecified site; M81.0 Age-related osteoporosis without current pathological fracture; Z86.73 Personal history of transient ischemic attack (TIA), and cerebral infarction without residual deficits; Z87.891 Personal history of nicotine dependence; Z90.710 Acquired absence of both cervix and uterus; Z90.49 Acquired absence of other specified parts of digestive tract; Z79.4 Long term (current) use of insulin; Z79.82 Long term (current) use of aspirin; Z79.01 Long term (current) use of anticoagulants; Z79.899 Other long term (current) drug therapy; M16.0 Bilateral primary osteoarthritis of hip; M47.816 Spondylosis without myelopathy or radiculopathy, lumbar region; M47.812 Spondylosis without myelopathy or radiculopathy, cervical region; W18.39XA Other fall on same level, initial encounter
CPT/HCPCS: 70450; 72125; 73521; 82948; 99284

== ENCOUNTER 2024-09-12 10:21 | Outpatient (CLI) | payer OTHER, SELFPAY ==
--- NOTE | ~2024-09-12 | DEXA_ITS ---
Bone Density Report Name: BOB JUAN Age: 79 Sex: Female Ethnicity: White Date of : 1945 Indication: postmenopausal; screening for osteoporosis; height loss; hysterectomy; rheumatoid arthritis; Referring Provider: AZRA CHEN Study: Bone densitometry was performed. Exam Date: September 12, 2024 Accession number: [id number] Bone Density: Region BMD T-score Z-score Classification AP Spine(L1-L4) 1.140 0.8 3.5 Normal Femoral Neck (Left) 0.556 -2.6 -0.4 Osteoporosis Total Hip (Left) 0.945 0.0 2.0 Normal Femoral Neck (Right) 0.597 -2.3 0.0 Osteopenia Total Hip (Right) 0.888 -0.4 1.6 Normal Total Hip Mean 0.916 -0.2 1.8 Normal World Health Organization criteria for BMD impression classify patients as: Normal (T-score at or above -1.0), Osteopenia (T-score between -1.0 and -2.5), or Osteoporosis (T-score at or below -2.5). 10-year Fracture Risk: FRAX not reported because: Some T-score for Spine Total or Hip Total or Femoral Neck at or below -2.5 Previous Exams: Region Exam Age BMD T-score BMD Change BMD Change Date g/cm2 vs Baseline vs Previous AP Spine (L1-L4) 09/12/2024 79 1.140 0.8 -0.016 (-1.4%) -0.016 (-1.4%) 08/21/2022 77 1.156 1.0 Total Hip(Left) 09/12/2024 79 0.945 0.0 0.007 (0.7%) 0.082 (9.4%)* 08/21/2022 77 0.863 -0.6 -0.075 (-7.9%) -0.055 (-6.0%) 07/10/2020 75 0.918 -0.2 -0.019 (-2.1%) -0.019 (-2.1%) 08/02/2018 73 0.938 0.0 Total Hip(Right) 09/12/2024 79 0.888 -0.4 0.030 (3.5%)* 0.068 (8.3%)* 08/21/2022 77 0.820 -1.0 -0.038 (-4.4%) -0.008 (-1.0%) 07/10/2020 75 0.828 -0.9 -0.030 (-3.5%) -0.030 (-3.5%) 08/02/2018 73 0.857 -0.7 *Denotes significance at 95% confidence level, LSC for AP Spine = 0.022 g/cm2, LSC for Total Hip = 0.027 g/cm2 Clinical Information Provided by Patient: Has rheumatoid arthritis Has used the following medications: Vitamin D, Calcium Has the following medical conditions: Hysterectomy Patient maximum height was 63 Menopause Age: 38 No regular weight bearing exercise Drinks caffeinated beverages Onset of menses at age 9 Number of children 1 Impression: The patient has osteoporosis, based on the Left Femoral Neck T-score. No significant bone loss was observed. Discussion: INCREASED RISK OF FRACTURE. BONE DENSITY IS UNDESIRABLY LOW AT ONE OR MORE SKELETAL SITES, CONSISTENT WITH POSTMENOPAUSAL OSTEOPOROSIS. This patient's lowest T-score meets the World Health Organization's (WHO) criteria for osteoporosis at one or more sites (T-score -2.5 or below). In untreated patients, the risk of osteoporotic fracture increases approximately two-fold for each 1.0 SD decrease in T-score. Low bone density is not the only risk factor for fracture; also consider factors such as patient's age, frailty or poor health, risk of falling, risk of injury, previous osteoporotic fracture, family history of osteoporosis, cigarette smoking, low body weight, etc. Not everyone with low bone mineral density has osteoporosis; osteomalacia and other metabolic bone disorders should also be considered. Patients who have osteoporosis should be evaluated for specific diseases and conditions (secondary causes) that may cause or contribute to bone loss. The [place] Association of Clinical Endocrinologists (AACE) and National Osteoporosis Foundation (NOF) recommend pharmacologic intervention for all postmenopausal women whose T-score is in this range. The patient should follow a healthful lifestyle (good nutrition with adequate calcium and vitamin D, and appropriate weight-bearing exercise). Follow-Up: Consider a repeat BMD and Vertebral Fracture Assessment (VFA) exam in 2 years or sooner if medically necessary, to reassess this patient's status. Reported by: YUSUF on 09/12/2024 11:03:00 AM. Reviewed, dictated and finalized at location A.
--- OUTSIDE RECORDS SUMMARY | 2024-09-12 10:35 | XMS_ITS | Referral Summary ---
Author Organization [facility] [address] [place] [address] [address] [place] [address] Care Team Providers Care Wood Piler Name Role Phone Chad Joya MD Primary Care Provider [phone] Encounters Date Type Department Care Team Description 06/23/2024 11:30 AM CDT Office Visit [facility] Cardiology [address] [facility] [address] [place] [address] Jhon Russo MD PAF (paroxysmal atrial fibrillation) (HCC) (Primary Dx); Chronic anticoagulation; Mixed diabetic hyperlipidemia associated with type 2 diabetes mellitus (CMS/HCC) (HCC); Hypertension associated with diabetes (HCC) from Last 3 Months Allergies Active Allergy Reactions Criticality Noted Date Comments [place]-3 Fatty Acids Vomiting Low 07/24/2023 One Tablet Daily/Iron Unknown 01/22/2022 Medications insulin aspart (NovoLOG) 100 unit/mL injection inject by subcutaneous route as per insulin sliding scale protocol 0 vial 0 5 Active Additional Information Patient taking differently: 100 Units, 70/30, Reported on 06/23/2024 docusate sodium (STOOL SOFTENER) 100 mg capsule take 1 capsule by oral route every day at bedtime as needed 0 0 6 Active hydroxychloroqu ine (PLAQUENIL) 200 mg tablet Take 1 tablet (200 mg total) by mouth daily Active methotrexate 2.5 mg tablet Take 1 tablet (2.5 mg total) by mouth Take 1 tab po 3 times weekly 8 Active cetirizine 10 mg capsule Take 10 [...] under the skin once a week Active traZODone (DESYREL) 50 mg tablet Take 1 tablet (50 mg total) by mouth nightly as needed 4 Active metoprolol XL (TOPROL-XL) 100 mg 24 hr tablet Take 1.5 tablets (150 mg total) by mouth daily 135 tablet 2 5 Active apixaban (Eliquis) 5 mg tablet Take 1 tablet (5 mg total) by mouth 2 (two) times a day 180 tablet 2 5 Active atorvastatin (LIPITOR) 10 mg tablet Take 1 tablet by mouth every other day 90 tablet 3 5 Active Active Problems Problem Noted Date Diagnosed [...] a associated with type 2 diabetes mellitus ([facility]/HCC) 09/25/2015 Overview (05/31/2016): Type 2 diabetes mellitus [...] on file Legal Sex Female 7:24 AM STATION GATEMAN Gender Identity Not on file Sexual Orientation Not on file Last Filed Vital Signs Vital Sign Reading Time Taken Comments Blood Pressure 104/62 06/23/2024 11:02 AM CDT Pulse 92 06/23/2024 10:59 AM CDT Temperature - - Respiratory Rate - - Oxygen Saturation 98% 06/23/2024 10:59 AM CDT Inhaled Oxygen Concentration - - Weight 70.3 kg (155 lb) 06/23/2024 10:59 AM CDT Height 160 cm (5' 3) 06/23/2024 10:59 AM CDT Body Mass Index 27.46 06/23/2024 10:59 AM CDT Plan of Treatment Not on file Procedures Procedure Name Priority Date/Time Associated Diagnosis Comments POCT LIPID PANEL Routine 02/04/2024 9:22 AM STATION GATEMAN Lipid screening from Last 3 Months or Most Recently Relevant to Health Maintenance Results * POCT lipid panel (02/04/2024 9:22 AM STATION GATEMAN) Cholesterol, POC 134 mg/dL HDL, POC 63 mg/dL Triglycerides, POC 123 mg/dL LDL Cholesterol POC 47 mg/dL Chol/HDL Ratio, POC 0.7 Non-HDL Cholesterol, POC 71 mg/dL Cholesterol Total, POC 134 mg/dL Capillary blood 02/04/2024 9 :22 AM STATION GATEMAN Clau Doran [employer] INSTRUCTOR POINT OF CARE TEST ORDERA BLES Final Result from Last 3 Months or Most Recently Relevant to Health Maintenance Insurance [facility] Care Teams Wood Piler Relationship Specialty Start Date End Date Chad Joya MD [address] [place], [place] [id number] PCP - General Family Practice 02/23/24
--- OUTSIDE RECORDS SUMMARY | 2024-09-12 10:35 | XMS_ITS | Clinical Summary ---
Author Organization [facility] Fabián Alfredo Address [address] [address] Care Team Providers Care Life Skills Coach Name Role Phone Chad Joya MD Primary Care Provider [phone] Allergies Active Allergy Reactions Criticality Noted Date [...] mouth. Active fluticasone propionate (FLONASE) 50 mcg/spray [place], Suspension nasal inhaler 0 Active ASCENSIA CONTOUR [...] mg by mouth 2 times daily. Active DULoxetine (CYMBALTA) 60 mg Capsule, Delayed Release(E.C.) take 1 capsule by mouth every day at bedtime 4 Active lisinopriL (PRINIVIL) 2.5 mg tablet Take 2.5 mg by mouth daily. 5 Active Active Problems Problem Noted Date Diagnosed Date Vitamin B12 deficiency 12/16/2019 RA (rheumatoid arthritis) 12/16/2019 DM (diabetes mellitus) 12/16/2019 HTN (hypertension), benign 12/16/2019 Atrial fibrillation 03/15/2019 Iron deficiency anemia due to chronic blood loss 02/21/2019 Encounters Date Type Department Care Team Description 09/07/2024 External Device Data STL ABSTRACTION Provider, Abstract 09/06/2024 External Device Data STL ABSTRACTION Provider, Abstract 08/05/2024 9:00 AM CDT Office Visit [facility] Oncology and Hematology - Adithya [address] [place] [address] Jori Wiley MD Chronic anemia (Primary Dx) 07/27/2024 Orders Only [facility] Oncology and Hematology - Adithya [address] [place] [id number] Jori Wiley MD 07/12/2024 External Device Data STL ABSTRACTION Provider, Abstract from Last 3 Months Family History Relation Name Status Comments Father patient was ado pted unknown about family history Mother patient was ado pted and unknown of family history Social History Tobacco Use Types Packs/Day Years Used Date Smoking Tobacco: Never Smokeless Tobacco: Never Alcohol Use Standard Drinks/Week Comments Never 0 (1 standard drink = 0.6 oz pur e alcohol) Comments No Sex and Gender Information Value Date Recorded Sex Assigned at Not on file Legal Sex Female 9:22 AM PRE SALES ARCHITECT Gender Identity Not on file Sexual Orientation Not on file Last Filed Vital Signs Vital Sign Reading Time Taken Comments Blood Pressure 101/63 08/05/2024 8:39 AM CDT Pulse 76 08/05/2024 8:36 AM CDT Temperature 36 C (96.8 F) 08/05/2024 8:36 AM CDT Respiratory Rate 15 08/05/2024 8:36 AM CDT Oxygen Saturation 98% 08/05/2024 8:36 AM CDT Inhaled Oxygen Concentration - - Weight 69.9 kg (154 lb) 08/05/2024 8:36 AM CDT Height 156.2 cm (5' 1.5) 08/09/2021 10:25 AM CD T Body Mass Index 28.63 08/09/2021 10:25 AM CDT Plan of Treatment Upcoming Encounters Date Type Department Care Team (Late st Contact Info) Description 02/08/2025 10:15 AM PRE SALES ARCHITECT Office Visit [facility] Oncology and Hematology - Adithya [address] [facility] [address] [place] [address] Jori Wiley MD [address] [facility] [address] [place] [address] Health Maintenance Due Date Last [...] 1-dose 75+ series) 2020 INFLUENZA VACCINE (#1) 2024 Procedures Procedure Name Priority Date/Time Associated Diagnosis Comments BASIC METABOLIC PANEL Routine 07/27/2024 3:26 PM CDT CBC WITH DIFFERENTIAL Routine 07/27/2024 2:40 PM CDT from Last 3 Months Results * BASIC METABOLIC PANEL (07/27/2024 3:26 PM CDT) Blood us Jori Wiley MD CHEMISTRY ORDERABLES Final Resu lt * CBC WITH DIFFERENTIAL (07/27/2024 2:40 PM CDT) Blood us Jori Wiley MD HEMATOLOGY ORDERABLES Final Res ult from Last 3 Months Insurance MCR Care Teams Life Skills Coach Relationship Specialty Start Date End Date Chad Joya MD PCP - General Family Practice 08/12/22
--- OUTSIDE RECORDS SUMMARY | 2024-09-12 10:35 | XMS_ITS | Encounter Summary ---
Author Organization [facility] Address [address] [place] [id number] Care Team Providers Care Cigar Head Puncher Name Role Phone Jose Alfredo Mccann MD Primary Care Provider [phone] Jose Alfredo Sahu MD Primary Care Provider [phone] Erwin Vizcarra DO Primary Care Provider [phone] Dung Rapp MD Primary Care Provider [phone] Chad Joya MD Primary Care Provider [phone] Chad Joya MD Primary Care Provider [phone] Encounter Details Date Type Department Care Team (Late st Contact Info) Description 01/27/2017 Orders Only [facility] Health Information Management [address] [place] [address] Scanning, Provider Social History Tobacco Use Types Packs/Day Years Used Date Smoking Tobacco: Some Days Smokeless Tobacco: Never Alcohol Use Standard Drinks/Week Comments No 0 (1 standard drink = 0.6 oz pur e alcohol) Comments Unknown Sex and Gender Information Value Date Recorded Sex Assigned at Not on file Legal Sex Female 7:24 AM IMPORT COORDINATION AND PRODUCTION HEAD Gender Identity Not on file Sexual Orientation Not on file documented as of this encounter Plan of Treatment Not on file documented as of this encounter Procedures Procedure Name Priority Date/Time Associated Diagnosis Comments PULMONARY - RESULT SCAN 01/27/2017 documented in this encounter Results * PULMONARY - RESULT SCAN (01/27/2017) Anatomical Region Laterality Modality Other us Provider Scanning Final Result documented in this encounter Visit Diagnoses Not on filedocumented in this encounter Care Teams Cigar Head Puncher Relationship Specialty Start Date End Date Jose Alfredo Mccann MD PCP - General 05/23/16 05/03/17 Jose Alfredo Sahu MD PCP - General 05/04/17 07/09/17 Erwin Vizcarra DO PCP - General Internal Medicine 07/10/17 05/04/22 Dung Rapp MD PCP - General Internal Medicine 05/05/22 01/12/23 Chad Joya MD PCP - General Family Practice 01/13/23 02/22/24 Chad Joya MD [address] [place] [address] PCP - General Family Practice 02/23/24 documented as of this encounter
--- OUTSIDE RECORDS SUMMARY | 2024-09-12 10:35 | XMS_ITS | Clinical Summary ---
Author Organization [facility] [address] Address [address] [place] [address] Care Team Providers Care Copper Roller Handler Printing Name Role Phone Chad Joya MD Primary Care Provider [phone] Allergies Active Allergy Reactions Criticality Noted Date Comments [place]-3 Fatty Acids Vomiting Low 07/24/2023 One Tablet [...] a associated with type 2 diabetes mellitus ([facility]) 09/25/2015 Overview (05/31/2016): Type 2 diabetes mellitus with other specified complication, with long-term current use of insulin Hypertension associated with diabetes 09/25/2015 Overview (05/31/2016): HTN (hypertension), benign Resolved Problems Problem Noted Date Diagnosed Date Resolved Date TIA (transient ischemic attack) 05/23/2020 01/08/2021 Encounters Date Type Department Care Team Description 06/23/2024 11:30 AM CDT Office Visit [facility] [address] [place] [address] Jhon Russo MD PAF (paroxysmal atrial fibrillation) (HCC) (Primary Dx); Chronic anticoagulation; Mixed diabetic hyperlipidemia associated with type 2 diabetes mellitus (CMS/HCC) (HCC); Hypertension associated with diabetes (HCC) from Last 3 Months Surgical History Surgery Date Site/Laterality Comments TONSILLECTOMY Tonsillectomy APPENDECTOMY Appendectomy Medical History Medical History Date Comments Hx Other Medical bladder suspens ion; Comments: [facility] 03/02/2014 - Hypertension Hypertension Hx Other Medical obesity; Commen ts: [facility] 03/02/2014 - Hx Other Medical diabetes; Comme nts: [facility] 03/02/2014 - Hx Other Medical GERD; Comments: [facility] 03/02/2014 - Hx Other Medical seasonal allerg ies; Comments: [facility] 03/02/2014 - Hx Other Medical dyslipidemia; C omments: [facility] 03/02/2014 - Hx Other Medical hysterectomy; C omments: [facility] 03/02/2014 - Family History Medical [...] on file Legal Sex Female 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 Gender Identity Not on file Sexual Orientation [...] 06/23/2024 10:59 AM CDT Plan of Treatment Health Maintenance Due Date [...] Additional history exists Lipid Panel 02/03/2025 02/04/2024, 12/25, 12/27/2021, Additional history exists Procedures Procedure Name Priority Date/Time Associated Diagnosis Comments POCT LIPID PANEL Routine 02/04/2024 9:22 AM EPITAXIAL REACTOR TECHNICIAN Lipid screening from Last 3 Months or Most Recently Relevant to Health Maintenance Results * POCT lipid panel (02/04/2024 9:22 AM EPITAXIAL REACTOR TECHNICIAN) Cholesterol, POC 134 mg/dL HDL, POC 63 mg/dL Triglycerides, POC 123 mg/dL LDL Cholesterol POC 47 mg/dL Chol/HDL Ratio, POC 0.7 Non-HDL Cholesterol, POC 71 mg/dL Cholesterol Total, POC 134 mg/dL Capillary blood 02/04/2024 9 :22 AM EPITAXIAL REACTOR TECHNICIAN Clau Doran NP POINT OF CARE TEST ORDERA BLES Final Result from Last 3 Months or Most Recently Relevant to Health Maintenance Insurance [employer] Care Teams Copper Roller Handler Printing Relationship Specialty Start Date End Date Chad Joya MD [address] [place] [address] PCP - General Family Practice 02/23/24
== END 2024-09-12 10:22 | disposition home or self-care (01) ==
PROVIDERS: PCP Family Medicine; Visit Provider Internal Medicine Endocrinology, Diabetes & Metabolism
DX: M81.0 Age-related osteoporosis without current pathological fracture (principal); M85.851 Other specified disorders of bone density and structure, right thigh
CPT/HCPCS: 77080

== ENCOUNTER 2024-10-25 13:55 | Outpatient (CLI) | payer OTHER, SELFPAY ==
--- NOTE | ~2024-10-25 | XR_ITS ---
X-rays left wrist Indication: Carpal bone fracture Comparison: None Technique: 3 views left breast Findings/Impression: 1. Overlying cast could obscure subtle abnormality. 2. No fracture identified. If prior films and/or report exist, would be of value. Can also consider repeat exam with removal of cast. 3. Severe radiocarpal joint space narrowing with associated degenerative changes. 4. Mild widening of scapholunate interval. Reviewed, dictated and finalized at location R.
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
--- OUTSIDE RECORDS SUMMARY | 2024-10-25 14:11 | XMS_ITS | Clinical Summary ---
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 09/13/2024 10:41 AM CDT [facility] HCT 45.7(H) 35.9 - 44.6 % 09/13/2024 10:41 AM CDT [facility] MCV 87.7 80.0 - 96.0 FL 09/13/2024 10:41 AM CDT [facility] MCH 28.2 25.3 - 30.9 PG 09/13/2024 10:41 AM CDT [facility] MCHC 32.2 31.0 - 34.1 G/DL 09/13/2024 10:41 AM CDT [facility] RDW 13.7 12.4 - 15.1 % 09/13/2024 10:41 AM T [facility] PLT 349 151 - 353 x10'3/uL 09/13/2024 10:41 AM [facility] MPV 9.4(L) 9.6 - 12.0 FL 09/13/2024 10:41 AM T [facility] RBC MORPHOLOGY NORMAL 09/13/2024 10:41 AM [facility] PLT MORPH. NORMAL 09/13/2024 10:41 AM T [facility] WBC MORPHOLOGY NORMAL 09/13/2024 10:41 AM [facility] LYMPHOCYTES % 27.6 15.8 - 45.0 % 09/13/2024 10:41 AM [facility] NEUTROPHILS % 60.9 42.1 - 71.9 % 09/13/2024 10:41 AM T [facility] MONOCYTES % 5.6(L) 5.7 - 12.5 % 09/13/2024 10:41 AM [facility] EOSINOPHILS 3.5 0.0 - 5.6 % 09/13/2024 10:41 AM [facility] BASOPHILS 1.0 0.0 - 1.3 % 09/13/2024 10:41 AM [facility] ABS. NEUTROPHILS 5.82 1.40 - 6.00 x10'3/uL 09/13/2024 10:41 AM [facility] IMMATURE GRANS % 1.4(H) 0.0 - 0.5 % 09/13/2024 10:41 AM [facility] ABS. LYMPHOCYTES 2.64 0.80 - 4.70 x10'3/uL 09/13/2024 10:41 AM [facility] 09/13/2024 10:3 1 AM CDT Sivakumar Peters MD LABORATORY Final Result Performing Organization Address [facility] Co de Phone Number [facility] [address] [place] [address], [place] [phone] * TROPONIN, QUANT (09/13/2024 10:31 AM CDT) TROPONIN I HIGH SENSITIVITY 5 0 - 50 ng/L 09/13/2024 10:55 AM CDT [facility] Comment: HIGH DOSES OF BIOTIN, TROPONIN-SPECIFIC AUTOANTIBODIES, AND ANTIBODY THERAPY CONTAINING HAMA MAY INTERFERE WITH THIS TEST RESULT. CORRELATION TO CLINICAL HISTORY AND PRESENTATION RECOMMENDED. 09/13/2024 10:3 1 AM CDT Sivakumar Peters MD LABORATORY Final Result Performing Organization Address [facility] Co de Phone Number [facility] [address] [place] [address], [place] [phone] * ETHANOL (09/13/2024 10:31 AM CDT) ALCOHOL S/P/B <0.003 <0.003 G/DL 09/13/2024 11:13 AM CDT [facility] 09/13/2024 10:3 1 AM CDT Sivakumar Peters MD LABORATORY Final Result Performing Organization Address City/[facility]/ZIP Co de Phone Number [facility] [address] [place] [address], [place] [phone] from Last 3 Months Insurance [employer] [facility] - THIRD CONSTITUTION PARTY LIABILITY Advance Directives * Full Code (Latest Code Status on File) Date Activated Date Inactivated Comments 10/10/2024 9:33 AM Care Teams Camp Attendant Relationship Specialty Start Date End Date Chad Joya MD [address] [place] [id number] PCP - General FAMILY PRACTICE 09/13/24
--- OUTSIDE RECORDS SUMMARY | 2024-10-25 14:11 | XMS_ITS | Clinical Summary ---
Author Organization [facility] Fabián Alfredo Address [address] [place] [address] Care Team Providers Care Edger Feeder Name Role Phone Chad Joya MD Primary Care Provider [phone] Allergies Active Allergy Reactions Criticality Noted Date [...] mouth. 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 Gender Identity Not on file Sexual Orientation [...] st Contact Info) Description 02/08/2025 10:15 AM ENGINE WIPER Office Visit [facility] Oncology and Hematology - Adithya [address] [facility] [address] [place] [id number] Jori Wiley MD [address] [facility] [address] [place] [address] Health Maintenance Due Date Last Done Comments DIABETES ANNUAL FOOT EXAM 05/04/1963 DIABETES ANNUAL RETINAL EXAM 05/04/1963 DIABETES MICROALBUMIN ANNUAL SCREEN 05/04/1963 LDL CHOLESTEROL ANNUAL 05/04/1963 DTAP/TDAP/TD VACCINES (1 - Tdap) 1964 PNEUMOCOCCAL VACCINE 50+ YEARS (1 of 2 - PCV) 05/03/18 65 ZOSTER VACCINE (1 of 2) 1964 OSTEOPOROSIS SCREENING 2010 RSV VACCINE (60+ or ) (1 - 1-dose 75+ series) 2020 INFLUENZA VACCINE (#1) 2024 DIABETES HBA1C Q 6 MONTHS 03/17/2025 09/14/2024 Procedures Procedure Name Priority Date/Time Associated Diagnosis [...] Res ult from Last 3 Months Insurance [facility] [address] MCR Care Teams Edger Feeder Relationship Specialty Start Date End Date Chad Joya MD PCP - General Family Practice 08/12/22
--- OUTSIDE RECORDS SUMMARY | 2024-10-25 14:11 | XMS_ITS | Encounter Summary ---
Author Organization [facility] Healthcare Address [address] [place] [address] Care Team Providers Care Silver Solderer Name Role Phone Jose Alfredo Mccann MD Primary Care Provider [phone] Jose Alfredo Sahu MD Primary Care Provider [phone] Erwin Vizcarra DO Primary Care Provider [phone] Dung Rapp MD Primary Care Provider [phone] Chad Joya MD Primary Care Provider [phone] Chad Joya MD Primary Care Provider [phone] Encounter Details Date Type Department Care Team (Late st Contact Info) Description 01/27/[address] 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
== END 2024-10-25 13:56 | disposition home or self-care (01) ==
PROVIDERS: PCP Family Medicine; Visit Provider Nurse Practitioner Family
DX: S62.109A Fracture of unspecified carpal bone, unspecified wrist, initial encounter for closed fracture (principal); X58.XXXA Exposure to other specified factors, initial encounter
CPT/HCPCS: 73110

== ENCOUNTER 2024-11-21 00:34 | Day surgery (SDC) | payer OTHER, SELFPAY ==
[2024-11-04 13:41] VITALS: BMI 26.6
--- NOTE | 2024-11-10 13:29 | PC.NURSE ---
Spoke with patient regarding medication Eliquis. Patient verbalizes understanding that the last dose is to be taken on 11/18/24 and the Endoscopist will instruct them when to restart after the procedure.
--- OUTSIDE RECORDS SUMMARY | 2024-11-21 00:37 | XMS_ITS | Encounter Summary ---
Author Organization [facility] Healthcare Address [address] [place] [address] Care Team Providers Care Loop Tacker Name Role Phone Jose Alfredo Mccann MD Primary Care Provider [phone] Jose Alfredo Sahu MD Primary Care Provider [phone] Erwin Vizcarra DO Primary Care Provider [phone] Dung Rapp MD Primary Care Provider [phone] Chad Joya MD Primary Care Provider [phone] Chad Joya MD Primary Care Provider [phone] Encounter Details Date Type Department Care Team (Late st Contact Info) Description 01/27/2017 Orders Only [facility] Information Management [address] [place] [address] Scanning, Provider Social History Tobacco Use Types Packs/Day Years Used Date Smoking Tobacco: Some Days Smokeless Tobacco: Never Alcohol Use Standard Drinks/Week Comments No 0 (1 standard drink = 0.6 oz pur e alcohol) Comments Unknown Sex and Gender Information Value Date Recorded Sex Assigned at Not on file Legal Sex Female 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
--- OUTSIDE RECORDS SUMMARY | 2024-11-21 00:37 | XMS_ITS | Clinical Summary ---
Author Organization [facility] Fabián Alfredo Address [address] [place] [address] Care Team Providers Care Trust Operations Assistant Name Role Phone Chad Joya MD Primary Care Provider [phone] Allergies Active Allergy Reactions Criticality Noted Date [...] mouth. Active fluticasone propionate (FLONASE) 50 mcg/spray [place], Suspension nasal inhaler 0 Active [facility] CONTOUR [...] Encounters Date Type Department Care Team Description 11/08/2024 External Device Data [facility] ABSTRACTION Provider, Abstract 09/07/2024 External Device Data [facility] ABSTRACTION Provider, [...] on file Legal Sex Female 9:22 AM MEDICAL TRANSLATOR Gender Identity Not on file Sexual Orientation [...] st Contact Info) Description 02/08/2025 10:15 AM MEDICAL TRANSLATOR Office Visit [facility] Oncology and Hematology - [place]od [address] [facility] [address] [place] [address] Jori Wiley MD [address] [facility] [address] [place] [address] Health Maintenance Due Date Last [...] DIABETES HBA1C Q 6 MONTHS 03/17/2025 09/14/2024 Insurance [facility] Address: [place] [address] Care Teams Trust Operations Assistant Relationship Specialty Start Date End Date Chad Joya MD PCP - General Family Practice 08/12/22
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
--- OUTSIDE RECORDS SUMMARY | 2024-11-21 00:37 | XMS_ITS | Clinical Summary ---
Author Organization [facility] [address] Address [address] [place] [address] Care Team Providers Care Solar Sales Representative Name Role Phone Chad Joya MD Primary Care Provider [phone] Allergies Active Allergy Reactions Criticality Noted Date Comments [place]-3 Fatty Acids Vomiting Low 07/24/2023 One Tablet [...] as needed 0 0 01/08/20 16 Active hydroxychloroq uine (PLAQUENIL) 200 mg tablet Take 1 tablet [...] 1 spray into each nostril daily Active cholecalcifero l (VITAMIN D-3) 2000 unit capsule 1 capsule (2,000 Units total) Active cyanocobalamin , vitamin B-12, 5,000 mcg tablet, sublingual Place 500 mcg under the tongue every other day Active calcium carbonate (CALCIUM 600 ORAL) Take 500 mg by mouth Active omeprazole (PriLOSEC) 40 mg capsule Take 1 capsule (40 mg total) by mouth daily Active krill oil 500 mg capsule Take 350 mg by mouth Active carboxymethylc ellulose (REFRESH PLUS) 0.5 % dropperette 1 drop Active abatacept (ORENCIA) 125 mg/mL injectionIndic ations:Rheumat oid Arthritis Inject 1 mL (125 mg total) under the skin once a week Active traZODone (DESYREL) 50 mg tablet Take 1 tablet (50 mg total) by mouth nightly as needed 12/06/19 24 Active apixaban (Eliquis) 5 mg tablet Take 1 tablet (5 mg total) by mouth 2 (two) times a day 180 tablet 2 06/03/19 25 Active atorvastatin (LIPITOR) 10 mg tablet Take 1 tablet by mouth every other day 90 tablet 3 06/28/19 25 Active metoprolol XL (TOPROL-XL) 100 mg 24 hr tablet TAKE 1.5 TABLETS (150MG TOTAL) BY MOUTH DAILY 135 tablet 2 11/16/19 25 Active metoprolol XL (TOPROL-XL) 100 mg 24 hr tablet Take 1.5 tablets (150 mg total) by mouth daily 135 tablet 2 03/30/19 25 025 Discontinued Active Problems Problem Noted Date Diagnosed Date [...] a associated with type 2 diabetes mellitus ([facility]/HCC) 09/25/2015 Overview (05/31/2016): Type 2 diabetes mellitus [...] Hx Other Medical bladder suspens ion; Comments: [facility] 03/02/2014 - Hypertension Hypertension Hx Other Medical obesity; Commen ts: [facility] 03/02/2014 - Hx Other Medical diabetes; Comme nts: [facility] 03/02/2014 - Hx Other Medical GERD; Comments: [facility] 03/02/2014 - Hx Other Medical seasonal allerg ies; Comments: [facility] 03/02/2014 - Hx Other Medical dyslipidemia; C omments: [facility] 03/02/2014 - Hx Other Medical hysterectomy; C omments: [facility] 03/02/2014 - Family History [...] on file Legal 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 Gender Identity Not on file Sexual Orientation [...] POCT LIPID PANEL Routine 02/04/2024 9:22 AM SKATING RINK MANAGER Lipid screening from Last 3 Months or Most Recently Relevant to Health Maintenance Results * POCT lipid panel (02/04/2024 9:22 AM SKATING RINK MANAGER) Cholesterol, POC 134 mg/dL HDL, POC 63 mg/dL Triglycerides, POC 123 mg/dL LDL Cholesterol POC 47 mg/dL Chol/HDL Ratio, POC 0.7 Non-HDL Cholesterol, POC 71 mg/dL Cholesterol Total, POC 134 mg/dL Capillary blood 02/04/2024 9 :22 AM SKATING RINK MANAGER us Clau Doran PLATING AND POINT ASSEMBLY SUPERVISOR POINT OF CARE TEST ORDERA BLES Final Result from Last 3 Months or Most Recently Relevant to Health Maintenance [place] [address] [place] [address] [place] [place] [address] [facility] Care Teams Solar Sales Representative Relationship Specialty Start Date End Date Chad Joya MD [address] [place] [address] PCP - General Family Practice 02/23/24
[2024-11-21] MEDS: LACTATED RINGERS 1,000 ML 150 ML IV CONT (11:20)
--- NOTE | 2024-11-21 11:50 | P.PNAN_ITS ---
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, unspecified Patient Data Age: 79 Gender: F Height: 1.6 m Weight: 66.8 kg Allergies Allergy/AdvReac Type Severity Reaction Status Date / Time ferrous sulfate (From AdvReac Mild Vomiting Verified 11/08/24 13:58 Igor-Iron) Home Medications ?Medication ?Instructions ?Recorded ?Confirmed ?Type blood sugar diagnostic (Contour #300 strips 07/13/23 0 11/08/24 Rx Next Test Strips) pen needle, diabetic 31 gauge x #300 ea 11/27/2311/08 Rx 07/08 (1st Tier Unifine Pentips) acetaminophen 500 mg tablet 500 mg PO Q6H PRN fever or pain 09/23/24 11/08/24 History cholecalciferol (vitamin D3) 125 125 mcg PO DAILY 03/1911/21/24 History mcg (5,000 unit) capsule melatonin 3 mg tablet 3 mg PO HS PRN insomnia 03/1911/08/24 History polyethylene glycol 3350 17 gram 17 g PO DAILY PRN con stipation 09/23/24 11/08/24 History oral powder packet sennosides 17.2 mg tablet 17.2 mg PO DAILY PRN constip ation 09/23/24 11/08/24 History albuterol sulfate 5 mg/mL(0.5 %) 2.5 mg (0.5 mL) inhal ation Q6H PRN 10/03/24 11/08/24 Rx solution for nebulization shortness of breath or wheez ing #15 mL apixaban 5 mg tablet (Eliquis) 5 mg PO BID #60 tabs 11/21/24 Rx atorvastatin 10 mg tablet 10 mg PO DAILY #30 tabs 09/2311/21/24 Rx hydroxyzine HCl 25 mg tablet 25 mg PO TID PRN anxiety #90 tabs 10/03/24 11/21/24 Rx metoprolol succinate 50 mg 150 mg (3 x 50 mg) PO DAILY #30 10/03/24 11/21/24 Rx tablet,extended release 24 hr tabs omeprazole 40 mg capsule,delayed 40 mg PO DAILY #30 ca ps 10/03/24 11/21/24 Rx release blood-glucose sensor (FreeStyle #6 ea 10/14/24 5 Rx Carlos A 3 Plus Sensor device) blood-glucose,skidder lever operator,cont #1 ea 10/14/24 11/08/24 Rx (FreeStyle Carlos A 3 [place]) glucagon 3 mg/actuation nasal 3 mg intranasal ONCE PRN 11/08/24 11/21/24 Rx spray (Baqsimi) hypoglycemia #1 ea glucose 4 gram chewable tablet 16 g (4 x 4 gram) PO Q1 5M PRN 11/08/24 11/21/24 Rx (Dex4 Glucose) hypoglycemia #90 tabs insulin aspart U-100 100 unit/mL See Rx Instructions s ubcut TID 11/08/24 11/21/24 History (3 mL) subcutaneous pen (Novolog FlexPen U-100 Insulin aspart) insulin glargine 100 unit/mL (3 34 unit subcut DAILY 0 11/08/24 11/21/24 History mL) subcutaneous pen (Lantus Solostar U-100 Insulin) omega-3 acid ethyl esters 1 gram 2 cap PO BID #360 cap s 11/08/24 11/21/24 Rx capsule (Lovaza) cyclobenzaprine 10 mg tablet 10 mg PO BID PRN Muscle S pasm #180 11/15/24 11/21/24 Rx tabs memantine 5 mg tablet (Namenda) 5 mg PO DAILY memory # 30 tabs 11/15/24 11/21/24 Rx Laboratory Tests 11/21/24 11:27 POC Capillary Glucose 199 H mg/dl (65-105) Patient hx anesthesia problems: none Family hx anesthesia problems: none Results Review: All pre-operative results and documents have been reviewed as part of the pre- operative evaluation. 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 TIA (transient ischemic attack) Rheumatoid arthritis with rheumatoid factor of multiple sites without organ or systems involvement (~2018) BMI 29.0-29.9,adult SOB (shortness of breath) Obesity Cataracts, bilateral Arthritis Osteoporosis Hx of rotator cuff tear Shingles Hypercholesteremia Peripheral neuropathy VEGAS (dyspnea on exertion) Atrial fibrillation Carpal tunnel syndrome of left wrist Essential (primary) hypertension GERD without esophagitis Iron deficiency anemia Mixed hyperlipidemia Primary osteoarthritis involving multiple joints Right cervical radiculopathy Type 2 diabetes mellitus with diabetic polyneuropathy, with long-term current use of insulin Vitamin D deficiency Surgical History Surgical History H/O bladder repair surgery 1990 H/O: hysterectomy 1990 Hx of rotator cuff surgery Hx of tonsillectomy Age 3 Hx of cholecystectomy History of appendectomy Age 16 Family History Family History Unknown Adopted Social History Social History Smoking packs per day: 0 Smoking cigarettes per day: 0.0 Years smoked: 30 Smoking pack-years: 0.00 Smoking status: Former smoker Tobacco type: cigarettes Second hand tobacco smoke exposure: No Smoking end date: 02/23/17 Alcohol intake: unknown Substance use: unknown Substance use type: does not use Do You Feel Safe in your Home?: Yes Lack of Transportation: No Lack of Food: Never True Current Housing: I Have Housing Concerned About Future Housing: No Difficulty Paying Gas/Electric Bills: No Difficulty Paying for Meds: No Currently Unemployed: No Education: Trade/Vocational Certificate Difficulty w/ Childcare or Family Care: No Living arrangements: with friend(s) Occupation/Education: retired Gender identity (if verbalized by the patient): Female Spiritual care concerns: No Anes - Eval Final PreProcedure Day of Procedure 11/21/24 11:50 Patient weight: normal Lungs: normal air movement Airway: Mallampati scale class II Neurological: alert and oriented Last oral intake: >/= 8 hours ASA classification: III Emergent: no Anesthetic plan: proceed Anesthesia type and monitoring: general GIVS and standard monitoring Results Review: All pre-operative results and documents have been reviewed as part of the pre-operative evaluation. HTN, hyperlipidemia, pafib, AC on hold for EGD. Cardiac studies reviewed w nml LVEF by ECHO 2023. Informed Consent: The patient's anesthetic plan and its attendant risks and benefits were discussed with the patient/family/POA. Questions were solicited and answers provided to the satisfaction of the patient/family/POA.
--- NOTE | 2024-11-21 12:20 | PM.HPGS ---
History of Present Illness History of Present Illness Consent: Risks, benefits, and alternatives have been discussed and questions answered. Patient agrees to proceed with procedure. Chief complaint: Congenital malformation of intestine, unspecified Narrative: Milo Ramírez is a 79 year old female here for egd, she had CT scan a/p that showed possible lesion near ampulla, she denies any pain or n/v Review of Systems Review of Systems: All systems reviewed & are unremarkable except as noted in HPI and below PMFSH Past Medical History Medical History Osteoporosis Tinea corporis Bilateral hand pain Chronic pain of left knee Current use of care home anticoagulation TIA (transient ischemic attack) Rheumatoid arthritis with rheumatoid factor of multiple sites without organ or systems involvement (~2018) BMI 29.0-29.9,adult SOB (shortness of breath) Obesity Cataracts, bilateral Arthritis Osteoporosis Hx of rotator cuff tear Shingles Hypercholesteremia Peripheral neuropathy VEGAS (dyspnea on exertion) Atrial fibrillation Carpal tunnel syndrome of left wrist Essential (primary) hypertension GERD without esophagitis Iron deficiency anemia Mixed hyperlipidemia Primary osteoarthritis involving multiple joints Right cervical radiculopathy Type 2 diabetes mellitus with diabetic polyneuropathy, with long-term current use of insulin Vitamin D deficiency Surgical History Surgical History H/O bladder repair surgery 1990 H/O: hysterectomy 1990 Hx of rotator cuff surgery Hx of tonsillectomy Age 3 Hx of cholecystectomy History of appendectomy Age 16 Family History Family History Unknown Adopted Social History Social History Smoking packs per day: 0 Smoking cigarettes per day: 0.0 Years smoked: 30 Smoking pack-years: 0.00 Smoking status: Former smoker Tobacco type: cigarettes Second hand tobacco smoke exposure: No Smoking end date: 02/23/17 Alcohol intake: unknown Substance use: unknown Substance use type: does not use Do You Feel Safe in your Home?: Yes Lack of Transportation: No Lack of Food: Never True Current Housing: I Have Housing Concerned About Future Housing: No Difficulty Paying Gas/Electric Bills: No Difficulty Paying for Meds: No Currently Unemployed: No Education: Trade/Vocational Certificate Difficulty w/ Childcare or Family Care: No Living arrangements: with friend(s) Occupation/Education: retired Gender identity (if verbalized by the patient): Female Spiritual care concerns: No Meds Home Medications and Allergies Home Medications ?Medication ?Instructions ?Recorded ?Confirmed ?Type blood sugar diagnostic (Contour #300 strips 07/13/23 11/08/24 Rx Next Test Strips) pen needle, diabetic 31 gauge x #300 ea 11/27/23 11/08/24 Rx 07/08 (1st Tier Unifine Pentips) acetaminophen 500 mg tablet 500 mg PO Q6H PRN fever or pain 09/23/24 11/08/24 History cholecalciferol (vitamin D3) 125 125 mcg PO DAILY 09/23/24 11/21/24 History mcg (5,000 unit) capsule melatonin 3 mg tablet 3 mg PO HS PRN insomnia 09/23/24 11/08/24 History polyethylene glycol 3350 17 gram 17 g PO DAILY PRN constipation 09/23/24 11/08/24 History oral powder packet sennosides 17.2 mg tablet 17.2 mg PO DAILY PRN constipation 09/23/24 11/08/24 History albuterol sulfate 5 mg/mL(0.5 %) 2.5 mg (0.5 mL) inhalation Q6H PRN 10/03/24 11/08/24 Rx solution for nebulization shortness of breath or wheezing #15 mL apixaban 5 mg tablet (Eliquis) 5 mg PO BID #60 tabs 10/03/24 11/21/24 Rx atorvastatin 10 mg tablet 10 mg PO DAILY #30 tabs 10/03/24 11/21/24 Rx hydroxyzine HCl 25 mg tablet 25 mg PO TID PRN anxiety #90 tabs 10/03/24 11/21/24 Rx metoprolol succinate 50 mg 150 mg (3 x 50 mg) PO DAILY #30 10/03/24 11/21/24 Rx tablet,extended release 24 hr tabs omeprazole 40 mg capsule,delayed 40 mg PO DAILY #30 caps 10/03/24 11/21/24 Rx release blood-glucose sensor (FreeStyle #6 ea 10/14/24 11/08/24 Rx Carlos A 3 Plus Sensor device) blood-glucose,tack picker,cont #1 ea 10/14/24 11/08/24 Rx (FreeStyle Carlos A 3 [place]) glucagon 3 mg/actuation nasal 3 mg intranasal ONCE PRN 11/08/24 11/21/24 Rx spray (Baqsimi) hypoglycemia #1 ea glucose 4 gram chewable tablet 16 g (4 x 4 gram) PO Q15M PRN 11/08/24 11/21/24 Rx (Dex4 Glucose) hypoglycemia #90 tabs insulin aspart U-100 100 unit/mL See Rx Instructions subcut TID 11/08/24 11/21/24 History (3 mL) subcutaneous pen (Novolog FlexPen U-100 Insulin aspart) insulin glargine 100 unit/mL (3 34 unit subcut DAILY 11/08/24 11/21/24 History mL) subcutaneous pen (Lantus Solostar U-100 Insulin) omega-3 acid ethyl esters 1 gram 2 cap PO BID #360 caps 11/08/24 11/21/24 Rx capsule (Lovaza) cyclobenzaprine 10 mg tablet 10 mg PO BID PRN Muscle Spasm #180 11/15/24 11/21/24 Rx tabs memantine 5 mg tablet (Namenda) 5 mg PO DAILY memory #30 tabs 11/15/24 11/21/24 Rx Allergies Allergy/AdvReac Type Severity Reaction Status Date / Time ferrous sulfate (From AdvReac Mild Vomiting Verified 11/08/24 13:58 Igor-Iron) Exam Const: General: comfortable and no acute distress HENMT: Face/Nose/Sinus: Normal nares present Eyes: General: appearance normal, both eyes and all related structures Resp: Auscultation: clear to auscultation bilaterally Cardio: Rate: regular rate Rhythm: regular rhythm GI: Inspection: non-distended GI Palp: Yes Soft to palpation Skin: General skin exam: normal color Extrem: General: normal to inspection Assessment and Plan Assessment and plan (1) Abnormal CT of the abdomen: Code(s): R93.5 - Abnormal findings on diagnostic imaging of other abdominal regions, including retroperitoneum Status: Acute Assessment and Plan: egd
--- NOTE | 2024-11-21 12:28 | S_PTH ---
PATIENT: Milo Ramírez LOC: [facility]#:[id number] AGE/SX: 79/F ROOM: RE11/21/[address]: Migel Carrillo MD : 1945 BED: DIS: 11/21/2024 SPEC #: [id number] RECD: 11/21/24 13:18 STATUS: HAN RENai #: [id number] MACI: 11/21/24 12:[address]: Migel Carrillo DEPT: [facility] Surgical RECD BY: Celestina Pritchard ENTERED: 11/21/24 13:18 SP TYPE: Surgical OTHR DR: Chad Joya MD Tissues: A - Gastric Biopsy Procedures: Hematoxylin and Eosin Stain Gross and Microscopic Level 4
[2024-11-21 12:32] VITALS: BP 116/61; PULSE 78; RESP 16; O2SAT 96
[2024-11-21 12:42] VITALS: BP 94/50; PULSE 76; RESP 18; O2SAT 97
[2024-11-21 12:52] VITALS: BP 107/57; PULSE 68; RESP 16; O2SAT 98
== END 2024-11-21 13:07 | disposition home or self-care (01) ==
PROVIDERS: PCP Family Medicine; Referring Provider Nurse Practitioner Family; Visit Provider Internal Medicine Gastroenterology
PROC: 0DJ08ZZ Inspection of Upper Intestinal Tract, Via Natural or Artificial Opening Endoscopic (ICD-10-PCS; CPT 43239; principal; 2024-11-21 12:30)
DX: R93.5 Abnormal findings on diagnostic imaging of other abdominal regions, including retroperitoneum (principal); K21.9 Gastro-esophageal reflux disease without esophagitis; K29.70 Gastritis, unspecified, without bleeding; I10 Essential (primary) hypertension; D50.9 Iron deficiency anemia, unspecified; E78.2 Mixed hyperlipidemia; E11.42 Type 2 diabetes mellitus with diabetic polyneuropathy; E55.9 Vitamin D deficiency, unspecified; I48.0 Paroxysmal atrial fibrillation; M81.0 Age-related osteoporosis without current pathological fracture; M05.79 Rheumatoid arthritis with rheumatoid factor of multiple sites without organ or systems involvement; M15.9 Polyosteoarthritis, unspecified; G62.9 Polyneuropathy, unspecified; G89.29 Other chronic pain; M25.562 Pain in left knee; Z79.01 Long term (current) use of anticoagulants; Z79.51 Long term (current) use of inhaled steroids; Z79.4 Long term (current) use of insulin; Z98.890 Other specified postprocedural states; Z90.49 Acquired absence of other specified parts of digestive tract; Z87.891 Personal history of nicotine dependence; Z86.73 Personal history of transient ischemic attack (TIA), and cerebral infarction without residual deficits
CPT/HCPCS: 43239; 82948; 88305; J2704; J7120

== ENCOUNTER 2024-12-07 13:29 | Inpatient (IN) | payer OTHER, SELFPAY ==
[2024-12-07] VITALS (9 sets, daily range): BP systolic 103–136; BP diastolic 57–74; PULSE 88–105; RESP 16–24; TEMP 36.4–36.8; O2SAT 94–99; BMI 27.3
--- NOTE | ~2024-12-07 | CT_ITS ---
EXAMINATION: CT cervical spine wo con DATE: 12/07/2024 16:14 INDICATION: Fall with altered mental status TECHNIQUE: Computed tomography (CT) of the cervical spine was performed without intravenous contrast. Automated exposure control and iterative reconstruction technique were employed. The dose-length product was 605.33 mGy-cm. COMPARISON: None FINDINGS: 10 degrees cervical levocurvature. Mild reversal of the normal cervical lordosis. Vertebral body heights are normal. No fracture. Multilevel disc height loss, moderate at C4-C5 and mild at the remaining levels from C3-C4 through T2- T3. There is multilevel mild central canal stenosis resulting from disc bulges and disc osteophyte complexes at C3-C4 through C6-C7. Severe uncovertebral osteoarthritis on the right at C4-C5. There is additional multilevel mild to moderate bilateral uncovertebral osteoarthritis throughout the cervical spine. Additional multilevel moderate and severe cervical facet osteoarthritis. This contributes to moderate neural foraminal stenosis on the right at C3-C4 and mild neural foraminal stenosis at many of the remaining cervical neural foramina. Atherosclerotic calcifications at the bilateral carotid bulbs. Likely benign 1 cm left thyroid nodule. Cervical soft tissues are otherwise unremarkable. IMPRESSION: 1. Moderate cervical spondylosis. No acute osseous abnormality. Reviewed, dictated and finalized at location A.
--- NOTE | ~2024-12-07 | XR_ITS ---
EXAMINATION: XR shoulder LT min 2V, 12/11/2024 13:55 CDT HISTORY: shoulder pain COMPARISON: No comparisons available. Findings: No acute fracture or malalignment. Moderate degenerative changes Soft tissues unremarkable. Impression: No acute fracture or malalignment. Reviewed, dictated and finalized at location P. Impression: No acute fracture or malalignment.
--- NOTE | ~2024-12-07 | XR_ITS ---
EXAMINATION: XR foot RT 2V, 12/07/2024 16:46 CDT HISTORY: pain, lateral ulcerations COMPARISON: No comparisons available. Findings: No acute fracture or malalignment. No significant degenerative changes. Soft tissues unremarkable. Impression: No acute fracture or malalignment. Reviewed, dictated and finalized at location P. Impression: No acute fracture or malalignment.
--- NOTE | ~2024-12-07 | CT_ITS ---
CTA chest PE abdomen pel HISTORY:SOB, dimer >1; also b/l hip pain; AMS/hallucinatio . COMPARISON: None. 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 Post-processing on an independent workstation was performed to reconstruct MIP images for evaluation of the thoracic vasculature. FINDINGS: There is no pulmonary embolism, aortic dissection, thoracic aneurysm or pericardial fluid. Pulmonary nodules within the right middle lobe measuring up to 7 mm. No focal consolidation, pleural effusions or pneumothorax. There is no axillary, mediastinal or hilar adenopathy. There are healing fracture of third through 10th left ribs. Impression:There is no pulmonary embolism, aortic dissection, pericardial fluid or thoracic aneurysm. No acute lung findings. Stable left healing fractures. CT abdomen and pelvis with contrast: TECHNIQUE:: Axial images of the abdomen and pelvis were obtained following infusion of 100 mL Isovue 300. Dose optimization technique was utilized. FINDINGS: The liver parenchyma is unremarkable. No intrahepatic mass or ductal dilatation is evident. The patient has had a cholecystectomy. The pancreas and spleen are normal in appearance. The adrenal glands are symmetric in size. The kidneys demonstrate symmetric uptake and excretion of contrast. Right renal cyst measures 1.6 cm. There is no solid mass. There is no hydronephrosis. Evaluation of the stomach and bowel loops are limited due to lack of oral contrast. There is no bowel obstruction or evidence of acute appendicitis. The bladder and rectum are normal. There is a 2.5 x 2 cm cystic structure in the vaginal cuff. No free intraperitoneal fluid or air is evident. There is no significant retroperitoneal lymphadenopathy. The aorta, visceral vessels and renal arteries demonstrate normal caliber and patency. The lower thoracic and lumbar vertebrae are in normal alignment. IMPRESSION: Right renal cyst measures 1.6 cm. 2.5 cm cyst in the vaginal cuff. No acute abdominal or pelvic findings. All CT scans at this facility are performed using low dose modulation techniques as appropriate to perform exam including the following: automated exposure control; use of iterative reconstruction technique; adjustment of the mA and/or kV according to patient size (this includes techniques or standardized protocols for targeted exams where dose is matched to indication/reason for exam). Reviewed, dictated and finalized at location S. Impression:There is no pulmonary embolism, aortic dissection, pericardial fluid or thoracic aneurysm. No acute lung findings. Stable left healing fractures. CT abdomen and pelvis with contrast: TECHNIQUE:: Axial images of the abdomen and pelvis were obtained following inf usion of 100 mL Isovue 300. Dose optimization technique was utilized. FINDINGS: The liver parenchyma is unremarkable. No intrahepatic mass or ductal dilatation is evident. The patient has had a cholecystectomy. The pancreas and spleen are normal in appearance. The adrenal glands are symmetric in size. The kidneys demonstrate symmetric uptake and excretion of contrast. Right renal cyst measures 1.6 cm. There is no solid mass. There is no hydronephrosis. Evaluation of the stomach and bowel loops are limited due to lack of oral contr ast. There is no bowel obstruction or evidence of acute appendicitis. The bladder and rectum are normal. There is a 2.5 x 2 cm cystic structure in th e vaginal cuff. No free intraperitoneal fluid or air is evident. There is no s ignificant retroperitoneal lymphadenopathy. The aorta, visceral vessels and renal arteries demonstrate normal caliber and p atency. The lower thoracic and lumbar vertebrae are in normal alignment. IMPRESSION: Right renal cyst measures 1.6 cm. 2.5 cm cyst in the vaginal cuff. No acute abdominal or pelvic findings. All CT scans at this facility are performed using low dose modulation techniqu es as appropriate to perform exam including the following: automated exposure c ontrol; use of iterative reconstruction technique; adjustment of the mA and/or kV according to patient size (this includes techniques or standardized protocol s for targeted exams where dose is matched to indication/reason for exam).
--- NOTE | ~2024-12-07 | XR_ITS ---
EXAMINATION: XR hip BI 2V w AP pelvis, 12/07/2024 16:46 CDT HISTORY: pain, fall COMPARISON: No comparisons available. Findings: No acute fracture or malalignment. Moderate to severe degenerative changes Soft tissues unremarkable. Impression: No acute fracture or malalignment. Reviewed, dictated and finalized at location P. Impression: No acute fracture or malalignment.
--- NOTE | ~2024-12-07 | XR_ITS ---
EXAMINATION: XR shoulder RT min 2V, 12/11/2024 13:55 CDT HISTORY: shoulder pain COMPARISON: No comparisons available. Findings: No acute fracture or malalignment. Moderate degenerative changes Soft tissues unremarkable. Impression: No acute fracture or malalignment. Reviewed, dictated and finalized at location P. Impression: No acute fracture or malalignment.
--- NOTE | ~2024-12-07 | XR_ITS ---
EXAMINATION: XR foot LT 2V DATE: 12/07/2024 16:57 INDICATION: Pain and ulcerations at the lateral left foot TECHNIQUE: Dorsoplantar and lateral views of the left foot were obtained. COMPARISON: None. FINDINGS: Bone alignment is normal. No fracture. Mild polyarticular osteoarthritis at the first metatarsophalangeal and multiple tarsometatarsal and interphalangeal joints. Small Achilles and plantar calcaneal spurs. No cortical erosions or periosteal reaction. Soft tissues are unremarkable. IMPRESSION: 1. Mild degenerative skeletal changes including mild polyarticular osteoarthritis in the mid and forefoot and small Achilles and plantar calcaneal spurs. No acute osseous abnormality. Reviewed, dictated and finalized at location A. IMPRESSION: 1. Mild degenerative skeletal changes including mild polyarticular osteoarthrit is in the mid and forefoot and small Achilles and plantar calcaneal spurs. No a cute osseous abnormality.
--- NOTE | ~2024-12-07 | CT_ITS ---
CT brain wo con HISTORY:ams, fall COMPARISON: None. TECHNIQUE: Axial images were obtained of the head without intravenous contrast. FINDINGS: No acute intracranial hemorrhage, mass effect or midline shift. No extra-axial fluid collections. There is generalized atrophy and chronic white matter microangiopathic changes within the periventricular white matter.Visualized paranasal sinuses and mastoid air cells are clear. IMPRESSION: No acute intracranial hemorrhage or extra axial fluid collections. Chronic white matter microangiopathic changes. All CT scans at this facility are performed using low dose modulation techniques as appropriate to perform exam including the following: automated exposure control; use of iterative reconstruction technique; adjustment of the mA and/or kV according to patient size (this includes techniques or standardized protocols for targeted exams where dose is matched to indication/reason for exam). Reviewed, dictated and finalized at location S. IMPRESSION: No acute intracranial hemorrhage or extra axial fluid collections. Chronic white matter microangiopathic changes. All CT scans at this facility are performed using low dose modulation techniqu es as appropriate to perform exam including the following: automated exposure c ontrol; use of iterative reconstruction technique; adjustment of the mA and/or kV according to patient size (this includes techniques or standardized protocol s for targeted exams where dose is matched to indication/reason for exam).
--- NOTE | ~2024-12-07 | XR_ITS ---
EXAMINATION: XR chest 1V portable DATE: 12/07/2024 16:22 INDICATION: Altered mental status TECHNIQUE: frontal view of the chest was obtained. COMPARISON: Chest radiograph dated 09/15/2023 FINDINGS: The lungs are clear with no focal airspace opacities, pulmonary edema, pleural effusion or pneumothorax. The cardiomediastinal silhouette is normal. Cholecystectomy clips in right upper quadrant. IMPRESSION: 1. No acute cardiopulmonary disease. Reviewed, dictated and finalized at location A.
--- NOTE | ~2024-12-07 | US_ITS ---
EXAMINATION: US venous doppler [facility], 12/08/2024 14:50 CDT HISTORY: Pain in leg COMPARISON: None Technique: Oseguera-scale and color Doppler images were attempted of the lower saphenofemoral junction, common femoral vein,superficial femoral vein, proximal deep femoral vein, proximal deep femoral vein, popliteal vein and posterior tibial veins. Findings: Deep Venous System:Normal flow, augmentation and compressibility. No echogenic thrombus identified. Superficial Venous SystemNo superficial thrombophlebitis. Soft tissues: Soft tissues are unremarkable. Impression: Negative for DVT. Reviewed, dictated and finalized at location P. Impression: Negative for DVT.
--- NOTE | 2024-12-07 15:33 | ED.FALL ---
HPI - Fall General Chief Complaint: Fall Stated Complaint: fall Time Seen by Provider: 12/07/24 15:32 Source: patient and family Limitations: altered mental status, physical limitation and clinical condition History of Present Illness HPI Narrative: Patient presents after report of falls. She is also reported to be altered over the past 24 hours. When asked if the falls preceded being altered or vice versa, it still remains unclear as it is reported that the patient fell when she tried to get out of the bed and son helped her and then this morning she was again found on the floor beside the bed. Patient has been unable to ambulate over the past day or so where she previously could, particularly after being discharged from [facility]. Patient resides with her son in the basement/walk on apartment. She has a history of diabetes mellitus and her son states that she has a history of dementia because of this.She is on Eliquis b.i.d.. She has been having visual hallucinations, seeing people that are not there. She denies any chest pain or abdominal pain. She reports bilateral hip pain. She denies being short of breath although her son notes that she seems winded.She is complaining of arthralgias and myalgias her legs. Son noted that she had strange appearing feet and ankles. Related Data Home Medications ?Medication ?Instructions ?Recorded ?Confirmed ?Last Taken ?Type acetaminophen 500 mg tablet 500 mg PO Q6H PRN fever or pain 09/23/24 12/01/24 Unknown History cholecalciferol (vitamin D3) 125 125 mcg PO DAILY 09/23/24 12/01/24 11/20/24 History mcg (5,000 unit) capsule melatonin 3 mg tablet 3 mg PO HS PRN insomnia 09/23/24 12/01/24 Unknown History polyethylene glycol 3350 17 gram 17 g PO DAILY PRN constipation 09/23/24 12/01/24 Unknown History oral powder packet sennosides 17.2 mg tablet 17.2 mg PO DAILY PRN constipation 09/23/24 12/01/24 Unknown History Allergies Allergy/AdvReac Type Severity Reaction Status Date / Time ferrous sulfate (From AdvReac Mild Vomiting Verified 12/07/24 20:07 Igor-Iron) [facility] Past Medical History Medical History Osteoporosis Tinea corporis Bilateral hand pain Chronic pain of left knee Current use of informatics specialist anticoagulation TIA (transient ischemic attack) Rheumatoid arthritis with rheumatoid factor of multiple sites without organ or systems involvement (~2018) BMI 29.0-29.9,adult SOB (shortness of breath) Obesity Cataracts, bilateral Arthritis Osteoporosis Hx of rotator cuff tear Shingles Hypercholesteremia Peripheral neuropathy VEGAS (dyspnea on exertion) Atrial fibrillation Carpal tunnel syndrome of left wrist Essential (primary) hypertension GERD without esophagitis Iron deficiency anemia Mixed hyperlipidemia Primary osteoarthritis involving multiple joints Right cervical radiculopathy Type 2 diabetes mellitus with diabetic polyneuropathy, with long-term current use of insulin Vitamin D deficiency Surgical History Surgical History H/O bladder repair surgery 1990 H/O: hysterectomy 1990 Hx of rotator cuff surgery Hx of tonsillectomy Age 3 Hx of cholecystectomy History of appendectomy Age 16 Family History Family History Unknown Adopted Social History Social History Smoking packs per day: 0.25 Smoking cigarettes per day: 5.0 Years smoked: 30 Smoking pack-years: 7.50 Smoking status: Former smoker Tobacco type: cigarettes Second hand tobacco smoke exposure: No Smoking end date: 02/23/17 Alcohol intake: never Substance use: never Substance use type: does not use Do You Feel Safe in your Home?: Yes Lack of Transportation: No Lack of Food: Never True Current Housing: I Have Housing Concerned About Future Housing: No Difficulty Paying Gas/Electric Bills: No Difficulty Paying for Meds: No Currently Unemployed: No Education: Trade/Vocational Certificate Difficulty w/ Childcare or Family Care: No Living arrangements: with family Additional living arrangements comments: basement apartment at son's house Occupation/Education: retired Gender identity (if verbalized by the patient): Female Spiritual care concerns: No Exam Narrative: GENERAL:well-nourished, and in no acute distress. HEAD: Normocephalic, atraumatic. EYES: Non injected, non icteric ENT: Nares clear, no rhinorrhea or epistaxis. Gross auditory acuity intact. NECK: Supple. No meningismus. CHEST: Speaking in full sentences. No respiratory distress. HEART: Irregularly IRregular rate and rhythm. ABDOMEN: Soft, nondistended. No rigidity or guarding. Not peritoneal EXTREMITIES: No lower extremity edema. Able to move extremities x4. SKIN: Warm, dry. Well healing but superficial abrasions along lateral aspects of bilateral feet. NEURO: No focal deficits. Alert and oriented. Answering questions although at times confused. Following commands. Normal speech without aphasia or dysarthria. PSYCH: Congruent mood and affect. Does not appear to be responding to internal stimuli. Course Vital Signs Vital signs: Vital Signs Temperature 98.2 F 12/07/24 13:31 Pulse Rate 88 12/07/24 13:31 Respiratory Rate 16 12/07/24 13:31 Blood Pressure 103/57 L 12/07/24 13:31 Pulse Oximetry 97 12/07/24 13:31 Temperature 98.2 F 12/07/24 13:31 Pulse Rate 98 12/07/24 16:15 Respiratory Rate 18 12/07/24 16:15 Blood Pressure 136/74 12/07/24 15:55 Pulse Oximetry 97 12/07/24 16:15 MDM - Fall MDM Narrative Medical decision making narrative: Patient presents with report of at least 2 falls and being altered over last 24 hours. In the emergency department she is afebrile with vital signs that show mild hypotension. Mean arterial pressure is 72. She is in rate controlled atrial fibrillation, not a new diagnosis. She is already on anticoagulation. She has an acute leukocytosis. Hyponatremia partially corrects, to 133/134 in the setting of hyperglycemia which is otherwise without anion gap or acidosis. She has chronic hyponatremia. It is not severe enough to suggest cause or contribution to her presentation today. CPK only mildly elevated, not to a degree to suggest rhabdomyolysis. She does have evidence of urinary tract infection. Previous urine culture from March 2024 is reviewed which grew E coli which was pansensitive to the antibiotics tested. She does not have any antibiotic allergies. Will give ceftriaxone to start. BNP elevated greater than 2000. No prior diagnosis of heart failure in EMR PMH section. Patient is a significant fall risk given she has already fallen the likely not sustained any injury. Patient's son is concerned about her inability to ambulate and her confusion. She does not do well when RN attempts to assess ambulation. She will require admission. Patient's son notes that she is a DNR and should have documentation of such in her chart. Discussed with lithography contact worker hospitalist TRINA Villegas. PT/OT evaluation ordered. Differential Diagnosis Differential diagnosis: Likely other (Which infections such as pneumonia, urinary tract infection, intracranial hemorrhage, rhabdomyolysis, thyroid dysfunction, electrolyte abnormalities) Lab Data Attestation: I reviewed the patient's lab results. 12/07/24 15:46 12/07/24 15:46 Labs: Lab Results 12/07/24 12/07/24 12/07/24 Range/Units 15:46 15:48 15:53 WBC 14.2 H (4.5-10.0) K/mm3 RBC 4.67 (4.2-5.4) M/mm3 Hgb 12.3 (12.0-15.0) g/dL Hct 39.5 (37.0-47.0) % MCV 84.6 (80-100) fl MCH 26.3 (26-34) pg MCHC 31.1 L (32-36) g/dl RDW 14.4 (11.5-14.5) % Plt Count 294 (150-375) k/mm3 MPV 8.9 (7.4-10.4) fl Immature Gran % (Auto) 0.5 (0-0.5) % Neut % (Auto) 86.2 H (45.5-73.1) % Lymph % (Auto) 6.5 L (18.3-44.2) % Garden % (Auto) 6.5 (2.6-8.5) % Eos % (Auto) 0.1 (0-4.4) % Baso % (Auto) 0.2 (0.2-1.2) % Lymph # (Auto) 0.93 (0.9-3.2) K/mm3 Garden # (Auto) 0.9 H (0.1-0.6) K/mm3 Eos # (Auto) 0.0 (0-0.3) K/mm3 Baso # (Auto) 0.0 (0.0-0.1) K/mm3 Abs Immat Gran (auto) 0.07 H (0.00-0.031) K/mm3 Absolute Neuts (auto) 12.3 H (1.3-6.7) K/mm3 Absolute Nucleated RBC 0.000 (0.0-0.012) K/mm3 Nucleated RBC % 0.0 (0.0-0.2) % PT 20.1 H (11.1-14.7) Seconds INR 1.8 APTT 29.7 (22.3-36.8) Seconds D-Dimer 1.04 H (<0.48) ug/mL Sodium 131 L (137-145) mmol/L Potassium 4.4 (3.4-5.0) mmol/L Chloride 94 L (98-107) mmol/L Carbon Dioxide 27 (22-30) mmol/L Anion Gap 10 (4-12) mmol/L BUN 19 H (7-17) mg/dL Creatinine 0.74 (0.7-1.0) mg/dL Estim Creat Clear Calc 51 ml/min Estimated GFR > 60 (59 - ) Glucose 216 H (65-110) mg/dL POC Capillary Glucose 211 H (65-105) mg/dl Lactic Acid 1.3 (0.7-2.0) mmol/L Calcium 9.1 (8.4-10.2) mg/dL Total Bilirubin 1.1 (0.2-1.3) mg/dL AST 31 (14-36) U/L ALT 18 (6-35) U/L Alkaline Phosphatase 76 (38-126) U/L Ammonia < 9 L (9-30) umol/L Total Creatine Kinase 259 H (30-135) U/L Troponin I < 0.012 (0.000-0.034) ng/mL NT-Pro-B Natriuret Pep 2380 H (19.9-100) pg/mL Total Protein 7.1 (6.3-8.2) g/dL Albumin 3.8 (3.5-5.1) g/dL TSH 1.630 (0.465-4.680) uIU/mL Urine Color Yellow (Yellow) Urine Appearance Clear (Clear) Urine pH 5.0 (5.0-9.0) Ur Specific Addison 1.031 (1.001-1.035) Urine Protein 1+ H (Negative) mg/dL Urine Glucose (UA) 3+ H (Negative) mg/dL Urine Ketones Trace H (Negative) mg/dL Ur Blood (Man) Negative (Negative) Urine Nitrate Negative (Negative) Urine Bilirubin Negative (Negative) Urine Urobilinogen 1.0 (<2.0) mg/dL Leukocyte Esterase Rfl 1+ H (Negative) LAURA/UL Urine RBC 0-2 (0-2) /hpf Urine WBC 21-50 H (0-3) /hpf Ur Squamous Epith Cells None seen (Few) /hpf Urine Bacteria 1+ H /hpf Urine Casts 0-2 Salicylates < 1.0 L (2-20) mg/dL Urine Opiates Screen Negative (Negative) Urine Methadone Screen Negative (Negative) Acetaminophen < 10 L (10-30) ug/mL Ur Barbiturates Screen Negative (Negative) Ur Phencyclidine Scrn Negative (Negative) Ur Amphetamine Screen Negative (Negative) U Benzodiazepines Scrn Negative (Negative) Urine Cocaine Screen Negative (Negative) U Cannabinoids Screen Negative (Negative) Ethyl Alcohol < 10 (<10) mg/dL Influenza A (RT-PCR) (Negative) Influenza B (RT-PCR) (Negative) RSV (RT-PCR) (Negative) SARS-CoV-2 RNA (RT-PCR) (Negative) 12/07/24 Range/Units 17:02 WBC (4.5-10.0) K/mm3 RBC (4.2-5.4) M/mm3 Hgb (12.0-15.0) g/dL Hct (37.0-47.0) % MCV (80-100) fl MCH (26-34) pg MCHC (32-36) g/dl RDW (11.5-14.5) % Plt Count (150-375) k/mm3 MPV (7.4-10.4) fl Immature Gran % (Auto) (0-0.5) % Neut % (Auto) (45.5-73.1) % Lymph % (Auto) (18.3-44.2) % Garden % (Auto) (2.6-8.5) % Eos % (Auto) (0-4.4) % Baso % (Auto) (0.2-1.2) % Lymph # (Auto) (0.9-3.2) K/mm3 Garden # (Auto) (0.1-0.6) K/mm3 Eos # (Auto) (0-0.3) K/mm3 Baso # (Auto) (0.0-0.1) K/mm3 Abs Immat Gran (auto) (0.00-0.031) K/mm3 Absolute Neuts (auto) (1.3-6.7) K/mm3 Absolute Nucleated RBC (0.0-0.012) K/mm3 Nucleated RBC % (0.0-0.2) % PT (11.1-14.7) Seconds INR APTT (22.3-36.8) Seconds D-Dimer (<0.48) ug/mL Sodium (137-145) mmol/L Potassium (3.4-5.0) mmol/L Chloride (98-107) mmol/L Carbon Dioxide (22-30) mmol/L Anion Gap (4-12) mmol/L BUN (7-17) mg/dL Creatinine (0.7-1.0) mg/dL Estim Creat Clear Calc ml/min Estimated GFR (59 - ) Glucose (65-110) mg/dL POC Capillary Glucose (65-105) mg/dl Lactic Acid (0.7-2.0) mmol/L Calcium (8.4-10.2) mg/dL Total Bilirubin (0.2-1.3) mg/dL AST (14-36) U/L ALT (6-35) U/L Alkaline Phosphatase (38-126) U/L Ammonia (9-30) umol/L Total Creatine Kinase (30-135) U/L Troponin I (0.000-0.034) ng/mL NT-Pro-B Natriuret Pep (19.9-100) pg/mL Total Protein (6.3-8.2) g/dL Albumin (3.5-5.1) g/dL TSH (0.465-4.680) uIU/mL Urine Color (Yellow) Urine Appearance (Clear) Urine pH (5.0-9.0) Ur Specific Addison (1.001-1.035) Urine Protein (Negative) mg/dL Urine Glucose (UA) (Negative) mg/dL Urine Ketones (Negative) mg/dL Ur Blood (Man) (Negative) Urine Nitrate (Negative) Urine Bilirubin (Negative) Urine Urobilinogen (<2.0) mg/dL Leukocyte Esterase Rfl (Negative) LAURA/UL Urine RBC (0-2) /hpf Urine WBC (0-3) /hpf Ur Squamous Epith Cells (Few) /hpf Urine Bacteria /hpf Urine Casts Salicylates (2-20) mg/dL Urine Opiates Screen (Negative) Urine Methadone Screen (Negative) Acetaminophen (10-30) ug/mL Ur Barbiturates Screen (Negative) Ur Phencyclidine Scrn (Negative) Ur Amphetamine Screen (Negative) U Benzodiazepines Scrn (Negative) Urine Cocaine Screen (Negative) U Cannabinoids Screen (Negative) Ethyl Alcohol (<10) mg/dL Influenza A (RT-PCR) Negative (Negative) Influenza B (RT-PCR) Negative (Negative) RSV (RT-PCR) Negative (Negative) SARS-CoV-2 RNA (RT-PCR) Negative (Negative) Imaging Data Radiologist's impression: Impressions Head CT 12/07/24 16:16 IMPRESSION: No acute intracranial hemorrhage or extra axial fluid collections. Chronic white matter microangiopathic changes. All CT scans at this facility are performed using low dose modulation techniques as appropriate to perform exam including the following: automated exposure control; use of iterative reconstruction technique; adjustment of the mA and/or kV according to patient size (this includes techniques or standardized protocols for targeted exams where dose is matched to indication/reason for exam). Cervical Spine CT 12/07/24 16:18 IMPRESSION: 1. Moderate cervical spondylosis. No acute osseous abnormality. Chest X-Ray 12/07/24 16:28 IMPRESSION: 1. No acute cardiopulmonary disease. Hip/Pelvis X-Ray 12/07/24 16:58 Impression: No acute fracture or malalignment. Foot X-Ray 12/07/24 16:59 Impression: No acute fracture or malalignment. Foot X-Ray 12/07/24 16:59 IMPRESSION: 1. Mild degenerative skeletal changes including mild polyarticular osteoarthritis in the mid and forefoot and small Achilles and plantar calcaneal spurs. No acute osseous abnormality. Chest/Abdomen/Pelvis CTA 12/07/24 18:06 Impression:There is no pulmonary embolism, aortic dissection, pericardial fluid or thoracic aneurysm. No acute lung findings. Stable left healing fractures. CT abdomen and pelvis with contrast: TECHNIQUE:: Axial images of the abdomen and pelvis were obtained following infusion of 100 mL Isovue 300. Dose optimization technique was utilized. FINDINGS: The liver parenchyma is unremarkable. No intrahepatic mass or ductal dilatation is evident. The patient has had a cholecystectomy. The pancreas and spleen are normal in appearance. The adrenal glands are symmetric in size. The kidneys demonstrate symmetric uptake and excretion of contrast. Right renal cyst measures 1.6 cm. There is no solid mass. There is no hydronephrosis. Evaluation of the stomach and bowel loops are limited due to lack of oral contrast. There is no bowel obstruction or evidence of acute appendicitis. The bladder and rectum are normal. There is a 2.5 x 2 cm cystic structure in the vaginal cuff. No free intraperitoneal fluid or air is evident. There is no significant retroperitoneal lymphadenopathy. The aorta, visceral vessels and renal arteries demonstrate normal caliber and patency. The lower thoracic and lumbar vertebrae are in normal alignment. IMPRESSION: Right renal cyst measures 1.6 cm. 2.5 cm cyst in the vaginal cuff. No acute abdominal or pelvic findings. All CT scans at this facility are performed using low dose modulation techniques as appropriate to perform exam including the following: automated exposure control; use of iterative reconstruction technique; adjustment of the mA and/or kV according to patient size (this includes techniques or standardized protocols for targeted exams where dose is matched to indication/reason for exam). ECG Data EKG #1: Attestation: I personally reviewed and interpreted this ECG as follows: ECG completion date: 12/07/24 ECG completion time: 15:42 Interpretation: Atrial fibrillation at a rate of 94 beats per minute. QRS 127. QT/QTC 374/426. Poor R-wave progression across the precordial leads. T-wave inversion in 3 but flat in AVF and upright in 2. No T-wave inversions in precordial leads V3 through V6. RBBB given QRS greater [id number]; RSR' M-shaped pattern in V1-V3; wide, slurred S wave in lateral leads (I, aVL, V5-6) Discharge Plan Discharge Clinical Impression: Cervical spondylosis, Falls, Altered mental status, Hallucinations, visual, Leukocytosis, Hyponatremia, Hyperglycemia due to diabetes mellitus, UTI (urinary tract infection), Polyarticular osteoarthritis, Elevated brain natriuretic peptide (BNP) level, Renal cyst, right, Cyst, vagina Patient Disposition: Still a Patient Condition: Stable
--- NOTE | 2024-12-07 15:34 | ECG_ITS ---
Test Date: 2024-12-07 15:42:57 Measurements Intervals [place] Rate: 94 P: 0 [place]: 0 QRS: -50 QRSD: 127 T: -4 QT: 374 QTc: 469 Interpretive Statements ATRIAL FIBRILLATION RIGHT BUNDLE BRANCH BLOCK LEFT ANTERIOR FASCICULAR BLOCK BASELINE ARTIFACT- I, II, III, AVR, AVL, AVF, V1-V2 ABNORMAL ECG No previous ECG available for comparison Electronically Signed On 12-07-2024 16:07:02 CDT by Aly Alberto D.O.
[2024-12-07 15:52] LABS: Hematocrit 39.5 % (37.0-47.0); Hemoglobin 12.3 g/dL (12.0-15.0); Immature Granulocyte Percent A 0.5 % (0-0.5); Lymphocytes Absolute Auto 0.93 K/mm3 (0.9-3.2); Mean Corpuscular HGB Conc 31.1 g/dl (32-36); Mean Corpuscular Hemoglobin 26.3 pg (26-34); Mean Corpuscular Volume 84.6 fl (80-100); Nucleated Red Blood Cells Absolute Auto 0.000 K/mm3 (0.0-0.012); Nucleated Red Blood Cells Perc 0.0 % (0.0-0.2); Platelet Count Result 294 k/mm3 (150-375); Red Blood Count 4.67 M/mm3 (4.2-5.4); White Blood Count 14.2 K/mm3 (4.5-10.0)
[2024-12-07 16:04] LABS: Acetaminophen < 10 ug/mL (10-30); Alanine Aminotransferase 18 U/L (6-35); Albumin Level 3.8 g/dL (3.5-5.1); Alkaline Phosphatase 76 U/L (38-126); Ammonia < 9 umol/L (9-30); Anion Gap 10 mmol/L (4-12); Aspartate Amino Transferase 31 U/L (14-36); Bilirubin,Total 1.1 mg/dL (0.2-1.3); Blood Urea Nitrogen 19 mg/dL (7-17); Calcium 9.1 mg/dL (8.4-10.2); Carbon Dioxide 27 mmol/L (22-30); Chloride 94 mmol/L (98-107); Estimated CRCL calculation 51 ml/min; Estimated Glomerular Filt Rate > 60; Glucose 216 mg/dL (65-110); Potassium 4.4 mmol/L (3.4-5.0); Salicylate < 1.0 mg/dL (2-20); Sodium 131 mmol/L (137-145); Total Protein 7.1 g/dL (6.3-8.2)
[2024-12-07 16:09] LABS: Add Urine Microscopic? YES; Appearance Urine Clear (Clear); Glucose Urine UA 3+ mg/dL (Negative); Leukocyte Esterase Ur 1+ LEU/UL (Negative); Nitrate Urine Negative (Negative); Non Pathogenic Casts 0-2; Specific Grav Ur 1.031 (1.001-1.035)
[2024-12-07 16:16] LABS: Troponin I < 0.012 ng/mL (0.000-0.034)
[2024-12-07 16:22] LABS: INR 1.8; Partial Thromboplastin Time 29.7 Seconds (22.3-36.8); Prothrombin Time 20.1 Seconds (11.1-14.7)
[2024-12-07 16:29] LABS: Cannabinoid Screen Urine Negative (Negative)
[2024-12-07 16:35] LABS: Thyroid Stimulating Hormone 1.630 uIU/mL (0.465-4.680)
[2024-12-07 16:36] LABS: Creatine Kinase 259 U/L (30-135)
[2024-12-07 17:17] LABS: NT Pro B Type Natriuretic Pept 2380 pg/mL (19.9-100)
[2024-12-07] MEDS: cefTRIAXone 1 GM in SODIUM CHLORIDE 0.9% IV 50 ML 100 ML IVPB (17:26)
[2024-12-07] MEDS: SODIUM CHLORIDE 0.9% IV 500 ML 999 ML IV CONT (17:26)
--- OUTSIDE RECORDS SUMMARY | 2024-12-07 17:40 | XMS_ITS | Encounter Summary ---
Author Organization [facility] Address [address] [place] [address] Care Team Providers Care Rotary Screen Printing Machine Operator Name Role Phone Chad Joya MD Primary Care Provider [phone] Encounter Details Date Type Department Care Team (Late st Contact Info) Description 12/06/2024 External Device Data [place] ABSTRACTION Provider, Abstract NO ADDRESS ON FILE Social History Tobacco Use Types Packs/Day Years Used Date Smoking Tobacco: Never Smokeless Tobacco: Never Alcohol Use Standard Drinks/Week Comments Never 0 (1 standard drink = 0.6 oz pur e alcohol) Comments No Sex and Gender Information Value Date Recorded Sex Assigned at Not on file Legal Sex Female 9:22 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 Gender Identity Not on file Sexual Orientation Not on file documented as of this encounter Plan of Treatment Upcoming Encounters Date Type Department Care Team (Late st Contact Info) Description 02/08/2025 10:15 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 Office Visit [facility] Oncology and Hematology - Adithya [address] [facility] [address] [place] [address] Jori Wiley MD [address] [facility] [address] [place] [address] documented as of this encounter Visit Diagnoses Not on filedocumented in this encounter Care Teams Rotary Screen Printing Machine Operator Relationship Specialty Start Date End Date Chad Joya MD PCP - General Family Practice 08/12/22 documented as of this encounter
--- OUTSIDE RECORDS SUMMARY | 2024-12-07 17:40 | XMS_ITS | Clinical Summary ---
Author Organization [facility] Address [address] [place] [address] Care Team Providers Care Straw Hat Brim Cutter Operator Name Role Phone Chad oJya MD Primary Care Provider [phone] Allergies Active Allergy Reactions Criticality Noted Date [...] Date Type Department Care Team Description 11/08/2024 12:00 PM CDT Home Care Visit [facility] Home Care [address] [place] [address] Allison Mendosa, PT PT OASIS DISCHARGE 11/02/2024 11:00 AM CDT Home Care Visit [facility] [place] [address] [address] [place] [address] Anastacia Kemp RN SN DISCIPLINE DISCHARGE 11/01/2024 3:15 PM CDT Home Care Visit [facility] Home [place] [address] [place] [address] Jen Singleton CASE COMMUNICATION 11/01/2024 8:45 AM CDT Home Care Visit [facility] Home Care [address] [address] Kevin Ding, OT OT DISCIPLINE DISCHARGE 10/31/2024 10:15 AM CDT Home Care Visit [facility] Home [place] [address] [place] [address] Tenisha Aleman, CYBER THREAT ANALYST CYBER THREAT ANALYST HOME VISIT 10/31/2024 9:00 AM CDT Home Care Visit [address] [place] [address] [address] [place] [address] Bozena Baird OTA OLEA HOME VISIT 10/27/2024 3:45 PM CDT Home Care Visit [address] [place] [address] [place] [address] Jen SingletonE PRN VISIT 10/27/2024 12:30 PM CDT Home Care Visit [address] [place] [address] [place] [address] Bozena Baird OTA OLEA HOME VISIT 10/26/2024 11:30 AM CDT Home Care Visit [facility] Home [place] [address] [place] [address] Luna Russell LPN SN HOME VISIT 10/26/2024 10:00 AM CDT Home Care Visit [facility] Home [place] [address] [place] [address] Tenisha Aleman, CYBER THREAT ANALYST CYBER THREAT ANALYST HOME VISIT 10/25/2024 10:00 AM CDT Home Care Visit [facility] [place] [address] [place] [address] Tenisha Aleman, CYBER THREAT ANALYST CYBER THREAT ANALYST HOME VISIT 10/20/2024 12:30 PM CDT Home Care Visit [facility] [place] [address] [place] [address] Tenisha Aleman, CYBER THREAT ANALYST CYBER THREAT ANALYST HOME VISIT 10/19/2024 12:30 PM CDT Home Care Visit [facility] Home [place] [address] [place] [address] Bozena Baird, BRANDON OLEA HOME VISIT 10/17/2024 11:00 AM CDT Home Care Visit [address] [place] [address] [place] [address] Bozena Baird OTA OLEA HOME VISIT 10/17/2024 10:00 AM CDT Home Care Visit [place] [address] [place] [address] Tenisha Aleman, CYBER THREAT ANALYST CYBER THREAT ANALYST HOME VISIT 10/17/2024 8:30 AM CDT Home Care Visit [address] [address] [place] [address] Anastacia Kemp, RN SN HOME VISIT 10/14/2024 Home Care Visit [place] [address] [place] [address] Anastacia Kemp, RN CASE COMMUNICATION 10/13/2024 8:45 AM CDT Home Care Visit [facility] Home [place] [address] [place] [address] Jen SingletonE PRN VISIT 10/12/2024 1:30 PM CDT Home Care Visit [facility] Home [place] [address] [place] [address] Renee Johnson LPN SN HOME VISIT 10/12/2024 10:30 AM CDT Home Care Visit [address] [place] [address] Kevin Ding, OT OT INITIAL EVALUATION 10/12/2024 9:00 AM CDT Home Care Visit [place] [address] [place] [address] [phone] Allison Mendosa, PT PT INITIAL EVALUATION 10/11/2024 10:30 AM CDT Home Care Visit [address] [place] [address] [place] [address] Oneida Reeves, RAIL WALKER RAIL WALKER HH/HOSPICE TELEPHONE ENCOUNTER/VISIT 10/09/2024 10:30 AM CDT Home Care Visit [address] [place] [address] [address] [place] [phone] Alicia Newman, RN SN OASIS START OF CARE 10/09/2024 Plan of Care Documentation [address] [place] [address] [address] [place] [address] 10/04/[address] [place] [address] [place] [address] Scanned, [facility] 10/03/[address] [place] [address] [place] [address] Scanned, [facility] 09/30/2024 Scan [place] [address] [place] [address] [address] [place] [address] Scanned, [facility] 09/13/2024 10:31 AM CDT - 09/13/2024 2:20 PM CDT Emergency [facility] Emergency Room [id number] [place] [address] Sivakumar Peters MD Back Pain; Groin Pain; [...] of experiencing loneliness or isolatio n Never 11/08/2024 OASIS A1250: Transportation Answer Date Recorded Lack of Transportation (Medical) No 11/08/2024 Lack of Transportation (Non-Medical) No 11/08/2024 Patient Unable or Declines to Respond No 11/08/2024 OASIS B1300: Health Literacy Answer Stanislav e Recorded Frequency of needing help to read materials from doctor or pharmacy Never 11/08/2024 Comments No Sex and Gender Information Value Date Recorded Sex Assigned at Female 09/13/2024 10:48 AM CDT Legal Sex Female 10:30 AM CDT Gender Identity Female 09/13/2024 10:48 AM CDT Sexual Orientation Not on file Last Filed Vital Signs Vital Sign Reading Time Taken Comments Blood Pressure 132/70 11/08/2024 12:18 PM CDT Pulse 89 11/08/2024 12:18 PM CDT Temperature 36.2 C (97.1 F) 11/08/2024 12:18 PM CDT Respiratory Rate 18 11/08/2024 12:18 PM CDT Oxygen Saturation 96% 11/08/2024 12:18 PM CDT Inhaled Oxygen Concentration - - Weight 68 kg (150 lb) 09/13/2024 10:34 AM CDT Height 154.9 cm (5' 1) 09/13/2024 10:34 AM CDT Body Mass Index 28.34 09/13/2024 10:34 AM CDT Plan of Treatment Health Maintenance Due Date Last Done Comments Hepatitis C 05/04/1963 Annual Medicare Wellness Visit 2010 Dexa Scan (General) 2010 Pneumococcal Vaccine: 50+ Years (2 of 2 - PCV) 12/14/2018 12/14/2017, 01/10/2017 COVID-19 Vaccine ( season) 2024 10/28/2023, 12/04/2022, 12/03/2021, Additional history exists Influenza Adult (#1) 2024 01/08/2024, 12/01/2019, 12/14/2018, Additional history exists DTaP, Tdap and Td Vaccines (2 - Td or Tdap) 07/11/2032 07/11/2022 Zoster Vaccines Completed 04/15/2022, 12/09/2021 RSV Immunization or 60+ Years Completed 10/28/2023 Hepatitis A Vaccines Aged Out No long er eligible based on patient's age to complete this topic Meningococcal B Vaccine Aged Out No l [...] of4 resultswithin the time period is included. GLUCOSE POC 179(H) 70 - 110 mg/dL 09/13/2024 1:07 PM CDT [facility] 09/13/2024 1:05 PM CDT us Sivakumar Peters MD POCT ORDERABLES - DEVICE Laura l Result [facility] [address] [place] [address], * XR HAND LT 3V (09/13/2024 11:53 [...] 11:56 AM Narrative 09/13/2024 12:00 PM CDT [facility] [address] [place] [id number] Procedure(s): XR WRIST LT MIN 3V, XR [...] Procedure Note Bryce Bower MD - 09/13/2024 [facility] [address] [place] [address] Procedure(s): XR WRIST LT MIN 3V, XR [...] By: Bryce Bower MD, 09/13/2024 11:56 AM us Sivakumar Peters MD GENERAL IMAGING Final Result [...] 11:56 AM Narrative 09/13/2024 12:00 PM CDT [facility] [address] [facility]. [place] [id number] Procedure(s): XR WRIST LT MIN 3V, XR [...] Procedure Note Bryce Bower MD - 09/13/2024 [facility] [address] [place] [address] Procedure(s): XR WRIST LT MIN 3V, XR [...] ABO/RH O NEGATIVE 09/13/2024 11:57 AM CDT [facility] ANTIBODY SCREEN NEGATIVE 09/13/2024 12:23 PM CDT [facility] SAMPLE EXPIRATION 09/16/2024,2 359 09/13/2024 11:57 AM CDT [facility] 09/13/2024 11:2 4 AM CDT us Sivakumar Peters MD BLOOD BANK TEST ORDERABLES Fi nal Result [facility] [address] [facility] [place] [address], [place] [phone] * CT CHEST+ABD+PEL W CON (09/13/2024 11:21 [...] 11:32 AM Narrative 09/13/2024 11:43 AM CDT [facility] [address] [place] [address] Procedure(s): CT CHEST+ABD+PEL W CON Date of [...] Procedure Note Bryce Bower MD - 09/13/2024 [facility] [address] [place] [address] Procedure(s): CT CHEST+ABD+PEL W CON Date of [...] 11:32 AM Narrative 09/13/2024 11:40 AM CDT [facility] [address] [place] [address] DATE: 09/13/2024 10:53 AM INDICATION: Trauma. Motor [...] Procedure Note Hu Irene MD - 09/13/2024 [facility] [address] [place] [address] DATE: 09/13/2024 10:53 AM INDICATION: Trauma. Motor [...] 11:32 AM Narrative 09/13/2024 11:40 AM CDT [facility] [address] [place] [address] DATE: 09/13/2024 10:53 AM INDICATION: Trauma. Motor [...] Procedure Note Hu Irene MD - 09/13/2024 [facility] [address] [place] [address] DATE: 09/13/2024 10:53 AM INDICATION: Trauma. Motor [...] 11:27 AM Narrative 09/13/2024 11:31 AM CDT [facility] [address] [facility] [address] [place] [id number] Procedure(s): CT HEAD WO CON Date of [...] Procedure Note Bryce Bower MD - 09/13/2024 [facility] [address] [place] [address] Procedure(s): CT HEAD WO CON Date of [...] 11:32 AM Narrative 09/13/2024 11:40 AM CDT [facility] [address] [place] [address] DATE: 09/13/2024 10:53 AM INDICATION: Trauma. Motor [...] Procedure Note Hu Irene MD - 09/13/2024 [facility] [address] [place] [address] DATE: 09/13/2024 10:53 AM INDICATION: Trauma. 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1945 Requested By: SIVAKUMAR PETERS Order Number: [id number] Reading MD: Quan Camarillo Measurements Intervals [place] Rate: 76 P: 0 MD: 0 QRS: -28 QRSD: 120 T: -5 QT: 391 QTc: 440 Interpretive Statements ATRIAL FIBRILLATION BORDERLINE LEFT AXIS DEVIATION [QRS AXIS < -20] RIGHT BUNDLE BRANCH BLOCK [120+ ms QRS DURATION, UPRIGHT V1, 40+ ms S IN I/aVL/V4/V5/V6] No previous ECG available for comparison Procedure Note Quan Camarillo MD - 09/14/2024 [facility] Test Date: 2024-09-13 Pat Name: BOB RAMÍREZ Department: 85 Room: [place] [address] Gender: F 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1945 Requested By: SIVAKUMAR PETERS Order Number: [id number] Reading MD: Quan Camarillo Measurements Intervals [place] Rate: 76 P: 0 MD: 0 QRS: -28 QRSD: 120 T: -5 QT: 391 QTc: 440 Interpretive Statements ATRIAL FIBRILLATION BORDERLINE LEFT AXIS DEVIATION [QRS AXIS < -20] RIGHT BUNDLE BRANCH BLOCK [120+ ms QRS DURATION, UPRIGHT V1, 40+ ms SIN I/aVL/V4/V5/V6] No previous ECG available for comparison us Sivakumar Peters MD ECG ORDERABLES Final Result Performing Organization Address [facility]/ZIP Co de Phone Number [facility] ([facility] RAD * PARTIAL THROMBOPLASTIN TIME,PTT (09/13/2024 10:31 AM CDT) PTT 30.3 25.1 - 36.5 SEC 09/13/2024 10:47 AM CDT [facility] 09/13/2024 10:3 1 AM CDT us Sivakumar Peters MD LABORATORY Final Result Performing Organization Address [facility]/ZIP Co de Phone Number [facility] [address] [place] [address], [place] [phone] * PROTIME/INR, VENOUS (09/13/2024 10:31 AM CDT) [facility] PROTIME 11.8 9.1 - 12.4 SEC 09/13/2024 10:47 AM CDT [facility] INR 1.0 09/13/2024 10:47 AM CDT [facility] Comment: Recommend INR ranges for Oral Anticoagulant Therapy: Mechanical Cardiac Values 2.5-3.5 All others indication 2.0-3.0 09/13/2024 10:3 1 AM CDT us Sivakumar Peters MD LABORATORY Final Result [facility] [address] [place] [id number], [place] [phone] * (ABNORMAL) COMPREHENSIVE METABOLIC PANEL (09/13/2024 10:31 AM CDT) [facility] GLUCOSE 56(L) 70 - 99 MG/DL 09/13/2024 11:13 AM CDT [facility] BUN 18 7 - 18 MG/DL 09/13/2024 11:13 AM CDT [facility] CREATININE S/P/B 1.05(H) 0.55 - 1.02 MG/DL 09/13/2024 11:13 AM CDT [facility] SODIUM S/P/B 143 136 - 145 MMOL/L 09/13/2024 11:13 AM CDT [facility] POTASSIUM S/P/B 3.3(L) 3.5 - 5.1 MMOL/L 09/13/2024 11:13 AM CDT [facility] CHLORIDE S/P/B 104 100 - 108 MMOL/L 09/13/2024 11:13 AM CDT [facility] CO2 30.0 21 - 32 MMOL/L 09/13/2024 11:13 AM [facility] CALCIUM S/P/B 9.0 8.5 - 10.1 MG/DL 09/13/2024 11:13 AM [facility] BILIRUBIN TOTAL S/P/B 0.5 0.2 - 1.2 MG/DL 09/13/2024 11:13 AM [facility] TOTAL PROTEIN S/P/B 7.4 6.4 - 8.2 G/DL 09/13/2024 11:13 AM [facility] ALBUMIN S/P/B 3.6 3.4 - 5.0 G/DL 09/13/2024 11:13 AM [facility] AST 21 15 - 37 U/L 09/13/2024 11:13 AM [facility] ALT 18 14 - 55 U/L 09/13/2024 11:13 AM [facility] ALKALINE PHOSPHATASE S/P/B 83 50 - 136 U/L 09/13/2024 11:13 AM [facility] ANION GAP 9.0 5 - 15 MMOL/L 09/13/2024 11:13 AM [facility] BUN CREATININE RATIO 17.1 6 - 26 09/13/2024 11:13 AM [facility] A/G RATIO 0.9(L) 1.0 - 2.0 RATIO 09/13/2024 11:13 AM [facility] GFR ESTIMATE 54(L) >90 ML/MIN/1.7 3 M2 09/13/2024 11:13 AM [facility] Comment: NOTE: eGFR is not calculated for patients <18 years of age. This is an estimated GFR calculation using the new CKD EPI creatinine equation without race and so does not require a correction factor for race. This estimated GFR should not be used for calculating drug doses. 09/13/2024 10:3 1 AM CDT us Sivakumar Peters MD LABORATORY Final Result [facility] [address] [place] [address], [place] [phone] * (ABNORMAL) CBC W/DIFF AUTOMATED (09/13/2024 10:31 AM CDT) WBC 9.56 4.4 - 11.0 x10'3/uL 09/13/2024 10:41 AM CDT [facility] RBC 5.21(H) 4.50 - 5.10 x10'6/uL 09/13/2024 10:41 AM CDT [facility] HGB 14.7 12.3 - 15.3 G/DL 09/13/2024 10:41 AM CDT [facility] HCT 45.7(H) 35.9 - 44.6 % 09/13/2024 10:41 AM CDT [facility] MCV 87.7 80.0 - 96.0 FL 09/13/2024 10:41 AM CDT [facility] MCH 28.2 25.3 - 30.9 PG 09/13/2024 10:41 AM CDT [facility] MCHC 32.2 31.0 - 34.1 G/DL 09/13/2024 10:41 AM CDT [facility] RDW 13.7 12.4 - 15.1 % 09/13/2024 10:41 AM CDT [facility] PLT 349 151 - 353 x10'3/uL 09/13/2024 10:41 AM CDT [facility] MPV 9.4(L) 9.6 - 12.0 FL 09/13/2024 10:41 AM CDT [facility] RBC MORPHOLOGY NORMAL 09/13/2024 10:41 AM CDT [facility] PLT MORPH. NORMAL 09/13/2024 10:41 AM CDT [facility] WBC MORPHOLOGY NORMAL 09/13/2024 10:41 AM CDT [facility] LYMPHOCYTES % 27.6 15.8 - 45.0 % 09/13/2024 10:41 AM CDT [facility] NEUTROPHILS % 60.9 42.1 - 71.9 % 09/13/2024 10:41 AM CDT [facility] MONOCYTES % 5.6(L) 5.7 - 12.5 % 09/13/2024 10:41 AM CDT [facility] EOSINOPHILS 3.5 0.0 - 5.6 % 09/13/2024 10:41 AM CDT [facility] BASOPHILS 1.0 0.0 - 1.3 % 09/13/2024 10:41 AM CDT [facility] ABS. NEUTROPHILS 5.82 1.40 - 6.00 x10'3/uL 09/13/2024 10:41 AM CDT [facility] IMMATURE GRANS % 1.4(H) 0.0 - 0.5 % 09/13/2024 10:41 AM CDT [facility] ABS. LYMPHOCYTES 2.64 0.80 - 4.70 x10'3/uL 09/13/2024 10:41 AM CDT [facility] 09/13/2024 10:3 1 AM CDT us Sivakumar Peters MD LABORATORY Final Result [facility] [address] [place] [id number], * TROPONIN, QUANT (09/13/2024 10:31 AM CDT) TROPONIN I HIGH SENSITIVITY 5 0 - 50 ng/L 09/13/2024 10:55 AM CDT [facility] Comment: HIGH DOSES OF BIOTIN, TROPONIN-SPECIFIC AUTOANTIBODIES, AND ANTIBODY THERAPY CONTAINING HAMA MAY INTERFERE WITH THIS TEST RESULT. CORRELATION TO CLINICAL HISTORY AND PRESENTATION RECOMMENDED. 09/13/2024 10:3 1 AM CDT Sivakumar Peters MD LABORATORY Final Result [facility] [address] [place] [address], [place] [phone] * ETHANOL (09/13/2024 10:31 AM CDT) ALCOHOL S/P/B <0.003 <0.003 G/DL 09/13/2024 11:13 AM CDT [facility] 09/13/2024 10:3 1 AM CDT Sivakumar Peters MD LABORATORY Final Result Performing Organization Address City/[facility]/ZIP Co de Phone Number [facility] [address] [place] [address], [place] [phone] from Last 3 Months Insurance [facility] [employer] [place] [employer] - [employer]Y LIABILITY Advance Directives * Full Code (Latest Code Status on File) Date Activated Date Inactivated Comments 10/10/2024 9:33 AM Care Teams Straw Hat Brim Cutter Operator Relationship Specialty Start Date End Date Chad Joya MD [address] [place] [address] PCP - General FAMILY PRACTICE 09/13/24
--- OUTSIDE RECORDS SUMMARY | 2024-12-07 17:40 | XMS_ITS | Clinical Summary ---
Author Organization [facility] [address] Address [address] [place] [address] Care Team Providers Care Manufacturing Supervisor Name Role Phone Chad Joya MD Primary Care Provider [phone] Allergies Active Allergy Reactions Criticality Noted Date Comments [place]-3 Fatty Acids Vomiting Low 07/24/2023 One Tablet [...] a associated with type 2 diabetes mellitus ([facility]/HCC) 09/25/2015 Overview (05/31/2016): Type 2 diabetes mellitus [...] Hx Other Medical bladder suspens ion; Comments: [facility] 03/02/2014 - Hypertension Hypertension Hx Other Medical obesity; Commen ts: [facility] 03/02/2014 - Hx Other Medical diabetes; Comme nts: [facility] 03/02/2014 - Hx Other Medical GERD; Comments: [facility] 03/02/2014 - Hx Other Medical seasonal allerg ies; Comments: [facility] 03/02/2014 - Hx Other Medical dyslipidemia; C omments: [facility] 03/02/2014 - Hx Other Medical hysterectomy; C omments: [facility] 03/02/2014 - Family History Medical History [...] on file Legal Sex Female 7:24 AM ROUGHER FOR CEMENT Gender Identity Not on file Sexual Orientation [...] POCT LIPID PANEL Routine 02/04/2024 9:22 AM ROUGHER FOR CEMENT Lipid screening from Last 3 Months or Most Recently Relevant to Health Maintenance Results * POCT lipid panel (02/04/2024 9:22 AM ROUGHER FOR CEMENT) Cholesterol, POC 134 mg/dL HDL, POC 63 mg/dL Triglycerides, POC 123 mg/dL LDL Cholesterol POC 47 mg/dL Chol/HDL Ratio, POC 0.7 Non-HDL Cholesterol, POC 71 mg/dL Cholesterol Total, POC 134 mg/dL Capillary blood 02/04/2024 9 :22 AM ROUGHER FOR CEMENT us Clau Doran ADOPTION SOCIAL WORKER POINT OF CARE TEST ORDERA BLES Final Result from Last 3 Months or Most Recently Relevant to Health Maintenance [place] [address] [place] [address] [place] [address] [facility] Care Teams Manufacturing Supervisor Relationship Specialty Start Date End Date Chad Joya MD [address] [place] [address] PCP - General Family Practice 02/23/24
--- OUTSIDE RECORDS SUMMARY | 2024-12-07 17:40 | XMS_ITS | Encounter Summary ---
Author Organization [facility] Address [address] [place] [address] Care Team Providers Care Us Marketing Director Name Role Phone Jose Alfredo Mccann MD Primary Care Provider [phone] Jose Alfredo Sahu MD Primary Care Provider [phone] Erwin Vizcarra DO Primary Care Provider [phone] Dung Rapp MD Primary Care Provider [phone] Chad Joya MD Primary Care Provider [phone] Chad Joya MD Primary Care Provider [phone] Encounter Details Date Type Department Care Team (Late st Contact Info) Description 01/27/[address] [facility] Health Information Management [address] [place] [address] Scanning, Provider Social History Tobacco Use Types Packs/Day Years Used Date Smoking Tobacco: Some Days Smokeless Tobacco: Never Alcohol Use Standard Drinks/Week Comments No 0 (1 standard drink = 0.6 oz pur e alcohol) Comments Unknown Sex and Gender Information Value Date Recorded Sex Assigned at Not on file Legal Sex Female 7:24 AM EATING DISORDER PSYCHOLOGIST Gender Identity Not on file Sexual Orientation [...] on filedocumented in this encounter Care Teams Us Marketing Director Relationship Specialty Start Date End Date Jose Alfredo Mccann MD PCP - General 05/23/16 05/03/17 Jose Alfredo Sahu MD PCP - General 05/04/17 07/09/17 Erwin Vizcarra DO PCP - General Internal Medicine 07/10/17 05/04/22 Dung Rapp MD PCP - General Internal Medicine 05/05/22 01/12/23 Chad Joya MD PCP - General Family Practice 01/13/23 02/22/24 Chad Joya MD [address] [place] [address] PCP - General Family Practice 02/23/24 documented as of this encounter
--- OUTSIDE RECORDS SUMMARY | 2024-12-07 17:40 | XMS_ITS | Clinical Summary ---
Author Organization [facility] Fabián Alfredo Address [address] [place] [address] Care Team Providers Care Pineapple Plantation Manager Name Role Phone Chad Joya MD Primary Care Provider [phone] Allergies Active Allergy Reactions Criticality Noted Date [...] mouth. Active fluticasone propionate (FLONASE) 50 mcg/spray [place], Suspension nasal inhaler 0 Active [facility] CONTOUR [...] Encounters Date Type Department Care Team Description 12/06/2024 External Device Data [facility] ABSTRACTION Provider, Abstract 11/08/2024 External Device Data [facility] ABSTRACTION Provider, [...] on file Legal Sex Female 9:22 AM ASSESSMENT SPECIALIST Gender Identity Not on file Sexual Orientation [...] st Contact Info) Description 02/08/2025 10:15 AM ASSESSMENT SPECIALIST Office Visit [facility] Oncology and Hematology - [place] [address] [facility] [address] [place] [address] Jori Wiley MD [address] [facility] [address] [place] [address] Health Maintenance Due Date Last [...] HBA1C Q 6 MONTHS 03/17/2025 09/14/2024 [facility] Care Teams Pineapple Plantation Manager Relationship Specialty Start Date End Date Chad Joya MD PCP - General Family Practice 08/12/22
--- OUTSIDE RECORDS SUMMARY | 2024-12-07 17:40 | XMS_ITS | Clinical Summary ---
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 Resuscitation: No Chest Compress ionNo Intubation, No Invasive VentilationNo Cardioversion, No Defibrilation, No External or Internal Pacemaker * Full Code Date Activated Date Inactivated Comments 09/13/2024 6:51 PM 09/13/2024 6:52 PM Care Teams 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
[2024-12-07 17:50] LABS: Influenza A QL RT-PCR Negative (Negative); Influenza B QL RT-PCR Negative (Negative); RSV RNA, RT-PCR Negative (Negative); SARS-CoV-2 RNA PCR Negative (Negative)
--- NOTE | 2024-12-07 19:55 | ADMGEN ---
This patient, Milo Ramírez, was admitted to Medical Room 246-01. Patient/family oriented to hospital policies and general routines including ID bracelet, bed and alarms, visiting hours, pain management, procedures, bathroom and other care routines, personal items, smoking policy, room service/diet, and visiting hours. Information on how to activate the Rapid Response Team has been discussed. Patient/Family are encouraged to report perceived risks to care and to ask questions if they do not understand what they are told or what they should do.
--- NOTE | 2024-12-08 02:43 | PM.IMHP ---
H&P: HPI History of Present Illness Date/Time: 12/08/24 02:43 Chief Complaint: Fall Narrative: This is a 79-year-old female patient who resides with her son. She tells me that she has been having frequent falls. Is reported that her mental status has been altered over the last 24 hours. Patient stated she was having difficulty walking today. Is reported that the patient fell when she tried to get out of bed and her son had to help her get out of bed. After that she fell on the floor beside the bed. She was unable to ambulate today. The patient stated that she was having hallucinations and seeing people that were not there. Her white count is noted to be 14.2. Her PT was 20.1 with a normal INR and her D-dimer was 1.04. Sodium was low at 131 and chloride 94. Her glucose was between 211 and 219. Her total creatinine kinase was 259. BNP 2380. Urine 1+ protein, 3+ glucose,, trace ketones., 1+ leukocyte esterase , urine wbc's 21-50 and 1+ bacteria. Viral serology is negative. She was given IV fluids and ceftriaxone in the emergency room. Her head CT was negative. 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 X-ray of the right foot shows no acute fracture malalignment. Cervical spine CT moderate cervical spondylosis. No acute osseous abnormality. Chest x-ray no acute cardiopulmonary disease. Hip and pelvis x-ray no acute fracture malalignment The patient is being admitted to observation on the date of service of 12/08/2024. Review of Systems Constitutional: Constitutional: Reports as per HPI and Reports no additional constitutional complaints Eyes: Eyes: Reports as per HPI and Reports no additional eye complaints ENT: Reports system reviewed and no additional complaints, except as documented and Reports Normal hearing present Cardiovascular: Cardiovascular: Reports no additional cardiovascular complaints Respiratory: Respiratory: Reports as per HPI and Reports no additional respiratory complaints Gastrointestinal: Gastrointestinal: Reports as per HPI and Reports no additional gastrointestinal complaints Genitourinary: Genitourinary: Reports no additional female genitourinary complaints Musculoskeletal: Musculoskeletal: Reports no additional musculoskeletal complaints Integumentary/Breasts: Skin/Breast: Reports system reviewed and no additional complaints, except as docu Neurologic: Reports system reviewed and no additional complaints, except as documented and Reports Normal hearing present Psychiatric: Psychiatric: Reports no additional psychiatric complaints and Reports as per HPI Hematologic/Lymphatic: Hematologic/Lymphatic: Reports no additional hematologic/lymphatic complaints Allergic/Immunologic: Allergic/Immunologic: Reports no additional allergic/immunologic complaints [facility] Past Medical History Medical History (Updated 12/08/24 @ 02:55 by Noemí Quiroz APRN) Left wrist fracture Lumbar transverse process fracture Multiple rib fractures Left lateral 3rd, 4th, 6th, 7th, and 8th ribs, right 11th rib fracture Osteoporosis Tinea corporis Bilateral hand pain Chronic pain of left knee Current use of intermission coordinator anticoagulation TIA (transient ischemic attack) Rheumatoid arthritis with rheumatoid factor of multiple sites without organ or systems involvement (~2018) BMI 29.0-29.9,adult SOB (shortness of breath) Obesity Cataracts, bilateral Arthritis Osteoporosis Hx of rotator cuff tear Shingles Hypercholesteremia Peripheral neuropathy VEGAS (dyspnea on exertion) Atrial fibrillation Carpal tunnel syndrome of left wrist Essential (primary) hypertension GERD without esophagitis Iron deficiency anemia Mixed hyperlipidemia Primary osteoarthritis involving multiple joints Right cervical radiculopathy Type 2 diabetes mellitus with diabetic polyneuropathy, with long-term current use of insulin Vitamin D deficiency Surgical History Surgical History H/O bladder repair surgery 1990 H/O: hysterectomy 1990 Hx of rotator cuff surgery Hx of tonsillectomy Age 3 Hx of cholecystectomy History of appendectomy Age 16 Family History Family History Unknown Adopted Social History Social History (Updated 12/08/24 @ 02:52 by Noemí Quiroz APRN) Social History: She stated that she lives in the basement of her son's home. She is retired. She states that she only has the 1 son. She is retired Code status: Do not resuscitate Smoking packs per day: 0.25 Smoking cigarettes per day: 5.0 Years smoked: 30 Smoking pack-years: 7.50 Smoking status: Former smoker Tobacco type: cigarettes Second hand tobacco smoke exposure: No Smoking end date: 02/23/17 Alcohol intake: never Substance use: never Substance use type: does not use Do You Feel Safe in your Home?: Yes Lack of Transportation: No Lack of Food: Never True Current Housing: I Have Housing Concerned About Future Housing: No Difficulty Paying Gas/Electric Bills: No Difficulty Paying for Meds: No Currently Unemployed: No Education: Trade/Vocational Certificate Difficulty w/ Childcare or Family Care: No Living arrangements: with family Additional living arrangements comments: basement apartment at son's house Occupation/Education: retired Gender identity (if verbalized by the patient): Female Spiritual care concerns: No Meds Home Medications and Allergies Home Medications ?Medication ?Instructions ?Recorded ?Confirmed ?Type blood sugar diagnostic (Contour #300 strips 07/13/23 12/07/24 Rx Next Test Strips) pen needle, diabetic 31 gauge x #300 ea 11/27/23 12/07/24 Rx 07/08 (1st Tier Unifine Pentips) acetaminophen 500 mg tablet 500 mg PO Q6H PRN fever or pain 09/23/24 12/07/24 History cholecalciferol (vitamin D3) 125 125 mcg PO DAILY 09/23/24 12/07/24 History mcg (5,000 unit) capsule melatonin 3 mg tablet 3 mg PO HS PRN insomnia 09/23/24 12/07/24 History polyethylene glycol 3350 17 gram 17 g PO DAILY PRN constipation 09/23/24 12/07/24 History oral powder packet sennosides 17.2 mg tablet 17.2 mg PO DAILY PRN constipation 09/23/24 12/07/24 History albuterol sulfate 5 mg/mL(0.5 %) 2.5 mg (0.5 mL) inhalation Q6H PRN 10/03/24 12/07/24 Rx solution for nebulization shortness of breath or wheezing #15 mL apixaban 5 mg tablet (Eliquis) 5 mg PO BID #60 tabs 10/03/24 12/07/24 Rx hydroxyzine HCl 25 mg tablet 25 mg PO TID PRN anxiety #90 tabs 10/03/24 12/07/24 Rx metoprolol succinate 50 mg 150 mg (3 x 50 mg) PO DAILY #30 10/03/24 12/07/24 Rx tablet,extended release 24 hr tabs omeprazole 40 mg capsule,delayed 40 mg PO DAILY #30 caps 10/03/24 12/07/24 Rx release blood-glucose sensor (FreeStyle #6 ea 10/14/24 12/07/24 Rx Carlos A 3 Plus Sensor device) blood-glucose,fiction writer,cont #1 ea 10/14/24 12/07/24 Rx (FreeStyle Carlos A 3 [place]) omega-3 acid ethyl esters 1 gram 2 cap PO BID #360 caps 11/08/24 12/07/24 Rx capsule (Lovaza) memantine 5 mg tablet (Namenda) 5 mg PO DAILY memory #30 tabs 11/15/24 12/07/24 Rx atorvastatin 10 mg tablet 10 mg PO DAILY #90 tabs 11/24/24 12/07/24 Rx cyclobenzaprine 10 mg tablet See Rx Instructions .Route 11/28/24 12/07/24 Rx .COMPLEX #180 tabs glucagon 3 mg/actuation nasal 3 mg intranasal ONCE PRN 12/01/24 12/07/24 Rx spray (Baqsimi) hypoglycemia #1 ea glucose 4 gram chewable tablet 16 g (4 x 4 gram) PO Q15M PRN 12/01/24 12/07/24 Rx (Dex4 Glucose) hypoglycemia #90 tabs insulin aspart U-100 100 unit/mL 8 unit (0.08 mL) subcut TID 3 12/01/24 12/07/24 Rx (3 mL) subcutaneous pen (Novolog months #24 mL FlexPen U-100 Insulin aspart) insulin glargine 100 unit/mL (3 30 unit (0.3 mL) subcut DAILY 3 12/01/24 12/07/24 Rx mL) subcutaneous pen (Lantus months #27 mL Solostar U-100 Insulin) Allergies Allergy/AdvReac Type Severity Reaction Status Date / Time ferrous sulfate (From AdvReac Mild Vomiting Verified 12/07/24 20:07 Igor-Iron) Vital Signs Vital Signs - 24 hr 12/07/24 13:31 12/07/24 15:38 12/07/24 15:40 Temperature 98.2 F Pulse Rate 88 93 Respiratory Rate 16 24 H Blood Pressure 103/57 L 136/74 Pulse Oximetry 97 99 Oxygen Delivery 12/07/24 15:45 12/07/24 15:55 12/07/24 16:14 Temperature Pulse Rate 95 89 105 H Respiratory Rate 19 21 H 21 H Blood Pressure 136/74 Pulse Oximetry 99 94 Oxygen Delivery 12/07/24 16:15 12/07/24 19:55 12/07/24 20:00 Temperature 97.6 F Pulse Rate 98 98 98 Respiratory Rate 18 18 18 Blood Pressure 128/60 Pulse Oximetry 97 99 99 Oxygen Delivery Room Air Exam Const: General: cooperative, healthy appearing, comfortable, no acute distress, well developed, awake, Physically active, average body habitus and well nourished Nutritional Appearance: average body habitus and well nourished Orientation/consciousness: oriented to person HENMT: Head: normal to inspection, No palpable skull fracture present, normocephalic and atraumatic Ears: hearing grossly normal bilaterally Eyes: General: appearance normal, both eyes and all related structures Alignment and Position: alignment normal Periorbital: periorbital findings normal Eyelids: eyelids normal Neck: Neck: normal visual inspection, full ROM and no lymphadenopathy Chest: Chest palpation & inspection: normal inspection of the chest Resp: Effort & Inspection: normal respiratory effort Auscultation: clear to auscultation bilaterally Cardio: Palpation: normal PMI Rate: regular rate Rhythm: abnormal rhythm irregularly irregular Heart sounds: S1 normal heart sound present and S2 normal heart sound present Peripheral pulses: Peripheral pulses 2+ throughout GI: Inspection: normal to inspection Auscultation: normal bowel sounds Back/Spine/Pelvis: Back: no CVA tenderness Cervical Spine: cervical ROM normal Skin: General skin exam: normal color Lesions: no lesions Rashes: no rashes Wounds: no wounds Other: Various types of bruising to bilateral knees and lower extremities as well as left breast Neuro: General: oriented to person Extrem: General: normal to inspection Right upper extremity: normal to inspection and shoulder/upper arm Left upper extremity: normal to inspection and shoulder/upper arm Right lower extremity: normal to inspection Left lower extremity: normal to inspection Psych: Appearance: grossly normal Mental Status: mental status grossly normal Speech and movement: Normal speech and movement present Affect: normal affect Attitude: cooperative Other: The patient keeps forgetting that she is in the hospital. She thinks that she is at home. H&P: Results Labs Labs: Short CBC 12/07/24 Range/Units 15:46 WBC 14.2 H (4.5-10.0) K/mm3 Hgb 12.3 (12.0-15.0) g/dL Hct 39.5 (37.0-47.0) % Plt Count 294 (150-375) k/mm3 BMP 12/07/24 15:46 Sodium 131 L Potassium 4.4 Chloride 94 L Carbon Dioxide 27 BUN 19 H Creatinine 0.74 Glucose 216 H Calcium 9.1 Cardiac Enzymes 12/07/24 Range/Units 15:46 Total Creatine Kinase 259 H (30-135) U/L Troponin I < 0.012 (0.000-0.034) ng/mL Liver Function 12/07/24 Range/Units 15:46 Total Bilirubin 1.1 (0.2-1.3) mg/dL AST 31 (14-36) U/L ALT 18 (6-35) U/L Alkaline Phosphatase 76 (38-126) U/L Albumin 3.8 (3.5-5.1) g/dL Urine 12/07/24 Range/Units 15:53 Urine Color Yellow (Yellow) Urine Appearance Clear (Clear) Urine pH 5.0 (5.0-9.0) Ur Specific [place] 1.031 (1.001-1.035) Urine Protein 1+ H (Negative) mg/dL Urine Glucose (UA) 3+ H (Negative) mg/dL ECG Interpretation: ATRIAL FIBRILLATION RIGHT BUNDLE BRANCH BLOCK LEFT ANTERIOR FASCICULAR BLOCK BASELINE ARTIFACT- I, II, III, AVR, AVL, AVF, V1-V2 ABNORMAL ECG No previous ECG available for comparison Electronically Signed On 12-07-2024 16:07:02 CDT by Aly Alberto D.O. Imaging CT scan - abdomen: Radiologist's impression: Impressions Head CT 12/07/24 16:16 IMPRESSION: No acute intracranial hemorrhage or extra axial fluid collections. Chronic white matter microangiopathic changes. All CT scans at this facility are performed using low dose modulation techniques as appropriate to perform exam including the following: automated exposure control; use of iterative reconstruction technique; adjustment of the mA and/or kV according to patient size (this includes techniques or standardized protocols for targeted exams where dose is matched to indication/reason for exam). Cervical Spine CT 12/07/24 16:18 IMPRESSION: 1. Moderate cervical spondylosis. No acute osseous abnormality. Chest X-Ray 12/07/24 16:28 IMPRESSION: 1. No acute cardiopulmonary disease. Hip/Pelvis X-Ray 12/07/24 16:58 Impression: No acute fracture or malalignment. Foot X-Ray 12/07/24 16:59 Impression: No acute fracture or malalignment. Foot X-Ray 12/07/24 16:59 IMPRESSION: 1. Mild degenerative skeletal changes including mild polyarticular osteoarthritis in the mid and forefoot and small Achilles and plantar calcaneal spurs. No acute osseous abnormality. Chest/Abdomen/Pelvis CTA 12/07/24 18:06 Impression:There is no pulmonary embolism, aortic dissection, pericardial fluid or thoracic aneurysm. No acute lung findings. Stable left healing fractures. CT abdomen and pelvis with contrast: TECHNIQUE:: Axial images of the abdomen and pelvis were obtained following infusion of 100 mL Isovue 300. Dose optimization technique was utilized. FINDINGS: The liver parenchyma is unremarkable. No intrahepatic mass or ductal dilatation is evident. The patient has had a cholecystectomy. The pancreas and spleen are normal in appearance. The adrenal glands are symmetric in size. The kidneys demonstrate symmetric uptake and excretion of contrast. Right renal cyst measures 1.6 cm. There is no solid mass. There is no hydronephrosis. Evaluation of the stomach and bowel loops are limited due to lack of oral contrast. There is no bowel obstruction or evidence of acute appendicitis. The bladder and rectum are normal. There is a 2.5 x 2 cm cystic structure in the vaginal cuff. No free intraperitoneal fluid or air is evident. There is no significant retroperitoneal lymphadenopathy. The aorta, visceral vessels and renal arteries demonstrate normal caliber and patency. The lower thoracic and lumbar vertebrae are in normal alignment. IMPRESSION: Right renal cyst measures 1.6 cm. 2.5 cm cyst in the vaginal cuff. No acute abdominal or pelvic findings. All CT scans at this facility are performed using low dose modulation techniques as appropriate to perform exam including the following: automated exposure control; use of iterative reconstruction technique; adjustment of the mA and/or kV according to patient size (this includes techniques or standardized protocols for targeted exams where dose is matched to indication/reason for exam). Assessment and Plan Assessment and plan (1) UTI symptoms: Code(s): R39.9 - Unspecified symptoms and signs involving the genitourinary system Status: Acute Assessment and Plan: -the patient was started on Rocephin. Pending blood and urine cultures -recent urine has grown out E coli and were sensitive to Rocephin. -continue with IV fluids. (2) Hallucinations, visual: Code(s): R44.1 - Visual hallucinations Status: Acute Assessment and Plan: -the patient has a history of dementia. -could be related to the UTI. -head CT was found to be negative for acute abnormalities. She has chronic white matter microangiopathic changes. (3) Essential (primary) hypertension: Code(s): I10 - Essential (primary) hypertension Status: Chronic Assessment and Plan: -current blood pressure 128/60. -continue with metoprolol blood pressure allows. (4) Atrial fibrillation: Qualifiers: Atrial fibrillation type: unspecified chronic Qualified Code(s): I48.20 - Chronic atrial fibrillation, unspecified Code(s): I48.91 - Unspecified atrial fibrillation Status: Chronic Assessment and Plan: -the patient is continuously in AFib. Her rate is now controlled. Her pulse is currently 98. -she is on Eliquis however the patient has had multiple falls. She is at high risk for bleeding with multiple falls. -continue with metoprolol (5) Mixed hyperlipidemia: Code(s): E78.2 - Mixed hyperlipidemia Status: Chronic Assessment and Plan: -continue atorvastatin. However this could also cause some muscle weakness. May consider other alternatives. (6) Type 2 diabetes mellitus with diabetic polyneuropathy, with long-term current use of insulin: Code(s): E11.42 - Type 2 diabetes mellitus with diabetic polyneuropathy; Z79.4 - USP (current) use of insulin Status: Acute Assessment and Plan: -Accu-Cheks AC and HS with sliding scale insulin. -check A1c. -diabetic diet. (7) Dementia: Qualifiers: Dementia behavioral or psychological symptom: without behavioral, psychotic, or mood disturbance or anxiety Dementia severity: unspecified severity Dementia type: unspecified type Qualified Code(s): F03.90 - Unspecified dementia, unspecified severity, without behavioral disturbance, psychotic disturbance, mood disturbance, and anxiety Code(s): F03.90 - Unspecified dementia, unspecified severity, without behavioral disturbance, psychotic disturbance, mood disturbance, and anxiety Status: Acute Assessment and Plan: -continue with Namenda. -medicare insurance specialist consult greatly be appreciated. -the patient currently lives with her son but it sounds like she has multiple falls. -I have not spoken with the son this morning. The patient has previously been in rehab facility. May need to consider long-term care facility. -PT OT evaluation greatly be appreciated. Quality VTE Prophylaxis VTE prophylaxis: pharmacologic ordered
[2024-12-08 03:50] LABS: Hematocrit 36.6 % (37.0-47.0); Hemoglobin 11.1 g/dL (12.0-15.0); Mean Corpuscular HGB Conc 30.3 g/dl (32-36); Mean Corpuscular Hemoglobin 26.1 pg (26-34); Mean Corpuscular Volume 86.1 fl (80-100); Platelet Count Result 269 k/mm3 (150-375); Red Blood Count 4.25 M/mm3 (4.2-5.4); White Blood Count 11.9 K/mm3 (4.5-10.0)
[2024-12-08 04:03] LABS: Hemoglobin A1C 7.6 % (<5.7)
[2024-12-08 04:06] LABS: Magnesium 1.7 mg/dL (1.6-2.3)
[2024-12-08 04:09] LABS: Anion Gap 8 mmol/L (4-12); Blood Urea Nitrogen 15 mg/dL (7-17); Calcium 8.6 mg/dL (8.4-10.2); Carbon Dioxide 26 mmol/L (22-30); Chloride 97 mmol/L (98-107); Estimated CRCL calculation 53 ml/min; Estimated Glomerular Filt Rate > 60; Glucose 188 mg/dL (65-110); Potassium 3.8 mmol/L (3.4-5.0); Sodium 131 mmol/L (137-145)
[2024-12-08 05:49] VITALS: BP 144/73; PULSE 92; RESP 16; TEMP 36.3; O2SAT 100
[2024-12-08] MEDS: SODIUM CHLORIDE 0.9% IV 1,000 ML 75 ML IV CONT (07:06)
--- NOTE | 2024-12-08 07:29 | P.PNIM_ITS ---
Progress Note: A&P Assessment and Plan (1) UTI symptoms: Code(s): R39.9 - Unspecified symptoms and signs involving the genitourinary system Status: Acute Assessment and Plan: -the patient was started on Rocephin. Pending blood and urine cultures -recent urine has grown out E coli and were sensitive to Rocephin. -continue with IV fluids. 12/08: Pt reports continued dysuria -Continue abx (2) Hallucinations, visual: Code(s): R44.1 - Visual hallucinations Status: Acute Assessment and Plan: -the patient has a history of dementia. -could be related to the UTI. -head CT was found to be negative for acute abnormalities. She has chronic white matter microangiopathic changes. 12/08: None today, per nursing, pt acting up overnight but re-directable. No acute meds needed. (3) Essential (primary) hypertension: Code(s): I10 - Essential (primary) hypertension Status: Chronic Assessment and Plan: -current blood pressure 144/73, will continue to monitor. -continue with metoprolol blood pressure allows. (4) Atrial fibrillation: Qualifiers: Atrial fibrillation type: unspecified chronic Qualified Code(s): I48.20 - Chronic atrial fibrillation, unspecified Code(s): I48.91 - Unspecified atrial fibrillation Status: Chronic Assessment and Plan: -the patient is continuously in AFib. Her rate is now controlled. Her pulse is currently 98. -she is on Eliquis however the patient has had multiple falls. She is at high risk for bleeding with multiple falls. -continue with metoprolol 12/08: -Rate controlled, pt is still currently on eliquis, potentially discontinuing at discharge due to fall risk (5) Mixed hyperlipidemia: Code(s): E78.2 - Mixed hyperlipidemia Status: Chronic Assessment and Plan: -continue atorvastatin. However this could also cause some muscle weakness. May consider other alternatives. -F/u with PCP for maintenance (6) Type 2 diabetes mellitus with diabetic polyneuropathy, with long-term current use of insulin: Code(s): E11.42 - Type 2 diabetes mellitus with diabetic polyneuropathy; Z79.4 - USP (current) use of insulin Status: Acute Assessment and Plan: -Accu-Cheks AC and HS with sliding scale insulin. -check A1c. -diabetic diet. 12/08: -7.6 A1c -Continue with current regimen. F/u with PCP (7) Dementia: Qualifiers: Dementia behavioral or psychological symptom: without behavioral, psychotic, or mood disturbance or anxiety Dementia severity: unspecified severity Dementia type: unspecified type Qualified Code(s): F03.90 - Unspecified dementia, unspecified severity, without behavioral disturbance, psychotic disturbance, mood disturbance, and anxiety Code(s): F03.90 - Unspecified dementia, unspecified severity, without behavioral disturbance, psychotic disturbance, mood disturbance, and anxiety Status: Acute Assessment and Plan: -continue with [facility]. -medical care manager consult greatly be appreciated. -the patient currently lives with her son but it sounds like she has multiple falls. -I have not spoken with the son this morning. The patient has previously been i n rehab facility. May need to consider long-term care facility. -PT OT evaluation greatly be appreciated. 12/08: -Continue with PT/OT eval Plan PT/OT (probable placement), UTI tx Time Spent With Patient Time: 40 Subjective Date/time seen: 12/08/24 1045 Interval history: Pt sitting up in chair resting upon my arrival. Pt oriented but talking in ci rcles. Pt does state that she lives at home with her son, Odilon [phone]. Pt apologizes for being confused this AM, she does state that she is aware of her dementia dx. +Dysuria Review of Systems Constitutional: Constitutional: Reports as per HPI and Reports no additional constitutional complaints Eyes: Eyes: Reports as per HPI and Reports no additional eye complaints ENT: Reports system reviewed and no additional complaints, except as documented and Reports Normal hearing present Cardiovascular: Cardiovascular: Reports no additional cardiovascular complaints Respiratory: Respiratory: Reports as per HPI and Reports no additional respiratory complaints Gastrointestinal: Gastrointestinal: Reports as per HPI and Reports no additional gastrointestinal complaints Genitourinary: Genitourinary: Reports no additional female genitourinary complaints Musculoskeletal: Musculoskeletal: Reports no additional musculoskeletal complaints Integumentary/Breasts: Skin/Breast: Reports system reviewed and no additional complaints, except as docu Neurologic: Reports system reviewed and no additional complaints, except as documented and Reports Normal hearing present Psychiatric: Psychiatric: Reports no additional psychiatric complaints and Reports as per HPI Hematologic/Lymphatic: Hematologic/Lymphatic: Reports no additional hematologic/lymphatic complaints Allergic/Immunologic: Allergic/Immunologic: Reports no additional allergic/immunologic complaints Exam Const: General: cooperative, healthy appearing, comfortable, no acute distress, well developed, awake, Physically active, average body habitus and well nourished Nutritional Appearance: average body habitus and well nourished Orientation/consciousness: patient oriented x3 HENMT: Head: normal to inspection, No palpable skull fracture present, normocephalic and atraumatic Ears: hearing grossly normal bilaterally Eyes: General: appearance normal, both eyes and all related structures Alignment and Position: alignment normal Periorbital: periorbital findings normal Eyelids: eyelids normal Neck: Neck: normal visual inspection, full ROM and no lymphadenopathy Chest: Chest palpation & inspection: normal inspection of the chest Resp: Effort & Inspection: normal respiratory effort Auscultation: clear to auscultation bilaterally Cardio: Palpation: normal PMI Rate: regular rate Rhythm: abnormal rhythm irregularly irregular Heart sounds: S1 normal heart sound present and S2 normal heart sound present Peripheral pulses: Peripheral pulses 2+ throughout GI: Inspection: normal to inspection Auscultation: normal bowel sounds : General: Yes no CVA tenderness Back/Spine/Pelvis: Back: no CVA tenderness Cervical Spine: cervical ROM normal Skin: General skin exam: normal color Lesions: no lesions Rashes: no rashes Wounds: no wounds Other: Various types of bruising to bilateral knees and lower extremities as well as left breast Neuro: General: oriented to person Cranial nerves: Yes Normal hearing present Extrem: General: normal to inspection Right upper extremity: normal to inspection and shoulder/upper arm Left upper extremity: normal to inspection and shoulder/upper arm Right lower extremity: normal to inspection Left lower extremity: normal to inspection Psych: Appearance: grossly normal Mental Status: mental status grossly normal Speech and movement: Normal speech and movement present Affect: normal affect Attitude: cooperative Other: A&O x4 but choppy with her responses, unable to tell me her medications, insulin especially Objective Data Vital Signs Vital Signs: Vital Signs - 24 hr 12/07/24 13:31 12/07/24 15:38 12/07/24 15:40 Temperature 98.2 F Pulse Rate 88 93 Respiratory Rate 16 24 H Blood Pressure 103/57 L 136/74 Pulse Oximetry 97 99 Oxygen Delivery 12/07/24 15:45 12/07/24 15:55 12/07/24 16:14 Temperature Pulse Rate 95 89 105 H Respiratory Rate 19 21 H 21 H Blood Pressure 136/74 Pulse Oximetry 99 94 Oxygen Delivery 12/07/24 16:15 12/07/24 19:55 12/07/24 20:00 Temperature 97.6 F Pulse Rate 98 98 98 Respiratory Rate 18 18 18 Blood Pressure 128/60 Pulse Oximetry 97 99 99 Oxygen Delivery Room Air 12/08/24 05:49 Temperature 97.4 F L Pulse Rate 92 Respiratory Rate 16 Blood Pressure 144/73 H Pulse Oximetry 100 Oxygen Delivery Intake/Output Intake/Output: Intake & Output 12/05/24 12/06/24 12/07/24 12/08/24 23:59 23:59 23:59 23:59 Intake Total 550 200 Output Total 165 Balance 550 35 Meds/Results Medications: Active Medications Generic Name Dose Route Start Last Admin Trade Name Freq PRN Reason Stop Dose Admin Acetaminophen 500 mg 12/08/24 03:10 Acetaminophen 500 Mg Tablet PO Q6H PRN fever or pain Albuterol 2.5 mg 12/08/24 03:28 Albuterol Sulfate Neb 2.5 Mg/3 Ml Inh INHALATION Q6H PRN shortness of breath or wheezing Apixaban 5 mg 12/08/24 09:00 Apixaban 5 Mg Tablet PO Q12HR RONY Atorvastatin Calcium 10 mg 12/08/24 09:00 Atorvastatin 10 Mg Tablet PO DAILY RONY Dextrose 12.5 gm 12/07/24 18:34 Dextrose 50% 25 Gm/50 Ml Syringe IV PUSH PRN PRN Hypoglycemia Protocol Fish Oil 1 gm 12/08/24 09:00 [place] 3 Polyunsat Fatty Acids 1 Gm Cap PO BID RONY Glucagon 1 mg 12/07/24 18:34 Glucagon For Inj 1 Mg Vial IM PRN PRN Hypoglycemia Protocol Glucose 15 gm 12/07/24 18:34 Glucose Oral Gel 15 Gm Of Glucse In 37.5 Gm Tube PO PRN PRN Hypoglycemia Protocol Dextrose 1,000 mls @ 100 mls/hr 12/07/24 18:34 Dextrose 5% 1,000 Ml IVPB PRN PRN Hypoglycemia Protocol Ceftriaxone Sodium 1 gm/ 50 mls @ 100 mls/hr 12/08/24 17:00 Sodium Chloride IVPB Q24H RONY Sodium Chloride 1,000 mls @ 75 mls/hr 12/08/24 03:10 12/08/24 07:06 Normal Saline Iv IV CONT 75 mls/hr .[id number] [facility] Administration Insulin Aspart 2 - 5 units 12/08/24 08:00 Insulin Aspart (*Bkc) 100 Units/Ml SUB-Q TIDWM [facility] Protocol Melatonin 3 mg 12/08/24 03:10 Melatonin 3 Mg Tablet PO HS PRN Insomnia Memantine 5 mg 12/08/24 09:00 Memantine 5 Mg Tablet PO DAILY [facility] Metoprolol Succinate 150 mg 12/08/24 09:00 Metoprolol Succinate Ext Rel 50 Mg Tabcr PO DAILY [facility] Ondansetron HCl 4 mg 12/07/24 18:34 Ondansetron Inj 4 Mg/2 Ml Vial IV PUSH Q4H PRN Nausea Pantoprazole Sodium 40 mg 12/08/24 09:00 Pantoprazole 40 Mg Tablet PO BID [facility] Polyethylene Glycol 17 gm 12/08/24 03:10 Polyethylene Glycol 3350 17 Gm Powd.Pack PO DAILY PRN Constipation Vitamin D 125 mcg 12/08/24 09:00 Cholecalciferol (Vitamin D3) 125 Mcg (5,000 Units) Tablet PO DAILY [facility] Radiology Results: ITS Impressions Head CT 12/07/24 16:16 IMPRESSION: No acute intracranial hemorrhage or extra axial fluid collections. Chronic white matter microangiopathic changes. All CT scans at this facility are performed using low dose modulation techniques as appropriate to perform exam including the following: automated exposure control; use of iterative reconstruction technique; adjustment of the mA and/or kV according to patient size (this includes techniques or standardized protocols for targeted exams where dose is matched to indication/reason for exam). Cervical Spine CT 12/07/24 16:18 IMPRESSION: 1. Moderate cervical spondylosis. No acute osseous abnormality. Chest X-Ray 12/07/24 16:28 IMPRESSION: 1. No acute cardiopulmonary disease. Hip/Pelvis X-Ray 12/07/24 16:58 Impression: No acute fracture or malalignment. Foot X-Ray 12/07/24 16:59 IMPRESSION: 1. Mild degenerative skeletal changes including mild polyarticular osteoarthritis in the mid and forefoot and small Achilles and plantar calcaneal spurs. No acute osseous abnormality. Chest/Abdomen/Pelvis CTA 12/07/24 18:06 Impression:There is no pulmonary embolism, aortic dissection, pericardial fluid or thoracic aneurysm. No acute lung findings. Stable left healing fractures. CT abdomen and pelvis with contrast: TECHNIQUE:: Axial images of the abdomen and pelvis were obtained following infusion of 100 mL Isovue 300. Dose optimization technique was utilized. FINDINGS: The liver parenchyma is unremarkable. No intrahepatic mass or ductal dilatation is evident. The patient has had a cholecystectomy. The pancreas and spleen are normal in appearance. The adrenal glands are symmetric in size. The kidneys demonstrate symmetric uptake and excretion of contrast. Right renal cyst measures 1.6 cm. There is no solid mass. There is no hydronephrosis. Evaluation of the stomach and bowel loops are limited due to lack of oral contrast. There is no bowel obstruction or evidence of acute appendicitis. The bladder and rectum are normal. There is a 2.5 x 2 cm cystic structure in the vaginal cuff. No free intraperitoneal fluid or air is evident. There is no significant retroperitoneal lymphadenopathy. The aorta, visceral vessels and renal arteries demonstrate normal caliber and patency. The lower thoracic and lumbar vertebrae are in normal alignment. IMPRESSION: Right renal cyst measures 1.6 cm. 2.5 cm cyst in the vaginal cuff. No acute abdominal or pelvic findings. All CT scans at this facility are performed using low dose modulation techniques as appropriate to perform exam including the following: automated exposure control; use of iterative reconstruction technique; adjustment of the mA and/or kV according to patient size (this includes techniques or standardized protocols for targeted exams where dose is matched to indication/reason for exam). Labs Labs: Laboratory Results - last 24 hr 12/07/24 12/07/24 12/07/24 15:46 15:48 15:53 WBC 14.2 H RBC 4.67 Hgb 12.3 Hct 39.5 MCV 84.6 MCH 26.3 MCHC 31.1 L RDW 14.4 Plt Count 294 MPV 8.9 Immature Gran % (Auto) 0.5 Neut % (Auto) 86.2 H Lymph % (Auto) 6.5 L [place] % (Auto) 6.5 Eos % (Auto) 0.1 Baso % (Auto) 0.2 Lymph # (Auto) 0.93 [place] # (Auto) 0.9 H Eos # (Auto) 0.0 Baso # (Auto) 0.0 Abs Immat Gran (auto) 0.07 H Absolute Neuts (auto) 12.3 H Absolute Nucleated RBC 0.000 Nucleated RBC % 0.0 PT 20.1 H INR 1.8 APTT 29.7 D-Dimer 1.04 H Sodium 131 L Potassium 4.4 Chloride 94 L Carbon Dioxide 27 Anion Gap 10 BUN 19 H Creatinine 0.74 Estim Creat Clear Calc 51 Estimated GFR > 60 Glucose 216 H POC Capillary Glucose 211 H Hemoglobin A1c Lactic Acid 1.3 Calcium 9.1 Magnesium Total Bilirubin 1.1 AST 31 ALT 18 Alkaline Phosphatase 76 Ammonia < 9 L Total Creatine Kinase 259 H Troponin I < 0.012 NT-Pro-B Natriuret Pep 2380 H Total Protein 7.1 Albumin 3.8 TSH 1.630 Urine Color Yellow Urine Appearance Clear Urine pH 5.0 Ur Specific [place] 1.031 Urine Protein 1+ H Urine Glucose (UA) 3+ H Urine Ketones Trace H Ur Blood (Man) Negative Urine Nitrate Negative Urine Bilirubin Negative Urine Urobilinogen 1.0 Leukocyte Esterase Rfl 1+ H Urine RBC 0-2 Urine WBC 21-50 H Ur Squamous Epith Cells None seen Urine Bacteria 1+ H Urine Casts 0-2 Salicylates < 1.0 L Urine Opiates Screen Negative Urine Methadone Screen Negative Acetaminophen < 10 L Ur Barbiturates Screen Negative Ur Phencyclidine Scrn Negative Ur Amphetamine Screen Negative U Benzodiazepines Scrn Negative Urine Cocaine Screen Negative U Cannabinoids Screen Negative Ethyl Alcohol < 10 Influenza A (RT-PCR) Influenza B (RT-PCR) RSV (RT-PCR) SARS-CoV-2 RNA (RT-PCR) 12/07/24 12/07/24 12/08/24 17:02 20:06 03:42 WBC 11.9 H RBC 4.25 Hgb 11.1 L Hct 36.6 L MCV 86.1 MCH 26.1 MCHC 30.3 L RDW 14.6 H Plt Count 269 MPV 9.1 Immature Gran % (Auto) Neut % (Auto) Lymph % (Auto) [place] % (Auto) Eos % (Auto) Baso % (Auto) Lymph # (Auto) [place] # (Auto) Eos # (Auto) Baso # (Auto) Abs Immat Gran (auto) Absolute Neuts (auto) Absolute Nucleated RBC Nucleated RBC % PT INR APTT D-Dimer Sodium 131 L Potassium 3.8 Chloride 97 L Carbon Dioxide 26 Anion Gap 8 BUN 15 Creatinine 0.69 L Estim Creat Clear Calc 53 Estimated GFR > 60 Glucose 188 H POC Capillary Glucose 219 H Hemoglobin A1c 7.6 H Lactic Acid Calcium 8.6 Magnesium 1.7 Total Bilirubin AST ALT Alkaline Phosphatase Ammonia Total Creatine Kinase Troponin I NT-Pro-B Natriuret Pep Total Protein Albumin TSH Urine Color Urine Appearance Urine pH Ur Specific [place] Urine Protein Urine Glucose (UA) Urine Ketones Ur Blood (Man) Urine Nitrate Urine Bilirubin Urine Urobilinogen Leukocyte Esterase Rfl Urine RBC Urine WBC Ur Squamous Epith Cells Urine Bacteria Urine Casts Salicylates Urine Opiates Screen Urine Methadone Screen Acetaminophen Ur Barbiturates Screen Ur Phencyclidine Scrn Ur Amphetamine Screen U Benzodiazepines Scrn Urine Cocaine Screen U Cannabinoids Screen Ethyl Alcohol Influenza A (RT-PCR) Negative Influenza B (RT-PCR) Negative RSV (RT-PCR) Negative SARS-CoV-2 RNA (RT-PCR) Negative Quality VTE Prophylaxis VTE prophylaxis: pharmacologic ordered
[2024-12-08] MEDS: ATORVASTATIN 10 MG TABLET PO (08:08)
[2024-12-08] MEDS: APIXABAN 5 MG TABLET PO ×2 (08:08→20:44)
[2024-12-08] MEDS: MEMANTINE 5 MG TABLET PO (08:08)
[2024-12-08] MEDS: PANTOPRAZOLE 40 MG TABLET PO ×2 (08:08→16:25)
[2024-12-08] MEDS: CHOLECALCIFEROL (VITAMIN D3) 125 MCG (5,000 UNITS) TABLET PO (08:08)
[2024-12-08] MEDS: OMEGA 3 POLYUNSAT FATTY ACIDS 1 GM CAP PO ×2 (08:08→16:25)
[2024-12-08 08:09] VITALS: PULSE 96
[2024-12-08] MEDS: METOPROLOL SUCCINATE EXT REL 50 MG TABCR 150 MG PO (08:09)
[2024-12-08] MEDS: INSULIN ASPART (*BKC) 100 UNITS/ML SUB-Q ×3 (08:10→16:34)
[2024-12-08 13:54] VITALS: BP 125/65; PULSE 99; RESP 16; TEMP 36.4; O2SAT 98
[2024-12-08] MEDS: cefTRIAXone 1 GM in SODIUM CHLORIDE 0.9% IV 50 ML 100 ML IVPB (16:25)
[2024-12-08 21:07] VITALS: BP 156/82; PULSE 96; RESP 16; TEMP 36.4; O2SAT 98
[2024-12-09 05:29] LABS: Hematocrit 36.3 % (37.0-47.0); Hemoglobin 11.2 g/dL (12.0-15.0); Immature Granulocyte Percent A 0.7 % (0-0.5); Lymphocytes Absolute Auto 0.72 K/mm3 (0.9-3.2); Mean Corpuscular HGB Conc 30.9 g/dl (32-36); Mean Corpuscular Hemoglobin 26.2 pg (26-34); Mean Corpuscular Volume 85.0 fl (80-100); Nucleated Red Blood Cells Absolute Auto 0.000 K/mm3 (0.0-0.012); Nucleated Red Blood Cells Perc 0.0 % (0.0-0.2); Platelet Count Result 299 k/mm3 (150-375); Red Blood Count 4.27 M/mm3 (4.2-5.4); White Blood Count 13.8 K/mm3 (4.5-10.0)
[2024-12-09 05:43] LABS: Alanine Aminotransferase 19 U/L (6-35); Albumin Level 3.4 g/dL (3.5-5.1); Alkaline Phosphatase 90 U/L (38-126); Anion Gap 10 mmol/L (4-12); Aspartate Amino Transferase 23 U/L (14-36); Bilirubin,Total 1.1 mg/dL (0.2-1.3); Blood Urea Nitrogen 16 mg/dL (7-17); Calcium 8.1 mg/dL (8.4-10.2); Carbon Dioxide 22 mmol/L (22-30); Chloride 98 mmol/L (98-107); Estimated CRCL calculation 50 ml/min; Estimated Glomerular Filt Rate > 60; Glucose 230 mg/dL (65-110); Potassium 4.1 mmol/L (3.4-5.0); Sodium 130 mmol/L (137-145); Total Protein 6.4 g/dL (6.3-8.2)
[2024-12-09 06:00] VITALS: BP 160/74; PULSE 104; RESP 20; TEMP 36.2; O2SAT 100
[2024-12-09] MEDS: SODIUM CHLORIDE 0.9% IV 1,000 ML 75 ML IV CONT ×2 (06:52→20:35)
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
[2024-12-09 08:18] VITALS: PULSE 105
[2024-12-09] MEDS: MEMANTINE 5 MG TABLET PO (08:18)
[2024-12-09] MEDS: PANTOPRAZOLE 40 MG TABLET PO ×2 (08:18→16:57)
[2024-12-09] MEDS: METOPROLOL SUCCINATE EXT REL 50 MG TABCR 150 MG PO (08:18)
[2024-12-09] MEDS: APIXABAN 5 MG TABLET PO ×2 (08:19→20:36)
[2024-12-09] MEDS: ATORVASTATIN 10 MG TABLET PO (08:19)
[2024-12-09] MEDS: CHOLECALCIFEROL (VITAMIN D3) 125 MCG (5,000 UNITS) TABLET PO (08:19)
[2024-12-09] MEDS: OMEGA 3 POLYUNSAT FATTY ACIDS 1 GM CAP PO ×2 (08:19→16:57)
[2024-12-09] MEDS: INSULIN ASPART (*BKC) 100 UNITS/ML SUB-Q ×3 (08:20→16:57)
[2024-12-09 13:30] VITALS: BP 137/64; PULSE 100; RESP 18; TEMP 36.2; O2SAT 98
[2024-12-09] MEDS: cefTRIAXone 1 GM in SODIUM CHLORIDE 0.9% IV 50 ML 100 ML IVPB (16:56)
[2024-12-09 20:37] VITALS: BP 137/61; PULSE 96; RESP 16; TEMP 36.5; O2SAT 98
[2024-12-10 05:30] LABS: Hematocrit 34.2 % (37.0-47.0); Hemoglobin 10.3 g/dL (12.0-15.0); Immature Granulocyte Percent A 0.6 % (0-0.5); Lymphocytes Absolute Auto 0.94 K/mm3 (0.9-3.2); Mean Corpuscular HGB Conc 30.1 g/dl (32-36); Mean Corpuscular Hemoglobin 25.8 pg (26-34); Mean Corpuscular Volume 85.5 fl (80-100); Nucleated Red Blood Cells Absolute Auto 0.000 K/mm3 (0.0-0.012); Nucleated Red Blood Cells Perc 0.0 % (0.0-0.2); Platelet Count Result 278 k/mm3 (150-375); Red Blood Count 4.00 M/mm3 (4.2-5.4); White Blood Count 10.8 K/mm3 (4.5-10.0)
[2024-12-10 05:49] LABS: Alanine Aminotransferase 14 U/L (6-35); Albumin Level 3.0 g/dL (3.5-5.1); Alkaline Phosphatase 89 U/L (38-126); Anion Gap 12 mmol/L (4-12); Aspartate Amino Transferase 23 U/L (14-36); Bilirubin,Total 1.0 mg/dL (0.2-1.3); Blood Urea Nitrogen 14 mg/dL (7-17); Calcium 7.8 mg/dL (8.4-10.2); Carbon Dioxide 20 mmol/L (22-30); Chloride 98 mmol/L (98-107); Estimated CRCL calculation 58 ml/min; Estimated Glomerular Filt Rate > 60; Glucose 209 mg/dL (65-110); Potassium 4.0 mmol/L (3.4-5.0); Sodium 130 mmol/L (137-145); Total Protein 6.0 g/dL (6.3-8.2)
[2024-12-10 05:55] VITALS: BP 143/76; PULSE 109; RESP 18; TEMP 36.2; O2SAT 98
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
[2024-12-10] MEDS: MEMANTINE 5 MG TABLET PO (10:38)
[2024-12-10] MEDS: APIXABAN 5 MG TABLET PO ×2 (10:38→21:01)
[2024-12-10] MEDS: ATORVASTATIN 10 MG TABLET PO (10:38)
[2024-12-10] MEDS: CHOLECALCIFEROL (VITAMIN D3) 125 MCG (5,000 UNITS) TABLET PO (10:38)
[2024-12-10 10:39] VITALS: PULSE 99
[2024-12-10] MEDS: PANTOPRAZOLE 40 MG TABLET PO ×2 (10:39→17:38)
[2024-12-10] MEDS: METOPROLOL SUCCINATE EXT REL 50 MG TABCR 150 MG PO (10:39)
[2024-12-10] MEDS: OMEGA 3 POLYUNSAT FATTY ACIDS 1 GM CAP PO ×2 (10:39→17:38)
[2024-12-10] MEDS: INSULIN ASPART (*BKC) 100 UNITS/ML SUB-Q ×2 (12:59→17:37)
[2024-12-10 14:00] VITALS: BP 107/86; PULSE 104; RESP 18; TEMP 36.6; O2SAT 98
[2024-12-10] MEDS: ACETAMINOPHEN 500 MG TABLET PO (17:53)
[2024-12-10 20:59] VITALS: BP 142/70; PULSE 96; RESP 18; TEMP 36.6; O2SAT 100
[2024-12-10] MEDS: INSULIN GLARGINE (*BKC) 100 UNITS/ML 20 UNITS SUB-Q (21:01)
[2024-12-10 22:14] VITALS: O2SAT 99
[2024-12-11 04:02] VITALS: BP 144/80; PULSE 110; RESP 17; TEMP 36.9; O2SAT 100
[2024-12-11 05:11] LABS: Hematocrit 36.8 % (37.0-47.0); Hemoglobin 11.3 g/dL (12.0-15.0); Immature Granulocyte Percent A 0.6 % (0-0.5); Lymphocytes Absolute Auto 0.92 K/mm3 (0.9-3.2); Mean Corpuscular HGB Conc 30.7 g/dl (32-36); Mean Corpuscular Hemoglobin 26.1 pg (26-34); Mean Corpuscular Volume 85.0 fl (80-100); Nucleated Red Blood Cells Absolute Auto 0.000 K/mm3 (0.0-0.012); Nucleated Red Blood Cells Perc 0.0 % (0.0-0.2); Platelet Count Result 302 k/mm3 (150-375); Red Blood Count 4.33 M/mm3 (4.2-5.4); White Blood Count 9.8 K/mm3 (4.5-10.0)
[2024-12-11 05:22] LABS: Iron 22 ug/dL (37-170)
[2024-12-11 05:31] LABS: Percent Iron Saturation 8 % (20-50)
[2024-12-11 05:32] LABS: Alanine Aminotransferase 16 U/L (6-35); Albumin Level 3.1 g/dL (3.5-5.1); Alkaline Phosphatase 89 U/L (38-126); Anion Gap 7 mmol/L (4-12); Aspartate Amino Transferase 23 U/L (14-36); Bilirubin,Total 0.8 mg/dL (0.2-1.3); Blood Urea Nitrogen 13 mg/dL (7-17); Calcium 8.1 mg/dL (8.4-10.2); Carbon Dioxide 26 mmol/L (22-30); Chloride 98 mmol/L (98-107); Estimated CRCL calculation 58 ml/min; Estimated Glomerular Filt Rate > 60; Glucose 226 mg/dL (65-110); Potassium 3.6 mmol/L (3.4-5.0); Sodium 131 mmol/L (137-145); Total Protein 6.1 g/dL (6.3-8.2)
[2024-12-11 06:06] LABS: Thyroid Stimulating Hormone Reflex 2.380 uIU/mL (0.465-4.68)
[2024-12-11 06:44] LABS: Vitamin B12 > 1000.0 pg/mL (239-931)
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
[2024-12-11] MEDS: INSULIN ASPART (*BKC) 100 UNITS/ML SUB-Q ×3 (08:35→17:19)
[2024-12-11 08:41] VITALS: PULSE 105
[2024-12-11] MEDS: METOPROLOL SUCCINATE EXT REL 50 MG TABCR 150 MG PO (08:41)
[2024-12-11] MEDS: PANTOPRAZOLE 40 MG TABLET PO ×2 (08:41→17:19)
[2024-12-11] MEDS: MEMANTINE 5 MG TABLET PO (08:41)
[2024-12-11] MEDS: ATORVASTATIN 10 MG TABLET PO (08:41)
[2024-12-11] MEDS: APIXABAN 5 MG TABLET PO ×2 (08:41→21:11)
[2024-12-11] MEDS: OMEGA 3 POLYUNSAT FATTY ACIDS 1 GM CAP PO ×2 (08:41→17:19)
[2024-12-11] MEDS: CHOLECALCIFEROL (VITAMIN D3) 125 MCG (5,000 UNITS) TABLET PO (08:41)
[2024-12-11] MEDS: ACETAMINOPHEN 500 MG TABLET PO ×2 (08:42→21:16)
[2024-12-11 08:50] VITALS: BP 153/70; PULSE 105; O2SAT 99
[2024-12-11 14:00] VITALS: BP 136/72; PULSE 104; RESP 18; TEMP 36.3; O2SAT 98
--- NOTE | 2024-12-11 15:31 | PCSTNOTE ---
Communication Evaluation: This 79 year old female patient was admitted to [facility] on 12/08 due to a fall. She has a medical history of a TIA and dementia. The patient currently has a UTI and a communication evaluation was ordered d/t confusion and word finding difficulties. Upon entry, the patient was A&Ox4 and verbalized that she has had speech therapy before for word finding. She was agreeable to complete an evaluation this date. [facility] Mental Status Exam (UMS) was given to assess memory, attention, language, and executive functioning to determine if further speech therapy support is necessary. The patient received a score of 23 on the SLUMS, showing the most difficulty with tasks involving memory, specifically short story comprehension and repeating 5 words that were said by the speech therapist ~5 minutes previously. A score of 23 is sales representative canvas products of a mild neurocognitive disorder. Due to the findings on the SLUM, as well as the patient verbalizing this is her baseline with her diagnosis of dementia, no speech therapy services are deemed necessary at this time. Lupe Hodge NP and SAMANTHA Sullivan were notified of communication evaluation results and recommendations. Thank you for this referral.
[2024-12-11 21:11] VITALS: BP 146/85; PULSE 98; RESP 17; TEMP 36.8; O2SAT 99
[2024-12-11] MEDS: MELATONIN 3 MG TABLET PO (21:11)
[2024-12-11] MEDS: INSULIN GLARGINE (*BKC) 100 UNITS/ML 25 UNITS SUB-Q (21:15)
[2024-12-12 04:38] VITALS: BP 140/79; PULSE 97; RESP 17; TEMP 36.3; O2SAT 99
[2024-12-12 04:58] LABS: Hematocrit 38.7 % (37.0-47.0); Hemoglobin 11.7 g/dL (12.0-15.0); Immature Granulocyte Percent A 1.0 % (0-0.5); Lymphocytes Absolute Auto 1.39 K/mm3 (0.9-3.2); Mean Corpuscular HGB Conc 30.2 g/dl (32-36); Mean Corpuscular Hemoglobin 25.9 pg (26-34); Mean Corpuscular Volume 85.6 fl (80-100); Nucleated Red Blood Cells Absolute Auto 0.000 K/mm3 (0.0-0.012); Nucleated Red Blood Cells Perc 0.0 % (0.0-0.2); Platelet Count Result 296 k/mm3 (150-375); Red Blood Count 4.52 M/mm3 (4.2-5.4); White Blood Count 7.0 K/mm3 (4.5-10.0)
[2024-12-12 05:21] LABS: Alanine Aminotransferase 14 U/L (6-35); Albumin Level 3.0 g/dL (3.5-5.1); Alkaline Phosphatase 81 U/L (38-126); Anion Gap 7 mmol/L (4-12); Aspartate Amino Transferase 25 U/L (14-36); Bilirubin,Total 0.7 mg/dL (0.2-1.3); Blood Urea Nitrogen 10 mg/dL (7-17); Calcium 8.4 mg/dL (8.4-10.2); Carbon Dioxide 30 mmol/L (22-30); Chloride 97 mmol/L (98-107); Estimated CRCL calculation 55 ml/min; Estimated Glomerular Filt Rate > 60; Glucose 160 mg/dL (65-110); Potassium 3.6 mmol/L (3.4-5.0); Sodium 134 mmol/L (137-145); Total Protein 6.2 g/dL (6.3-8.2)
[2024-12-12 12:40] VITALS: PULSE 105
[2024-12-12] MEDS: ATORVASTATIN 10 MG TABLET PO (12:40)
[2024-12-12] MEDS: OMEGA 3 POLYUNSAT FATTY ACIDS 1 GM CAP PO ×2 (12:40→18:24)
[2024-12-12] MEDS: METOPROLOL SUCCINATE EXT REL 50 MG TABCR 150 MG PO (12:40)
[2024-12-12] MEDS: MEMANTINE 5 MG TABLET PO (12:41)
[2024-12-12] MEDS: PANTOPRAZOLE 40 MG TABLET PO ×2 (12:41→18:24)
[2024-12-12] MEDS: CHOLECALCIFEROL (VITAMIN D3) 125 MCG (5,000 UNITS) TABLET PO (12:41)
[2024-12-12] MEDS: APIXABAN 5 MG TABLET PO (12:41)
[2024-12-12 13:41] VITALS: BP 155/96; PULSE 95; RESP 17; TEMP 36.6; O2SAT 98
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
[2024-12-12] MEDS: INSULIN ASPART (*BKC) 100 UNITS/ML SUB-Q (18:24)
== END 2024-12-12 19:00 | DRG 696 ==
LOC: ANHED 16:08 → ANH2MED 18:54
PROVIDERS: Internal Medicine; Nurse Practitioner; Admitting Provider Family Medicine; Emergency Provider Student in an Organized Health Care Education/Training Program; PCP Family Medicine
DX: R39.89 Other symptoms and signs involving the genitourinary system (principal); I48.20 Chronic atrial fibrillation, unspecified; E87.1 Hypo-osmolality and hyponatremia; R44.0 Auditory hallucinations; R44.1 Visual hallucinations; W06.XXXA Fall from bed, initial encounter; F03.90 Unspecified dementia, unspecified severity, without behavioral disturbance, psychotic disturbance, mood disturbance, and anxiety; M15.9 Polyosteoarthritis, unspecified; M47.892 Other spondylosis, cervical region; G89.29 Other chronic pain; M05.79 Rheumatoid arthritis with rheumatoid factor of multiple sites without organ or systems involvement; H26.9 Unspecified cataract; M81.0 Age-related osteoporosis without current pathological fracture; E78.00 Pure hypercholesterolemia, unspecified; E11.42 Type 2 diabetes mellitus with diabetic polyneuropathy; E55.9 Vitamin D deficiency, unspecified; D50.9 Iron deficiency anemia, unspecified; E78.2 Mixed hyperlipidemia; R30.0 Dysuria; Z91.81 History of falling; Z20.822 Contact with and (suspected) exposure to COVID-19; E66.9 Obesity, unspecified; E11.65 Type 2 diabetes mellitus with hyperglycemia; Z68.27 Body mass index [BMI] 27.0-27.9, adult; Z86.73 Personal history of transient ischemic attack (TIA), and cerebral infarction without residual deficits; Z79.84 Long term (current) use of oral hypoglycemic drugs; Z79.4 Long term (current) use of insulin; Z79.01 Long term (current) use of anticoagulants; Z90.49 Acquired absence of other specified parts of digestive tract; Z87.891 Personal history of nicotine dependence; V49.9XXS Car occupant (driver) (passenger) injured in unspecified traffic accident, sequela; S22.42XD Multiple fractures of ribs, left side, subsequent encounter for fracture with routine healing
CPT/HCPCS: 36415; 70450; 71045; 71275; 72125; 73030; 73521; 73620; 74177; 80048; 80053; 80143; 80179; 80307; 81001; 82077; 82140; 82550; 82570; 82607; 82746; 82948; 83036; 83540; 83550; 83605; 83735; 83880; 84300; 84443; 84484; 85025; 85027; 85380; 85610; 85730; 87040; 87086; 87637; 93005; 93970; 96125; 96365; 97110; 97116; 97161; 97166; 97535; 99285; A9270; G0378; J0696; J1815; J7030; J7040; Q9967